=== PATIENT | male | born 1950 | race Caucasian/White ===

== ENCOUNTER 2021-02-07 10:38 | Observation (INO) ==
[2021-02-07 11:23] LABS: Basophils # (auto) 0.03 K/uL (0-0.2); Basophils % (auto) 0.4 %; Eosinophils # (auto) 0.08 K/uL (0-0.5); Eosinophils % (auto) 1.1 %; Hematocrit (blood only) 37.8 % (42-52); Hemoglobin 13.9 g/dL (14.0-18.0); Immature Granulocytes # (auto) 0.01 K/uL (0.00-0.02); Immature Granulocytes % (auto) 0.1 %; Lymphocytes # (auto) 1.46 K/uL (1.2-3.4); Lymphocytes % (auto) 19.7 %; Mean Corpuscular Hemoglobin 32.6 pg (25-34); Mean Corpuscular Hgb Conc 36.8 g/dL (32-36); Mean Corpuscular Volume 88.7 fL (80-100); Mean Platelet Volume 10.1 fL (7.4-10.4); Monocytes # (auto) 0.29 K/uL (0.11-0.59); Monocytes % (auto) 3.9 %; Neutrophils # (auto) 5.55 K/uL (1.4-6.5); Neutrophils % (auto) 74.8 %; Platelet Count 172 K/uL (130-400); RDW Coefficient of Variation 12.5 % (11.5-14.5); RDW Standard Deviation 39.8 fL (36.4-46.3); Red Blood Count 4.26 M/uL (4.7-6.1); White Blood Count 7.42 K/uL (4.8-10.8)
[2021-02-07] MEDS ORDERED: OPTIRAY 320 125ml IV ONE (11:26)
[2021-02-07 11:27] LABS: iSTAT Creatinine 0.8 mg/dl (0.6-1.3); iSTAT Hemoglobin 12.9 g/dl (14.0-18.0); iSTAT Ionized Calcium 1.21 mmol/l (1.12-1.32); iSTAT Potassium 4.1 mmol/L (3.3-5.0)
[2021-02-07 11:39] LABS: Alanine Aminotransferase 28 U/L (12-78); Albumin Level 3.8 gm/dl (3.4-5.0); Aspartate Aminotransferase 15 U/L (15-37); BUN Creatinine Ratio 11.5 (10-20); Blood Urea Nitrogen 12 mg/dl (7-18); Calcium 9.7 mg/dl (8.5-10.1); Carbon Dioxide 27 mmol/L (21-32); Chloride 104 mmol/L (98-107); Creatinine Clr Calc Pharmacy 74.2 ml/min; Est GFR (African American) 86.8; Est GFR (Non-African American) 74.9; Glucose 249 mg/dl (70-99); Magnesium 1.6 mg/dl (1.8-2.4); Potassium 3.9 mmol/L (3.5-5.1); Sodium 136 mmol/L (136-145)
[2021-02-07 11:44] LABS: Alkaline Phosphatase 97 U/L (45-117); Bilirubin,Total 0.6 mg/dl (0.2-1); Globulin 3.7 gm/dl (2.5-4.0); Total Protein 7.5 gm/dl (6.4-8.2); Troponin I < 0.015 ng/ml (0-0.045)
[2021-02-07 11:45] LABS: Partial Thromboplastin Time 25.2 Seconds (21.0-31.0); Prothrombin Time 10.3 Seconds (9.0-12.0)
--- NOTE | 2021-02-07 11:50 | CT Scan Report ---
CT head/brain wo con CLINICAL HISTORY: 70 years-old Male with Stroke Like Symptoms. Acute strokelike symptoms TECHNIQUE: Multiple axial CT images of the head were obtained without contrast. A dose lowering tech nique was utilized adhering to the principles of ALARA. COMPARISON: CTA head and neck of same day, head CT 01/05/2021 FINDINGS: No acute intracranial hemorrhage, midline shift, intracranial mass, hydrocephalus, territorial ischem ia or abnormal extra-axial collection. Mild age-related involutional changes. White matter hypodensit ies suggest chronic microvascular ischemic disease. Ill-defined 12 mm hypodensity of the subcortical left frontal lobe of the centrum semiovale on image 23 is new from prior. The calvarium is intact. Left optic nerve drusen. The paranasal sinuses, mastoid air cells, and middl e ear cavities are clear. IMPRESSION: 1. No acute intracranial hemorrhage, midline shift or acute territorial infarct. 2. Mild age-related involutional changes with chronic microvascular ischemic disease. 3. 12 mm ill-defined hypoattenuating focus of the subcortical centrum semiovale of the left frontal l obe is new from 01/05/2021 suspicious for an acute or subacute small infarct. ACT 112: Negative or not required by law. The above report was generated using voice recognition software. It may contain grammatical, syntax o r spelling errors. Electronically signed by: Johnathan Walker M.D. 02/07/2021 11:49 AM
--- NOTE | 2021-02-07 11:54 | Emergency Department Note ---
Impression & Plan Acute CVA (cerebrovascular accident) ED Provider Note NAME: NGA HARP AGE: 70 SEX: M : 1950 ARRIVES VIA: Walk-In INFORMANT: Patient, ED PROVIDER(S): Farzad Palomo DO CHIEF COMPLAINT: Right upper extremity weakness HPI: The patient is a 70-year-old male who presented to the emergency department for an evaluation of right upper extremity weakness. The patient has had symptoms for approximately 1 month. He was seen in our facility recently with similar complaints. At that time his work-up did not reveal source of his weakness. They did want to do an MRI but the patient could not do the MRI because of claustrophobia. He did follow-up with his primary care physician and the symptoms were thought to be secondary to a peripheral nerve issue. He denies having constant weakness and states he has had no new weakness over the last few days. 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 He is also states that he has had some lower extremity weakness on the right side as well but he states this has been ongoing and was not necessarily new. He denies having any fever or cough. He had no recent trauma. The patient states his symptoms are moderate at this time. He has no history of stroke or dysrhythmia. ROS: See above HPI for pertinent positives & negatives. A total of 10 systems reviewed and were otherwise negative. PAST MEDICAL HISTORY: See Below PAST SURGICAL HISTORY: See Below FAMILY HISTORY: See Below SOCIAL HISTORY: See Below HOME MEDICATIONS: See Below ALLERGIES: See Below VITALS: See Below PHYSICAL EXAMINATION: GENERAL: Patient is awake alert in no acute distress patient is resting comfo rtably and showing no signs of anxiety EYES: The conjunctivae are clear. The pupils are round and reactive. EARS, NOSE, MOUTH AND THROAT: The nose is without any evidence of any deformity. NECK: The neck is nontender and supple. RESPIRATORY: Normal respiratory effort is noted there is no evidence of wheezing rhonchi or rales CARDIOVASCULAR: Regular rate and rhythm noted there no murmurs rubs or gallops normal S1 normal S2. GASTROINTESTINAL: The abdomen is soft. Abdomen is nontender. MUSCULOSKELETAL/EXTREMITIES: There is no evidence of gross deformity full range of motion is noted in the hips and shoulders. SKIN: There is no obvious evidence of any rash. There are no petechiae, pallor or cyanosis noted. NEUROLOGIC: Patient is awake alert and oriented x3. Roll Capper strength appears symmetric in both upper extremities. The patient is able to hold each leg off the bed for greater than 5 seconds. MEDICAL DECISION MAKING: The patient is a 70-year-old male who presented to the emergency department for an evaluation of right upper extremity weakness. The patient appears to have been having symptoms over the course the last few weeks. He was seen in our facility initially for the symptoms. His work-up did not appear to be definitive and he was referred back to his primary care physician. He did follow-up with his primary care physician. There was some discussion about an MRI but the patient was unable to have an MRI because of claustrophobia. The patient presents emergency department today because of ongoing symptoms. It appears the symptoms may be waxing and waning but he continues to have right upper extremity weakness. I discussed the patient's laboratory and radiographic studies with him. He does appear to have changes on his CT that could be consistent with a subacute infarct. Angiography did not appear to be consistent with large vessel occlusion or finding that would be amenable to intervention. I discussed this case with the on-call [facility]. It is possible the patient would require further work-up to determine the source of this new finding on CT of the head. He was agreeable to plan. Triage Nursing notes reviewed. Prior medical records reviewed Vital Signs: reviewed and remarkable for elevated blood pressure. Differential diagnosis: Infection, dehydration, metabolic abnormality, hypo/hyperglycemia, electrolyte disturbance, anemia, hypoxia, cardiac sources, intracerebral event, toxicologic, neurologic, as well as other pathologies. ER treatment provided: See below Diagnostics interpreted by me: ECG: EKG was obtained in the emergency department. My interpretation is normal sinus rhythm at 69 bpm. There was no ectopy. LVH was noted by voltage criteria. Inferior T wave were noted. This was compared to a tracing from January 052020. No significant changes were noted. Cardiac Monitoring: An order was placed for continuous cardiac monitoring. The monitor shows a rate of 81 bpm with sinus rhythm. Laboratory studies: As stated above and show below. Imaging studies: See below Consultation(s): 1510: I discussed this case with Ne Rodriguez who is on-call for [facility]. They will evaluate the patient in the emergency department for further management. Past Med/Surg History Medical History GERD (gastroesophageal reflux disease) Surgical History History of knee surgery Social History Smoking Status: Never smoker Feels Safe at Home: Yes Allergies Allergies Allergy/AdvReac Type Severity Reaction Status Date / Time No Known Allergies Allergy Unverified 02/07/21 12:45 Home Meds Home Medications Medication Instructions Recorded Confirmed multivitamin 1 tab PO DAILY 01/05/21 02/07/21 ibuprofen [Advil] 400 mg PO Q6H PRN 02/07/21 02/07/21 Results & Data (ED) Vital Signs Vital Signs - 24 hr 02/07/21 10:42 02/07/21 10:55 02/07/21 12:00 Temperature 36.5 C Temperature Source Oral Pulse Rate 84 Pulse Rate [Left Apical] 73 73 Pulse Rhythm Regular Pulse Rhythm [Left Apical] Regular Regular Pulse Strength Normal Pulse Strength [Left Apical] Normal Normal Respiratory Rate 20 18 18 Respiratory Effort / Characteristics Non-Labored Spontaneous Non-Labored Spontaneous Non-Labored Spontaneous Respiratory Depth Normal Normal Normal Respiratory Pattern Regular Regular Regular Blood Pressure 163/92 H Blood Pressure [Left Arm] 157/84 H 152/81 H Blood Pressure Mean 115 Blood Pressure Mean [Left Arm] 108 104 Blood Pressure Position Sitting Blood Pressure Position [Left Arm] Lying Lying Pulse Oximetry 98 98 96 Oxygen Delivery Method Room Air Room Air Room Air Sepsis Recent Fever Within 48 Hours No Sepsis New/Unexplained Change in Mental Status No Sepsis Action Taken by Nursing No Action Required 02/07/21 13:00 02/07/21 13:50 Temperature Temperature Source Pulse Rate Pulse Rate [Left Apical] 72 81 Pulse Rhythm Pulse Rhythm [Left Apical] Regular Regular Pulse Strength Pulse Strength [Left Apical] Normal Normal Respiratory Rate 17 18 Respiratory Effort / Characteristics Non-Labored Spontaneous Non-Labored Spontaneous Respiratory Depth Normal Normal Respiratory Pattern Regular Blood Pressure Blood Pressure [Left Arm] 142/99 H 167/70 H Blood Pressure Mean Blood Pressure Mean [Left Arm] 113 102 Blood Pressure Position Blood Pressure Position [Left Arm] Lying Lying Pulse Oximetry 97 99 Oxygen Delivery Method Room Air Room Air Sepsis Recent Fever Within 48 Hours Sepsis New/Unexplained Change in Mental Status Sepsis Action Taken by Half-Way Medications Current Medication List: was personally reviewed by me Laboratory Data Attestation: I reviewed the patient's lab results. Result diagrams: 02/07/21 11:07 02/07/21 11:07 Lab Results 02/07/21 02/07/21 02/07/21 Range/Units 11:07 11:07 11:07 WBC 7.42 (4.8-10.8) K/uL RBC 4.26 L (4.7-6.1) M/uL Hgb 13.9 L (14.0-18.0) g/dL POC Hgb (14.0-18.0) g/dl Hct 37.8 L (42-52) % POC Hct (42-52) % MCV 88.7 (80-100) fL MCH 32.6 (25-34) pg MCHC 36.8 H (32-36) g/dL RDW Std Deviation 39.8 (36.4-46.3) fL RDW Coeff of Mateusz 12.5 (11.5-14.5) % Plt Count 172 (130-400) K/uL MPV 10.1 (7.4-10.4) fL Immature Gran % (Auto) 0.1 % Neut % (Auto) 74.8 % Lymph % (Auto) 19.7 % Grimes % (Auto) 3.9 % Eos % (Auto) 1.1 % Baso % (Auto) 0.4 % Neut # (Auto) 5.55 (1.4-6.5) K/uL Lymph # (Auto) 1.46 (1.2-3.4) K/uL Grimes # (Auto) 0.29 (0.11-0.59) K/uL Eos # (Auto) 0.08 (0-0.5) K/uL Baso # (Auto) 0.03 (0-0.2) K/uL Immature Gran # (Auto) 0.01 (0.00-0.02) K/uL PT 10.3 (9.0-12.0) Seconds INR 1.0 (0.9-1.1) APTT 25.2 (21.0-31.0) Seconds PTT Ratio 1.0 POC Sodium (135-144) mmol/L Sodium 136 (136-145) mmol/L POC Potassium (3.3-5.0) mmol/L Potassium 3.9 (3.5-5.1) mmol/L POC Chloride (101-112) mmol/L Chloride 104 (98-107) mmol/L Carbon Dioxide 27 (21-32) mmol/L POC Total CO2 (24-31) mmol/L Anion Gap 5.0 (3-11) POC Anion Gap (16-25) mmol/L POC BUN (7-18) mg/dl BUN 12 (7-18) mg/dl Creatinine 1.00 (0.6-1.4) mg/dl POC Creatinine (0.6-1.3) mg/dl Est Cr Clr Drug Dosing 74.2 ml/min Est GFR ( Amer) 86.8 Est GFR (Non-Af Amer) 74.9 BUN/Creatinine Ratio 11.5 (10-20) Glucose 249 H (70-99) mg/dl POC Glucose (other) (70-99) mg/dl Calcium 9.7 (8.5-10.1) mg/dl POC Ioniz Calcium Carlita (1.12-1.32) mmol/l Magnesium 1.6 L (1.8-2.4) mg/dl Total Bilirubin 0.6 (0.2-1) mg/dl AST 15 (15-37) U/L ALT 28 (12-78) U/L Alkaline Phosphatase 97 (45-117) U/L Troponin I < 0.015 (0-0.045) ng/ml Total Protein 7.5 (6.4-8.2) gm/dl Albumin 3.8 (3.4-5.0) gm/dl Globulin 3.7 (2.5-4.0) gm/dl Albumin/Globulin Ratio 1.0 (0.9-2) COVID-19 Eval Order SARS-CoV-2, RNA, NAAT (NEGATIVE) 02/07/21 02/07/21 02/07/21 Range/Units 11:13 13:04 13:04 WBC (4.8-10.8) K/uL RBC (4.7-6.1) M/uL Hgb (14.0-18.0) g/dL POC Hgb 12.9 L (14.0-18.0) g/dl Hct (42-52) % POC Hct 38 L (42-52) % MCV (80-100) fL MCH (25-34) pg MCHC (32-36) g/dL RDW Std Deviation (36.4-46.3) fL RDW Coeff of Mateusz (11.5-14.5) % Plt Count (130-400) K/uL MPV (7.4-10.4) fL Immature Gran % (Auto) % Neut % (Auto) % Lymph % (Auto) % Grimes % (Auto) % Eos % (Auto) % Baso % (Auto) % Neut # (Auto) (1.4-6.5) K/uL Lymph # (Auto) (1.2-3.4) K/uL Grimes # (Auto) (0.11-0.59) K/uL Eos # (Auto) (0-0.5) K/uL Baso # (Auto) (0-0.2) K/uL Immature Gran # (Auto) (0.00-0.02) K/uL PT (9.0-12.0) Seconds INR (0.9-1.1) APTT (21.0-31.0) Seconds PTT Ratio POC Sodium 137 (135-144) mmol/L Sodium (136-145) mmol/L POC Potassium 4.1 (3.3-5.0) mmol/L Potassium (3.5-5.1) mmol/L POC Chloride 100 L (101-112) mmol/L Chloride (98-107) mmol/L Carbon Dioxide (21-32) mmol/L POC Total CO2 27 (24-31) mmol/L Anion Gap (3-11) POC Anion Gap 15.0 L (16-25) mmol/L POC BUN 12 (7-18) mg/dl BUN (7-18) mg/dl Creatinine (0.6-1.4) mg/dl POC Creatinine 0.8 (0.6-1.3) mg/dl Est Cr Clr Drug Dosing ml/min Est GFR ( Amer) Est GFR (Non-Af Amer) BUN/Creatinine Ratio (10-20) Glucose (70-99) mg/dl POC Glucose (other) 251 H (70-99) mg/dl Calcium (8.5-10.1) mg/dl POC Ioniz Calcium Carlita 1.21 (1.12-1.32) mmol/l Magnesium (1.8-2.4) mg/dl Total Bilirubin (0.2-1) mg/dl AST (15-37) U/L ALT (12-78) U/L Alkaline Phosphatase (45-117) U/L Troponin I (0-0.045) ng/ml Total Protein (6.4-8.2) gm/dl Albumin (3.4-5.0) gm/dl Globulin (2.5-4.0) gm/dl Albumin/Globulin Ratio (0.9-2) COVID-19 Eval Order Covid19 [facility]Now [facility] SARS-CoV-2, RNA, NAAT NEGATIVE (NEGATIVE) Administered Medications Discontinued Medications Aspirin (Aspirin 81 Mg Chew) 324 mg PO NOW ONE Stop: 02/07/21 13:31 Last Admin: 02/07/21 13:49 Dose: 324 mg Documented by: [id number] Ioversol (Optiray 320 125ml) 120 ml IV ONCE ONE Stop: 02/07/21 11:27 Last Admin: 02/07/21 11:26 Dose: 120 ml Documented by: [id number] Imaging Data Radiologist's Impression: Patient: NGA HARP Admit Date: 02/07/21 MR#: [id number] Address1: [address] [place] [address] [address] Acct ID:[id number] Address2: Date: 1950 [facility] Zip: [place] [address] Age: 70 Location: ED Sex: M Room/Bed: Att Phy: Diagnosis: WEAKNESS ON RIGHT SIDE Elisabeth Phy: Roxanne Carver DO Service Date: 02/07/21 [facility] Phy: Interpreting Phy: Taye Walker Admit Phy: Ordering Phy: Farzad Palomo DO cc: ~ CT angio neck with con, CT angio head w con CLINICAL HISTORY: 70 years-old Male with Stroke Like Symptoms. Acute strokelike symptoms COMPARISON STUDY: Head CT of same day TECHNIQUE: Following the IV administration of 120 mL of Optiray 320, CT angiogram of the head and neck was performed from the aortic arch to the skull apex. Images are reviewed in the axial, sagittal, and coronal planes. 3-D MIPS images are created and assessed. IV contrast was administered without complication. All measurements were calculated based on NASCET criteria. A dose lowering technique was utilized adhering to the principles of ALARA. CT DOSE: 1227.10 mGy.cm FINDINGS: Atheromatous plaque of the thoracic aortic arch and proximal great vessels. Patency of the innominate and imaged subclavian arteries. Patent common carotid arteries. Mixed plaque of the carotid bulbs and proximal cervical segments of the internal carotid arteries results in less than 50% stenosis bilaterally. Additional calcified plaque is noted within the petrous, cavernous and supraclinoid segments. There is high-grade stenosis of the ophthalmic segment of the left ICA on image 99 secondary to prominent plaque. High-grade stenosis is also noted within the supraclinoid right ICA secondary to calcified plaque is seen on image 97. The middle and anterior cerebral arteries are patent. Moderate multifocal luminal narrowing involves the proximal M2 branches of the left middle cerebral artery. Codominant and widely patent vertebral arteries. The basilar and posterior cerebral arteries are patent. Cerebral venous sinuses are patent. There is no abnormal intracranial enhancement identified. Ill-defined hypodensity within the centrum semiovale of the left frontal lobe is better seen on CT had of same day. The lung apices are clear. There is no pneumothorax. Nonspecific mildly enlarged paratracheal lymph nodes measure up to 10 mm. Heterogeneous thyroid. Multilevel degenerative changes of the spine. IMPRESSION: 1. Prominent calcified plaque of the distal internal carotid arteries with resultant high-grade stenosis of the bilateral supraclinoid segments, left great er than right. 2. Atheromatous plaque of the carotid bulbs results in less than 50% stenosis bilaterally. 3. Otherwise unremarkable CTA of the head and neck. ACT 112: Negative or not required by law. The above report was generated using voice recognition software. It may contain grammatical, syntax or spelling errors. Electronically signed by: Johnathan Walker M.D. 02/07/2021 11:58 AM Dictated: 02/07/21 114 Transcribed: 02/07/21 1149 Patient: NGA HARP Admit Date: 02/07/21 MR#: [id number] Address1: [facility] [address] [facility] [address] Acct ID:[id number] Address2: Date: 1950 [facility] Zip: [place] [address] Age: 70 Location: ED Sex: M Room/Bed: Att Phy: Diagnosis: WEAKNESS ON RIGHT SIDE Elisabeth Phy: Roxanne Carver DO Service Date: 02/07/21 Fam Phy: Interpreting Phy: Taye Walker Admit Phy: Ordering Phy: Farzad Palomo DO cc: ~ CT head/brain wo con CLINICAL HISTORY: 70 years-old Male with Stroke Like Symptoms. Acute strokelike symptoms TECHNIQUE: Multiple axial CT images of the head were obtained without contrast. A dose lowering technique was utilized adhering to the principles of ALARA. COMPARISON: CTA head and neck of same day, head CT 01/05/2021 FINDINGS: No acute intracranial hemorrhage, midline shift, intracranial mass, hydrocephalus, territorial ischemia or abnormal extra-axial collection. Mild age-related involutional changes. White matter hypodensities suggest chronic microvascular ischemic disease. Ill-defined 12 mm hypodensity of the subcortical left frontal lobe of the centrum semiovale on image 23 is new from prior. The calvarium is intact. Left optic nerve drusen. The paranasal sinuses, mastoid air cells, and middle ear cavities are clear. IMPRESSION: 1. No acute intracranial hemorrhage, midline shift or acute territorial infarct. 2. Mild age-related involutional changes with chronic microvascular ischemic disease. 3. 12 mm ill-defined hypoattenuating focus of the subcortical centrum semiovale of the left frontal lobe is new from 01/05/2021 suspicious for an acute or subacute small infarct. ACT 112: Negative or not required by law. The above report was generated using voice recognition software. It may contain grammatical, syntax or spelling errors. Electronically signed by: Johnathan Walker M.D. 02/07/2021 11:49 AM Dictated: 02/07/21 1145 Transcribed: 02/07/21 1145 Patient: NGA HARP Admit Date: 02/07/21 MR#: [id number] Address1: [address] [place] [address] [address] Acct ID:[id number] Address2: Date: 1950 [facility] Zip: [place] [address] Age: 70 Location: ED Sex: M Room/Bed: Att Phy: Diagnosis: WEAKNESS ON RIGHT SIDE Elisabeth Phy: Roxanne Carver DO Service Date: 02/07/21 [facility] Phy: Interpreting Phy: Taye Walker Admit Phy: Ordering Phy: Farzad Palomo DO cc: ~ XR chest 1V portable HISTORY: 70 years-old Male Stroke Like Symptoms acute strokelike symptoms COMPARISON: CTA of the neck of same day TECHNIQUE: Portable AP view of the chest FINDINGS: Cardiomegaly. Small calcified granuloma of the left midlung. No pneumothorax, lobar airspace consolidation or overt pulmonary edema. Unchanged blunting of the right costophrenic angle. Mild interstitial coarsening, possibly on a chronic basis. Degenerative changes of the shoulders and spine. IMPRESSION: No acute process. ACT 112: Negative or not required by law. The above report was generated using voice recognition software. It may contain grammatical, syntax or spelling errors. Electronically signed by: Johnathan Walker M.D. 02/07/2021 12:27 PM Dictated: 02/07/21 1225 Transcribed: 02/07/21 1225 Discharge Plan Visit Data Chief Complaint: Weakness Stated Complaint: WEAKNESS ON RIGHT SIDE ED Provider: Farzad Palomo Discharge Problem: Acute CVA (cerebrovascular accident) Patient Disposition: Being Evaluated by Hospitalist Condition: Good Forms Stand Alone Forms: [facility] [place] Prescriptions Prescriptions: No Action multivitamin Tablet 1 tab PO DAILY RF: 0 ibuprofen [Advil] 200 mg Tablet 400 mg PO Q6H PRN (Reason: Fever Or Pain) RF: 0 Referrals Referrals: Roxanne Carver DO [Primary Care Provider] -
--- NOTE | 2021-02-07 12:00 | CT Scan Report ---
CT angio neck with con, CT angio head w con CLINICAL HISTORY: 70 years-old Male with Stroke Like Symptoms. Acute strokelike symptoms COMPARISON STUDY: Head CT of same day TECHNIQUE: Following the IV administration of 120 mL of Optiray 320, CT angiogram of the head and nec k was performed from the aortic arch to the skull apex. Images are reviewed in the axial, sagittal, a nd coronal planes. 3-D MIPS images are created and assessed. IV contrast was administered without com plication. All measurements were calculated based on NASCET criteria. A dose lowering technique was utilized adhering to the principles of ALARA. CT DOSE: 1227.10 mGy.cm FINDINGS: Atheromatous plaque of the thoracic aortic arch and proximal great vessels. Patency of the innominate and imaged subclavian arteries. Patent common carotid arteries. Mixed plaque of the caroti d bulbs and proximal cervical segments of the internal carotid arteries results in less than 50% sten osis bilaterally. Additional calcified plaque is noted within the petrous, cavernous and supraclinoid segments. There is high-grade stenosis of the ophthalmic segment of the left ICA on image 99 seconda ry to prominent plaque. High-grade stenosis is also noted within the supraclinoid right ICA secondary to calcified plaque is seen on image 97. The middle and anterior cerebral arteries are patent. Moder ate multifocal luminal narrowing involves the proximal M2 branches of the left middle cerebral artery . Codominant and widely patent vertebral arteries. The basilar and posterior cerebral arteries are pa tent. Cerebral venous sinuses are patent. There is no abnormal intracranial enhancement identified. I ll-defined hypodensity within the centrum semiovale of the left frontal lobe is better seen on CT had of same day. The lung apices are clear. There is no pneumothorax. Nonspecific mildly enlarged paratracheal lymph n odes measure up to 10 mm. Heterogeneous thyroid. Multilevel degenerative changes of the spine. IMPRESSION: 1. Prominent calcified plaque of the distal internal carotid arteries with resultant high-grade steno sis of the bilateral supraclinoid segments, left greater than right. 2. Atheromatous plaque of the carotid bulbs results in less than 50% stenosis bilaterally. 3. Otherwise unremarkable CTA of the head and neck. ACT 112: Negative or not required by law. The above report was generated using voice recognition software. It may contain grammatical, syntax o r spelling errors. Electronically signed by: Johnathan Walker M.D. 02/07/2021 11:58 AM
--- NOTE | 2021-02-07 12:17 | Electrocardiogram Report ---
Test Reason : Blood Pressure : / mmHG Vent. Rate : 069 BPM Atrial Rate : 069 BPM P-R Int : 168 ms QRS Dur : 104 ms QT Int : 406 ms P-R-T Axes : 061 -26 -10 degrees QTc Int : 435 ms Normal sinus rhythm Minimal voltage criteria for LVH, may be normal variant Otherwise Normal ECG When compared with ECG of 05-JAN-2021 12:05, No significant change was found Confirmed by Farzad Dunbar ([id number]) on 02/07/2021 12:16:50 PM Referred By: REFERRED SELF Confirmed By:Farzad Dunbar
--- NOTE | 2021-02-07 12:29 | XRay Report ---
XR chest 1V portable HISTORY: 70 years-old Male Stroke Like Symptoms acute strokelike symptoms COMPARISON: CTA of the neck of same day TECHNIQUE: Portable AP view of the chest FINDINGS: Cardiomegaly. Small calcified granuloma of the left midlung. No pneumothorax, lobar airspace consolid ation or overt pulmonary edema. Unchanged blunting of the right costophrenic angle. Mild interstitial coarsening, possibly on a chronic basis. Degenerative changes of the shoulders and spine. IMPRESSION: No acute process. ACT 112: Negative or not required by law. The above report was generated using voice recognition software. It may contain grammatical, syntax o r spelling errors. Electronically signed by: Johnathan Walker M.D. 02/07/2021 12:27 PM
[2021-02-07] MEDS ORDERED: ASPIRIN 81 MG CHEW PO ONE (13:30)
--- NOTE | 2021-02-07 13:31 | History & Physical Report ---
Date of Service February 07, 2021 Assessment & Plan (1) Acute CVA (cerebrovascular accident): This is a 70-year-old male with PMH of uncontrolled type 2 diabetes, ongoing tobacco use and other medical problems listed below who presents with right upper extremity weakness and was found to have acute CVA. Intermittent paresthesias in right upper extremity x5 weeks with developing weakness Head CT with12 mm ill-defined hypoattenuating focus of the subcortical centrum semiovale of the left frontal lobe is new from 01/05/2021 suspicious for an acute or subacute small infarct Head/neck CTA also with prominent calcified plaque of the distal internal carotid arteries with resultant high-grade stenosis of the bilateral supraclinoid segments, left > R History of significant tobacco use, uncontrolled DM, family history of stroke MRI brain attempted as outpatient but unable to complete imaging study 2/2 severe claustrophobia Given 324mg aspirin in ED Initiate baby aspirin daily and atorvastatin 40mg daily A1c 9.8 from last month Neuro checks, PT, OT, speech therapy evaluations, fasting lipid panel, echo with bubble study pending Routine neurology consult (2) Tobacco use disorder: Currently smoking 1.5-2 ppd Counseled on importance of cessation (3) Type 2 diabetes mellitus: A1c of 9.8 in Dec 2020 History of poor compliance with metformin, states he has been taking more regularly since more recent alc Glycemic consult placed for education, optimizing regimen BSG AC HS DVT Ppx: SQ heparin Code status: FULL PCP: Addy Dispo: Admitted to PCU. Discharge planning ordered. Patient seen in collaboration with Dr. Davis. Please see addendum. History of Present Illness Chief Complaint: Weakness and paresthesias of right hand Primary Care Provider: Roxanne Carver DO This is a 70-year-old male with PMH of uncontrolled type 2 diabetes, ongoing tobacco use and other medical problems listed below who presents with right upper extremity weakness. Patient first developed numbness and paresthesias of right hand at the beginning of December and was seen in our emergency department on 01/[address] head at that time abnormal patient was directed to follow-up with PCP for further evaluation. Was ordered MRI brain in outpatient setting for further stroke evaluation but patient with severe claustrophobia and did not tolerate MRI. Continued to have intermittent paresthesias of right hand that spread to right arm as well that improved after patient took aspirin or ibuprofen and applied heat. However, in the past few days, patient was unable to sign his name and felt "clumsy" when trying to use his right hand. Came to ED for further evaluation. No speaking or swallowing difficulties or weakness or paresthesias in other extremities. No difficulty with ambulation. Still able to use his right hand just not at his baseline. Quit drinking alcohol at the beginning of December when he was told his diabetes was uncontrolled. Had previously not been compliant with Metformin but is now taking daily and checking his blood sugar at home. Continues to smoke 1.5 to 2 packs/day of cigarettes. Denies any fever, chills, lightheadedness, headache, chest pain, shortness of breath, nausea, vomiting, abdominal pain, dysuria, diarrhea or constipation. Father with h/o stroke. Allergies Allergy/AdvReac Type Severity Reaction Status Date / Time No Known Allergies Allergy Unverified 02/07/21 12:45 Home Medications Medication Instructions Recorded Confirmed Type multivitamin 1 tab PO DAILY 01/05/21 02/07/21 History ibuprofen [Advil] 400 mg PO Q6H PRN 02/07/21 02/07/21 History aspirin 81 mg PO QAM #30 tab 02/08/21 Rx atorvastatin 40 mg PO QPM #30 tab 02/08/21 Rx clopidogrel [Plavix] 75 mg PO DAILY #21 tab 02/08/21 Rx glipizide 5 mg PO DAILY #2 tab 02/08/21 Rx metformin 1,000 mg PO DAILY #30 tab 02/08/21 Rx Past Med/Surg History Medical History (Updated 02/07/21 @ 18:27 by Ne Rodriguez PA-C) GERD (gastroesophageal reflux disease) Tobacco use disorder Type 2 diabetes mellitus Surgical History (Updated 02/07/21 @ 18:27 by Ne Rodriguez PA-C) History of knee surgery History of knee surgery Family History Other Stroke Social History (Updated 02/07/21 @ 18:51 by Ne Rodriguez PA-C) Smoking Status: Current every day smoker Cigarettes Per Day: 30-40; Do You Dip or Chew Tobacco: No; Tobacco Cessation Education Requested by Patient: No Hx Alcohol Use: Yes Alcohol type: beer Alcohol Intake Frequency Comment: quit 5 weeks ago Hx Substance Use: No Preferred Language: Yi Communication Ability: Effective Multineedle Shirrer Required: No Beliefs That Will Affect Care: None Current Living Situation: Alone Feels Safe at Home: Yes Assistive Devices: Cane Review of Systems Review of Systems: At least ten systems reviewed and negative except as noted in the HPI. Physical Exam Physical Exam: General Appearance: WD/WN, vitals as above, NAD, sitting up in bed, pleasant, conversing easily Head: normocephalic, atraumatic Eyes: normal inspection, PERRL, conjunctivae normal, anicteric sclerae ENT: external ear and nose normal, oropharynx normal Neck: normal visual inspection, trachea midline, no thyromegaly Respiratory: normal respiratory effort, lungs clear to auscultation, no wheeze, rales, rhonchi. No accessory muscle use Cardiovascular: regular rate, rhythm, no murmur, normal peripheral pulses, no BLE edema. Vessels: no JVD Chest: normal inspection of chest Abdomen/GI: normal bowel sounds, soft, nontender, no hepatosplenomegaly Extremities/Musculoskeletal: no cyanosis or clubbing, RUE 4/5 CRISTÓBAL, LUE, LLE, RLE 5/5 CRISTÓBAL Neurologic: PERRL, EOMI, accommodation nl, no face palsy, no dysarthria, CN's II-XI intact bilaterally and moves all extremities. R hand with slowed movements but purposeful. Sensation intact Psychiatric: A+Ox3, euthymic affect Skin: no rashes, normal color, warm/dry Results & Data Results & Data ([facility]) Vital Signs (Past 12 Hours) Vital Signs Temp Pulse Pulse Resp BP BP Pulse Ox 02/07/21 13:00 72 17 142/99 H 97 02/07/21 12:00 73 18 152/81 H 96 02/07/21 10:55 73 18 157/84 H 98 02/07/21 10:42 36.5 C 84 20 163/92 H 98 Laboratory Results Short CBC 02/07/21 Range/Units 11:07 WBC 7.42 (4.8-10.8) K/uL Hgb 13.9 L (14.0-18.0) g/dL Hct 37.8 L (42-52) % Plt Count 172 (130-400) K/uL BMP 02/07/21 11:07 Sodium 136 Potassium 3.9 Chloride 104 Carbon Dioxide 27 BUN 12 Creatinine 1.00 Glucose 249 H Calcium 9.7 Cardiac Enzymes 02/07/21 Range/Units 11:07 Troponin I < 0.015 (0-0.045) ng/ml Liver Function 02/07/21 Range/Units 11:07 Total Bilirubin 0.6 (0.2-1) mg/dl AST 15 (15-37) U/L ALT 28 (12-78) U/L Alkaline Phosphatase 97 (45-117) U/L Albumin 3.8 (3.4-5.0) gm/dl Diagnostic Findings Head CT: IMPRESSION: 1. No acute intracranial hemorrhage, midline shift or acute territorial infarct. 2. Mild age-related involutional changes with chronic microvascular ischemic disease. 3. 12 mm ill-defined hypoattenuating focus of the subcortical centrum semiovale of the left frontal lobe is new from 01/05/2021 suspicious for an acute or subacute small infarct. Head CTA: IMPRESSION: 1. Prominent calcified plaque of the distal internal carotid arteries with resultant high-grade stenosis of the bilateral supraclinoid segments, left greater than right. 2. Atheromatous plaque of the carotid bulbs results in less than 50% stenosis bilaterally. 3. Otherwise unremarkable CTA of the head and neck. Neck CTA: IMPRESSION: 1. Prominent calcified plaque of the distal internal carotid arteries with resultant high-grade stenosis of the bilateral supraclinoid segments, left greater than right. 2. Atheromatous plaque of the carotid bulbs results in less than 50% stenosis bilaterally. 3. Otherwise unremarkable CTA of the head and neck. CXR: IMPRESSION: No acute process Code Status & VTE Plan VTE Prophylaxis Plan VTE Prophylaxis will be ordered: Yes Supervising Physician Co-Signing Physician Notes Attending Addendum: care coordinated with [] please refer to her notes for full details, I agree with her notes patient seen and examined, records reviewed by myself as well on exam, patient [] no other symptoms VS noted and reviewed oriented , not in distress, speaks in sentences with no effort nor accessory muscle use normal rate, regular rhythm, no murmurs clear breath sounds bilaterally non distended, soft, nontender no bipedal edema, erythema, warmth no neuro deficits WBC Hg Crea ASSESSMENT AND PLAN other diagnoses and plan of care as per [] Aaron Davis MD
[2021-02-07] MEDS ORDERED: POLYETHYLENE (MIRALAX) 17 GM PACK PO PRN (15:32)
[2021-02-07] MEDS ORDERED: ACETAMINOPHEN 325 MG TAB PO PRN (15:32)
[2021-02-07] MEDS ORDERED: PHARMACIST DISCHARGE MED REC CONSULT PRN (15:32)
[2021-02-07] MEDS ORDERED: ONDANSETRON INJ 2 MG/ML 2 ML VIAL IV PRN (15:32)
[2021-02-07] MEDS ORDERED: PHARMACY GLYCEMIC MGMT CONSULT PRN (15:40)
[2021-02-07] MEDS ORDERED: DEXTROSE 50% 50 ML SYRINGE IV PRN (15:45)
[2021-02-07] MEDS ORDERED: CARBOHYDRATES FOR HYPOGLYCEMIA PO PRN (15:45)
[2021-02-07] MEDS ORDERED: GLUCOSE 10 TABS/TUBE PO PRN (15:45)
[2021-02-07] MEDS ORDERED: GLUCAGON FOR INJ 1 MG VIAL IM PRN (15:45)
[2021-02-07] MEDS ORDERED: GLUCOSE 40% GEL 15 GM TUBE PO PRN (15:45)
[2021-02-07] MEDS: HEPARIN SOD 5,000 UNIT/0.5 ML VIAL SQ SCH ×2 (17:43→21:21)
[2021-02-07] MEDS: INSULIN ASPART 100 UNITS/ML 3 ML PEN SC SCH ×3 (17:43→23:39)
[2021-02-07] MEDS ORDERED: INSULIN GLARGINE SOLOSTAR 100 UNITS/ML 3 ML PEN SC ONE (18:00)
[2021-02-07] MEDS ORDERED: MAGNESIUM SULFATE / D5W 1 GM/100 ML BAG IV ONE (18:45)
[2021-02-07] MEDS ORDERED: ATORVASTATIN 40 MG TAB PO SCH (21:00)
[2021-02-08] MEDS: INSULIN ASPART 100 UNITS/ML 3 ML PEN SC SCH ×3 (04:04→12:24)
[2021-02-08] MEDS: HEPARIN SOD 5,000 UNIT/0.5 ML VIAL SQ SCH ×2 (06:27→12:23)
[2021-02-08 06:50] LABS: Hematocrit (blood only) 36.3 % (42-52); Mean Corpuscular Hemoglobin 32.1 pg (25-34); Mean Corpuscular Hgb Conc 35.8 g/dL (32-36); Mean Corpuscular Volume 89.6 fL (80-100); Mean Platelet Volume 10.7 fL (7.4-10.4); Platelet Count 164 K/uL (130-400); RDW Coefficient of Variation 12.6 % (11.5-14.5); RDW Standard Deviation 40.8 fL (36.4-46.3); Red Blood Count 4.05 M/uL (4.7-6.1); White Blood Count 6.93 K/uL (4.8-10.8)
[2021-02-08 07:31] LABS: BUN Creatinine Ratio 13.5 (10-20); Calcium 8.9 mg/dl (8.5-10.1); Creatinine Clr Calc Pharmacy 98.6 ml/min; Est GFR (African American) 101.4; Est GFR (Non-African American) 87.5; Potassium 3.7 mmol/L (3.5-5.1)
[2021-02-08] MEDS ORDERED: CLOPIDOGREL BISULFATE 75 MG TAB PO SCH (09:00)
[2021-02-08] MEDS ORDERED: ASPIRIN 81 MG ECTAB PO SCH (09:00)
[2021-02-08] MEDS ORDERED: ATORVASTATIN 40 MG TAB PO SCH (09:00)
[2021-02-08] MEDS ORDERED: INSULIN GLARGINE SOLOSTAR 100 UNITS/ML 3 ML PEN SC ONE (12:00)
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
--- NOTE | 2021-02-08 13:45 | Communication Note ---
Date of Service: February 08, 2021 Addendum: I suggested that we actually give Lola Plavix loading dose in anticipation of him being discharged today, continue regular dose Plavix and low -dose aspirin for 21 days, stop the Plavix at that point, continue the aspirin, and while I doubt that this is an atrial fibrillation related issue he could have a second source of emboli and certainly has risk factors for paroxysmal atrial fibrillation so we may end up doing a Zio patch on an outpatient basis when we see him Richardson Verdin MD
[2021-02-08] MEDS ORDERED: CLOPIDOGREL BISULFATE 300 MG TAB PO STA (13:57)
--- NOTE | 2021-02-08 14:10 | Pharmacy Report ---
Pharmacy Glycemic Short Note 2 - Date of Service February 08, 2021 - Glycemic Short BSG Results (Last 24 hours): 02/07/21 02/07/21 02/07/21 16:28 20:03 23:37 Glucose POC Glucose 222 H 140 H 142 H 02/08/21 02/08/21 02/08/21 04:02 05:57 07:33 Glucose 142 H POC Glucose 147 H 152 H 02/08/21 11:31 Glucose POC Glucose 211 H OUTPATIENT ANTIDIABETIC REGIMEN: * N/A * HbA1c: 9.8% (01/05/21) ASSESSMENT: * DR is a 70 year old male who presents with acute CVA * BSG on presentation of 249 mg/dL * Patient does not take antidiabetic medications at home * Received 20 units of Lantus and 17 units of Novolog yesterday/overnight * Fasting BSG of 152 mg/dL this morning * Pre-lunch BSG of 211 mg/dL * Will tighten Novolog and give Lantus now PLAN FOR INPATIENT GLYCEMIC CONTROL: * Basal insulin * Lantus 20 units SC x 1 at lunch * Lantus scale (0-15 units) SC HS - see EHR for details * Bolus insulin * NovoLog per scale ACHS or Q6hrs while NPO * Goal Range: Low 110 mg/dL - High 140 mg/dL * Correction Factor: 15 mg/dL/unit * Nutritional / Prandial insulin per carb ratio of 1 unit per 5 grams CHO consumed PLAN FOR DISCHARGE: * tbd
--- NOTE | 2021-02-08 14:46 | Communication Note ---
Date of Service: February 08, 2021 By CMS guidelines, a determination that the admission or continued stay is not medically necessary has been made by a member of the Utilization Review comm ittee and a physician for this hospital stay. Therefore, a Code 44 will be completed and the inpatient admission will be changed to outpatient. DO Naldo UR Hammer Smith
--- NOTE | 2021-02-08 14:47 | Hospitalist Progress Note ---
Date of Service February 08, 2021 Assessment & Plan (1) Acute CVA (cerebrovascular accident): Per COLLEEN Rodriguez's notes: This is a 70-year-old male with PMH of uncontrolled type 2 diabetes, ongoing tobacco use and other medical problems listed below who presents with right upper extremity weakness and was found to have acute CVA. Intermittent paresthesias in right upper extremity x5 weeks with developing weakness Head CT with12 mm ill-defined hypoattenuating focus of the subcortical centrum semiovale of the left frontal lobe is new from 01/05/2021 suspicious for an acute or subacute small infarct Head/neck CTA also with prominent calcified plaque of the distal internal carotid arteries with resultant high-grade stenosis of the bilateral supraclinoid segments, left > R History of significant tobacco use, uncontrolled DM, family history of stroke MRI brain attempted as outpatient but unable to complete imaging study 2/2 severe claustrophobia Given 324mg aspirin in ED Initiate baby aspirin daily and atorvastatin 40mg daily A1c 9.8 from last month Neuro checks, PT, OT, speech therapy evaluations, fasting lipid panel, echo with bubble study pending Routine neurology consult 02/08/2021 Patient clinically improved Echocardiogram: No documented interatrial shunt, EF 55%, no regional wall motion abnormalities Recommendations of neurology service Dr. Verdin noted Cleared for discharge today Discharge plan: Aspirin and Plavix for 3 weeks, then aspirin only Continue Lipitor Strict diabetes type 2, hypertension, dyslipidemia control No smoking Follow-up with Dr. Verdin in 2 to 4 weeks for referral to vascular surgeon and Zio patch placement Bilateral carotid artery stenosis Seen on CT angiogram of head and neck Placed on aspirin, Plavix, Lipitor Refer to vascular surgeon for further recommendations (2) Tobacco use disorder: Currently smoking 1.5-2 ppd Counseled on importance of cessation (3) Type 2 diabetes mellitus: A1c of 9.8 in Dec 2020 Metformin transitioned to metformin ER 1000 mg p.o. daily for better adherence Follow-up as an outpatient plan of care discussed with patient in detail and at length all questions answered He is understanding, agreeable, comfortable with the plan of care Admission and Anticipated Discharge Date Admission Date: February 07, 2021 Subjective Follow-up for CVA Seen resting in bed, comfortable, in good spirits States he feels fine overall Right hand motor skills improving, can write his name better Ambulating fine No headache, dizziness, chest pain, shortness of breath, palpitations No other new neurologic symptoms States he is ready and would like to be be discharged today Review of Systems Review of Systems: All systems reviewed & are unremarkable except as noted in Subjective Physical Exam Physical Exam: General- oriented x 2, not in distress, speaks in sentences with no effort or accessory muscle use Eyes- anicteric Neck- no JVD Lungs- clear breath sounds bilaterally, no rales/wheezes Heart- normal rate, regular rhythm; no murmurs Abdomen- normal bowel sounds, nondistended, soft, nontender Extremities- no pretibial edema, no calf tenderness Neuro- alert, oriented x 3; no new gross focal neurologic deficits Skin- warm & dry Results & Data Results & Data ([facility]) Vital Signs (Past 12 Hours) Vital Signs Temp Pulse Pulse Resp BP Pulse Ox 02/08/21 07:44 36.6 C 65 17 134/81 94 02/08/21 07:20 61 02/08/21 03:56 36.9 C 67 19 108/68 96 Laboratory Results Laboratory Results - last 24 hr 02/07/21 02/07/21 02/08/21 20:03 23:37 04:02 WBC RBC Hgb Hct MCV MCH MCHC RDW Std Deviation RDW Coeff of Mateusz Plt Count MPV Sodium Potassium Chloride Carbon Dioxide Anion Gap BUN Creatinine Est Cr Clr Drug Dosing Est GFR ( Amer) Est GFR (Non-Af Amer) BUN/Creatinine Ratio Glucose POC Glucose 140 H 142 H 147 H Calcium Triglycerides Cholesterol LDL Cholesterol, Calc VLDL Cholesterol, Calc HDL Cholesterol Cholesterol/HDL Ratio 02/08/21 02/08/21 02/08/21 05:57 05:57 07:33 WBC 6.93 RBC 4.05 L Hgb 13.0 L Hct 36.3 L MCV 89.6 MCH 32.1 MCHC 35.8 RDW Std Deviation 40.8 RDW Coeff of Mateusz 12.6 Plt Count 164 MPV 10.7 H Sodium 139 Potassium 3.7 Chloride 107 Carbon Dioxide 25 Anion Gap 7.0 BUN 11 Creatinine 0.84 Est Cr Clr Drug Dosing 98.6 Est GFR ( Amer) 101.4 Est GFR (Non-Af Amer) 87.5 BUN/Creatinine Ratio 13.5 Glucose 142 H POC Glucose 152 H Calcium 8.9 Triglycerides 217 H Cholesterol 203 H LDL Cholesterol, Calc 130 VLDL Cholesterol, Calc 43 HDL Cholesterol 30 Cholesterol/HDL Ratio 7 02/08/21 11:31 WBC RBC Hgb Hct MCV MCH MCHC RDW Std Deviation RDW Coeff of Mateusz Plt Count MPV Sodium Potassium Chloride Carbon Dioxide Anion Gap BUN Creatinine Est Cr Clr Drug Dosing Est GFR ( Amer) Est GFR (Non-Af Amer) BUN/Creatinine Ratio Glucose POC Glucose 211 H Calcium Triglycerides Cholesterol LDL Cholesterol, Calc VLDL Cholesterol, Calc HDL Cholesterol Cholesterol/HDL Ratio
[2021-02-08] MEDS ORDERED: STROKE PATIENT DISCHARGE STA (15:11)
--- NOTE | 2021-02-08 15:27 | Pharmacy Report ---
Pharmacist Stroke Counseling - Date of Service February 08, 2021 - Scope: Pharmacy has been consulted to provide medication discharge counseling for this patient admitted with ischemic stroke as per the Pharmacist Discharge Counseling for Stroke Patients Protocol. - Medications on Discharge: Home Medications Medication Instructions Recorded Confirmed multivitamin 1 tab PO DAILY 01/05/21 02/07/21 New Rx's Medication Instructions Recorded aspirin 81 mg PO QAM #30 tab 02/08/21 atorvastatin 40 mg PO QPM #30 tab 02/08/21 clopidogrel [Plavix] 75 mg PO DAILY #21 tab 02/08/21 glipizide 5 mg PO DAILY #2 tab 02/08/21 metformin 1,000 mg PO DAILY #30 tab 02/08/21 - Action: The above medications, specifically ones for stroke treatment/prophylaxis, have been reviewed in detail with the patient and/or patient inside technical sales representative(s) prior to discharge. This includes indication, common adverse reactions, drug interactions, and medication administration. Medication counseling has been employed using the teach-back method to ensure understanding. - Outcome: The patient and/or patient inside technical sales representative(s) have demonstrated understanding of the medications. Additional comments: completed via telephone due to covid pandemic patient given opportunity to have all questions answered Thank you for allowing pharmacy to be involved in the care of this patient. Please call [phone] with any additional questions
[2021-02-08] MEDS ORDERED: INSULIN ASPART 100 UNITS/ML 3 ML PEN SC SCH (16:30)
[2021-02-08] MEDS ORDERED: INSULIN GLARGINE SOLOSTAR 100 UNITS/ML 3 ML PEN SC SCH (21:00)
[2021-02-09] MEDS ORDERED: INSULIN ASPART 100 UNITS/ML 3 ML PEN SC SCH (02:00)
--- NOTE | 2021-02-09 18:43 | Discharge Summary ---
Date of Service February 09, 2021 Admission HPI Per Admitting Provider This is a 70-year-old male with PMH of uncontrolled type 2 diabetes, ongoing tobacco use and other medical problems listed below who presents with right upper extremity weakness. Patient first developed numbness and paresthesias of right hand at the beginning of December and was seen in our emergency department on 01/[address] head at that time abnormal patient was directed to follow-up with PCP for further evaluation. Was ordered MRI brain in outpatient setting for further stroke evaluation but patient with severe claustrophobia and did not tolerate MRI. Continued to have intermittent paresthesias of right hand that spread to right arm as well that improved after patient took aspirin or ibuprofen and applied heat. However, in the past few days, patient was unable to sign his name and felt "clumsy" when trying to use his right hand. Came to ED for further evaluation. No speaking or swallowing difficulties or weakness or paresthesias in other extremities. No difficulty with ambulation. Still able to use his right hand just not at his baseline. Quit drinking alcohol at the beginning of December when he was told his diabetes was uncontrolled. Had previously not been compliant with Metformin but is now taking daily and checking his blood sugar at home. Continues to smoke 1.5 to 2 packs/day of cigarettes. Denies any fever, chills, lightheadedness, headache, chest pain, shortness of breath, nausea, vomiting, abdominal pain, dysuria, diarrhea or constipation. Father with h/o stroke. Admission Exam Per Admitting Provider General Appearance: WD/WN, vitals as above, NAD, sitting up in bed, pleasant, conversing easily Head: normocephalic, atraumatic Eyes: normal inspection, PERRL, conjunctivae normal, anicteric sclerae ENT: external ear and nose normal, oropharynx normal Neck: normal visual inspection, trachea midline, no thyromegaly Respiratory: normal respiratory effort, lungs clear to auscultation, no wheeze, rales, rhonchi. No accessory muscle use Cardiovascular: regular rate, rhythm, no murmur, normal peripheral pulses, no BLE edema. Vessels: no JVD Chest: normal inspection of chest Abdomen/GI: normal bowel sounds, soft, nontender, no hepatosplenomegaly Extremities/Musculoskeletal: no cyanosis or clubbing, RUE 4/5 CRISTÓBAL, LUE, LLE, RLE 5/5 CRISTÓBAL Neurologic: PERRL, EOMI, accommodation nl, no face palsy, no dysarthria, CN's II-XI intact bilaterally and moves all extremities. R hand with slowed movements but purposeful. Sensation intact Psychiatric: A+Ox3, euthymic affect Skin: no rashes, normal color, warm/dry Principal Diagnosis ACUTE CEREBROVASCULAR ACCIDENT Discharge Exam General- oriented x 2, not in distress, speaks in sentences with no effort or accessory muscle use Eyes- anicteric Neck- no JVD Lungs- clear breath sounds bilaterally, no rales/wheezes Heart- normal rate, regular rhythm; no murmurs Abdomen- normal bowel sounds, nondistended, soft, nontender Extremities- no pretibial edema, no calf tenderness Neuro- alert, oriented x 3; no new gross focal neurologic deficits Skin- warm & dry Discharge Data Allergies Allergy/AdvReac Type Severity Reaction Status Date / Time No Known Allergies Allergy Unverified 02/07/21 12:45 Consultations 02/07/21 13:14 ED Decision to Admit Stat 02/07/21 15:32 Consult Case Management - Discharge Planning Routine Consult Neurology Routine Ordered Studies 02/07/21 10:57 CT angio head w con Stat COMPARISON: CTA head and neck of same day, head CT 01/05/2021 FINDINGS: No acute intracranial hemorrhage, midline shift, intracranial mass, hydrocephalus, territorial ischemia or abnormal extra-axial collection. Mild age-related involutional changes. White matter hypodensities suggest chronic microvascular ischemic disease. Ill-defined 12 mm hypodensity of the subcortical left frontal lobe of the centrum semiovale on image 23 is new from prior. The calvarium is intact. Left optic nerve drusen. The paranasal sinuses, mastoid air cells, and middle ear cavities are clear. IMPRESSION: 1. No acute intracranial hemorrhage, midline shift or acute territorial infarct. 2. Mild age-related involutional changes with chronic microvascular ischemic disease. 3. 12 mm ill-defined hypoattenuating focus of the subcortical centrum semiovale of the left frontal lobe is new from 01/05/2021 suspicious for an acute or subacute small infarct CT angio neck with con Stat CT head/brain wo con Stat COMPARISON STUDY: Head CT of same day TECHNIQUE: Following the IV administration of 120 mL of Optiray 320, CT angiogram of the head and neck was performed from the aortic arch to the skull apex. Images are reviewed in the axial, sagittal, and coronal planes. 3-D MIPS images are created and assessed. IV contrast was administered without complication. All measurements were calculated based on NASCET criteria. A dose lowering technique was utilized adhering to the principles of ALARA. CT DOSE: 1227.10 mGy.cm FINDINGS: Atheromatous plaque of the thoracic aortic arch and proximal great vessels. Patency of the innominate and imaged subclavian arteries. Patent common carotid arteries. Mixed plaque of the carotid bulbs and proximal cervical segments of the internal carotid arteries results in less than 50% stenosis bilaterally. Additional calcified plaque is noted within the petrous, cavernous and supraclinoid segments. There is high-grade stenosis of the ophthalmic segment of the left ICA on image 99 secondary to prominent plaque. High-grade stenosis is also noted within the supraclinoid right ICA secondary to calcified plaque is seen on image 97. The middle and anterior cerebral arteries are patent. Moderate multifocal luminal narrowing involves the proximal M2 branches of the left middle cerebral artery. Codominant and widely patent vertebral ar teries. The basilar and posterior cerebral arteries are patent. Cerebral venous sinuses are patent. There is no abnormal intracranial enhancement identified. Ill-defined hypodensity within the centrum semiovale of the left frontal lobe is better seen on CT had of same day. The lung apices are clear. There is no pneumothorax. Nonspecific mildly enlarged paratracheal lymph nodes measure up to 10 mm. Heterogeneous thyroid. Multilevel degenerative changes of the spine. IMPRESSION: 1. Prominent calcified plaque of the distal internal carotid arteries with resultant high-grade stenosis of the bilateral supraclinoid segments, left greater than right. 2. Atheromatous plaque of the carotid bulbs results in less than 50% stenosis bilaterally. 3. Otherwise unremarkable CTA of the head and neck. CXR: FINDINGS: Cardiomegaly. Small calcified granuloma of the left midlung. No pneumothorax, lobar airspace consolidation or overt pulmonary edema. Unchanged blunting of the right costophrenic angle. Mild interstitial coarsening, possibly on a chronic basis. Degenerative changes of the shoulders and spine. IMPRESSION: No acute process. Hospital Course (1) Acute CVA (cerebrovascular accident): Per COLLEEN Rodriguez's notes: This is a 70-year-old male with PMH of uncontrolled type 2 diabetes, ongoing t obacco use and other medical problems listed below who presents with right upper extremity weakness and was found to have acute CVA. Intermittent paresthesias in right upper extremity x5 weeks with developing weakness Head CT with12 mm ill-defined hypoattenuating focus of the subcortical centrum semiovale of the left frontal lobe is new from 01/05/2021 suspicious for an acute or subacute small infarct Head/neck CTA also with prominent calcified plaque of the distal internal carotid arteries with resultant high-grade stenosis of the bilateral supraclinoid segments, left > R History of significant tobacco use, uncontrolled DM, family history of stroke MRI brain attempted as outpatient but unable to complete imaging study 2 severe claustrophobia Given 324mg aspirin in ED Initiate baby aspirin daily and atorvastatin 40mg daily A1c 9.8 from last month 02/08/2021 Patient clinically improved --> reports handwriting is improving Echocardiogram: No documented interatrial shunt, EF 55%, no regional wall motion abnormalities, moderate concentric LVH Recommendations of neurology service Dr. Verdin noted Cleared for discharge Discharge plan: Aspirin and Plavix for 3 weeks, then aspirin only Continue Lipitor that was started Strict diabetes type 2, hypertension, dyslipidemia control No smoking Follow-up with Dr. Verdin in 2 to 4 weeks for referral to vascular surgeon and Zio patch placement Bilateral carotid artery stenosis Seen on CT angiogram of head and neck Please refer to full report in the Ordered Studies section above Placed on aspirin, Plavix, Lipitor Refer to vascular surgeon for further recommendations (2) Tobacco use disorder: Currently smoking 1.5-2 ppd Counseled on importance of cessation (3) Type 2 diabetes mellitus: A1c of 9.8 in Dec 2020 Metformin transitioned to metformin ER 1000 mg p.o. daily for better adherence Follow-up as an outpatient plan of care discussed with patient in detail and at length all questions answered He is understanding, agreeable, comfortable with the plan of care Total Time Total Time Spent Total Time Spent (In Minutes): > 30 minutes Discharge Plan Discharge Items Patient Disposition: Home - Self-Care Reason For Visit: ACUTE-SUBACUTE L FRONTAL LOBE CVA Discharge Diagnosis: ACUTE STROKE, LEFT FRONTAL LOBE OF THE BRAIN Condition on Discharge: Good Activity: Resume your previous activity Activity Comment: GRADUALLY TOLERATED Lifting: Wait until after follow-up appointment Exercise/Sports: Wait until after follow-up appointment Driving/Machine Use: NO DRIVING UNTIL RE-EVALUATED AND ALLOWED BY PRIMARY CARE PHYSICIAN Non-emergency contact: Primary Care Provider Call non-emergency contact if: you have any medication questions and you have a fever Follow-up/Referrals: Roxanne Carver DO [Primary Care Provider] - Richardson Verdin MD [Physician] - Diet: Carb Consistent or DM2 and Heart Healthy Addtl Attending Provider Instructions: PLEASE REVIEW YOUR NEW MEDICATION LIST AND FOLLOW INSTRUCTIONS CAREFULLY. Your new medications include: Aspirin-to be taken daily indefinitely, for stroke prevention; always take with a full stomach Plavix-to be taken daily x3 weeks then stop, for stroke prevention Kessxnq-bhetjhwkifg-ltvpswuj agent for stroke prevention Hold Metformin for 2 days. Resume Metformin on February 10, 2021. This is to prevent kidney injury since you received intravenous contrast for the CAT scans. Take glipizide daily instead for 2 days then stop, and resume your Metformin. Drink plenty of water. Do not take NSAIDs such as Ibuprofen, Naproxen, etc as this can increase your risk for bleeding. Follow-up with primary care physician in 1 week. The clinic will be calling you soon for the appointment. Follow-up with [facility] neurologist Dr. Richardson Verdin in 3 to 4 weeks. Please call his office to schedule an appointment. Contact information is outlined above. You need to have outpatient occupational therapy. Your primary care physician can assist you with arranging for this. Who to Call and When: Medical Emergencies: Call 911 immediately if you experience any of the following warning signs and symptoms of Stroke: Sudden numbness or weakness of the face, arm or leg, especially on one side of the body Sudden confusion, trouble speaking or understanding Sudden trouble seeing in one or both eyes Sudden trouble walking, dizziness, loss of balance or coordination Sudden severe headache with no cause Do not delay calling 911 if you experience any warning signs or symptoms of a stroke. Delay in seeking medical attention may affect what treatments can be given to you. Risk Factors for Stroke: You can reduce your chances of stroke by working with your medical provider to adopt a healthy lifestyle. Some specific ways to lower your chance of stroke are: If you are a smoker, now is the time to stop smoking cigarettes If you are diabetic, improve the control of your blood sugars Avoid excessive amounts of alcohol Control high blood pressure Lose weight if you are overweight Be sure to lead an active lifestyle Eat a healthy diet low in salt, cholesterol and fat You should know about other risk factors for stroke that you are unable to control. These include: Age 55 years or older Male gender Certain racial groups: , or / Family History of Stroke, Mini stroke or Heart Attack Sickle Cell Disease Follow Up: It is important for you to keep your follow up appointments with your medical provider. Pending Studies at Discharge: Yes Studies:: You need to be referred to a vascular surgeon and also have a clean up worker placed. These can be arranged by the neurologist on your follow-up visit with them in 3 to 4 weeks. Stand-Alone Forms: Medications to Prevent Stroke, [employer] [facility] [employer], Smoking Cessation Medications and DC Order Prescriptions: New atorvastatin 40 mg Tablet 40 mg PO QPM Qty: 30 RF: 2 aspirin 81 mg Tablet,Delayed Release (Dr/Ec) 81 mg PO QAM Qty: 30 RF: 2 metformin 1,000 mg tablet extended release 24hr 1,000 mg PO DAILY Qty: 30 RF: 2 glipizide 5 mg tablet 5 mg PO DAILY Qty: 2 RF: 0 clopidogrel [Plavix] 75 mg tablet 75 mg PO DAILY Qty: 21 RF: 0 Continued multivitamin Tablet 1 tab PO DAILY RF: 0 Discontinued ibuprofen [Advil] 200 mg Tablet 400 mg PO Q6H PRN (Reason: Fever Or Pain) RF: 0 Discharge Orders: Discharge Order (Routine); Ordered 02/08/21 Ordered By: Aaron Davis Admission Data Admit Date/Time: 02/07/21 13:28 Attending Provider: Aaron Davis Admit Provider: Aaron Davis Primary Care Provider: Roxanne Carver Other Providers: Aaron Davis ; Richardson Verdin ; [facility] Other Interventions: Discharge Summary Assessment (RN) Last Done: 02/08/21 15:13
== END 2021-02-08 15:58 | disposition home or self-care (01) ==
LOC: ED 10:38 → INTOOBSV 13:28 → 2S 13:28

== ENCOUNTER 2022-11-14 06:12 | Inpatient (IN) ==
[2022-11-14] MEDS ORDERED: SODIUM CHLORIDE 0.9% 1000ML 1,000 ML IV ONE (07:11)
[2022-11-14] MEDS ORDERED: ACETAMINOPHEN 1,000 MG/100 ML VIAL IV STA (07:13)
[2022-11-14] MEDS ORDERED: MoRPHine SULFATE 2 MG/ML CARP IV STA (07:13)
[2022-11-14] MEDS ORDERED: ONDANSETRON INJ 2 MG/ML 2 ML VIAL IV STA (07:13)
[2022-11-14] MEDS ORDERED: PIPERACILLIN/TAZOBACTAM 4.5 GM/120 ML BAG IV ONE (07:20)
[2022-11-14 07:46] LABS: Basophils # (auto) 0.05 K/uL (0-0.2); Basophils % (auto) 0.7 %; Eosinophils # (auto) 0.04 K/uL (0-0.50); Eosinophils % (auto) 0.5 %; Hemoglobin 14.5 g/dl (14.0-18.0); Immature Granulocytes # (auto) 0.01 K/uL (0.00-0.02); Immature Granulocytes % (auto) 0.1 %; Lymphocytes # (auto) 1.17 K/uL (1.2-3.4); Lymphocytes % (auto) 15.5 %; Mean Corpuscular Hemoglobin 33.4 pg (25.0-34.0); Mean Corpuscular Hgb Conc 36.3 g/dL (32.0-36.0); Mean Corpuscular Volume 92.2 fL (80.0-100.0); Mean Platelet Volume 9.2 fL (9.4-12.4); Monocytes # (auto) 0.61 K/uL (0.24-0.82); Monocytes % (auto) 8.1 %; Neutrophils # (auto) 5.66 K/uL (1.4-6.5); Neutrophils % (auto) 75.1 %; Platelet Count 256 K/uL (130-400); RDW Standard Deviation 41.1 fL (36.4-46.3); Red Blood Count 4.34 M/uL (4.63-6.08); White Blood Count 7.54 K/ul (4.8-10.8)
--- NOTE | 2022-11-14 07:59 | XRay Report ---
XR foot LT min 3V routine CLINICAL HISTORY: L great toe infection, concern for osteo TECHNIQUE: 3 views of the left foot were obtained. Comparison: Comparison is made to left ankle radiographs 05/29/2021 FINDINGS: There is demineralization and degenerative changes of the great toe. Degenerative changes are seen. S oft tissue swelling is seen about the great toe. IMPRESSION: Demineralization about the great toe is noted. Although there is no well-defined focal erosion, there are areas of lucency which are concerning for osteomyelitis with surrounding soft tissue swelling co mpatible with cellulitis. ACT 112: Negative or not required by law. Electronically signed by: Jalil Mata M.D. 11/14/2022 7:57 AM
[2022-11-14 08:25] LABS: Albumin Globulin Ratio 1.3 (0.9-2); Albumin Level 4.4 gm/dl (3.4-5.0); BUN Creatinine Ratio 14.8 (10-20); Bilirubin,Total 0.5 mg/dl (0.2-1.0); C Reactive Protein 2.17 mg/dl (0-0.5); Calcium 9.4 mg/dl (8.5-10.1); Creatinine Clr Calc Pharmacy 86.2 ml/min; Est GFR (African American) 101.5 ml/min; Est GFR (Non-African American) 87.6 ml/min; Globulin 3.4 gm/dl (2.5-4.0); Potassium 4.7 mmol/L (3.5-5.1); Total Protein 7.8 gm/dl (6.0-8.3)
[2022-11-14] MEDS ORDERED: VANCOMYCIN HCL 1,500 MG in SODIUM CHLORIDE 0.9% 500 ML IV STA (09:34)
--- NOTE | 2022-11-14 11:17 | Discharge Summary ---
Date of Service November 14, 2022 Discharge Data Allergies Allergy/AdvReac Type Severity Reaction Status Date / Time No Known Allergies Allergy Unverified 11/14/22 07:47 Consultations 11/14/22 09:33 ED Decision to Admit Stat Discharge Plan Forms Stand Alone Forms: [facility] Prescriptions Prescriptions: No Action multivitamin Tablet 1 tab PO DAILY ascorbic acid (vitamin C) [Vitamin C] 500 mg Tablet 500 mg PO DAILY metformin 1,000 mg tablet extended release 24 hr 500 mg PO BID Rx Instructions: start on February 10, 2021 ibuprofen 200 mg PO Q8H PRN (Reason: Pain) aspirin 81 mg Tablet,Delayed Release (Dr/Ec) 81 mg PO QAM Qty: 30 2RF Rx Instructions: Always take with a full stomach Referrals Referrals: Luis Manuel Mcnally MD [Primary Care Provider] -
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
[2022-11-14] MEDS ORDERED: GABAPENTIN 400 MG CAP PO ONE (13:16)
[2022-11-14] MEDS ORDERED: GABAPENTIN 800MG ALCOHOL WITHDRAWAL LOAD PO ONE (13:16)
[2022-11-14] MEDS ORDERED: VANCOMYCIN CONSULT ACTIVE PRN (13:16)
[2022-11-14] MEDS ORDERED: GLUCAGON FOR INJ 1 MG VIAL SQ PRN (14:22)
[2022-11-14] MEDS ORDERED: GLUCOSE 40% GEL 15 GM TUBE PO PRN (14:22)
[2022-11-14] MEDS ORDERED: GLUCOSE 10 TAB/TUBE PO PRN (14:22)
[2022-11-14] MEDS ORDERED: DEXTROSE 50% 50 ML SYRINGE IV PRN (14:22)
[2022-11-14] MEDS ORDERED: CARBOHYDRATES FOR HYPOGLYCEMIA PO PRN (14:22)
[2022-11-14] MEDS ORDERED: hydrALAZINE HCL 20 MG/ML VIAL IV PRN (14:24)
[2022-11-14] MEDS ORDERED: GADOBUTROL 7.5ML VIAL IV ONE (14:27)
[2022-11-14] MEDS: PIPERACILLIN/TAZOBACTAM 4.5 GM in DEXTROSE 5% 100 ML IV SCH ×2 (15:13→22:47)
[2022-11-14] MEDS: NICOTINE 21 MG/24 HR TDSY TD SCH (16:40)
[2022-11-14] MEDS: HEPARIN SOD 5,000 UNIT/0.5 ML VIAL SQ SCH ×2 (16:40→22:44)
--- NOTE | 2022-11-14 16:42 | Pharmacy Report ---
Pharmacy PK ABX Note - Date of Service November 14, 2022 - Assessment and Plan Assessment * 72 year old M receiving Zosyn and vancomycin for treatment of diabetic foot infection and possible osteomyelitis * Pertinent microbiologic data: blood cultures pending * SCr at/near baseline Plan Vancomycin * Loading dose: 1500 mg IV x 1 * Maintenance dose: 1500 mg IV every 24 hours * Regimen is predicted to achieve target AUC/PETE of 400-600 mg/L.hr * Random level ordered for: 20 w AM labs Pharmacy will continue to follow and will adjust dose/frequency as necessary. Thank you. Pharmacy has transitioned to AUC monitoring for vancomycin. AUC/PETE is the p referred PK/PD target and is associated with decreased risk of nephrotoxicity compared to traditional trough targets.
--- NOTE | 2022-11-14 17:13 | Magnetic Resonance Report ---
MR foot LT wo/w con CLINICAL HISTORY: left great toe osteomyelitis TECHNIQUE: Multiplanar multisequence MR images of the right foot were obtained. Comparison: Comparison is made to left foot radiograph 11/14/2022 FINDINGS: Bones: There is edema in the left first digit distal phalanx compatible with osteomyelitis. Tendons: Unremarkable Soft tissue: Soft tissue edema is seen surrounding the first digit. IMPRESSION: Findings compatible with osteomyelitis of the left first digit distal phalanx with surrounding cellul itis. ACT 112: Negative or not required by law. Electronically signed by: Jalil Mata M.D. 11/14/2022 5:11 PM
[2022-11-14] MEDS: INSULIN ASPART PER UNIT SC SCH ×2 (17:29→21:53)
[2022-11-14] MEDS: GABAPENTIN 400 MG CAP PO SCH ×2 (17:30→22:47)
[2022-11-14] MEDS ORDERED: VANCOMYCIN HCL 1,000 MG in SODIUM CHLORIDE 0.9% 250 ML IV SCH (18:00)
--- NOTE | 2022-11-14 21:06 | Orthopedic Consultation ---
Date of Consultation November 14, 2022 Assessment & Plan (1) Diabetic foot ulcer with osteomyelitis: Patient seen, evaluated, and treated. X-rays and MRI reviewed with Patient. We discussed the distal phalanx osteomyelitis and removal of non viable bone and soft tissue. Surgery scheduled for Tuesday 2pm. I reviewed procedure in detail as well as postoperative recovery. I discussed expectations and patient's current weightbearing status. All questions answered. I have discussed procedure in detail as well as postoperative recovery. All potential risks, benefits, complications, alternatives, rehab, potential for incomplete relief of symptoms, need for further surgery, DVT, PE, , persistent pain, swelling, scarring, weakness, neurovascular, wound complications and potential for amputations were discussed with patient. Unwanted outcomes such as, but not limited to were reviewed including under correction, overcorrection, return of deformity, infection. All questions were answered. Patient has decided to proceed with procedure as indicated. (2) Diabetic foot ulcer associated with type 2 diabetes mellitus: History of Present Illness Attending Physician: Clarice Rubin MD History of Present Illness Patient is a 72 yo male seen at bedside this evening for a left foot ulcer. Patient past medial history includes diabetes, tobacco abuse, and alcohol abuse. Patient presented to the [facility] ED today with Left foot swelling, tenderness and erythema. Patient reports left foot pain in the past week. Patient states that the he had a small skin opening in the left big toe with some pus drainage. He notes that this morning he woke up and his Left big toe got worst and his Left foot was swelling, tender, with redness. Prior documentation notes Patient drinks about 6 beers daily every morning and smokes about one and half ppd and 2 PPD. Allergies Allergy/AdvReac Type Severity Reaction Status Date / Time No Known Allergies Allergy Unverified 11/14/22 07:47 Home Medications Medication Instructions Recorded Confirmed Type multivitamin 1 tab PO DAILY 01/05/21 11/14/22 History aspirin 81 mg tablet,delayed 81 mg PO QAM #30 tabs 02/08/21 11/14/22 Rx release ascorbic acid (vitamin C) 500 mg 500 mg PO DAILY 11/14/22 11/14/22 History tablet (Vitamin C) ibuprofen 200 mg PO Q8H PRN Pain 11/14/22 11/14/22 History metformin 1,000 mg tablet,extended 500 mg PO BID 11/14/22 11/14/22 History release 24hr Patient History Medical History GERD (gastroesophageal reflux disease) Tobacco use disorder Type 2 diabetes mellitus Surgical History (Updated 02/07/21 @ 18:27 by Ne Rodriguez PA-C) History of knee surgery History of knee surgery Family History Other Stroke Social History (Updated 11/14/22 @ 07:16 by Leslie Webb MD) Smoking Status: Current every day smoker Tobacco Type: Cigarettes Cigarettes Per Day: 36; Second Hand Exposure: Yes; Do You Dip or Chew Tobacco: No; Tobacco Cessation Education Requested by Patient: No Hx Alcohol Use: Yes Alcohol type: beer Hx Substance Use: No Preferred Language: Uzbek Communication Ability: Effective Nut Dehydrator Operator Required: No Beliefs That Will Affect Care: None Current Living Situation: Alone Other Information That Helps Us Care for You: No Feels Safe at Home: Yes Safety Concerns: Feels Safe At This Time Assistive Devices: None Review of Systems Review of Systems: All systems reviewed & are unremarkable except as noted in HPI & below Physical Exam Constitutional: WD/WN, vitals as above Respiratory: normal respiratory effort Cardiovascular: Pedal pulses palpable. Capillary refill time within normal limits. Skin: Diabetic left foot distal great toe ulcer with Eschar. Erythema limited to left hallux. Neurologic: Decreased epicritic sensation bilateral feet. Psychiatric: A+Ox3, euthymic affect Results & Data ([facility]) Vital Signs (Past 12 Hours) Vital Signs Temp Pulse Pulse Resp BP BP Pulse Ox 11/14/22 16:34 176/79 H 11/14/22 13:15 11/14/22 13:29 36.6 C 69 16 187/75 H 99 11/14/22 12:47 67 15 160/71 H 99 11/14/22 10:05 68 21 96 O2 Del Method 11/14/22 16:34 11/14/22 13:15 Room Air 11/14/22 13:29 Room Air 11/14/22 12:47 Room Air 11/14/22 10:05 Room Air Diagnostic Findings MR foot LT wo/w con CLINICAL HISTORY: left great toe osteomyelitis TECHNIQUE: Multiplanar multisequence MR images of the right foot were obtained. Comparison: Comparison is made to left foot radiograph 11/14/2022 FINDINGS: Bones: There is edema in the left first digit distal phalanx compatible with osteomyelitis. Tendons: Unremarkable Soft tissue: Soft tissue edema is seen surrounding the first digit. IMPRESSION: Findings compatible with osteomyelitis of the left first digit distal phalanx with surrounding cellulitis.
[2022-11-15] MEDS: HEPARIN SOD 5,000 UNIT/0.5 ML VIAL SQ SCH ×3 (06:11→22:34)
[2022-11-15] MEDS: PIPERACILLIN/TAZOBACTAM 4.5 GM in DEXTROSE 5% 100 ML IV SCH ×3 (06:22→22:37)
[2022-11-15] MEDS: GABAPENTIN 400 MG CAP PO SCH ×3 (06:22→22:34)
[2022-11-15 07:30] LABS: Hemoglobin 14.5 g/dl (14.0-18.0); Mean Corpuscular Hemoglobin 32.8 pg (25.0-34.0); Mean Corpuscular Hgb Conc 35.4 g/dL (32.0-36.0); Mean Corpuscular Volume 92.8 fL (80.0-100.0); Mean Platelet Volume 9.6 fL (9.4-12.4); Platelet Count 256 K/uL (130-400); RDW Coefficient of Variation 11.9 % (11.5-14.5); RDW Standard Deviation 41.1 fL (36.4-46.3); Red Blood Count 4.42 M/uL (4.63-6.08)
[2022-11-15] MEDS: MULTIVITAMIN TAB PO SCH (07:42)
[2022-11-15] MEDS: NICOTINE 21 MG/24 HR TDSY TD SCH (07:43)
[2022-11-15 07:53] LABS: BUN Creatinine Ratio 10.9 (10-20); Calcium 9.4 mg/dl (8.5-10.1); Creatinine Clr Calc Pharmacy 75.9 ml/min; Est GFR (African American) 94.6 ml/min; Est GFR (Non-African American) 81.6 ml/min; Potassium 4.6 mmol/L (3.5-5.1)
[2022-11-15] MEDS: VANCOMYCIN HCL 1,500 MG in SODIUM CHLORIDE 0.9% 500 ML IV SCH (08:42)
[2022-11-15] MEDS: INSULIN ASPART PER UNIT SC SCH ×4 (08:43→21:30)
--- NOTE | 2022-11-15 23:59 | Hospitalist Progress Note ---
Date of Service November 15, 2022 Assessment & Plan (1) Diabetic foot ulcer with osteomyelitis: (2) Ulcer of great toe: (3) Cellulitis of foot: Plan: 72 yo male with PMH of diabetes, tobacco abuse, alcohol abuse present to the ER with left great toe ulcer/Left foot swelling, tenderness and erythema. Left foot xray showed demineralization about the great toe is noted. Although there is no well-defined focal erosion, there are areas of lucency which are concerning for osteomyelitis with surrounding soft tissue swelling compatible with cellulitis. Received IV antibiotic with Zosyn and vancomycin in the ER, we will continue Blood culture collected in the ER is negative so far Podiatry on board MRI of of the left foot showed findings compatible with osteomyelitis of the left first digit distal phalanx with surrounding cellulitis. continue pain control with oxycodone Plan for surgery tomorrow by podiatry We will make n.p.o. after midnight Hyponatremia Mostly related to alcohol abuse Sodium on admission 130, last sodium noted from outpatient chart 131 Received IV fluid in the ER Sodium 136 today Continue monitor BMP Diabetes Most recent hemoglobin A1c below 7 on 04/2022 We will check hemoglobin A1c Continue to hold p.o. diabetic med while inpatient Continue insulin sliding scale Continue monitor Glucose Elevated blood pressure Possible related to hospital setting/ pain Consider to add low-dose of lisinopril if BP remains elevating Continue monitor BP Tobacco Abuse counseling on tobacco cessation Nicotine patch added Alcohol abuse Denies any history of alcohol withdrawal DT Continue alcohol withdrawal protocol with gabapentin Continue monitor closely for sign of DT or alcohol withdrawal Thiamine, and folic acid added Counseling on alcohol cessation DVT prophylaxis on heparin subcu Will hold after midnight due to upcoming procedure tomorrow at 2PM CODE STATUS full code Admission and Anticipated Discharge Date Admission Date: November 14, 2022 Subjective Patient was seen and evaluated for follow-up of left foot ulcer and cellulitis Patient said that left foot pain redness significantly improved He denies any sign of alcohol withdrawal He is looking forward to go for foot surgery tomorrow Denies any chest pain, palpitation, dizziness, shortness of breath. Review of Systems Review of Systems: All systems reviewed & are unremarkable except as noted in Subjective Physical Exam Physical Exam: General- No acute distress Head- atraumatic Eyes- PERRL, EOMI, ENT- oropharynx clear Neck- supple, no JVD Lungs- clear to auscultation Heart- regular rhythm; no murmur Abdomen- normal bowel sounds, soft, nontender Extremities- no calf tenderness, + left foot tenderness, swelling and erythema improved. +improves left big toe ulcer, swelling, erythema, Neuro- alert, oriented x 3; PERRL, EOMI; no facial palsy; no dysarthria Skin- warm & dry Results & Data Results & Data ([facility]) Vital Signs (Past 12 Hours) Vital Signs Temp Pulse Resp BP BP Pulse Ox O2 Del Method 11/15/22 19:30 Room Air 11/15/22 21:48 36.8 C 61 18 156/69 H 99 Room Air 11/15/22 16:06 152/78 H 11/15/22 14:57 64 18 180/83 H 98 Room Air
[2022-11-16] MEDS: INSULIN ASPART PER UNIT SC SCH ×4 (06:31→20:53)
[2022-11-16] MEDS: PIPERACILLIN/TAZOBACTAM 4.5 GM in DEXTROSE 5% 100 ML IV SCH ×3 (06:43→21:34)
[2022-11-16 07:03] LABS: Estimated Average Glucose 137 mg/dl; Hemoglobin A1C 6.4 % (4.5-5.6)
[2022-11-16] MEDS ORDERED: VANCOMYCIN LEVEL ONE (08:30)
[2022-11-16] MEDS: NICOTINE 21 MG/24 HR TDSY TD SCH (08:52)
[2022-11-16] MEDS: MULTIVITAMIN TAB PO SCH (08:52)
[2022-11-16] MEDS: VANCOMYCIN HCL 1,500 MG in SODIUM CHLORIDE 0.9% 500 ML IV SCH (08:59)
--- NOTE | 2022-11-16 10:59 | Pharmacy Report ---
Pharmacy PK ABX Note - Date of Service November 16, 2022 - Assessment and Plan Assessment * 72 year old M receiving Zosyn and vancomycin for treatment of diabetic foot infection and osteomyelitis * Pertinent microbiologic data: blood cultures pending * SCr at/near baseline * Today is day 3 of Vancomycin therapy. Osteomyelitis confirmed. Plan Vancomycin * Vancomycin 1500 mg IV q24h started on 11/14 resulted in random Vancomycin level = 7.2 mcg/ml today @06:01 * Predicted AUC at steady state: 413 mg/L.hr. * For Osteomyelitis, desire a target AUC closer to 600 mg/L.hr. * Changed to Vancomycin 1250 mg IV q12h. This is predicted to achieve target AUC/PETE of 400-600 mg/L.hr and possibly slightly above 600 mg/L.hr at steady state. * May need to reduce this dose in two days. * Repeat random vancomycin level ordered for: 11/18/22 Pharmacy will continue to follow and will adjust dose/frequency as necessary. Thank you. Pharmacy has transitioned to AUC monitoring for vancomycin. AUC/PETE is the preferred PK/PD target and is associated with decreased risk of nephrotoxicity compared to traditional trough targets.
[2022-11-16] MEDS: GABAPENTIN 400 MG CAP PO SCH ×2 (11:11→23:15)
--- NOTE | 2022-11-16 11:45 | Anesthesiology Consultation ---
Date of Service November 16, 2022 Assessment & Plan (1) Encounter for pre-operative examination: Chart Review Chart Review: Acceptable Risk for Surgery History Surgery Operation Date: 11/16/22 14:00 Proposed Procedures p Left Great Toe Amputation - Richardson Dorado DPM, MS Height/Weight Height: 6 ft Weight: 76.2 kg Allergies Allergy/AdvReac Type Severity Reaction Status Date / Time No Known Allergies Allergy Unverified 11/14/22 07:47 Medications Home Medications Medication Instructions Recorded Confirmed Last Taken multivitamin 1 tab PO DAILY 01/05/21 11/14/22 11/14/22 aspirin 81 mg tablet,delayed 81 mg PO QAM #30 tabs 02/08/21 11/14/22 11/14/22 release ascorbic acid (vitamin C) 500 mg 500 mg PO DAILY 11/14/22 11/14/22 Unknown tablet (Vitamin C) ibuprofen 200 mg PO Q8H PRN Pain 11/14/22 11/14/22 Unknown metformin 1,000 mg tablet,extended 500 mg PO BID 11/14/22 11/14/22 11/14/22 release 24hr Active Medications Generic Name Dose Route Start Last Admin Trade Name Freq PRN Reason Stop Dose Admin Gabapentin 400 mg 11/16/22 11:15 11/16/22 11:11 Gabapentin 400 Mg Cap PO 11/16/22 23:16 Not Given Q12H [facility] Heparin Sodium (Porcine) 5,000 units 11/14/22 14:00 11/15/22 22:34 Heparin Sod 5,000 Unit/0.5 Ml Vial SQ 12/14/22 13:59 5,000 units Q8 [facility] Administration Piperacillin Sod/Tazobactam 120 mls @ 30 mls/hr 11/14/22 14:00 11/16/22 11:01 Sod 4.5 gm/ Dextrose IV 11/21/22 13:59 Infused Q8H [facility] Infusion Protocol Vancomycin HCl 1,500 mg/ 530 mls @ 200 mls/hr 11/15/22 09:00 11/16/22 08:59 Sodium Chloride IV 11/22/22 08:59 200 mls/hr DAILY@0900 [facility] Administration Protocol Insulin Aspart 0 units 11/16/22 06:00 11/16/22 11:26 Insulin Aspart Per Unit SC 12/16/22 05:59 Not Given Q6 [facility] Miscellaneous 1 each 11/15/22 08:59 11/16/22 08:52 Remove Nicoderm Patch N/A 12/15/22 08:58 Not Given DAILY@0859 [facility] Multivitamins 1 tab 11/15/22 09:00 11/16/22 08:52 Multivitamin Tab PO 12/15/22 08:59 Not Given DAILY [facility] Nicotine 21 mg 11/14/22 16:15 11/16/22 08:52 Nicotine 21 Mg/24 Hr Tdsy TD 12/14/22 16:14 Not Given QAM [facility] Past Medical History Medical History GERD (gastroesophageal reflux disease) Tobacco use disorder Type 2 diabetes mellitus Past Family History Family History Other Stroke Past Surgical History Surgical History History of knee surgery History of knee surgery Social History Smoking Status: Current every day smoker tobacco type: cigarettes Smoking cigarettes per day: 36 Do You Dip or Chew Tobacco: No Hx Alcohol Use: Yes Alcohol type: beer alcohol intake frequency: 3 or more drinks per day Alcohol Intake Frequency Comment: "6 to 8 beers every morning" Hx Substance Use: No substance use type: does not use Physical Exam Vital Signs Last Vital Signs Temp 36.5 C 11/16/22 07:55 Pulse 61 11/16/22 07:15 Resp 16 11/16/22 07:15 BP 162/80 H 11/16/22 07:15 Pulse Ox 98 11/16/22 07:15 O2 Del Method 11/16/22 07:52 Testing Laboratory Results 11/15/22 06:42 11/15/22 06:42 Hemoglobin A1c 6.4 % (4.5-5.6) H 11/16/22 06:01 11/14/22 07:25 Aerobic Blood Culture - Preliminary Blood No growth in Aerobic bottle after 48 hours. Anaerobic Blood Culture - Preliminary No growth in Anaerobic bottle after 48 hours. 11/14/22 07:30 Aerobic Blood Culture - Preliminary Blood No growth in Aerobic bottle after 48 hours. Anaerobic Blood Culture - Preliminary No growth in Anaerobic bottle after 48 hours. 11/16/22 06:03 POC Glucose 109 H Electrocardiogram Date: 02/07/21 Findings: + NSR @ (69) Echocardiogram Date: 02/08/21 EF: 50-55% LV Function: normal Other Findings: + LVH Valvular Disease: + no significant valvular disease
--- NOTE | 2022-11-16 12:38 | Hospitalist Progress Note ---
Date of Service November 16, 2022 Assessment & Plan (1) Diabetic foot ulcer with osteomyelitis: (2) Ulcer of great toe: (3) Cellulitis of foot: Plan: 72 yo male with PMH of diabetes, tobacco abuse, alcohol abuse present to the ER with left great toe ulcer/Left foot swelling, tenderness and erythema. Left foot xray showed demineralization about the great toe is noted. Although there is no well-defined focal erosion, there are areas of lucency which are concerning for osteomyelitis with surrounding soft tissue swelling compatible with cellulitis. Received IV antibiotic with Zosyn and vancomycin in the ER, we will continue Blood culture collected in the ER is negative so far Podiatry on board MRI of of the left foot showed findings compatible with osteomyelitis of the left first digit distal phalanx with surrounding cellulitis. continue pain control with oxycodone Plan for surgery today by podiatry Keep NPO for now Hyponatremia Mostly related to alcohol abuse Sodium on admission 130, last sodium noted from outpatient chart 131 Received IV fluid in the ER Sodium 136 today Continue monitor BMP Diabetes Most recent hemoglobin A1c below 7.2 on 11/16/2022 c Continue to hold p.o. diabetic med while inpatient Continue insulin sliding scale Continue monitor Glucose Elevated blood pressure Possible related to hospital setting/ pain Consider to add low-dose of lisinopril if BP remains elevating Continue monitor BP Tobacco Abuse counseling on tobacco cessation Nicotine patch added Alcohol abuse Denies any history of alcohol withdrawal DT Continue alcohol withdrawal protocol with gabapentin Continue monitor closely for sign of DT or alcohol withdrawal Thiamine, and folic acid added Counseling on alcohol cessation DVT prophylaxis on heparin subcu that is on hold due to surgery today CODE STATUS full code Admission and Anticipated Discharge Date Admission Date: November 14, 2022 Subjective Patient was seen and evaluated for follow-up of left foot ulcer and cellulitis Sitting in chair with no acute distress watching TV He said that his hungry because his NPO for the procedure He denies any sign of alcohol withdrawal Denies any chest pain, palpitation, dizziness, shortness of breath. Review of Systems Review of Systems: All systems reviewed & are unremarkable except as noted in Subjective Physical Exam Physical Exam: General- No acute distress Head- atraumatic Eyes- PERRL, EOMI, ENT- oropharynx clear Neck- supple, no JVD Lungs- clear to auscultation Heart- regular rhythm; no murmur Abdomen- normal bowel sounds, soft, nontender Extremities- no calf tenderness, + left foot tenderness, swelling and erythema improved. +improves left big toe ulcer, swelling, erythema, Neuro- alert, oriented x 3; PERRL, EOMI; no facial palsy; no dysarthria Skin- warm & dry Results & Data Results & Data ([facility]) Vital Signs (Past 12 Hours) Vital Signs Temp Pulse Resp BP Pulse Ox O2 Del Method 11/16/22 07:55 36.5 C 11/16/22 07:52 Room Air 11/16/22 07:15 61 16 162/80 H 98 Room Air
[2022-11-16] MEDS ORDERED: MIDAZOLAM HCL 1 MG/ML 2ML VIAL ONE (12:49)
[2022-11-16] MEDS ORDERED: fentaNYL citrate 100 MCG/2 ML VIAL ONE (12:51)
[2022-11-16] MEDS ORDERED: PROPOFOL IV EMULSION 10 MG/ML 20 ML VIAL IV ONE ×2 (12:52→12:55)
[2022-11-16] MEDS ORDERED: LIDOCAINE 2% 20 MG/ML 5 ML SYR IV ONE (13:00)
--- NOTE | 2022-11-16 14:17 | History & Physical Bridge Note ---
Date of Service November 16, 2022 History & Physical Bridge Note I have examined the patient, reviewed the History & Physical and in the interval since the performance of the History & Physical I have noted the following changes of clinical significance: no changes noted
[2022-11-16] MEDS ORDERED: BUPIVACAINE 0.5 % 5 MG/1 ML MPF 30ML VIAL ONE (14:49)
[2022-11-16] MEDS ORDERED: ATROPINE SULFATE 0.1 MG/ML 10ML SYR IV PRN (15:16)
[2022-11-16] MEDS ORDERED: fentaNYL citrate 100 MCG/2 ML VIAL IV PRN (15:16)
[2022-11-16] MEDS ORDERED: LABETALOL HCL IV 5 MG/ML 20ML IV PRN (15:16)
[2022-11-16] MEDS ORDERED: ONDANSETRON INJ 2 MG/ML 2 ML VIAL IV PRN (15:16)
--- NOTE | 2022-11-16 15:28 | Post Operative Brief Note ---
Immediate Post Op Note v1 Date of Surgery November 16, 2022 Pre & Post Diagnosis Operation Date: 11/16/22 14:00 Pre-Op Diagnosis: Left great toe infection, foot cellulitis. Post-Op Diagnosis: Left great toe infection, foot cellulitis. I identified the patient and participated in the time-out.: Yes Procedure Operation Date: 11/16/22 14:00 Actual Procedures p Left Great Toe Amputation(Left) - Richardson Dorado DPM, MS Surgeon Richardson Dorado DPM, MS Punch Card Operator None Estimated Blood Loss 5 Findings Consistent with Post-Op Diagnosis None
--- NOTE | 2022-11-16 15:45 | Anesthesiology Progress Note ---
Date of Service November 16, 2022 Anesthesia Post Procedure Vital Signs Vital Signs: Temp Pulse Pulse Resp BP BP Pulse Ox 11/16/22 15:35 57 L 13 158/57 H 97 11/16/22 15:27 97.2 F L 56 L 19 138/68 97 11/16/22 13:32 98.1 F 60 20 188/95 H 100 11/16/22 07:55 97.7 F 11/16/22 07:52 11/16/22 07:15 61 16 162/80 H 98 11/15/22 19:30 11/15/22 21:48 98.2 F 61 18 156/69 H 99 11/15/22 16:06 152/78 H O2 Del Method 11/16/22 15:35 Room Air 11/16/22 15:27 Room Air 11/16/22 13:32 Room Air 11/16/22 07:55 11/16/22 07:52 Room Air 11/16/22 07:15 Room Air 11/15/22 19:30 Room Air 11/15/22 21:48 Room Air 11/15/22 16:06 Pain Intensity Left Foot: Pain Intensity: 3 Transfer of Care Handoff Completed per policy Notes Mental Status: alert / awake / arousable and participated in evaluation Patient Amnestic to Procedure: Yes Nausea / Vomiting: adequately controlled Pain: adequately controlled Airway Patency, RR, SpO2: stable & adequate BP & HR: stable & adequate Hydration State: stable & adequate Anesthetic Complications: no major complications apparent and Pt Satisfied with anesthetic care
--- NOTE | 2022-11-16 17:53 | Operative Report ---
Post Operative Report Pre & Post Diagnosis Operation Date: 11/16/22 14:00 Pre-Op Diagnosis: Left great toe infection, foot cellulitis. Post-Op Diagnosis: Left great toe infection, foot cellulitis. I identified the patient and participated in the time-out.: Yes Procedure Operation Date: 11/16/22 14:00 Actual Procedures p Left Great Toe Amputation(Left) - Richardson Dorado DPM, MS Surgeon Richardson Dorado DPM, MS Warehouse Analyst None Estimated Blood Loss 5 Findings Consistent with Post-Op Diagnosis None Specimens 1.) Left hallux - Pathology 2.) Left hallux - Microbiology Description of Procedure History of present illness: Patient is a 72 year old male who is seen for treatment of osteomyelitis of the left great toe. Patient requests surgical care. Patient relates minimal discomfort. All questions answered. Discussed procedure in detail and postoperative recovery. All potential risks, benefits, complications, alternatives, rehab, potential for incomplete relief of symptoms, need for further surgery, DVT, PE, , persistent pain, swelling, scarring, weakness, neurovascular, wound complications and potential for amputations were discussed with patient. Unwanted outcomes such as, but not limited to were reviewed including under correction, overcorrection, return of deformity, infection. All questions were answered. Patient has decided to proceed with procedure as indicated. Preoperative diagnosis: Ulcer osteomyelitis left first toe Postoperative diagnosis: same Name of operation: Amputation left great toe Surgeon Dr. Dorado Warehouse Analyst: None Anesthesia: local with monitored anesthesia care Hemostasis: pneumatic ankle tourniquet Estimated blood loss: minimal Procedure in detail: Under mild sedation the patient was brought in the operating room placed on the operating table in supine position. A pneumatic ankle tourniquet was then placed about the patient's left ankle. Following IV sedation local anesthesia was obtained about the left utilizing 10 cc of a one-to-one mixture of 1% lidocaine plain and 0.5% Marcaine plain. The foot was then prepped scrubbed and draped in usual aseptic manner. An Esmarch bandage was utilized to exsanguinate the patient's left foot and the pneumatic ankle tourniquet was then inflated. Attention was then directed to a nonhealing diabetic ulcer on the left metatarsal where a diabetic foot ulcer is present and probes to bone. A fishmouth incision was created utilizing a sharp, sterile, #15 blade. The incision which was deepened through subcutaneous tissue using sharp blunt dissection. Care was taken to identify and retract all vital neurovascular structures. All bleeders were ligated and cauterized necessary. The great toe was disarticulated at the metatarsal phalangeal joint. At this time the left hallux was removed with a portion of the osteomyelitic distal phalanx and placed on the back table. The remainder of the left hallux was sent to pathology. Copious amounts of sterile normal saline were utilized to flush the incision site. The skin was then primarily closed utilizing 3-0 nylon in horizontal suture mattress techniques as well as simple suture closure. Upon completion of the procedure the incision was dressed with Betadine soaked Adaptic followed by sterile compressive dressing consisting of 4 x 4's Charito Kerlix ABD the pneumatic ankle tourniquet was inflated and a prompt hyperemic response was noted to all digits of the left foot. The Patient tolerated the procedure and anesthesia well. He was transferred to recovery room vital signs stable. Following postoperative monitoring the patient will be re-admitted to the floor with all pre operative orders resumed. Please contact Dr. Dorado for all postoperative care if any problems arise . I attest to the content of the Intraoperative Record and any orders documented therein. Any exceptions are noted below.
[2022-11-16] MEDS: oxyCODONE HCL IR 5 MG TAB (IMMEDIATE RELEASE) PO PRN ×2 (18:42→23:17)
[2022-11-16] MEDS: VANCOMYCIN HCL 1,250 MG in SODIUM CHLORIDE 0.9% 250 ML IV SCH (20:17)
[2022-11-16] MEDS: HEPARIN SOD 5,000 UNIT/0.5 ML VIAL SQ SCH (21:35)
[2022-11-17] MEDS: PIPERACILLIN/TAZOBACTAM 4.5 GM in DEXTROSE 5% 100 ML IV SCH ×3 (05:14→21:12)
[2022-11-17] MEDS: HEPARIN SOD 5,000 UNIT/0.5 ML VIAL SQ SCH ×3 (05:15→21:24)
[2022-11-17] MEDS: oxyCODONE HCL IR 5 MG TAB (IMMEDIATE RELEASE) PO PRN ×3 (05:22→21:12)
[2022-11-17 08:13] LABS: Hematocrit (blood only) 37.6 % (40.1-51.0); Mean Corpuscular Hemoglobin 32.7 pg (25.0-34.0); Mean Corpuscular Hgb Conc 34.6 g/dL (32.0-36.0); Mean Corpuscular Volume 94.7 fL (80.0-100.0); Mean Platelet Volume 9.2 fL (9.4-12.4); Platelet Count 227 K/uL (130-400); RDW Coefficient of Variation 12.1 % (11.5-14.5); RDW Standard Deviation 42.4 fL (36.4-46.3); Red Blood Count 3.97 M/uL (4.63-6.08); White Blood Count 6.57 K/ul (4.8-10.8)
[2022-11-17] MEDS: MULTIVITAMIN TAB PO SCH (08:14)
[2022-11-17] MEDS: VANCOMYCIN HCL 1,250 MG in SODIUM CHLORIDE 0.9% 250 ML IV SCH ×2 (08:14→21:13)
[2022-11-17] MEDS: NICOTINE 21 MG/24 HR TDSY TD SCH (08:15)
[2022-11-17 08:31] LABS: BUN Creatinine Ratio 9.5 (10-20); Calcium 8.7 mg/dl (8.5-10.1); Creatinine Clr Calc Pharmacy 66.5 ml/min; Est GFR (African American) 80.7 ml/min; Est GFR (Non-African American) 69.6 ml/min; Potassium 4.1 mmol/L (3.5-5.1)
[2022-11-17] MEDS: INSULIN ASPART PER UNIT SC SCH ×4 (08:44→21:24)
--- NOTE | 2022-11-17 14:02 | Hospitalist Progress Note ---
Date of Service November 17, 2022 Assessment & Plan (1) Diabetic foot ulcer with osteomyelitis: Plan: Status post left great toe amputation on 11/16/2022 (2) Ulcer of great toe: (3) Cellulitis of foot: Plan: 72 yo male with PMH of diabetes, tobacco abuse, alcohol abuse present to the ER with left great toe ulcer/Left foot swelling, tenderness and erythema. Left foot xray showed demineralization about the great toe is noted. Although there is no well-defined focal erosion, there are areas of lucency which are concerning for osteomyelitis with surrounding soft tissue swelling compatible with cellulitis. Received IV antibiotic with Zosyn and vancomycin in the ER, we will continue Blood culture collected in the ER is negative so far MRI of of the left foot showed findings compatible with osteomyelitis of the left first digit distal phalanx with surrounding cellulitis. continue pain control with oxycodone Status post left great toe amputation on 11/16/2022 Complains pain in the left foot but otherwise is stable Will get ID input and recommendation for choice of antibiotic and duration Hyponatremia Mostly related to alcohol abuse Sodium on admission 130, last sodium noted from outpatient chart 131 Received IV fluid in the ER Sodium 136 today Continue monitor BMP Diabetes Most recent hemoglobin A1c below 7.2 on 11/16/2022 c Continue to hold p.o. diabetic med while inpatient Continue insulin sliding scale Continue monitor Glucose -remains stable so far Elevated blood pressure Possible related to hospital setting/ pain Consider to add low-dose of lisinopril if BP remains elevating Continue monitor BP-remains on the upper side at 165/78 Tobacco Abuse counseling on tobacco cessation Nicotine patch added Alcohol abuse Denies any history of alcohol withdrawal DT Continue alcohol withdrawal protocol with gabapentin Continue monitor closely for sign of DT or alcohol withdrawal Thiamine, and folic acid added Counseling on alcohol cessation DVT prophylaxis on heparin subcu that is on hold due to surgery today CODE STATUS full code Admission and Anticipated Discharge Date Admission Date: November 14, 2022 Subjective 11/17/2022 The patient was seen and examined in medical floor He is status post left great toe amputation on 11/16/2022 Still has the pain in the left foot Denies any other significant symptoms Review of Systems Review of Systems: All systems reviewed and are unremarkable except as noted below Physical Exam Physical Exam: Lying in bed comfortable Constitutional: well developed, well nourished and average body habitus; not ill appearing Eyes: PERRL, conjunctivae normal, anicteric sclerae ENMT: external ear and nose normal, oropharynx normal Neck: trachea midline, no thyromegaly Respiratory: no respiratory distress Auscultation: lungs clear to auscultation bilaterally Cardiovascular: Rate/Rhythm: regular rate and regular rhythm; not tachycardic Heart Sounds: normal S1 and normal S2; no murmur Extremities: no edema (Left foot is bandaged) Gastrointestinal (Abdomen): Inspection/Auscultation: normal bowel sounds; abdomen not distended Percussion/Palpation: abdomen soft; abdomen nontender Musculoskeletal: Left foot is painful with movement of the ankle Neurologic: Alert, awake and oriented x3. No focal sensory or no motor deficit appreciated Lymphatic: no cervical or axillary lymphadenopathy Results & Data Results & Data ([facility]) Vital Signs (Past 12 Hours) Vital Signs Temp Pulse Resp BP Pulse Ox O2 Del Method 11/17/22 07:21 36.5 C 74 16 165/78 H 97 Room Air 11/17/22 07:16 Room Air Laboratory Results Short CBC 11/17/22 Range/Units 07:42 WBC 6.57 (4.8-10.8) K/ul Hgb 13.0 L (14.0-18.0) g/dl Hct 37.6 L (40.1-51.0) % Plt Count 227 (130-400) K/uL BMP 11/17/22 07:42 Sodium 134 L Potassium 4.1 Chloride 99 Carbon Dioxide 30 BUN 10 Creatinine 1.05 Glucose 135 H Calcium 8.7 Medications Administered Current Inpatient Medications Dextrose (Dextrose 50% 50 Ml Syringe) 25 - 50 ml IV UD PRN; Protocol PRN Reason: Hypoglycemia Protocol Stop: 12/14/22 14:21 Gabapentin (Gabapentin 400 Mg Cap) 400 mg PO Q24H [facility] Stop: 11/17/22 23:16 Glucagon (Glucagon For Inj 1 Mg Vial) 1 mg SQ UD PRN; Protocol PRN Reason: Hypoglycemia Protocol Stop: 12/14/22 14:21 Glucose (Glucose 40% Gel 15 Gm Tube) 15 - 30 gm PO UD PRN; Protocol PRN Reason: Hypoglycemia Protocol Stop: 12/14/22 14:21 Glucose (Glucose 10 Tab/Tube) 4 - 8 tab PO UD PRN; Protocol PRN Reason: Hypoglycemia Treatment Stop: 12/14/22 14:21 Heparin Sodium (Porcine) (Heparin Sod 5,000 Unit/0.5 Ml Vial) 5,000 units SQ Q8 [facility] Stop: 12/14/22 13:59 Last Admin: 11/17/22 13:05 Dose: 5,000 units Hydralazine HCl (Hydralazine Hcl 20 Mg/Ml Vial) 10 mg IV Q6H PRN PRN Reason: for sbp above 170 Stop: 12/14/22 14:29 Last Admin: 11/16/22 18:07 Dose: 10 mg Piperacillin Sod/Tazobactam (Sod 4.5 gm/ Dextrose) 120 mls @ 30 mls/hr IV Q8H [facility]; Protocol Stop: 11/21/22 13:59 Last Admin: 11/17/22 13:06 Dose: 30 mls/hr Vancomycin HCl 1,250 mg/ (Sodium Chloride) 275 mls @ 200 mls/hr IV Q12H [facility]; Protocol Stop: 12/28/22 20:59 Last Infusion: 11/17/22 09:51 Dose: Infused Insulin Aspart (Insulin Aspart Per Unit) 0 units SC ACHS [facility] Stop: 12/16/22 16:44 Last Admin: 11/17/22 12:58 Dose: 3 units Miscellaneous (Carbohydrates For Hypoglycemia ) 15 - 30 gm PO UD PRN PRN Reason: Hypoglycemia Protocol Stop: 12/14/22 14:21 Miscellaneous (Remove Nicoderm Patch) 1 each N/A DAILY@[id number] [facility] Stop: 12/15/22 08:58 Last Admin: 11/17/22 08:10 Dose: Not Given Miscellaneous Information (Vancomycin Consult Active) 1 each N/A UD PRN PRN Reason: Consult Stop: 12/14/22 13:15 Multivitamins (Multivitamin Tab) 1 tab PO DAILY [facility] Stop: 12/15/22 08:59 Last Admin: 11/17/22 08:14 Dose: 1 tab Nicotine (Nicotine 21 Mg/24 Hr Tdsy) 21 mg TD QAM [facility] Stop: 12/14/22 16:14 Last Admin: 11/17/22 08:15 Dose: Not Given Oxycodone HCl (Oxycodone Hcl Ir 5 Mg Tab (Immediate Release)) 5 mg PO Q4H PRN PRN Reason: Pain Stop: 11/28/22 13:15 Last Admin: 11/17/22 05:22 Dose: 5 mg
--- NOTE | 2022-11-17 18:20 | Emergency Department Note ---
Impression & Plan Osteomyelitis, Diabetic foot ulcer associated with type 2 diabetes mellitus, Ulcer of great toe ED Provider Note CHIEF COMPLAINT: L foot pain HISTORY OF PRESENT ILLNESS: This 72 yo male patient presents to the emergency department complaints of left great toe and foot pain. Patient states he first noticed a scab at the tip of the great toe and the second toe 1 to 2 weeks ago. He began to pick at the skin when he noticed significant discomfort. He states he used the heel of his right foot and stomped on the toe because it was giving him some much discomfort, particularly at night. Thinks this may have aggravated the wound and now it is larger, red and he has not been able to sleep for 2 days. He denies any significant fevers. He states he is diabetic and does smoke many cigarettes in a day. He rolls his own cigarettes. He also drinks beer for most of the day. REVIEW OF SYSTEMS: A review of systems was performed with positives and pertinent negatives listed in the history of present illness. 10 systems were reviewed and are otherwise negative. ALLERGIES: see below MEDICATIONS: see below PMH: see below SOCIAL HISTORY: see below DDx: Cellulitis, abscess, MRSA infection, osteomyelitis, necrotizing fasciitis, dermatitis, trauma, fracture, as well as other pathologies. PHYSICAL EXAM: Vital signs reviewed. General: Well-appearing 72-year-old male, in no significant distress. HEENT: No scleral icterus, PERRLA, neck supple. Atraumatic. Cardiovascular: Regular rate and rhythm, no extra sounds. Pulmonary: Clear to auscultation bilaterally, normal work of breathing. Abdomen: Soft, nontender, nondistended, positive bowel sounds. Musculoskeletal: Atraumatic, no peripheral edema. Left great toe with edema, erythema and ulcerated area at the distal end of the toe as well as the second toe with scabbing. Minimal pain with palpation of the area, no drainage appreciated. Neurologic: Patient awake alert and oriented x 3, speech is clear Skin: Warm, dry, positive lymphangitic streaking from the left great toe to the medial left knee. EMERGENCY DEPARTMENT COURSE/MDM: Patient was evaluated and appeared to be in no significant distress. IV access was obtained and laboratory work was drawn. Patient's foot appears to be cellulitic with at least a diabetic foot ulcer. X- ray was performed and reveals changes consistent with osteomyelitis. WBC is n ormal, sed rate and CRP are elevated. Patient was covered with Zosyn and vancomycin. Patient has a normal lactate and cultures have been sent. Patient's case was discussed with the hospitalist service who will evaluate the patient for admission and further management. MONITORING: An order for cardiac monitoring was placed and the patient is noted to be in a NSR at 74 beats per minute. RADIOLOGY: See below DISPOSITION: Admit Past Med/Surg History Medical History Alcohol abuse GERD (gastroesophageal reflux disease) Tobacco use disorder Type 2 diabetes mellitus Surgical History History of knee surgery History of knee surgery Family History Other Stroke Social History Smoking Status: Current every day smoker Tobacco Type: Cigarettes Cigarettes Per Day: 36; Second Hand Exposure: Yes; Do You Dip or Chew Tobacco: No; Tobacco Cessation Education Requested by Patient: No Hx Alcohol Use: Yes Alcohol type: beer Hx Substance Use: No Preferred Language: Latvian Communication Ability: Effective Publicity Director Required: No Beliefs That Will Affect Care: None Current Living Situation: Alone Other Information That Helps Us Care for You: No Feels Safe at Home: Yes Safety Concerns: Feels Safe At This Time Assistive Devices: None Allergies Allergies Allergy/AdvReac Type Severity Reaction Status Date / Time No Known Allergies Allergy Unverified 11/14/22 07:47 Home Meds Home Medications Medication Instructions Recorded Confirmed multivitamin 1 tab PO DAILY 01/05/21 11/14/22 ascorbic acid (vitamin C) 500 mg 500 mg PO DAILY 11/14/22 11/14/22 tablet (Vitamin C) ibuprofen 200 mg PO Q8H PRN Pain 11/14/22 11/14/22 metformin 1,000 mg tablet,extended 1,000 mg PO BID 11/14/22 11/16/22 release 24hr Previous Rx's Medication Instructions Recorded aspirin 81 mg tablet,delayed 81 mg PO QAM #30 tabs 02/08/21 release Saccharomyces boulardii 250 mg 250 mg PO BID #14 caps 11/19/22 capsule (Probiotic (S.boulardii)) amlodipine 5 mg tablet (Norvasc) 5 mg PO QAM #30 tabs 11/19/22 amoxicillin 500 mg-potassium 1 tab PO Q8 #21 tabs 11/19/22 clavulanate 125 mg tablet ciprofloxacin HCl 500 mg tablet 500 mg PO BID #14 tabs 11/19/22 Results & Data (ED) Vital Signs Vital Signs - 24 hr 11/14/22 06:16 11/14/22 07:23 11/14/22 08:30 Temperature 36.7 C Temperature Source Temporal Artery Scan Pulse Rate 81 Pulse Rate [Apical] 74 75 Respiratory Rate 20 18 16 Respiratory Effort / Characteristics Non-Labored Spontaneous Respiratory Depth Normal Normal Blood Pressure 195/82 H Blood Pressure [Left Arm] 172/87 H 176/99 H Blood Pressure Mean 119 Blood Pressure Mean [Left Arm] 115 124 Pulse Oximetry 99 97 100 Oxygen Delivery Method Room Air Room Air Sepsis Recent Fever Within 48 Hours No Sepsis New/Unexplained Change in Mental Status N/A Sepsis Action Taken by Nursing No Action Required 11/14/22 10:05 Temperature Temperature Source Pulse Rate Pulse Rate [Apical] 68 Respiratory Rate 21 Respiratory Effort / Characteristics Respiratory Depth Normal Blood Pressure Blood Pressure [Left Arm] Blood Pressure Mean Blood Pressure Mean [Left Arm] Pulse Oximetry 96 Oxygen Delivery Method Room Air Sepsis Recent Fever Within 48 Hours Sepsis New/Unexplained Change in Mental Status Sepsis Action Taken by [facility] Medications Current Medication List: was personally reviewed by me Laboratory Data Attestation: I reviewed the patient's lab results. Result diagrams: 11/19/22 08:35 11/19/22 08:35 Lab Results 11/14/22 11/14/22 11/14/22 Range/Units 07:25 07:25 07:25 WBC 7.54 (4.8-10.8) K/ul RBC 4.34 L (4.63-6.08) M/uL Hgb 14.5 (14.0-18.0) g/dl Hct 40.0 L (40.1-51.0) % MCV 92.2 (80.0-100.0) fL MCH 33.4 (25.0-34.0) pg MCHC 36.3 H (32.0-36.0) g/dL RDW Std Deviation 41.1 (36.4-46.3) fL RDW Coeff of Mateusz 12.0 (11.5-14.5) % Plt Count 256 (130-400) K/uL MPV 9.2 L (9.4-12.4) fL Immature Gran % (Auto) 0.1 % Neut % (Auto) 75.1 % Lymph % (Auto) 15.5 % [place] % (Auto) 8.1 % Eos % (Auto) 0.5 % Baso % (Auto) 0.7 % Neut # (Auto) 5.66 (1.4-6.5) K/uL Lymph # (Auto) 1.17 L (1.2-3.4) K/uL [place] # (Auto) 0.61 (0.24-0.82) K/uL Eos # (Auto) 0.04 (0-0.50) K/uL Baso # (Auto) 0.05 (0-0.2) K/uL Immature Gran # (Auto) 0.01 (0.00-0.02) K/uL ESR (0-20) mm/hr Sodium 130 L (136-145) mmol/L Potassium 4.7 (3.5-5.1) mmol/L Chloride 97 L (98-107) mmol/L Carbon Dioxide 28 (21-32) mmol/L Anion Gap 5 (3-11) BUN 12 (6-23) mg/dl Creatinine 0.81 (0.6-1.4) mg/dl Est Cr Clr Drug Dosing 86.2 ml/min Est GFR ( Amer) 101.5 ml/min Est GFR (Non-Af Amer) 87.6 ml/min BUN/Creatinine Ratio 14.8 (10-20) Glucose 171 H (70-99(Fasting)) mg/dl Lactate 1.0 (0.4-2.0) mmol/L Calcium 9.4 (8.5-10.1) mg/dl Total Bilirubin 0.5 (0.2-1.0) mg/dl AST 15 (13-39) U/L ALT 11 (7-52) U/L Alkaline Phosphatase 108 H (34-104) U/L C-Reactive Protein 2.17 H (0-0.5) mg/dl Total Protein 7.8 (6.0-8.3) gm/dl Albumin 4.4 (3.4-5.0) gm/dl Globulin 3.4 (2.5-4.0) gm/dl Albumin/Globulin Ratio 1.3 (0.9-2) SARS-CoV-2, RNA, NAAT (NEGATIVE) 11/14/22 11/14/22 Range/Units 07:25 10:10 WBC (4.8-10.8) K/ul RBC (4.63-6.08) M/uL Hgb (14.0-18.0) g/dl Hct (40.1-51.0) % MCV (80.0-100.0) fL MCH (25.0-34.0) pg MCHC (32.0-36.0) g/dL RDW Std Deviation (36.4-46.3) fL RDW Coeff of Mateusz (11.5-14.5) % Plt Count (130-400) K/uL MPV (9.4-12.4) fL Immature Gran % (Auto) % Neut % (Auto) % Lymph % (Auto) % [place] % (Auto) % Eos % (Auto) % Baso % (Auto) % Neut # (Auto) (1.4-6.5) K/uL Lymph # (Auto) (1.2-3.4) K/uL [place] # (Auto) (0.24-0.82) K/uL Eos # (Auto) (0-0.50) K/uL Baso # (Auto) (0-0.2) K/uL Immature Gran # (Auto) (0.00-0.02) K/uL ESR 45 H (0-20) mm/hr Sodium (136-145) mmol/L Potassium (3.5-5.1) mmol/L Chloride (98-107) mmol/L Carbon Dioxide (21-32) mmol/L Anion Gap (3-11) BUN (6-23) mg/dl Creatinine (0.6-1.4) mg/dl Est Cr Clr Drug Dosing ml/min Est GFR ( Amer) ml/min Est GFR (Non-Af Amer) ml/min BUN/Creatinine Ratio (10-20) Glucose (70-99(Fasting)) mg/dl Lactate (0.4-2.0) mmol/L Calcium (8.5-10.1) mg/dl Total Bilirubin (0.2-1.0) mg/dl AST (13-39) U/L ALT (7-52) U/L Alkaline Phosphatase (34-104) U/L C-Reactive Protein (0-0.5) mg/dl Total Protein (6.0-8.3) gm/dl Albumin (3.4-5.0) gm/dl Globulin (2.5-4.0) gm/dl Albumin/Globulin Ratio (0.9-2) SARS-CoV-2, RNA, NAAT NEGATIVE (NEGATIVE) Administered Medications Discontinued Medications Acetaminophen (Acetaminophen 500 Mg Tab) 1,000 mg PO Q8H [facility] Stop: 12/18/22 15:59 Last Admin: 11/19/22 08:17 Dose: 1,000 mg Documented By: Admin: 11/19/22 00:09 Dose: 1,000 mg Documented By: Admin: 11/18/22 16:28 Dose: 1,000 mg Documented By: WES Amlodipine Besylate (Amlodipine Besylate 5 Mg Tab) 5 mg PO QAM [facility] Stop: 12/18/22 15:59 Last Admin: 11/19/22 08:18 Dose: 5 mg Documented By: Admin: 11/18/22 17:08 Dose: 5 mg Documented By: WES Amoxicillin/Clavulanate Potassium (Amoxicillin/Clavulanate 500 Mg Tab) 1 tab PO Q8 [facility] Stop: 11/25/22 23:59 Last Admin: 11/19/22 12:06 Dose: 1 tab Documented By: FESTUS Bupivacaine HCl (Bupivacaine 0.5 % 5 Mg/1 Ml Mpf 30ml Vial) Confirm Administered Dose 30 ml .ROUTE .STK-MED ONE Stop: 11/16/22 14:50 Last Admin: 11/16/22 15:06 Dose: Not Given Documented By: PO Ciprofloxacin (Ciprofloxacin 500 Mg Tab) 500 mg PO BID [facility] Stop: 11/25/22 23:59 Last Admin: 11/19/22 12:06 Dose: 500 mg Documented By: FESTUS Gabapentin (Gabapentin 400 Mg Cap) 800 mg PO NOW ONE Stop: 11/14/22 13:17 Last Admin: 11/14/22 15:12 Dose: 800 mg Documented By: KATIE Gabapentin (Gabapentin 400 Mg Cap) 400 mg PO Q6H [facility] Stop: 11/14/22 23:16 Last Admin: 11/14/22 22:47 Dose: 400 mg Documented By: Admin: 11/14/22 17:30 Dose: 400 mg Documented By: KATIE Gabapentin (Gabapentin 400 Mg Cap) 400 mg PO Q8H [facility] Stop: 11/15/22 23:16 Last Admin: 11/15/22 22:34 Dose: 400 mg Documented By: Admin: 11/15/22 16:07 Dose: 400 mg Documented By: Admin: 11/15/22 06:22 Dose: 400 mg Documented By: WALE Gabapentin (Gabapentin 400 Mg Cap) 400 mg PO Q12H [facility] Stop: 11/16/22 23:16 Last Admin: 11/16/22 23:15 Dose: 400 mg Documented By: Admin: 11/16/22 11:11 Dose: Not Given Documented By: MEETA Gabapentin (Gabapentin 400 Mg Cap) 400 mg PO Q24H [facility] Stop: 11/17/22 23:16 Last Admin: 11/17/22 22:45 Dose: 400 mg Documented By: DMITRIY Gadobutrol (Gadobutrol 7.5ml Vial) 7.5 ml IV ONCE ONE Stop: 11/14/22 14:28 Last Admin: 11/14/22 14:27 Dose: 7.5 ml Documented By: LIZBETH Heparin Sodium (Porcine) (Heparin Sod 5,000 Unit/0.5 Ml Vial) 5,000 units SQ Q8 [facility] Stop: 12/14/22 13:59 Last Admin: 11/19/22 05:31 Dose: 5,000 units Documented By: Admin: 11/18/22 21:00 Dose: 5,000 units Documented By: Admin: 11/18/22 13:42 Dose: 5,000 units Documented By: Admin: 11/18/22 05:42 Dose: 5,000 units Documented By: Admin: 11/17/22 21:24 Dose: 5,000 units Documented By: Admin: 11/17/22 13:05 Dose: 5,000 units Documented By: Admin: 11/17/22 05:15 Dose: 5,000 units Documented By: Admin: 11/16/22 21:35 Dose: 5,000 units Documented By: Admin: 11/15/22 22:34 Dose: 5,000 units Documented By: Admin: 11/15/22 13:32 Dose: 5,000 units Documented By: Admin: 11/15/22 06:11 Dose: 5,000 units Documented By: Admin: 11/14/22 22:44 Dose: 5,000 units Documented By: Admin: 11/14/22 16:40 Dose: 5,000 units Documented By: KATIE Hydralazine HCl (Hydralazine Hcl 20 Mg/Ml Vial) 10 mg IV Q6H PRN PRN Reason: for sbp above 170 Stop: 12/14/22 14:29 Last Admin: 11/16/22 18:07 Dose: 10 mg Documented By: MEETA Sodium Chloride (Nss 1000ml) 1,000 mls @ 999 mls/hr IV .Q1H1M ONE Stop: 11/14/22 08:11 Last Infusion: 11/14/22 08:13 Dose: 0 mls/hr Documented By: Admin: 11/14/22 07:29 Dose: 999 mls/hr Documented By: RYAN Acetaminophen (Ofirmev) 1,000 mg in 100 mls @ 400 mls/hr IV NOW STA Stop: 11/14/22 07:27 Last Infusion: 11/14/22 07:29 Dose: 0 mls/hr Documented By: Admin: 11/14/22 07:28 Dose: 400 mls/hr Documented By: RYAN Piperacillin Sod/Tazobactam Sod (Zosyn) 4.5 gm in 120 mls @ 240 mls/hr IV NOW ONE Stop: 11/14/22 07:49 Last Infusion: 11/14/22 08:29 Dose: 0 mls/hr Documented By: Admin: 11/14/22 08:13 Dose: 240 mls/hr Documented By: RICHIE Vancomycin HCl 1,500 mg/ (Sodium Chloride) 530 mls @ 200 mls/hr IV NOW STA; Protocol Stop: 11/14/22 12:12 Last Infusion: 11/14/22 13:10 Dose: 0 mls/hr Documented By: Admin: 11/14/22 10:04 Dose: 200 mls/hr Documented By: RICHIE Piperacillin Sod/Tazobactam (Sod 4.5 gm/ Dextrose) 120 mls @ 30 mls/hr IV Q8H BR[facility]TE; Protocol Stop: 11/21/22 13:59 Last Infusion: 11/19/22 09:00 Dose: 0 mls/hr Documented By: Admin: 11/19/22 05:31 Dose: 30 mls/hr Documented By: Infusion: 11/19/22 01:05 Dose: 0 mls/hr Documented By: Admin: 11/18/22 21:00 Dose: 30 mls/hr Documented By: Infusion: 11/18/22 17:40 Dose: 0 mls/hr Documented By: Admin: 11/18/22 13:41 Dose: 30 mls/hr Documented By: Infusion: 11/18/22 09:48 Dose: 0 mls/hr Documented By: Admin: 11/18/22 05:40 Dose: 30 mls/hr Documented By: Infusion: 11/18/22 01:12 Dose: 0 mls/hr Documented By: Admin: 11/17/22 21:12 Dose: 30 mls/hr Documented By: Infusion: 11/17/22 17:11 Dose: 0 mls/hr Documented By: Admin: 11/17/22 13:06 Dose: 30 mls/hr Documented By: Infusion: 11/17/22 08:52 Dose: 0 mls/hr Documented By: Admin: 11/17/22 05:14 Dose: 30 mls/hr Documented By: Infusion: 11/17/22 01:38 Dose: 0 mls/hr Documented By: Admin: 11/16/22 21:34 Dose: 30 mls/hr Documented By: Infusion: 11/16/22 15:59 Dose: 0 mls/hr Documented By: Admin: 11/16/22 13:21 Dose: 30 mls/hr Documented By: Infusion: 11/16/22 11:01 Dose: 0 mls/hr Documented By: Admin: 11/16/22 06:43 Dose: 30 mls/hr Documented By: Infusion: 11/16/22 02:40 Dose: 0 mls/hr Documented By: Admin: 11/15/22 22:37 Dose: 30 mls/hr Documented By: Infusion: 11/15/22 17:57 Dose: 0 mls/hr Documented By: Admin: 11/15/22 13:32 Dose: 30 mls/hr Documented By: Infusion: 11/15/22 10:45 Dose: 0 mls/hr Documented By: Admin: 11/15/22 06:22 Dose: 30 mls/hr Documented By: Infusion: 11/15/22 02:17 Dose: 0 mls/hr Documented By: Admin: 11/14/22 22:47 Dose: 30 mls/hr Documented By: Infusion: 11/14/22 19:10 Dose: 0 mls/hr Documented By: Admin: 11/14/22 15:13 Dose: 30 mls/hr Documented By: KATIE Vancomycin HCl 1,500 mg/ (Sodium Chloride) 530 mls @ 200 mls/hr IV DAILY@0900 [facility]; Protocol Stop: 11/22/22 08:59 Last Infusion: 11/16/22 11:54 Dose: 0 mls/hr Documented By: Admin: 11/16/22 08:59 Dose: 200 mls/hr Documented By: Infusion: 11/15/22 11:38 Dose: 0 mls/hr Documented By: Admin: 11/15/22 08:42 Dose: 200 mls/hr Documented By: RDL Vancomycin HCl 1,250 mg/ (Sodium Chloride) 275 mls @ 200 mls/hr IV Q12H [facility]; Protocol Stop: 12/28/22 20:59 Last Infusion: 11/18/22 22:22 Dose: 0 mls/hr Documented By: Admin: 11/18/22 20:59 Dose: 200 mls/hr Documented By: Infusion: 11/18/22 11:12 Dose: 0 mls/hr Documented By: Admin: 11/18/22 09:21 Dose: 200 mls/hr Documented By: Infusion: 11/17/22 22:40 Dose: 0 mls/hr Documented By: Admin: 11/17/22 21:13 Dose: 200 mls/hr Documented By: Infusion: 11/17/22 09:51 Dose: 0 mls/hr Documented By: Admin: 11/17/22 08:14 Dose: 200 mls/hr Documented By: Infusion: 11/16/22 21:42 Dose: 0 mls/hr Documented By: Admin: 11/16/22 20:17 Dose: 200 mls/hr Documented By: DMITRIY Insulin Aspart (Insulin Aspart Per Unit) 0 units SC ACHS [facility] Stop: 12/14/22 16:29 Last Admin: 11/15/22 21:30 Dose: Not Given Documented By: WALE Co-signed By: DMITRIY Admin: 11/15/22 18:01 Dose: 4 units Documented By: KOBE Co-signed By: LINDA Admin: 11/15/22 13:08 Dose: 3 units Documented By: KOBE Co-signed By: LINDA Admin: 11/15/22 08:43 Dose: 1 units Documented By: KOBE Co-signed By: CHETAN Admin: 11/14/22 21:53 Dose: Not Given Documented By: WALE Co-signed By: DMITRIY Admin: 11/14/22 17:29 Dose: 3 units Documented By: KATIE Co-signed By: BIJU Insulin Aspart (Insulin Aspart Per Unit) 0 units SC Q6 [facility] Stop: 12/16/22 05:59 Last Admin: 11/16/22 11:26 Dose: Not Given Documented By: Admin: 11/16/22 06:31 Dose: Not Given Documented By: WALE Co-signed By: MISSY Insulin Aspart (Insulin Aspart Per Unit) 0 units SC ACHS [facility] Stop: 12/16/22 16:44 Last Admin: 11/19/22 09:03 Dose: 3 units Documented By: FESTUS Co-signed By: AL Admin: 11/18/22 21:27 Dose: 1 units Documented By: DMITRIY Co-signed By: SADIA Admin: 11/18/22 17:36 Dose: 4 units Documented By: WES Co-signed By: AL Admin: 11/18/22 12:41 Dose: 3 units Documented By: WES Co-signed By: AL Admin: 11/18/22 08:47 Dose: 4 units Documented By: WES Co-signed By: AL Admin: 11/17/22 21:24 Dose: 1 units Documented By: DMITRIY Co-signed By: MISSY Admin: 11/17/22 17:51 Dose: 4 units Documented By: WES Co-signed By: ELIZABETH Admin: 11/17/22 12:58 Dose: 3 units Documented By: MEETA Co-signed By: WES Admin: 11/17/22 08:44 Dose: 4 units Documented By: MEETA Co-signed By: WES Admin: 11/16/22 20:53 Dose: Not Given Documented By: DMITRIY Co-signed By: WALE Admin: 11/16/22 17:38 Dose: 2 units Documented By: MEETA Co-signed By: LINDA Miscellaneous (Remove Nicoderm Patch) 1 each N/A DAILY@0859 [facility] Stop: 12/15/22 08:58 Last Admin: 11/19/22 08:17 Dose: Not Given Documented By: Admin: 11/18/22 08:48 Dose: 1 each Documented By: Admin: 11/17/22 08:10 Dose: Not Given Documented By: Admin: 11/16/22 08:52 Dose: Not Given Documented By: Admin: 11/15/22 07:43 Dose: Not Given Documented By: KOBE Morphine Sulfate (Morphine Sulfate 2 Mg/Ml Carp) 2 mg IV NOW STA Stop: 11/14/22 07:14 Last Admin: 11/14/22 07:26 Dose: 2 mg Documented By: RYAN Multivitamins (Multivitamin Tab) 1 tab PO DAILY [facility] Stop: 12/15/22 08:59 Last Admin: 11/19/22 08:18 Dose: 1 tab Documented By: Admin: 11/18/22 08:49 Dose: 1 tab Documented By: Admin: 11/17/22 08:14 Dose: 1 tab Documented By: Admin: 11/16/22 08:52 Dose: Not Given Documented By: Admin: 11/15/22 07:42 Dose: 1 tab Documented By: KOBE Nicotine (Nicotine 21 Mg/24 Hr Tdsy) 21 mg TD QAM [facility] Stop: 12/14/22 16:14 Last Admin: 11/19/22 08:17 Dose: Not Given Documented By: Admin: 11/18/22 08:49 Dose: Not Given Documented By: Admin: 11/17/22 08:15 Dose: Not Given Documented By: Admin: 11/16/22 08:52 Dose: Not Given Documented By: Admin: 11/15/22 07:43 Dose: Not Given Documented By: Admin: 11/14/22 16:40 Dose: Not Given Documented By: KATIE Ondansetron HCl (Ondansetron Inj 2 Mg/Ml 2 Ml Vial) 4 mg IV NOW STA Stop: 11/14/22 07:14 Last Admin: 11/14/22 07:25 Dose: 4 mg Documented By: RYAN Oxycodone HCl (Oxycodone Hcl Ir 5 Mg Tab (Immediate Release)) 5 mg PO Q4H PRN PRN Reason: Pain Stop: 11/28/22 13:15 Last Admin: 11/19/22 00:12 Dose: 5 mg Documented By: Admin: 11/18/22 14:50 Dose: 5 mg Documented By: Admin: 11/18/22 05:46 Dose: 5 mg Documented By: Admin: 11/17/22 21:12 Dose: 5 mg Documented By: Admin: 11/17/22 15:31 Dose: 5 mg Documented By: Admin: 11/17/22 05:22 Dose: 5 mg Documented By: Admin: 11/16/22 23:17 Dose: 5 mg Documented By: Admin: 11/16/22 18:42 Dose: 5 mg Documented By: MEETA Imaging Data Radiologist's Impression: Foot X-Ray 11/14/22 07:11 XR foot LT min 3V routine CLINICAL HISTORY: L great toe infection, concern for osteo TECHNIQUE: 3 views of the left foot were obtained. Comparison: Comparison is made to left ankle radiographs 05/29/2021 FINDINGS: There is demineralization and degenerative changes of the great toe. Degenerative changes are seen. Soft tissue swelling is seen about the great toe. IMPRESSION: Demineralization about the great toe is noted. Although there is no well-defined focal erosion, there are areas of lucency which are concerning for osteomyelitis with surrounding soft tissue swelling compatible with cellulitis. ACT 112: Negative or not required by law. Electronically signed by: Jalil Mata M.D. 11/14/2022 7:57 AM Blood Pressure Blood Pressure Findings: Elevated blood pressure Blood Pressure Disposition: further management by hospitalist Discharge Plan Visit Data Chief Complaint: Foot Injury/Pain Stated Complaint: SHARP L FOOT PAIN, SWELLING ED Provider: Leslie Webb Discharge Problem: Osteomyelitis, Diabetic foot ulcer associated with type 2 diabetes mellitus, Ulcer of great toe Patient Disposition: Admitted As Inpatient Discharge Instructions Interventions: ED Discharge Assessment Last Done: 11/14/22 12:45 : Osteomyelitis Qualifiers: Osteomyelitis type: other acute Osteomyelitis location: foot Laterality: left Qualified Code(s): M86.172 - Other acute osteomyelitis, left ankle and foot Diabetic foot ulcer associated with type 2 diabetes mellitus Qualifiers: Diabetic foot ulcer location: toe Laterality: left Non-pressure ulcer stage: unspecified non-pressure ulcer stage Qualified Code(s): E11.621 - Type 2 diabetes mellitus with foot ulcer Ulcer of great toe Qualifiers: Laterality: left Non-pressure ulcer stage: unspecified non-pressure ulcer stage Qualified Code(s): L97.529 - Non-pressure chronic ulcer of other part of left foot with unspecified severity
[2022-11-17] MEDS ORDERED: GABAPENTIN 400 MG CAP PO SCH (23:15)
[2022-11-18] MEDS: PIPERACILLIN/TAZOBACTAM 4.5 GM in DEXTROSE 5% 100 ML IV SCH ×3 (05:40→21:00)
[2022-11-18] MEDS: HEPARIN SOD 5,000 UNIT/0.5 ML VIAL SQ SCH ×3 (05:42→21:00)
[2022-11-18] MEDS: oxyCODONE HCL IR 5 MG TAB (IMMEDIATE RELEASE) PO PRN ×2 (05:46→14:50)
[2022-11-18 07:12] LABS: Basophils # (auto) 0.04 K/uL (0-0.2); Basophils % (auto) 0.5 %; Eosinophils # (auto) 0.09 K/uL (0-0.50); Eosinophils % (auto) 1.1 %; Hematocrit (blood only) 34.8 % (40.1-51.0); Hemoglobin 12.2 g/dl (14.0-18.0); Immature Granulocytes # (auto) 0.04 K/uL (0.00-0.02); Immature Granulocytes % (auto) 0.5 %; Lymphocytes # (auto) 1.38 K/uL (1.2-3.4); Lymphocytes % (auto) 16.7 %; Mean Corpuscular Hgb Conc 35.1 g/dL (32.0-36.0); Mean Corpuscular Volume 94.1 fL (80.0-100.0); Mean Platelet Volume 9.3 fL (9.4-12.4); Monocytes # (auto) 0.93 K/uL (0.24-0.82); Monocytes % (auto) 11.2 %; Neutrophils # (auto) 5.79 K/uL (1.4-6.5); Platelet Count 197 K/uL (130-400); RDW Standard Deviation 41.7 fL (36.4-46.3); White Blood Count 8.27 K/ul (4.8-10.8)
[2022-11-18] MEDS ORDERED: VANCOMYCIN LEVEL ONE (08:00)
[2022-11-18 08:09] LABS: BUN Creatinine Ratio 13.2 (10-20); Calcium 8.6 mg/dl (8.5-10.1); Creatinine Clr Calc Pharmacy 65.9 ml/min; Est GFR (African American) 79.7 ml/min; Est GFR (Non-African American) 68.8 ml/min; Potassium 3.8 mmol/L (3.5-5.1)
[2022-11-18] MEDS: INSULIN ASPART PER UNIT SC SCH ×4 (08:47→21:27)
[2022-11-18] MEDS: NICOTINE 21 MG/24 HR TDSY TD SCH (08:49)
[2022-11-18] MEDS: MULTIVITAMIN TAB PO SCH (08:49)
[2022-11-18] MEDS: VANCOMYCIN HCL 1,250 MG in SODIUM CHLORIDE 0.9% 250 ML IV SCH ×2 (09:21→20:59)
--- NOTE | 2022-11-18 10:07 | Pharmacy Report ---
Pharmacy PK ABX Note - Date of Service November 18, 2022 - Assessment and Plan Assessment * 72 year old M receiving Zosyn and vancomycin for treatment of diabetic foot infection and osteomyelitis * Pertinent microbiologic data: blood cultures show no growth. Left great toe culture- no growth to date * Patient had L great toe amputation on 11/16/22. Today is post op day 2. * SCr increased slightly from baseline but still normal. * Today is day 5 of Vancomycin therapy for Osteomyelitis. * Also on Zosyn therapy. Plan Vancomycin * Vancomycin 1250 mg IV q12h was started on 11/16 at 21:00. * Random level drawn yesterday after two doses was 18.8 mcg/ml indicating dosing was good but possibly might too much at steady state. Dosing continued yesterday. * Random level drawn this morning with AM labs = 14.3 mcg/ml. Predicted AUC at steady state: 575 mg/L.hr. * For Osteomyelitis, desire a target AUC close to 600 mg/L.hr. * Since current dosing should result in goal AUC, Vancomycin dose 1250 mg IV q12h continued. * Repeat random vancomycin level ordered for: 11/20/22 with AM labs. Pharmacy will continue to follow and will adjust dose/frequency as necessary. Thank you. Pharmacy has transitioned to AUC monitoring for vancomycin. AUC/PETE is the preferred PK/PD target and is associated with decreased risk of nephrotoxicity compared to traditional trough targets.
--- NOTE | 2022-11-18 15:41 | Hospitalist Progress Note ---
Date of Service November 18, 2022 Assessment & Plan (1) Diabetic foot ulcer with osteomyelitis: (2) Ulcer of great toe: (3) Cellulitis of foot: Plan: This is a 72 yo male with PMH of diabetes, tobacco abuse, alcohol abuse present to the ER with left great toe ulcer/Left foot swelling, tenderness and erythema and is s/p L great toe amputation. Diabetic foot ulcer of great toe with osteomyelitis Cellulitis of foot Status post left great toe amputation on 11/16/2022 Left foot XR showed demineralization about the great toe is noted. Although there is no well-defined focal erosion, there are areas of lucency which are concerning for osteomyelitis with surrounding soft tissue swelling compatible with cellulitis Received IV antibiotic with Zosyn and vancomycin in the ER, which has been continued Blood culture collected in the ER is negative so far MRI of of the left foot showed findings compatible with osteomyelitis of the left first digit distal phalanx with surrounding cellulitis Status post left great toe amputation on 11/16/[address] Dorado Pain much better controlled with PRN Tylenol and oxycodone added yesterday Discussed with Dr. Dorado, who is planning to re-evaluate today and reapply dressing. Will need follow up ID consulted with recs pending Hyponatremia Mostly related to alcohol abuse Sodium on admission 130, last sodium noted from outpatient chart 131, now 131. Continue to monitor Diabetes II Most recent hemoglobin A1c below 7.2 on 11/16/2022 Continue to hold p.o. diabetic med while inpatient Continue insulin sliding scale BSG AC HS Elevated blood pressure Possible related to hospital setting/ pain but still elevated even with improved pain control Starting amlodipine this evening, plan to continue 5mg daily Tobacco Abuse counseling on tobacco cessation Nicotine patch added Alcohol abuse Denies any history of alcohol withdrawal DT Continue alcohol withdrawal protocol with gabapentin Continue monitor closely for sign of DT or alcohol withdrawal Thiamine, and folic acid added Counseling on alcohol cessation DVT prophylaxis: SQ heparin CODE STATUS full code Admission and Anticipated Discharge Date Admission Date: November 14, 2022 Supervising Physician Co-Signing Physician Notes Attending addendum: The patient was seen and examined in medical He has been feeling much better with minimal pain in the foot He denies any other significant On examination Remains hemodynamically stable though blood pressure has been running on the higher side Chest-clear to auscultate bilaterally Heart-S1-S2 with a 2/6 ESM over precordium Abdomen benign Extremities left foot is bandaged- His labs and imaging studies reviewed Agree with assessment and plan as outlined above by ÁNGEL Pritchett Dr Subjective Seen and examined in 305-1. Status post left great toe amputation on 11/16/2022. Pain in foot has improved with PRN oxycodone overnight. Otherwise no additional symptoms. No fever, chills, lightheadedness, CP, SOB, N/V, abdominal pain, dysuria, diarrhea or constipation. Review of Systems Review of Systems: At least ten systems reviewed and negative except as noted in the HPI. Physical Exam Physical Exam: Gen: WD/WN, NAD, sitting in bedside chair, A&Ox3 HEENT: Normocephalic, atraumatic, conjunctivae moist, sclerae anicteric, mucous membranes moist Lung: Clear to Auscultation bilaterally, no wheezes/rales/rhonchi Heart: Regular rate, regular rhythm, +systolic murmur Abdomen: Soft, NT, ND +BS x 4 Extremities: Surgical dressing in place L foot, no edema Skin: Warm, no rash Results & Data Results & Data ([facility]) Vital Signs (Past 12 Hours) Vital Signs Temp Pulse Resp BP Pulse Ox O2 Del Method 11/18/22 08:07 Room Air 11/18/22 05:47 36.8 C 70 16 159/74 H 94 Room Air Laboratory Results Short CBC 11/18/22 Range/Units 06:50 WBC 8.27 (4.8-10.8) K/ul Hgb 12.2 L (14.0-18.0) g/dl Hct 34.8 L (40.1-51.0) % Plt Count 197 (130-400) K/uL BMP 11/18/22 06:50 Sodium 131 L Potassium 3.8 Chloride 98 Carbon Dioxide 30 BUN 14 Creatinine 1.06 Glucose 136 H Calcium 8.6 Diagnostic Findings Foot X-Ray 11/14/22 07:11 XR foot LT min 3V routine CLINICAL HISTORY: L great toe infection, concern for osteo TECHNIQUE: 3 views of the left foot were obtained. Comparison: Comparison is made to left ankle radiographs 05/29/2021 FINDINGS: There is demineralization and degenerative changes of the great toe. Degenerative changes are seen. Soft tissue swelling is seen about the great toe. IMPRESSION: Demineralization about the great toe is noted. Although there is no well-defined focal erosion, there are areas of lucency which are concerning for osteomyelitis with surrounding soft tissue swelling compatible with cellulitis. ACT 112: Negative or not required by law. Electronically signed by: Jalil Mata M.D. 11/14/2022 7:57 AM Foot MRI 11/14/22 13:16 MR foot LT wo/w con CLINICAL HISTORY: left great toe osteomyelitis TECHNIQUE: Multiplanar multisequence MR images of the right foot were obtained. Comparison: Comparison is made to left foot radiograph 11/14/2022 FINDINGS: Bones: There is edema in the left first digit distal phalanx compatible with osteomyelitis. Tendons: Unremarkable Soft tissue: Soft tissue edema is seen surrounding the first digit. IMPRESSION: Findings compatible with osteomyelitis of the left first digit distal phalanx with surrounding cellulitis. ACT 112: Negative or not required by law. Electronically signed by: Jalil Mata M.D. 11/14/2022 5:11 PM
[2022-11-18] MEDS: ACETAMINOPHEN 500 MG TAB PO SCH (16:28)
[2022-11-18] MEDS: amLODIPine BESYLATE 5 MG TAB PO SCH (17:08)
[2022-11-19] MEDS: ACETAMINOPHEN 500 MG TAB PO SCH ×2 (00:09→08:17)
[2022-11-19] MEDS: oxyCODONE HCL IR 5 MG TAB (IMMEDIATE RELEASE) PO PRN (00:12)
[2022-11-19] MEDS: HEPARIN SOD 5,000 UNIT/0.5 ML VIAL SQ SCH (05:31)
[2022-11-19] MEDS: PIPERACILLIN/TAZOBACTAM 4.5 GM in DEXTROSE 5% 100 ML IV SCH (05:31)
[2022-11-19] MEDS: NICOTINE 21 MG/24 HR TDSY TD SCH (08:17)
[2022-11-19] MEDS: MULTIVITAMIN TAB PO SCH (08:18)
[2022-11-19] MEDS: amLODIPine BESYLATE 5 MG TAB PO SCH (08:18)
--- NOTE | 2022-11-19 08:50 | Orthopedic Progress Note ---
Date of Service November 19, 2022 Assessment & Plan (1) Diabetic foot ulcer with osteomyelitis: Plan: Patient seen, evaluated, and treated. Reviewed ID note appreciate consult. Reviewed Culture (+) pseudomonas 7 days PO Augmentin upon discharge Patient dispensed surgical shoe with weight bearing as tolerated. He will follow up in 10-14 days in office for suture removal. Dressing may stay on until then unless soiled then change as needed. Thank you for allowing me to participate in the care of this Patient. (2) Diabetic foot ulcer associated with type 2 diabetes mellitus: (3) Cellulitis of foot: Admission and Anticipated Discharge Date Admission Date: November 14, 2022 Subjective Patient seen at bedside status post Left hallux amputation (DOS 11/16). He relates no complaints. Review of Systems Review of Systems: All systems reviewed & are unremarkable except as noted in HPI & below Physical Exam Constitutional: WD/WN, vitals as above Respiratory: normal respiratory effort Cardiovascular: pedal pulses palpable. CEMENTER MACHINE wnl. Proximal distal cooling wnl. Skin: Skin coapted. sutures intact. Neurologic: absent epicritic sensation. Psychiatric: A+Ox3, euthymic affect Results & Data ([facility]) Vital Signs (Past 12 Hours) Vital Signs Temp Pulse Resp BP Pulse Ox O2 Del Method 11/19/22 07:19 36.5 C 65 18 142/72 H 98 Room Air 11/18/22 21:00 Room Air Diagnostic Findings Aero/Jane Cult Preliminary 11/19/22-720 Organism 1 Pseudomonas aeruginosa Quantity Rare Sens Sensitivities to Follow P aerugino RX M.I.C. --- --------- Cefepime S <=2 Ceftazidime S 4 Ciprofloxacin S <=0.25 Gentamicin S <=4 Levofloxacin S 1 Meropenem S <=1 Tobramycin S <=4 Pip/Tazo S <=16 S = SENSITIVE I = INTERMEDIATE R = RESISTANT
[2022-11-19] MEDS: INSULIN ASPART PER UNIT SC SCH (09:03)
[2022-11-19 09:29] LABS: Hematocrit (blood only) 35.9 % (40.1-51.0); Hemoglobin 12.6 g/dl (14.0-18.0); Mean Corpuscular Hemoglobin 32.3 pg (25.0-34.0); Mean Corpuscular Hgb Conc 35.1 g/dL (32.0-36.0); Mean Corpuscular Volume 92.1 fL (80.0-100.0); Mean Platelet Volume 9.7 fL (9.4-12.4); Platelet Count 215 K/uL (130-400); RDW Standard Deviation 40.7 fL (36.4-46.3)
[2022-11-19 10:05] LABS: BUN Creatinine Ratio 13.1 (10-20); Calcium 9.2 mg/dl (8.5-10.1); Creatinine Clr Calc Pharmacy 70.6 ml/min; Est GFR (African American) 86.6 ml/min; Est GFR (Non-African American) 74.7 ml/min; Magnesium 1.8 mg/dl (1.7-2.4); Phosphorus 3.5 mg/dl (2.5-4.9); Potassium 3.9 mmol/L (3.5-5.1)
[2022-11-19] MEDS ORDERED: CIPROFLOXACIN 500 MG TAB PO SCH (12:00)
--- NOTE | 2022-11-19 12:01 | Discharge Summary ---
Date of Service November 19, 2022 Admission HPI Per Admitting Provider 72 yo male with PMH of diabetes, tobacco abuse, alcohol abuse present to the ER with Left foot swelling, tenderness and erythema. Pt said that he has history of frostbite. He said that he was having so much pain in his left foot in the past week. He said that he used the back of his right heal and hit his L big toe. He said that the he had small skin opening in the left big toe that was drainage. He said that there was some pus drainage. Pt said that his sock sometimes got soaked. Pt said that this morning he woke up his L big toe got worst and his L foot was swelling, tender and redness. Pt said that he has numbness and tingling in his left foot. Pt said that he drinks about 6 beers daily every morning. He said that he smokes about one and half ppd and 2 PPD. Denies any chest pain, palpitation, dizziness, fever and SOB. Admission Exam Per Admitting Provider General- No acute distress Head- atraumatic Eyes- PERRL, EOMI, ENT- oropharynx clear Neck- supple, no JVD Lungs- clear to auscultation Heart- regular rhythm; no murmur Abdomen- normal bowel sounds, soft, nontender Extremities- no calf tenderness, + left foot tenderness, swelling and erythema. +left big toe ulcer, swelling, erythema, Neuro- alert, oriented x 3; PERRL, EOMI; no facial palsy; no dysarthria Skin- warm & dry Principal Diagnosis Diabetic foot ulcer with osteomyelitis, Ulcer of great toe, Cellulitis of foot Discharge Exam Gen: WD/WN, NAD, sitting in bedside chair, A&Ox3 HEENT: Normocephalic, atraumatic, conjunctivae moist, sclerae anicteric, mucous membranes moist Lung: Clear to Auscultation bilaterally, no wheezes/rales/rhonchi Heart: Regular rate, regular rhythm, +systolic murmur Abdomen: Soft, NT, ND +BS x 4 Extremities: Surgical dressing in place L foot, no edema Skin: Warm, no rash Discharge Data Allergies Allergy/AdvReac Type Severity Reaction Status Date / Time No Known Allergies Allergy Unverified 11/14/22 07:47 Consultations 11/14/22 09:33 ED Decision to Admit Stat 11/14/22 13:16 Consult Podiatry Routine 11/17/22 10:46 Consult Infectious Diseases Routine Procedures Performed Operation Date: 11/16/22 14:00 Actual Procedures p Left Great Toe Amputation(Left) - Richardson Dorado DPM, MS Ordered Studies 11/14/22 13:16 MRI Foot [MR foot LT wo/w con] Routine Hospital Course (1) Diabetic foot ulcer with osteomyelitis: (2) Ulcer of great toe: (3) Cellulitis of foot: (4) Type 2 diabetes mellitus: (5) Tobacco use disorder: (6) GERD (gastroesophageal reflux disease): (7) Hyponatremia: (8) Alcohol abuse: Plan This is a 72 yo male with PMH of diabetes, tobacco abuse, alcohol abuse present to the ER with left great toe ulcer/Left foot swelling, tenderness and erythema and was found to have osteomyelitis. Left foot XR initially showed demineralization about the great toe is noted. S/p L great toe amputation on 11/16/[address] Dorado. Has been receiving IV Zosyn and Vanco since admission, with final wound culture growing pseudomonas. Per recommendations from ID, will discharge patient on Augmentin 500mg three times daily and Ciprofloxacin 500mg twice a day x 7 days. Will also start on probiotic. Patient dispensed surgical shoe by Dr. Dorado and is to be weight bearing as tolerated. He will follow up in 10-14 days in podiatry office for suture removal. Dressing may stay on until then unless soiled then change as needed. Blood pressure persistently elevated during admission and was started on amlodipine 5mg with instructions to follow up with PCP. Sodium improved during admission; most likely related to alcohol abuse. Continuing remainder of medications per home list. Patient hemodynamically stable at time of discharge home. Total Time Total Time Spent Total Time Spent (In Minutes): 60 Discharge Plan Discharge Items Patient Disposition: Home - Self-Care Reason For Visit: LT GREAT TOE INFECTION/FOOT CELLULITIS Discharge Diagnosis: 1) Diabetic foot ulcer with osteomyelitis (2) Ulcer of great toe (3) Cellulitis of foot Activity: Per Instructions section Non-emergency contact: Primary Care Provider Call non-emergency contact if: you have any medication questions, your symptoms worsen, your pain is not controlled and you have a fever Follow-up/Referrals: Luis Manuel Mcnally MD [Primary Care Provider] - (Date & Time 11/24/2022 9:00 AM Provider Neeta Cai PA-C Department [facility] ) Diet: Carb Consistent or DM2 Addtl Attending Provider Instructions: You were admitted with diabetic foot ulcer and bone infection called osteomyelitis. Status post left great toe removal by Dr. Dorado on 11/16/22 Per infectious disease, continue antibiotics through 11/25 (listed below) Please see instructions from Dr. Dorado below. MEDICATION CHANGES: Augmentin 500mg three times daily x 7 days Ciprofloxacin 500mg twice a day x 7 days Take probiotic twice daily for 14 days Continue amlodipine 5 mg daily which was started due to elevated blood pressure RECOMMENDATIONS FOR FOLLOW-UP: Please follow up with PCP as above and Dr. Dorado for suture removal OTHER INSTRUCTIONS: Seek medical attention if you have: * temperature above 101 * chest pain or trouble breathing * abdominal pain, nausea, vomiting * diarrhea, dark stools or bloody stools * any unanswered questions or concerns Call 911 if symptoms are severe. Please take good care of yourself. Call if you have any questions or problems. You can reach a [facility] hospitalist on duty at [facility] 24 hours a day by calling [phone]. Addtl Bi Analyst Provider Instructions: Patient dispensed surgical shoe with weight bearing as tolerated. He will follow up in 10-14 days in office for suture removal. Dressing may stay on until then unless soiled then change as needed. Thank you for allowing me to participate in the care of this Patient. Pending Studies at Discharge: No Stand-Alone Forms: My [facility], Smoking Cessation Medications and DC Order Prescriptions: New amoxicillin-pot clavulanate 500-125 mg Tablet 1 tab PO Q8 Qty: 21 0RF Rx Instructions: Take 3 times a day until course complete ciprofloxacin HCl 500 mg Tablet 500 mg PO BID Qty: 14 0RF Rx Instructions: Take twice a day until course complete Saccharomyces boulardii [Probiotic (S.boulardii)] 250 mg capsule 250 mg PO BID Qty: 14 0RF Rx Instructions: Take twice a day until complete amlodipine [Norvasc] 5 mg Tablet 5 mg PO QAM Qty: 30 0RF Rx Instructions: Take 1 tab daily Continued multivitamin Tablet 1 tab PO DAILY ascorbic acid (vitamin C) [Vitamin C] 500 mg Tablet 500 mg PO DAILY metformin 1,000 mg tablet extended release 24 hr 1,000 mg PO BID Rx Instructions: start on February 10, 2021 ibuprofen 200 mg PO Q8H PRN (Reason: Pain) aspirin 81 mg Tablet,Delayed Release (Dr/Ec) 81 mg PO QAM Qty: 30 2RF Rx Instructions: Always take with a full stomach Discharge Orders: Discharge Order (Routine); Ordered 11/19/22 Ordered By: Ne Moura/Other Patient Handouts: Health Effects of Smoking Admission Data Admit Date/Time: 11/14/22 11:40 Attending Provider: Fito Hyde Admit Provider: Clarice Rubin Primary Care Provider: Luis Manuel Mcnally Other Providers: Richardson Dorado ; Clarice Rubin ; Mynor Felix ; Travon Manzanares ; Beka Rodriguez I. ; Mo Hilario II ; Quyen Isbell ; Orlin Khalil ; Mack Jeffries ; Katy Smith ; Ne Rodriguez ; Priscila Mccurdy Other Interventions: Discharge Summary Assessment (RN) Last Done: 11/19/22 11:45 Supervising Physician Co-Signing Physician Notes Patient seen and examined by me, care coordinated w/ [facility]. ÁNGEL Rodriguez, pls see her note above for further detail. Pt feels well, and pain is controlled. Discussed with infectious disease - will discharge on augmentin and ciprofloxacin. Pt will follow up with Dr. Dorado - podiatry. MD Mary Ellen
[2022-11-19] MEDS ORDERED: AMOXICILLIN/CLAVULANATE 500 MG TAB PO SCH (14:00)
[2022-11-20] MEDS ORDERED: VANCOMYCIN LEVEL ONE (08:00)
== END 2022-11-19 12:30 | disposition home or self-care (01) | DRG 617 ==
LOC: ED 06:12 → SUATTDRO 11:40 → 3E 11:40
DX: E11.621 Type 2 diabetes mellitus with foot ulcer; L97.528 Non-pressure chronic ulcer of other part of left foot with other specified severity; F17.210 Nicotine dependence, cigarettes, uncomplicated; F10.10 Alcohol abuse, uncomplicated; E87.1 Hypo-osmolality and hyponatremia; L03.116 Cellulitis of left lower limb; Z79.84 Long term (current) use of oral hypoglycemic drugs; E11.69 Type 2 diabetes mellitus with other specified complication; Z79.82 Long term (current) use of aspirin; M86.9 Osteomyelitis, unspecified

== ENCOUNTER 2023-01-15 09:13 | Inpatient (IN) ==
[2023-01-15 10:18] LABS: Basophils # (auto) 0.04 K/uL (0-0.2); Basophils % (auto) 0.4 %; Eosinophils # (auto) 0.03 K/uL (0-0.50); Eosinophils % (auto) 0.3 %; Hematocrit (blood only) 38.3 % (42.0-52.0); Hemoglobin 13.8 g/dl (14.0-18.0); Immature Granulocytes # (auto) 0.03 K/uL (0.01-0.20); Immature Granulocytes % (auto) 0.3 %; Lymphocytes % (auto) 11.2 %; Mean Corpuscular Hemoglobin 32.9 pg (25.0-34.0); Mean Corpuscular Volume 91.4 fL (80.0-100.0); Mean Platelet Volume 9.1 fL (9.4-12.4); Monocytes # (auto) 0.75 K/uL (0.11-0.59); Monocytes % (auto) 8.4 %; Neutrophils # (auto) 7.04 K/uL (1.40-6.50); Neutrophils % (auto) 79.4 %; Platelet Count 301 K/uL (130-400); RDW Coefficient of Variation 12.7 % (11.5-14.5); RDW Standard Deviation 42.3 fL (36.4-46.3); Red Blood Count 4.19 M/uL (4.70-6.10); White Blood Count 8.89 K/ul (4.8-10.8)
[2023-01-15 10:29] LABS: iSTAT Creatinine 0.9 mg/dl (0.6-1.3); iSTAT Hemoglobin 12.9 g/dl (14.0-18.0); iSTAT Ionized Calcium 1.16 mmol/l (1.12-1.32); iSTAT Potassium 4.4 mmol/L (3.3-5.0)
[2023-01-15 10:35] LABS: Albumin Level 4.3 gm/dl (3.4-5.0); BUN Creatinine Ratio 19.4 (10-20); Bilirubin Direct 0.1 mg/dl (0-0.2); Bilirubin,Total 0.5 mg/dl (0.2-1.0); Calcium 10.4 mg/dl (8.5-10.1); Creatinine Clr Calc Pharmacy 79.5 ml/min; Est GFR (African American) 87.7 ml/min; Est GFR (Non-African American) 75.6 ml/min; Potassium 4.2 mmol/L (3.5-5.1); Total Protein 8.2 gm/dl (6.0-8.3)
--- NOTE | 2023-01-15 10:43 | XRay Report ---
XR toe(s) LT min 2V HISTORY: 72 years-old Male 2nd toes necrotic soft tissue ulcer of the left second toe COMPARISON: 11/14/2022 TECHNIQUE: 3 views of the left second toe FINDINGS: Prior partial amputation of the first digit at the level of the metatarsal phalangeal joint. Forefoot soft tissue swelling. Soft tissue ulceration of the second distal toe with soft tissue swelling and deep tissue air. Bony destruction/lysis involves the mid and distal aspect of the second distal phalanx. IMPRESSION: Distal second toe ulcer with distal phalangeal osteomyelitis. ACT 112: Negative or not required by law. The above report was generated using voice recognition software. It may contain grammatical, syntax o r spelling errors. Electronically signed by: Taye Walker M.D. 01/15/2023 10:42 AM
[2023-01-15] MEDS ORDERED: OPTIRAY 350 100ml IV ONE (10:50)
[2023-01-15] MEDS ORDERED: VANCOMYCIN HCL 2,000 MG in SODIUM CHLORIDE 0.9% 500 ML IV ONE (11:02)
[2023-01-15] MEDS ORDERED: VANCOMYCIN CONSULT ACTIVE PRN (11:02)
--- NOTE | 2023-01-15 11:11 | Emergency Department Note ---
History of Present Illness General Chief complaint: Infection Stated complaint: INFECTION IN TOE Time Seen by Provider: 01/15/23 09:36 History of Present Illness Provider complaint: Toe infection abdominal pain Maximum Pain Intensity: 9 72-year-old male presented to the emergency department for left second toe pain. He reports his pain is becoming increasingly black and painful over the last 3 weeks. He states that there is also some foul smell discharge from it. He denies any fevers. Patient states he had his great toe on the same foot amputated by Dr. Dorado. He states when Dr. Dorado saw his second toe 3 weeks ago it did not look as bad but is gotten progressively worse. Patient also reports that he is having pain in his bilateral inguinal areas and is concerned that his hernias might be acting up because he has been having some constipation. Patient reports he came here to get everything looked out at once his toes and his abdominal pain Home Medications Medication Instructions Recorded Confirmed Type multivitamin 1 tab PO DAILY 01/05/21 01/15/23 History aspirin 81 mg tablet,delayed 81 mg PO QAM #30 tabs 02/08/21 01/15/23 Rx release ascorbic acid (vitamin C) 500 mg 500 mg PO DAILY 11/14/22 01/15/23 History tablet (Vitamin C) metformin 1,000 mg tablet,extended 1,000 mg PO BID 11/14/22 01/15/23 History release 24hr amlodipine 5 mg tablet (Norvasc) 5 mg PO QAM #30 tabs 11/19/22 01/15/23 Rx ibuprofen 200 mg tablet 400 mg PO Q6H PRN Pain 12/02/22 01/15/23 History Allergies Allergy/AdvReac Type Severity Reaction Status Date / Time No Known Allergies Allergy Verified 12/02/22 21:37 Past Med/Surg History Medical History Acute CVA (cerebrovascular accident) Alcohol abuse Amputation toe Cellulitis of foot Diabetic foot ulcer with osteomyelitis GERD (gastroesophageal reflux disease) Osteomyelitis Tobacco use disorder Type 2 diabetes mellitus Ulcer of great toe Surgical History History of knee surgery History of knee surgery Family History Other Stroke Social History (Reviewed 02/18/23 @ 11:08 by Sam Mayer Smoking Status: Current every day smoker Tobacco Type: Cigarettes Cigarettes Per Day: 36; Second Hand Exposure: Yes; Hx Alcohol Use: Yes Alcohol type: beer Hx Substance Use: No Preferred Language: Bengali Communication Ability: Effective Telephone Sales Representative Required: No Beliefs That Will Affect Care: None Current Living Situation: Alone Feels Safe at Home: Yes Assistive Devices: None Physical Exam Vital Signs Vital Signs - 24 hr 01/15/23 09:21 01/15/23 09:21 01/15/23 09:43 Temperature 36.7 C Temperature Source Oral Oral Pulse Rate 76 Respiratory Rate 18 Respiratory Effort / Characteristics Non-Labored Respiratory Depth Normal Respiratory Pattern Regular Blood Pressure 174/84 H Blood Pressure Mean 114 Blood Pressure Position Sitting Pulse Oximetry 97 Oxygen Delivery Method Room Air Room Air Sepsis Recent Fever Within 48 Hours No Sepsis New/Unexplained Change in Mental Status No Sepsis Action Taken by Nursing No Action Required Physical Exam GENERAL: He is oriented to person, place, and time. He appears well-developed and well-nourished. He does not appear distressed. HENT: Exam performed. - Head: Normocephalic and atraumatic. NECK: Normal range of motion. Neck supple. No JVD present. CV: Normal rate, regular rhythm, normal heart sounds and intact distal pulses. There is no peripheral edema. Palpable radial pulses bue. PULM/CHEST: Effort normal and breath sounds normal. No respiratory distress. No stridor. He has no wheezes. He has no rales. ABD: The abdomen is soft. Bowel sounds are normal. He has no distension. No mass is present. There is tenderness to palpation of the left lower quadrant and right lower. There is no rebound, no guarding, no Armando's sign and no tenderness at McBurney's point. Rovsig negative. MUSC/SKEL: Left foot: Amputated great toe. Black and necrotic appearing second toe with ulcer and foul-smelling discharge coming from it. Surrounding erythema of the second toe. Palpable DP and PT pulse. Course Course 935: The patient was evaluated in room A9. A complete history and physical exam was performed Cardiac monitoring: An order was placed for continuous cardiac monitoring. The monitor shows a rate of 70 with sinus rhythm interpreted by me 1121: Vital signs stable. Labs are unremarkable. CT imaging of the abdomen shows no incarcerated hernia or strangulated hernia. Chronic pancreatitis. X- ray of the toe shows osteomyelitis. Discussed the case with the patient's hearing therapy teacher Dr. Dorado. He recommends admitting to medicine and then he will evaluate the patient for possible amputation/surgery tomorrow. Vancomycin ordered for the patient. Administered Medications Discontinued Medications Ioversol (Optiray 350 100ml) 88 ml IV ONCE ONE Stop: 01/15/23 10:51 Last Admin: 01/15/23 10:51 Dose: 88 ml Documented By: MONY Medical Decision Making Laboratory Data Attestation: I reviewed the patient's lab results. 01/15/23 10:02 01/15/23 10:02 Lab Results 01/15/23 01/15/23 01/15/23 Range/Units 10: 10:02 10:02 WBC 8.89 (4.8-10.8) K/ul RBC 4.19 L (4.70-6.10) M/uL Hgb 13.8 L (14.0-18.0) g/dl POC Hgb (14.0-18.0) g/dl Hct 38.3 L (42.0-52.0) % POC Hct (42-52) % MCV 91.4 (80.0-100.0) fL MCH 32.9 (25.0-34.0) pg MCHC 36.0 (32.0-36.0) g/dL RDW Std Deviation 42.3 (36.4-46.3) fL RDW Coeff of Mateusz 12.7 (11.5-14.5) % Plt Count 301 (130-400) K/uL MPV 9.1 L (9.4-12.4) fL Immature Gran % (Auto) 0.3 % Neut % (Auto) 79.4 % Lymph % (Auto) 11.2 % Dunn % (Auto) 8.4 % Eos % (Auto) 0.3 % Baso % (Auto) 0.4 % Neut # (Auto) 7.04 H (1.40-6.50) K/uL Lymph # (Auto) 1.00 L (1.2-3.4) K/uL Dunn # (Auto) 0.75 H (0.11-0.59) K/uL Eos # (Auto) 0.03 (0-0.50) K/uL Baso # (Auto) 0.04 (0-0.2) K/uL Immature Gran # (Auto) 0.03 (0.01-0.20) K/uL POC Sodium (135-144) mmol/L Sodium 129 L (136-145) mmol/L POC Potassium (3.3-5.0) mmol/L Potassium 4.2 (3.5-5.1) mmol/L POC Chloride (101-112) mmol/L Chloride 94 L (98-107) mmol/L Carbon Dioxide 29 (21-32) mmol/L POC Total CO2 (24-31) mmol/L Anion Gap 6 (3-11) POC Anion Gap (16-25) mmol/L POC BUN (7-18) mg/dl BUN 19 (6-23) mg/dl Creatinine 0.98 (0.6-1.4) mg/dl POC Creatinine (0.6-1.3) mg/dl Est Cr Clr Drug Dosing 79.5 ml/min Est GFR ( Amer) 87.7 ml/min Est GFR (Non-Af Amer) 75.6 ml/min BUN/Creatinine Ratio 19.4 (10-20) Glucose 131 H (70-99(Fasting)) mg/dl POC Glucose (other) (70-99) mg/dl Lactate 0.7 (0.4-2.0) mmol/L Calcium 10.4 H (8.5-10.1) mg/dl POC Ioniz Calcium Carlita (1.12-1.32) mmol/l Total Bilirubin 0.5 (0.2-1.0) mg/dl Direct Bilirubin 0.1 (0-0.2) mg/dl AST 18 (13-39) U/L ALT 14 (7-52) U/L Alkaline Phosphatase 124 H (34-104) U/L Total Protein 8.2 (6.0-8.3) gm/dl Albumin 4.3 (3.4-5.0) gm/dl Lipase 27 (11-82) U/L 01/15/23 Range/Units 10:17 WBC (4.8-10.8) K/ul RBC (4.70-6.10) M/uL Hgb (14.0-18.0) g/dl POC Hgb 12.9 L (14.0-18.0) g/dl Hct (42.0-52.0) % POC Hct 38 L (42-52) % MCV (80.0-100.0) fL MCH (25.0-34.0) pg MCHC (32.0-36.0) g/dL RDW Std Deviation (36.4-46.3) fL RDW Coeff of Mateusz (11.5-14.5) % Plt Count (130-400) K/uL MPV (9.4-12.4) fL Immature Gran % (Auto) % Neut % (Auto) % Lymph % (Auto) % Dunn % (Auto) % Eos % (Auto) % Baso % (Auto) % Neut # (Auto) (1.40-6.50) K/uL Lymph # (Auto) (1.2-3.4) K/uL Dunn # (Auto) (0.11-0.59) K/uL Eos # (Auto) (0-0.50) K/uL Baso # (Auto) (0-0.2) K/uL Immature Gran # (Auto) (0.01-0.20) K/uL POC Sodium 130 L (135-144) mmol/L Sodium (136-145) mmol/L POC Potassium 4.4 (3.3-5.0) mmol/L Potassium (3.5-5.1) mmol/L POC Chloride 94 L (101-112) mmol/L Chloride (98-107) mmol/L Carbon Dioxide (21-32) mmol/L POC Total CO2 29 (24-31) mmol/L Anion Gap (3-11) POC Anion Gap 13.0 L (16-25) mmol/L POC BUN 21 H (7-18) mg/dl BUN (6-23) mg/dl Creatinine (0.6-1.4) mg/dl POC Creatinine 0.9 (0.6-1.3) mg/dl Est Cr Clr Drug Dosing ml/min Est GFR ( Amer) ml/min Est GFR (Non-Af Amer) ml/min BUN/Creatinine Ratio (10-20) Glucose (70-99(Fasting)) mg/dl POC Glucose (other) 127 H (70-99) mg/dl Lactate (0.4-2.0) mmol/L Calcium (8.5-10.1) mg/dl POC Ioniz Calcium Carlita 1.16 (1.12-1.32) mmol/l Total Bilirubin (0.2-1.0) mg/dl Direct Bilirubin (0-0.2) mg/dl AST (13-39) U/L ALT (7-52) U/L Alkaline Phosphatase (34-104) U/L Total Protein (6.0-8.3) gm/dl Albumin (3.4-5.0) gm/dl Lipase (11-82) U/L Imaging Data Radiologist's Impression: Abdomen/Pelvis CT 01/15/23 09:[address] WITH IV CONTRAST CT DOSE: 549.92 mGy.cm HISTORY: Acute lower abdominal/pelvic pain with constipation inguinal hernia pain constipation TECHNIQUE: Multiaxial CT images of the abdomen and pelvis were performed following the IV administration of 88 cc of Optiray, A dose lowering technique was utilized adhering to the principles of ALARA. COMPARISON STUDY: Abdominal ultrasound December 02, 2022, CT abdomen and pelvis 04/28/2015 FINDINGS: Heart is normal in size. Trace pericardial effusion. Coronary artery calcifications. Mild bibasilar atelectasis/scarring. No pneumatosis or pneumoperitoneum. Spleen is enlarged, 16 cm in length. Atrophic pancreas containing numerous calcifications and probable sidebranch IPMN's measuring up to approximately 1.2 cm. The atrophy of the pancreas is new from prior. No pancreatic ductal dilation identified. Unremarkable adrenal glands. The gallbladder is either contracted or surgically absent. Unremarkable liver. Patency of the hepatic and portal veins. Subcentimeter hypodensity of the inferior pole right kidney, too small to characterize. There are a few scattered calcifications of the right kidney measuring up to 3 mm. No ureteral calculi or hydronephrosis. Prostamegaly. Urinary bladder wall thickening with partial distention. Severe atherosclerosis of the abdominal aorta with ectasia of infrarenal segment measuring up to 2.7 cm. Left inguinal chain lymph nodes measure up to 10 mm. Small fat filled left inguinal hernia. No bowel obstruction or bowel wall thickening. Trace free pelvic fluid. Mild colonic fecal retention. Normal appendix. Unremarkable soft tissues. Degenerative changes of the spine, pelvis and hips. IMPRESSION: 1. No bowel obstruction or bowel wall thickening. 2. Small fat filled left inguinal hernia redemonstrated. 3. Mild nonspecific left inguinal lymphadenopathy, likely reactive. 4. Small calcifications of the right kidney. No ureteral calculi or hydronephrosis. 5. Atrophy of the pancreas with evidence of chronic pancreatitis. Probable sidebranch IPMN's measure up to 1.2 cm. 6. Splenomegaly. ACT 112: Negative or not required by law. The above report was generated using voice recognition software. It may contain grammatical, syntax or spelling errors. Electronically signed by: Taye Walker M.D. 01/15/2023 11:13 AM Toe X-Ray 01/15/23 09:44 XR toe(s) LT min 2V HISTORY: 72 years-old Male 2nd toes necrotic soft tissue ulcer of the left s econd toe COMPARISON: 11/14/2022 TECHNIQUE: 3 views of the left second toe FINDINGS: Prior partial amputation of the first digit at the level of the metatarsal phalangeal joint. Forefoot soft tissue swelling. Soft tissue ulceration of the second distal toe with soft tissue swelling and deep tissue air. Bony destruction/lysis involves the mid and distal aspect of the second distal phalanx. IMPRESSION: Distal second toe ulcer with distal phalangeal osteomyelitis. ACT 112: Negative or not required by law. The above report was generated using voice recognition software. It may contain grammatical, syntax or spelling errors. Electronically signed by: Taye Walker M.D. 01/15/2023 10:42 AM MDM Narrative Vital signs stable. Labs are unremarkable. CT imaging of the abdomen shows no incarcerated hernia or strangulated hernia. Chronic pancreatitis. X-ray of the toe shows osteomyelitis. Discussed the case with the patient's hearing therapy teacher Dr. Dorado. He recommends admitting to medicine and then he will evaluate the patient for possible amputation/surgery tomorrow. Vancomycin ordered for the patient. Impression & Plan Osteomyelitis, Diabetic foot ulcer associated with type 2 diabetes mellitus Discharge Plan Visit Data Chief Complaint: Infection Stated Complaint: INFECTION IN TOE ED Provider: Sam Kennedy Discharge Problem: Osteomyelitis, Diabetic foot ulcer associated with type 2 diabetes mellitus Patient Disposition: Admitted As Inpatient Forms Stand Alone Forms: [facility] Prescriptions Prescriptions: No Action multivitamin Tablet 1 tab PO DAILY ascorbic acid (vitamin C) [Vitamin C] 500 mg Tablet 500 mg PO DAILY metformin 1,000 mg tablet extended release 24 hr 1,000 mg PO BID amlodipine [Norvasc] 5 mg Tablet 5 mg PO QAM Qty: 30 0RF Rx Instructions: Take 1 tab daily ibuprofen 200 mg Tablet 400 mg PO Q6H PRN (Reason: Pain) aspirin 81 mg Tablet,Delayed Release (Dr/Ec) 81 mg PO QAM Qty: 30 2RF Rx Instructions: Always take with a full stomach Referrals Referrals: Luis Manuel Mcnally MD [Primary Care Provider] - Osteomyelitis Qualifiers: Osteomyelitis type: unspecified type Osteomyelitis location: foot Laterality: unspecified laterality Qualified Code(s): M86.9 - Osteomyelitis, unspecified Diabetic foot ulcer associated with type 2 diabetes mellitus Qualifiers: Diabetic foot ulcer location: toe Laterality: unspecified laterality Non- pressure ulcer stage: unspecified non-pressure ulcer stage Qualified Code(s): E11.621 - Type 2 diabetes mellitus with foot ulcer
--- NOTE | 2023-01-15 11:15 | CT Scan Report ---
ABDOMEN AND PELVIS CT WITH IV CONTRAST CT DOSE: 549.92 mGy.cm HISTORY: Acute lower abdominal/pelvic pain with constipation inguinal hernia pain constipation TECHNIQUE: Multiaxial CT images of the abdomen and pelvis were performed following the IV administrat ion of 88 cc of Optiray, A dose lowering technique was utilized adhering to the principles of ALARA. COMPARISON STUDY: Abdominal ultrasound December 02, 2022, CT abdomen and pelvis 04/28/2015 FINDINGS: Heart is normal in size. Trace pericardial effusion. Coronary artery calcifications. Mild bibasilar a telectasis/scarring. No pneumatosis or pneumoperitoneum. Spleen is enlarged, 16 cm in length. Atrophi c pancreas containing numerous calcifications and probable sidebranch IPMN's measuring up to approxim ately 1.2 cm. The atrophy of the pancreas is new from prior. No pancreatic ductal dilation identified . Unremarkable adrenal glands. The gallbladder is either contracted or surgically absent. Unremarkabl e liver. Patency of the hepatic and portal veins. Subcentimeter hypodensity of the inferior pole righ t kidney, too small to characterize. There are a few scattered calcifications of the right kidney dimitry suring up to 3 mm. No ureteral calculi or hydronephrosis. Prostamegaly. Urinary bladder wall thickeni ng with partial distention. Severe atherosclerosis of the abdominal aorta with ectasia of infrarenal segment measuring up to 2.7 cm. Left inguinal chain lymph nodes measure up to 10 mm. Small fat filled left inguinal hernia. No bowel obstruction or bowel wall thickening. Trace free pelvic fluid. Mild colonic fecal retention. Normal appendix. Unremarkable soft tissues. Degenerative changes of the spine, pelvis and hips. IMPRESSION: 1. No bowel obstruction or bowel wall thickening. 2. Small fat filled left inguinal hernia redemonstrated. 3. Mild nonspecific left inguinal lymphadenopathy, likely reactive. 4. Small calcifications of the right kidney. No ureteral calculi or hydronephrosis. 5. Atrophy of the pancreas with evidence of chronic pancreatitis. Probable sidebranch IPMN's measure up to 1.2 cm. 6. Splenomegaly. ACT 112: Negative or not required by law. The above report was generated using voice recognition software. It may contain grammatical, syntax o r spelling errors. Electronically signed by: Taye Walker M.D. 01/15/2023 11:13 AM
--- NOTE | 2023-01-15 11:38 | History & Physical Report ---
Date of Service January 15, 2023 Assessment & Plan (1) Osteomyelitis of second toe of left foot: Plan: 72 y/o male with a PMH of DM2, diabetic foot ulcer, alcohol abuse, tobacco abuse, and recent amputation of left great toe in Oct 2022, who presents with osteomyelitis and ulcer in the left second toe. He reports gradual worsening of the pain, necrosis, and drainage over the last several days. Pain is now radiating into his foot so he thought he should be evaluated. - Admit to med telemetry - Broad spectrum antibiotics with Unasyn and Vancomycin - Consult Dr. Dorado since pt known to him for similar issues - ED provider spoke with Dr. Dorado who is planning to come see patient today or tomorrow - Wound culture - Follow labs (2) Diabetic foot ulcer associated with type 2 diabetes mellitus: (3) Alcohol abuse: Plan: Pt reports last drink was 2-3 days ago - denies s/s of withdrawal - PRN Ativan at-risk protocol - Thiamine/folic acid (4) Type 2 diabetes mellitus: Plan: Holding Metformin while admitted - Diabetic diet - Insulin sliding scale - BSG ACHS (5) Tobacco use disorder: Plan: Pt declines need for nicotine patch while admitted (6) Hyponatremia: Plan: Likely related to ongoing alcohol use - improved somewhat during last admission with IVF but worse again today with Na of 129 - Will give NSS x 1 L and repeat labs (7) Blood pressure elevated without history of HTN: Plan: During last admission, pt started on amlodipine for elevated BP - pt does not recall taking this as an outpatient. BP in the ED elevated so will resume and monitor. No prior history of HTN. It has been unclear if BP elevated due to hospital setting, pain, or if patient has new diagnosis of HTN. (8) Hernia, inguinal, left: Plan: Pt reports this is becoming increasingly symptomatic - will need eventual surgical evaluation but since no evidence of incarceration or strangulation, defer this evaluation for now. Plan Pt seen and reviewed with collaborating physician, Dr. Hahn. Plan of care discussed and as outlined above. Code Status: Full Code DVT Prophylaxis: SCDs until seen by podiatry and determine timing of potential OR Tawanda Villagomez PA-C History of Present Illness Chief Complaint: Toe painful and black, "my hernia is acting up" x 1 week Primary Care Provider: Luis Manuel Mcnally MD This is a 72 y/o male with a PMH of DM2, alcohol use, tobacco use, GERD, and recent osteomyelitis in the left great toe with amputation in 11/18 who presented to the ED today with worsening pain in his left second toe with associated drainage, as well as with increased issues with known left inguinal hernia. Pt was admitted to [facility] in Oct 2022 with left great toe cellulitis, ulcer, and osteomyelitis. He was seen by Dr. Richardson Dorado who recommended surgical intervention - pt underwent left great toe amputation on 11/16/22. Pt reports that this has healed well without significant issue post-op. He did have trouble getting in with Dr. Dorado for f/u so his PCP removed the sutures in November. He reports that he was not having significant issues with the left second toe when the sutures were removed. However, over the last several days to few weeks, he has noted increasing pain in the left second toe and into the foot. He developed peeling skin on the toe, which he removed. Underneath the area was dark in color. This has continued to worsen. He has noted bloody drainage from the toe and has been keeping it wrapped. The drainage may have a foul odor at times. He denies documented fevers or chills. He also notes increasing groin pain in the area of his known left inguinal hernia - he has been taking Advil 400 mg as often as daily for the pain. He had been referred for surgical evaluation as an outpatient but missed the appointment due to weather and has not rescheduled yet. He is interested in potential surgery for this as well. Imaging in the ED showed a small fat-filled left inguinal hernia that does not appear incarcerated or strangulated. He continues to drink alcohol daily although he declines to quantify when asked. He reports that his last drink was 2-3 days ago due to his brother and subsequent services, which were yesterday. He denies prior or current signs of withdrawal. He also smokes 1.5 to 2 PPD of cigarettes but denies need for nicotine patch during this hospitalization. Allergies Allergy/AdvReac Type Severity Reaction Status Date / Time No Known Allergies Allergy Verified 12/02/22 21:37 Home Medications Medication Instructions Recorded Confirmed Type multivitamin 1 tab PO DAILY 01/05/21 01/15/23 History aspirin 81 mg tablet,delayed 81 mg PO QAM #30 tabs 02/08/21 01/15/23 Rx release ascorbic acid (vitamin C) 500 mg 500 mg PO DAILY 11/14/22 01/15/23 History tablet (Vitamin C) metformin 1,000 mg tablet,extended 1,000 mg PO BID 11/14/22 01/15/23 History release 24hr amlodipine 5 mg tablet (Norvasc) 5 mg PO QAM #30 tabs 11/19/22 01/15/23 Rx ibuprofen 200 mg tablet 400 mg PO Q6H PRN Pain 12/02/22 01/15/23 History Past Med/Surg History Medical History Acute CVA (cerebrovascular accident) Alcohol abuse Amputation toe Cellulitis of foot Diabetic foot ulcer with osteomyelitis GERD (gastroesophageal reflux disease) Osteomyelitis Tobacco use disorder Type 2 diabetes mellitus Ulcer of great toe Surgical History History of knee surgery History of knee surgery Family History Other Stroke Social History Smoking Status: Current every day smoker Tobacco Type: Cigarettes Cigarettes Per Day: 36; Second Hand Exposure: Yes; Hx Alcohol Use: Yes (6-8 every morning.) Alcohol type: beer Hx Substance Use: No Preferred Language: Lithuanian Communication Ability: Effective Glass Selector Required: No Beliefs That Will Affect Care: None Current Living Situation: Alone Current Living Situation Comment: Reports living Independently in an apartment. Other Information That Helps Us Care for You: No Feels Safe at Home: Yes Safety Concerns: Feels Safe At This Time Assistive Devices: None Review of Systems Review of Systems: All systems reviewed & are unremarkable except as noted in HPI & below Constitutional: no fever and no chills Eyes: no diplopia Ear, Nose, Mouth, Throat: no nasal congestion and no sore throat Respiratory: no cough and no dyspnea Cardiovascular: no chest pain, no palpitations and no syncope Gastrointestinal: + abdominal pain and + change in bowel habits; no nausea, no vomiting, no diarrhea/loose stools and no blood in stools Genitourinary: no dysuria, no urinary frequency or no hematuria Musculoskeletal: as per Subjective / HPI Integumentary: + skin ulcer Neurologic: no generalized weakness, no dizziness and no headache(s) Psychiatric: no depression and no anxiety Physical Exam Constitutional: well developed and well nourished; no acute distress Eyes: + anicteric sclerae Neck: trachea midline Respiratory: no respiratory distress and no labored breathing Auscultation: lungs clear to auscultation bilaterally; no rales, no rhonchi and no wheezes Cardiovascular: Rate/Rhythm: regular rate and regular rhythm Vessels: dorsalis pedis pulses present and radial pulses present Extremities: + edema (trace distal LE edema) Gastrointestinal (Abdomen): Inspection/Auscultation: normal bowel sounds; abdomen not distended Percussion/Palpation: abdomen soft mild LLQ tenderness Musculoskeletal: Head/Neck/Chest: normocephalic, head atraumatic and neck supple Skin: left second toe appears black and necrotic with ulcerated area distally, small amount of drainage noted, associated swelling and surrounding erythema Neurologic: moves all extremities; no focal motor deficits and not confused Psychiatric: A+Ox3, euthymic affect Results & Data Results & Data ([facility]) Vital Signs (Past 12 Hours) Vital Signs Temp Pulse Resp BP Pulse Ox O2 Del Method 01/15/23 09:43 Room Air 01/15/23 09:21 36.7 C 76 18 174/84 H 97 Room Air Laboratory Results Laboratory Results - last 24 hr 01/15/23 01/15/23 01/15/23 10:02 10:02 10:02 WBC 8.89 RBC 4.19 L Hgb 13.8 L POC Hgb Hct 38.3 L POC Hct MCV 91.4 MCH 32.9 MCHC 36.0 RDW Std Deviation 42.3 RDW Coeff of Mateusz 12.7 Plt Count 301 MPV 9.1 L Immature Gran % (Auto) 0.3 Neut % (Auto) 79.4 Lymph % (Auto) 11.2 [place] % (Auto) 8.4 Eos % (Auto) 0.3 Baso % (Auto) 0.4 Neut # (Auto) 7.04 H Lymph # (Auto) 1.00 L [place] # (Auto) 0.75 H Eos # (Auto) 0.03 Baso # (Auto) 0.04 Immature Gran # (Auto) 0.03 POC Sodium Sodium 129 L POC Potassium Potassium 4.2 POC Chloride Chloride 94 L Carbon Dioxide 29 POC Total CO2 Anion Gap 6 POC Anion Gap POC BUN BUN 19 Creatinine 0.98 POC Creatinine Est Cr Clr Drug Dosing 79.5 Est GFR ( Amer) 87.7 Est GFR (Non-Af Amer) 75.6 BUN/Creatinine Ratio 19.4 Glucose 131 H POC Glucose (other) Lactate 0.7 Calcium 10.4 H POC Ioniz Calcium Carlita Total Bilirubin 0.5 Direct Bilirubin 0.1 AST 18 ALT 14 Alkaline Phosphatase 124 H Total Protein 8.2 Albumin 4.3 Lipase 27 01/15/23 10:17 WBC RBC Hgb POC Hgb 12.9 L Hct POC Hct 38 L MCV MCH MCHC RDW Std Deviation RDW Coeff of Mateusz Plt Count MPV Immature Gran % (Auto) Neut % (Auto) Lymph % (Auto) [place] % (Auto) Eos % (Auto) Baso % (Auto) Neut # (Auto) Lymph # (Auto) [place] # (Auto) Eos # (Auto) Baso # (Auto) Immature Gran # (Auto) POC Sodium 130 L Sodium POC Potassium 4.4 Potassium POC Chloride 94 L Chloride Carbon Dioxide POC Total CO2 29 Anion Gap POC Anion Gap 13.0 L POC BUN 21 H BUN Creatinine POC Creatinine 0.9 Est Cr Clr Drug Dosing Est GFR ( Amer) Est GFR (Non-Af Amer) BUN/Creatinine Ratio Glucose POC Glucose (other) 127 H Lactate Calcium POC Ioniz Calcium Carlita 1.16 Total Bilirubin Direct Bilirubin AST ALT Alkaline Phosphatase Total Protein Albumin Lipase Diagnostic Findings CT Abd/Pel 01/15/23 - IMPRESSION: 1. No bowel obstruction or bowel wall thickening. 2. Small fat filled left inguinal hernia redemonstrated. 3. Mild nonspecific left inguinal lymphadenopathy, likely reactive. 4. Small calcifications of the right kidney. No ureteral calculi or hydronephrosis. 5. Atrophy of the pancreas with evidence of chronic pancreatitis. Probable sidebranch IPMN's measure up to 1.2 cm. 6. Splenomegaly. Left Toe X-ray 01/15/23 - IMPRESSION: Distal second toe ulcer with distal phalangeal osteomyelitis. Medications Administered Vancomycin HCl 2,000 mg/ (Sodium Chloride) 540 mls @ 200 mls/hr IV NOW ONE Stop: 01/15/23 13:43 Last Admin: 01/15/23 11:21 Dose: 200 mls/hr Documented By: MANUEL Discontinued Medications Ioversol (Optiray 350 100ml) 88 ml IV ONCE ONE Stop: 01/15/23 10:51 Last Admin: 01/15/23 10:51 Dose: 88 ml Documented By: MONY Code Status & VTE Plan VTE Prophylaxis Plan VTE Prophylaxis will be ordered: Yes Supervising Physician Co-Signing Physician Notes Pt is a 72 y/o M with hx of DMII, HTN, GERD, hx of alcohol abuse, s/p L great toe amputation (due to osteo) admitted for L 2nd toe ulcer and phalangeal osteomyelitis. PE: NAd, well developed Lungs: CTA, no wheezing or crackles Cardiac: Normal S1/S2, no murmur Abd: ND, NT, soft, very small palpable L inguinal hernia (reducible MSK: L 2nd toe necrosis and discolouration, no drainage or bleeding Psych: AAOx3, normal affect A/P: L 2nd toe necrosis/wound with distal phalangeal osteomyelitis: -due to hx of DMII will start pt on Vanc and unasyn -wound culture sent -Podiatry consult HypoNa+ with hx of Alcohol abuse: -per pt last ETOH intake was 3 days ---- currently does not have any S/S of withdrawal however will start pt on CIWA protocol with prn Ativan -BMP in 6 hours: currently receiving IVF (NS) Other chronic conditions: plan as above Agree with A/P by Frances Villagomez PA-C (2) Diabetic foot ulcer associated with type 2 diabetes mellitus Diabetic foot ulcer location: toe Laterality: unspecified laterality Non- pressure ulcer stage: unspecified non-pressure ulcer stage Qualified Code(s): E11.621 - Type 2 diabetes mellitus with foot ulcer; L97.509 - Non-pressure chronic ulcer of other part of unspecified foot with unspecified severity
[2023-01-15] MEDS ORDERED: LORazepam 1 MG TAB PO PRN (14:23)
[2023-01-15] MEDS ORDERED: SODIUM CHLORIDE 0.9% 1000ML 1,000 ML IV SCH (14:30)
[2023-01-15] MEDS ORDERED: GLUCOSE 40% GEL 15 GM TUBE PO PRN (15:26)
[2023-01-15] MEDS ORDERED: GLUCAGON FOR INJ 1 MG VIAL SQ PRN (15:26)
[2023-01-15] MEDS ORDERED: GLUCOSE 10 TAB/TUBE PO PRN (15:26)
[2023-01-15] MEDS ORDERED: DEXTROSE 50% 50 ML SYRINGE IV PRN (15:26)
[2023-01-15] MEDS ORDERED: CARBOHYDRATES FOR HYPOGLYCEMIA PO PRN (15:26)
[2023-01-15] MEDS: AMPICILLIN/SULBACTAM SOD 3,000 MG in 0.9 % SODIUM CHLORIDE 100 ML IV SCH ×2 (16:47→21:55)
[2023-01-15] MEDS: INSULIN ASPART PER UNIT SC SCH ×2 (16:52→21:43)
--- NOTE | 2023-01-15 17:32 | Orthopedic Consultation ---
Date of Consultation January 15, 2023 Assessment & Plan (1) Osteomyelitis of second toe of left foot: Patient seen, evaluated, and treated. X-rays reviewed and x-ray findings reviewed with Patient. We discussed the left second distal phalanx osteomyelitis and removal of non viable bone and soft tissue. Surgery scheduled for 01/15/23 7:30am. I reviewed procedure in detail as well as postoperative recovery. I discussed expectations and patient's current weightbearing status. All questions answered. I have discussed procedure in detail as well as postoperative recovery. All potential risks, benefits, complications, alternatives, rehab, potential for incomplete relief of symptoms, need for further surgery, DVT, PE, , persistent pain, swelling, scarring, weakness, neurovascular, wound complications and potential for amputations were discussed with patient. Unwanted outcomes such as, but not limited to were reviewed including under correction, overcorrection, return of deformity, infection. All questions were answered. Patient has decided to proceed with procedure as indicated. (2) Osteomyelitis: (3) Diabetic foot ulcer associated with type 2 diabetes mellitus: History of Present Illness Attending Physician: Aure Hahn MD History of Present Illness Patient is a type II diabetic, 72 y.o. male seen for left foot second toe osteomyelitis. Patient has a past medical history of type II diabetes, alcohol use, tobacco use, GERD, and diabetic foot ulcers. Patient is known to me from previous surgical care 11/16/22 for osteomyelitis in the left great toe. Patient was seen today in [facility] ED for worsening pain in his left second toe with associated drainage, as well as with increased issues with known left inguinal hernia.Patient reports that over the last several days to few weeks, he has noted increasing pain in the left second toe and into the foot. He developed peeling skin on the toe, which he removed. Underneath the area was dark in color. This has continued to worsen. He has noted bloody drainage from the toe and has been keeping it wrapped. The drainage may have a foul odor at times. He denies documented fevers or chills.Patient also noted increasing groin pain in the area of his known left inguinal hernia - he has been taking Advil 400 mg as often as daily for the pain. He had been referred for surgical evaluation as an outpatient but missed the appointment due to weather and has not rescheduled yet. He is interested in potential surgery for this as well. Imaging in the ED showed a small fat-filled left inguinal hernia that does not appear incarcerated or strangulated. He continues to drink alcohol daily although he declines to quantify when asked. He reports that his last drink was 2-3 days ago due to his brother and subsequent services, which were yesterday. He denies prior or current signs of withdrawal. He also smokes 1.5 to 2 PPD of cigarettes but denies need for nicotine patch during this hospitalization. Allergies Allergy/AdvReac Type Severity Reaction Status Date / Time No Known Allergies Allergy Verified 12/02/22 21:37 Home Medications Medication Instructions Recorded Confirmed Type multivitamin 1 tab PO DAILY 01/05/21 01/15/23 History aspirin 81 mg tablet,delayed 81 mg PO QAM #30 tabs 02/08/21 01/15/23 Rx release ascorbic acid (vitamin C) 500 mg 500 mg PO DAILY 11/14/22 01/15/23 History tablet (Vitamin C) metformin 1,000 mg tablet,extended 1,000 mg PO BID 11/14/22 01/15/23 History release 24hr amlodipine 5 mg tablet (Norvasc) 5 mg PO QAM #30 tabs 11/19/22 01/15/23 Rx ibuprofen 200 mg tablet 400 mg PO Q6H PRN Pain 12/02/22 01/15/23 History Patient History Medical History Acute CVA (cerebrovascular accident) Alcohol abuse Amputation toe Cellulitis of foot Diabetic foot ulcer with osteomyelitis GERD (gastroesophageal reflux disease) Osteomyelitis Tobacco use disorder Type 2 diabetes mellitus Ulcer of great toe Surgical History History of knee surgery History of knee surgery Family History Other Stroke Social History Smoking Status: Current every day smoker Tobacco Type: Cigarettes Cigarettes Per Day: 36; Second Hand Exposure: Yes; Hx Alcohol Use: Yes (6-8 every morning.) Alcohol type: beer Hx Substance Use: No Preferred Language: Algerian Communication Ability: Effective Ore Miner Blasting Required: No Beliefs That Will Affect Care: None Current Living Situation: Alone Current Living Situation Comment: Reports living Independently in an apartment. Other Information That Helps Us Care for You: No Feels Safe at Home: Yes Safety Concerns: Feels Safe At This Time Assistive Devices: None Review of Systems Review of Systems: All systems reviewed & are unremarkable except as noted in HPI & below Physical Exam Constitutional: WD/WN, vitals as above Eyes: normal visual abdul by confrontation ENMT: external ear and nose normal, oropharynx normal Respiratory: normal respiratory effort Cardiovascular: Rate/Rhythm: regular rate and regular rhythm Musculoskeletal: MMT 5/5. No focal deficits. Skin: Left second toe necrotic with ulcerated area distally, minimal drainage noted, associated swelling and surrounding erythema Neurologic: Absent epicritic sensation Psychiatric: Orientation: alert and oriented x 3 Results & Data ([facility]) Vital Signs (Past 12 Hours) Vital Signs Temp Pulse Pulse Resp BP BP Pulse Ox 01/15/23 14:47 70 18 165/80 H 99 01/15/23 12:45 65 18 179/76 H 99 01/15/23 12:25 64 01/15/23 09:43 01/15/23 09:21 36.7 C 76 18 174/84 H 97 O2 Del Method 01/15/23 14:47 Room Air 01/15/23 12:45 Room Air 01/15/23 12:25 01/15/23 09:43 Room Air 01/15/23 09:21 Room Air Diagnostic Findings XR toe(s) LT min 2V HISTORY: 72 years-old Male 2nd toes necrotic soft tissue ulcer of the left second toe COMPARISON: 11/14/2022 TECHNIQUE: 3 views of the left second toe FINDINGS: Prior partial amputation of the first digit at the level of the metatarsal phalangeal joint. Forefoot soft tissue swelling. Soft tissue ulceration of the second distal toe with soft tissue swelling and deep tissue air. Bony destruction/lysis involves the mid and distal aspect of the second distal phalanx. IMPRESSION: Distal second toe ulcer with distal phalangeal osteomyelitis. ACT 112: Negative or not required by law. The above report was generated using voice recognition software. It may contain grammatical, syntax or spelling errors. Electronically signed by: Taye Walker M.D. 01/15/2023 10:42 AM (2) Osteomyelitis Laterality: unspecified laterality Osteomyelitis location: foot Osteomyelitis type: unspecified type Qualified Code(s): M86.9 - Osteomyelitis, unspecified (3) Diabetic foot ulcer associated with type 2 diabetes mellitus Diabetic foot ulcer location: toe Laterality: unspecified laterality Non- pressure ulcer stage: unspecified non-pressure ulcer stage Qualified Code(s): E11.621 - Type 2 diabetes mellitus with foot ulcer; L97.509 - Non-pressure chronic ulcer of other part of unspecified foot with unspecified severity
[2023-01-15] MEDS: amLODIPine BESYLATE 5 MG TAB PO SCH (18:04)
--- NOTE | 2023-01-15 18:43 | Pharmacy Report ---
Pharmacy PK ABX Note - Date of Service January 15, 2023 - Assessment and Plan Assessment 72 year old M receiving VANCOMYCIN/UNASYN for treatment of OSETEOMYELITIS OF LEFT SECOND TOE. Pertinent microbiologic data includes: BLOOD cultures PENDING Day # 1 of antimicrobial therapy. Plan Vancomycin * Loading dose: 2000 mg IV x 1 * Maintenance dose: 1250 mg IV every 12 hours * Regimen is predicted to achieve a slightly higher AUC/PETE of 400-600 mg/L.hr. Will lean towards aggressive dosing for osteomyelitis. Additionaly, patient has previously been therapeutic with this dosing/renal function (OCT 2022). * Random level ordered for: 01/15/23 with AM labs Pharmacy will continue to follow and will adjust dose/frequency as necessary. Thank you. Pharmacy has transitioned to AUC monitoring for vancomycin. AUC/PETE is the pre ferred PK/PD target and is associated with decreased risk of nephrotoxicity compared to traditional trough targets.
[2023-01-15 18:51] LABS: BUN Creatinine Ratio 17.2 (10-20); Calcium 9.2 mg/dl (8.5-10.1); Creatinine Clr Calc Pharmacy 76.5 ml/min; Est GFR (African American) 93.4 ml/min; Est GFR (Non-African American) 80.6 ml/min; Potassium 4.4 mmol/L (3.5-5.1)
[2023-01-15] MEDS: VANCOMYCIN HCL 1,250 MG in SODIUM CHLORIDE 0.9% 250 ML IV SCH (19:52)
[2023-01-15] MEDS ORDERED: ACETAMINOPHEN 325 MG TAB PO PRN (22:40)
[2023-01-15] MEDS: oxyCODONE HCL IR 5 MG TAB (IMMEDIATE RELEASE) PO PRN (23:11)
[2023-01-16] MEDS: AMPICILLIN/SULBACTAM SOD 3,000 MG in 0.9 % SODIUM CHLORIDE 100 ML IV SCH ×4 (04:36→23:23)
[2023-01-16] MEDS ORDERED: LIDOCAINE 2% MPF LOCAL 5 ML VIAL INFIL ONE (06:56)
[2023-01-16] MEDS ORDERED: PROPOFOL IV EMULSION 10 MG/ML 20 ML VIAL IV ONE ×3 (06:56→09:34)
[2023-01-16] MEDS ORDERED: ONDANSETRON INJ 2 MG/ML 2 ML VIAL ONE (06:56)
[2023-01-16] MEDS ORDERED: fentaNYL citrate 100 MCG/2 ML VIAL ONE (06:57)
[2023-01-16] MEDS ORDERED: MIDAZOLAM HCL 1 MG/ML 2ML VIAL ONE (06:57)
[2023-01-16 07:16] LABS: Creatinine Clr Calc Pharmacy 96.1 ml/min; Est GFR (African American) 105.3 ml/min; Est GFR (Non-African American) 90.9 ml/min
[2023-01-16] MEDS ORDERED: fentaNYL citrate 100 MCG/2 ML VIAL IV PRN (07:21)
[2023-01-16] MEDS ORDERED: ONDANSETRON INJ 2 MG/ML 2 ML VIAL IV PRN (07:21)
[2023-01-16] MEDS ORDERED: ePHEDrine sulfate 50 MG/ML AMP IV PRN (07:21)
[2023-01-16] MEDS ORDERED: ATROPINE SULFATE 0.1 MG/ML 10ML SYR IV PRN (07:21)
--- NOTE | 2023-01-16 07:21 | Anesthesiology Consultation ---
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 initiated History Surgery Operation Date: 01/16/23 08:00 Proposed Procedures p Amputation 2nd Toe on Left Foot(Left) - Richardson Dorado DPM, MS Height/Weight Height: 6 ft Weight: 85 kg Allergies Allergy/AdvReac Type Severity Reaction Status Date / Time No Known Allergies Allergy Verified 12/02/22 21:37 Medications Home Medications Medication Instructions Recorded Confirmed Last Taken multivitamin 1 tab PO DAILY 01/05/21 01/15/23 12/02/22 aspirin 81 mg tablet,delayed 81 mg PO QAM #30 tabs 02/08/21 01/15/23 12/02/22 release ascorbic acid (vitamin C) 500 mg 500 mg PO DAILY 11/14/22 01/15/23 12/02/22 tablet (Vitamin C) metformin 1,000 mg tablet,extended 1,000 mg PO BID 11/14/22 01/15/23 12/02/22 release 24hr amlodipine 5 mg tablet (Norvasc) 5 mg PO QAM #30 tabs 11/19/22 01/15/23 12/02/22 ibuprofen 200 mg tablet 400 mg PO Q6H PRN Pain 12/02/22 01/15/23 Unknown Active Medications Generic Name Dose Route Start Last Admin Trade Name Freq PRN Reason Stop Dose Admin Amlodipine Besylate 5 mg 01/15/23 15:26 01/15/23 18:04 Amlodipine Besylate 5 Mg Tab PO 02/14/23 15:25 5 mg QAM BRIGETTE Administration Ampicillin Sodium/Sulbactam 108 mls @ 200 mls/hr 01/15/23 16:00 01/16/23 06:08 Sodium 3,000 mg/ Sodium IV 02/26/23 15:59 Infused Chloride Q6H BRIGETTE Infusion Protocol Vancomycin HCl 1,250 mg/ 275 mls @ 200 mls/hr 01/15/23 19:00 01/15/23 21:55 Sodium Chloride IV 02/26/23 18:59 Infused Q12H BRIGETTE Infusion Protocol Insulin Aspart 0 units 01/15/23 16:30 01/15/23 21:43 Insulin Aspart Per Unit SC 02/14/23 16:29 Not Given ACHS BRIGETTE Oxycodone HCl 5 mg 01/15/23 22:40 01/15/23 23:11 Oxycodone Hcl Ir 5 Mg Tab (Immediate Release) PO 01/29/23 22:39 5 mg Q6H PRN Administration Moderate Pain Past Medical History Medical History Acute CVA (cerebrovascular accident) Alcohol abuse Amputation toe Cellulitis of foot Diabetic foot ulcer with osteomyelitis GERD (gastroesophageal reflux disease) Osteomyelitis Tobacco use disorder Type 2 diabetes mellitus Ulcer of great toe Past Family History Family History Other Stroke Past Surgical History Surgical History History of knee surgery History of knee surgery Social History Smoking Status: Current every day smoker tobacco type: cigarettes Smoking cigarettes per day: 36 Hx Alcohol Use: Yes (6-8 every morning.) Alcohol type: beer alcohol intake frequency: 3 or more drinks per day Hx Substance Use: No substance use type: does not use Physical Exam Vital Signs Last Vital Signs Temp 98.1 F 01/16/23 04:00 Pulse 65 01/16/23 04:00 Resp 18 01/16/23 04:00 BP 150/68 H 01/16/23 04:00 Pulse Ox 95 01/16/23 04:00 O2 Del Method Room Air 01/16/23 04:00 Testing Laboratory Results 01/15/23 10:02 01/16/23 06:32 01/16/23 01/15/23 06:25 20:59 POC Glucose 112 H 129 H Electrocardiogram Date: 02/07/21 Normal sinus rhythm, rate 69 bpm Minimal voltage criteria for LVH, may be normal variant Otherwise Normal ECG When compared with ECG of 05-JAN-2021 12:05, No significant change was found Confirmed by Farzad Dunbar ([id number]) on 02/07/2021 12:16:50 PM Echocardiogram Date: 02/08/21 LV is normal in size Moderate concentric LVH No regional wall motion abnormalities EF 50-55% LA is mildly dilated Grade 1 diastolic dysfunction AV sclerosis moderate, without significant AV stenosis Injection of contrast documented no interatrial shunt
[2023-01-16] MEDS: INSULIN ASPART PER UNIT SC SCH ×4 (07:30→23:18)
[2023-01-16] MEDS: VANCOMYCIN HCL 1,250 MG in SODIUM CHLORIDE 0.9% 250 ML IV SCH ×2 (07:58→20:33)
[2023-01-16] MEDS ORDERED: BUPIVACAINE 0.5 % 5 MG/1 ML MPF 30ML VIAL ONE (08:13)
[2023-01-16 08:28] LABS: Hematocrit (blood only) 32.2 % (42.0-52.0); Hemoglobin 11.5 g/dl (14.0-18.0); Mean Corpuscular Hemoglobin 32.7 pg (25.0-34.0); Mean Corpuscular Hgb Conc 35.7 g/dL (32.0-36.0); Mean Corpuscular Volume 91.5 fL (80.0-100.0); Mean Platelet Volume 9.4 fL (9.4-12.4); Platelet Count 284 K/uL (130-400); RDW Coefficient of Variation 12.7 % (11.5-14.5); RDW Standard Deviation 42.3 fL (36.4-46.3); Red Blood Count 3.52 M/uL (4.70-6.10); White Blood Count 8.28 K/ul (4.8-10.8)
[2023-01-16 08:38] LABS: Calcium 8.9 mg/dl (8.5-10.1); Creatinine Clr Calc Pharmacy 94.8 ml/min; Est GFR (African American) 104.7 ml/min; Est GFR (Non-African American) 90.4 ml/min; Potassium 4.2 mmol/L (3.5-5.1)
[2023-01-16] MEDS: ASCORBIC ACID 500 MG TAB PO SCH (08:46)
[2023-01-16] MEDS: amLODIPine BESYLATE 5 MG TAB PO SCH (08:46)
[2023-01-16] MEDS: FOLIC ACID 1 MG TAB PO SCH (08:46)
[2023-01-16] MEDS: THIAMINE HCL 100 MG TAB PO SCH (08:47)
--- NOTE | 2023-01-16 08:48 | History & Physical Bridge Note ---
Date of Service January 16, 2023 History & Physical Bridge Note I have examined the patient, reviewed the History & Physical and in the interval since the performance of the History & Physical I have noted the following changes of clinical significance: no changes noted
[2023-01-16] MEDS ORDERED: ceFAZolin 330 MG/ML 1 GM VIAL ONE (09:48)
--- NOTE | 2023-01-16 10:03 | Post Operative Brief Note ---
Immediate Post Op Note v1 Date of Surgery January 16, 2023 Pre & Post Diagnosis Operation Date: 01/16/23 09:30 <No data on this case meets the specified criteria> I identified the patient and participated in the time-out.: Yes Procedure Operation Date: 01/16/23 09:30 <No data on this case meets the specified criteria> Surgeon Richardson Dorado, RADHA, MS Timber Setter none Estimated Blood Loss 0 Findings Consistent with Post-Op Diagnosis necrotic left second toe
--- NOTE | 2023-01-16 10:46 | Anesthesiology Progress Note ---
Date of Service January 16, 2023 Anesthesia Post Procedure Vital Signs Vital Signs: Temp Pulse Pulse Pulse Resp BP BP 01/16/23 10:25 97.7 F 58 L 16 01/16/23 10:15 58 L 16 01/16/23 10:05 97.7 F 57 L 18 01/16/23 07:47 59 L 01/16/23 07:32 99.0 F 60 18 137/70 01/15/23 22:01 72 01/16/23 04:00 98.1 F 65 18 01/15/23 23:00 98.4 F 73 18 01/15/23 19:00 98.6 F 70 18 128/72 01/15/23 14:47 70 18 165/80 H 01/15/23 12:45 65 18 01/15/23 12:25 64 BP Pulse Ox O2 Del Method 01/16/23 10:25 130/62 96 Room Air 01/16/23 10:15 133/55 L 96 Room Air 01/16/23 10:05 116/64 99 Room Air 01/16/23 07:47 01/16/23 07:32 98 Room Air 01/15/23 22:01 01/16/23 04:00 150/68 H 95 Room Air 01/15/23 23:00 146/72 H 96 Room Air 01/15/23 19:00 96 Room Air 01/15/23 14:47 99 Room Air 01/15/23 12:45 179/76 H 99 Room Air 01/15/23 12:25 Pain Intensity Left Foot: Pain Intensity: 9 Transfer of Care Handoff Completed per policy Notes Mental Status: alert / awake / arousable and participated in evaluation Patient Amnestic to Procedure: Yes Nausea / Vomiting: adequately controlled Pain: adequately controlled Airway Patency, RR, SpO2: stable & adequate BP & HR: stable & adequate Hydration State: stable & adequate Anesthetic Complications: no major complications apparent and Pt Satisfied with anesthetic care
--- NOTE | 2023-01-16 11:27 | Hospitalist Progress Note ---
Date of Service January 16, 2023 Assessment & Plan (1) Osteomyelitis of second toe of left foot: Plan: 72 y/o male with a PMH of DM2, diabetic foot ulcer, alcohol abuse, tobacco abuse, and recent amputation of left great toe in Oct 2022, who presents with osteomyelitis and ulcer in the left second toe. He reports gradual worsening of the pain, necrosis, and drainage over the last several days. Pain is now radiating into his foot so he thought he should be evaluated. Toe XR noted distal 2nd toe ulcer with distal phalangeal osteomyelitis S/p left 2nd toe amputation today Follow up culture Blood cultures negative Considering recent left great toe osteomyelitis with amputation 2 months ago and now 2nd toe osteomyelitis with amputation, will get ID consult tomorrow morning for recommendations regarding antibiotic therapy/duration Continue vanc and unasyn for now (2) Diabetic foot ulcer associated with type 2 diabetes mellitus: (3) Alcohol abuse: Plan: Pt reports last drink was 2-3 days ago - denies s/s of withdrawal Monitor for withdrawal Thiamine/folic acid (4) Type 2 diabetes mellitus: Plan: Holding Metformin while admitted Diabetic diet Insulin sliding scale BSG ACHS A1c in 10/2022 was 6.4 (5) Tobacco use disorder: Plan: Pt declines need for nicotine patch while admitted (6) Hyponatremia: Plan: Chronic Monitor Encourage to quit alcohol use Check ser osm, Uosm,[place] (7) Hypertension: Plan: During last admission, pt started on amlodipine for elevated BP He does not recall taking this as an outpatient. BP in the ED elevated Amlodipine resumed Monitor (8) Hernia, inguinal, left: Plan: Abd CT. Noted small fat filled leg inguinal hernia. No bowel obstruction/wall thickening Patient needs to follow up with Gen surg outpatient for management Code Status: Full Code DVT Prophylaxis: SCDs for today Admission and Anticipated Discharge Date Admission Date: January 15, 2023 Subjective Patient seen on return from OR Reports no pain at surgical site at this time Had amputation of 2nd left toe Denied any cough, chest pain, shortness of breath Denied any nausea, vomiting Reported he has left groin pain from his known inguinal hernia but none at this time Denied chills Denied dysuria, freq, urgency Physical Exam Constitutional: + well hydrated; no acute distress Eyes: PERRL, conjunctivae normal, anicteric sclerae ENMT: external ear and nose normal, oropharynx normal Respiratory: normal respiratory effort, lungs clear to auscultation Cardiovascular: Rate/Rhythm: regular rate and regular rhythm S1 S2 Gastrointestinal (Abdomen): normal bowel sounds, soft, nontender, no hepatosplenomegaly Musculoskeletal: Left foot bandaged Neurologic: PERRL, EOMI, accommodation nl, no face palsy, no dysarthria Psychiatric: A+Ox3, euthymic affect Results & Data Results & Data ([facility]) Vital Signs (Past 12 Hours) Vital Signs Temp Pulse Pulse Pulse Resp BP BP 01/16/23 11:16 36.9 C 59 L 18 157/66 H 01/16/23 10:40 36.9 C 59 L 16 156/67 H 01/16/23 10:25 36.5 C 58 L 16 130/62 01/16/23 10:15 58 L 16 133/55 L 01/16/23 10:05 36.5 C 57 L 18 116/64 01/16/23 07:47 59 L 01/16/23 07:32 37.2 C 60 18 137/70 01/16/23 04:00 36.7 C 65 18 150/68 H Pulse Ox O2 Del Method 01/16/23 11:16 95 Room Air 01/16/23 10:40 98 Room Air 01/16/23 10:25 96 Room Air 01/16/23 10:15 96 Room Air 01/16/23 10:05 99 Room Air 01/16/23 07:47 01/16/23 07:32 98 Room Air 01/16/23 04:00 95 Room Air Laboratory Results Abnormal lab results 01/15/23 01/15/23 01/15/23 Range/Units 16:23 18:17 20:59 RBC (4.70-6.10) M/uL Hgb (14.0-18.0) g/dl Hct (42.0-52.0) % Sodium 131 L (136-145) mmol/L Glucose 176 H (70-99(Fasting)) mg/dl POC Glucose 124 H 129 H (70-99) mg/dl 01/16/23 01/16/23 01/16/23 Range/Units 06:25 06:32 06:32 RBC 3.52 L (4.70-6.10) M/uL Hgb 11.5 L (14.0-18.0) g/dl Hct 32.2 L (42.0-52.0) % Sodium 132 L (136-145) mmol/L Glucose 104 H (70-99(Fasting)) mg/dl POC Glucose 112 H (70-99) mg/dl 01/16/23 01/16/23 Range/Units 10:08 11:21 RBC (4.70-6.10) M/uL Hgb (14.0-18.0) g/dl Hct (42.0-52.0) % Sodium (136-145) mmol/L Glucose (70-99(Fasting)) mg/dl POC Glucose 109 H 127 H (70-99) mg/dl (2) Diabetic foot ulcer associated with type 2 diabetes mellitus Diabetic foot ulcer location: toe Laterality: unspecified laterality Non- pressure ulcer stage: unspecified non-pressure ulcer stage Qualified Code(s): E11.621 - Type 2 diabetes mellitus with foot ulcer; L97.509 - Non-pressure chronic ulcer of other part of unspecified foot with unspecified severity
[2023-01-16] MEDS: oxyCODONE HCL IR 5 MG TAB (IMMEDIATE RELEASE) PO PRN ×3 (12:29→18:37)
--- NOTE | 2023-01-16 20:21 | Operative Report ---
Post Operative Report Pre & Post Diagnosis Operation Date: 01/16/23 09:30 Pre-Op Diagnosis: Left Toe Osteomyelitis Post-Op Diagnosis: Left Toe Osteomyelitis I identified the patient and participated in the time-out.: Yes Procedure Operation Date: 01/16/23 09:30 Actual Procedures p Amputation 2nd Toe on Left Foot(Left) - Richardson Dorado DPM, MS Surgeon Richardson Dorado DPM, MS Boat Cleaning Supervisor none Estimated Blood Loss 0 Findings Consistent with Post-Op Diagnosis Necrotic left second toe Specimens 1.) Left second toe - pathology 2.) Distal phalanx left second toe - microbiology Description of Procedure History of present illness: Patient is a type II diabetic, 72 year old male who is seen for treatment of osteomyelitis of the left second toe. Patient has a history of previous toe amputation secondary to ulceration and OM. Patient requests surgical amputation of left second toe. Discussed procedure in detail and postoperative recovery. All potential risks, benefits, complications, alternatives, rehab, potential for incomplete relief of symptoms, need for further surgery, DVT, PE, , persistent pain, swelling, scarring, weakness, neurovascular, wound complications and potential for amputations were discussed with patient. Unwanted outcomes such as, but not limited to were reviewed including under correction, overcorrection, return of deformity, infection. All questions were answered. Patient has decided to proceed with procedure as indicated. Preoperative diagnosis: Diabetic ulcer osteomyelitis distal phalanx left second toe Postoperative diagnosis: same Name of operation: Amputation left second toe Surgeon Dr. Dorado Boat Cleaning Supervisor: None Anesthesia: local with monitored anesthesia care Hemostasis: pneumatic ankle tourniquet Estimated blood loss: minimal Procedure in detail: Under mild sedation the patient was brought in the operating room placed on the operating table in supine position. A pneumatic ankle tourniquet was then placed about the patient's left ankle. Following IV sedation local anesthesia was obtained about the left utilizing 10 cc of 1% lidocaine plain. The foot was then prepped scrubbed and draped in usual aseptic manner. An Esmarch bandage was utilized to exsanguinate the patient's left foot and the pneumatic ankle tourniquet was then inflated. Attention was then directed to a nonhealing diabetic ulcer on the distal aspect of the left second toe. An elipse incision was created utilizing a sharp, sterile, #15 blade. The incision which was deepened through subcutaneous tissue using sharp blunt dissection. Care was taken to identify and retract all vital neurovascular structures. All bleeders were ligated and cauterized necessary. At this time the left second toe was removed at the Metatarsal Phalangeal joint and placed on the back table. The distal phalanx portion of the left second toe was sent to microbiology and reminder of the left second toe was sent to pathology. Copious amounts of sterile normal saline were utilized to flush the incision site. The skin was then primarily closed utilizing 3-0 nylon in horizontal suture mattress techniques as well as simple suture closure. Upon completion of the procedure the incision was dressed with Betadine soaked Adaptic followed by sterile compressive dressing consisting of 4 x 4's Charito Kerlix ABD the pneumatic ankle tourniquet was deflated and a prompt hyperemic response was noted to all digits of the left foot. An Derrick wrap and postoperative shoe were then applied. The Patient tolerated the procedure and anesthesia well. He was transferred to recovery room vital signs stable and vascular status intact all toes of the left foot following. After a period of postoperative monitoring the patient will be re-admitted to the floor resuming all pre-operative orders. Please contact Dr. Dorado for all postoperative care if any problems arise . I attest to the content of the Intraoperative Record and any orders documented therein. Any exceptions are noted below.
[2023-01-16] MEDS: ACETAMINOPHEN 500 MG TAB PO SCH (20:34)
[2023-01-17] MEDS: oxyCODONE HCL IR 5 MG TAB (IMMEDIATE RELEASE) PO PRN ×4 (00:33→20:10)
[2023-01-17] MEDS: AMPICILLIN/SULBACTAM SOD 3,000 MG in 0.9 % SODIUM CHLORIDE 100 ML IV SCH ×2 (03:54→09:28)
[2023-01-17] MEDS ORDERED: VANCOMYCIN LEVEL ONE (06:30)
[2023-01-17 06:34] LABS: BUN Creatinine Ratio 14.7 (10-20); Calcium 9.5 mg/dl (8.5-10.1); Creatinine Clr Calc Pharmacy 74.9 ml/min; Est GFR (Non-African American) 78.5 ml/min; Potassium 4.2 mmol/L (3.5-5.1)
[2023-01-17 06:36] LABS: Hematocrit (blood only) 33.9 % (42.0-52.0); Hemoglobin 11.8 g/dl (14.0-18.0); Mean Corpuscular Hemoglobin 32.5 pg (25.0-34.0); Mean Corpuscular Hgb Conc 34.8 g/dL (32.0-36.0); Mean Corpuscular Volume 93.4 fL (80.0-100.0); Mean Platelet Volume 8.9 fL (9.4-12.4); Platelet Count 278 K/uL (130-400); RDW Coefficient of Variation 12.9 % (11.5-14.5); RDW Standard Deviation 44.5 fL (36.4-46.3); Red Blood Count 3.63 M/uL (4.70-6.10); White Blood Count 7.74 K/ul (4.8-10.8)
[2023-01-17] MEDS: VANCOMYCIN HCL 1,250 MG in SODIUM CHLORIDE 0.9% 250 ML IV SCH ×2 (07:24→18:11)
[2023-01-17] MEDS: amLODIPine BESYLATE 5 MG TAB PO SCH (07:25)
[2023-01-17] MEDS: THIAMINE HCL 100 MG TAB PO SCH (07:25)
[2023-01-17] MEDS: FOLIC ACID 1 MG TAB PO SCH (07:25)
[2023-01-17] MEDS: ASCORBIC ACID 500 MG TAB PO SCH (07:25)
[2023-01-17] MEDS: INSULIN ASPART PER UNIT SC SCH ×4 (07:57→20:57)
[2023-01-17] MEDS: ACETAMINOPHEN 500 MG TAB PO SCH ×2 (09:15→15:39)
--- NOTE | 2023-01-17 10:03 | Pharmacy Report ---
Pharmacy PK ABX Note - Date of Service January 17, 2023 - Assessment and Plan Assessment 72 year old M receiving VANCOMYCIN/UNASYN for treatment of osteomyelitis of left second toe. Pertinent microbiologic data includes: Blood cultures (01/15/23) x 2 show no growth at 24 hours, left second toe culture (01/16/23) pending. Patient does have history of Pseudomonas aeruginosa growth in a left great toe culture from 11/18. POD #1 s/p left second toe. ID now consulted for antibiotic selection/duration of therapy. Day # 3 of antimicrobial therapy. Patient is afebrile with no overt leukocytosis. Plan Vancomycin * Current regimen: 1250 mg IV every 12 hours * Random level obtained 01/17/23 resulted as 13 mcg/mL. This is predicted to achieve target AUC/PETE of 400-600 mg/L.hr * Predicted AUC at steady state: 566 mg/L.hr * Continue 1250 mg IV every 12 hours * Will repeat level in the next 48-72 hours if therapy is continued and/or change in patient clinical status Ampicillin/sulbactam * 3 g IV q6h - dosed appropriately Pharmacy will continue to follow and will adjust dose/frequency as necessary. Thank you. Pharmacy has transitioned to AUC monitoring for vancomycin. AUC/PETE is the preferred PK/PD target and is associated with decreased risk of nephrotoxicity compared to traditional trough targets.
--- NOTE | 2023-01-17 12:55 | Hospitalist Progress Note ---
Date of Service January 17, 2023 Assessment & Plan (1) Osteomyelitis of second toe of left foot: Plan: 72 y/o male with a PMH of DM2, diabetic foot ulcer, alcohol abuse, tobacco abuse, and recent amputation of left great toe in Oct 2022, who presents with osteomyelitis and ulcer in the left second toe. He reports gradual worsening of the pain, necrosis, and drainage over the last several days. Pain is now radiating into his foot so he thought he should be evaluated. Toe XR noted distal 2nd toe ulcer with distal phalangeal osteomyelitis S/p left 2nd toe amputation on 01/16/23 POD 1 Toe culture growing GNR Considering he grew pseudomonas last time, change unasyn to zosyn Continue vanc for now. Check MRSA Follow up culture speciation and sensitivities Blood cultures negative Considering recent left great toe osteomyelitis with amputation 2 months ago and now 2nd toe osteomyelitis with amputation, will get ID consult for recommendations regarding antibiotic therapy/duration Get PT/OT eval (2) Diabetic foot ulcer associated with type 2 diabetes mellitus: Plan: As above (3) Alcohol abuse: Plan: Pt reports last drink was 2-3 days ago - denies s/s of withdrawal Monitor for withdrawal Thiamine/folic acid (4) Type 2 diabetes mellitus: Plan: Holding Metformin while admitted Diabetic diet Insulin sliding scale BSG ACHS A1c in 10/2022 was 6.4 (5) Tobacco use disorder: Plan: Pt declined need for nicotine patch while admitted (6) Hyponatremia: Plan: Chronic Monitor Encourage to quit alcohol use (7) Hypertension: Plan: During last admission, pt started on amlodipine for elevated BP He does not recall taking this as an outpatient. BP in the ED elevated Amlodipine resumed BP better controlled (8) Hernia, inguinal, left: Plan: Abd CT. Noted small fat filled leg inguinal hernia. No bowel obstruction/wall thickening Patient needs to follow up with Gen surg outpatient for management Code Status: Full Code DVT Prophylaxis: Hep sq Admission and Anticipated Discharge Date Admission Date: January 15, 2023 Subjective Patient seen and examined Reports surgical site pain is controlled Denied any cough, chest pain, shortness of breath Denied any nausea, vomiting Denied any abd pain at this time Denied chills Denied dysuria, freq, urgency Physical Exam Constitutional: + well hydrated; no acute distress Eyes: PERRL, conjunctivae normal, anicteric sclerae ENMT: external ear and nose normal, oropharynx normal Respiratory: normal respiratory effort, lungs clear to auscultation Cardiovascular: Rate/Rhythm: regular rate and regular rhythm S1 S2 Gastrointestinal (Abdomen): normal bowel sounds, soft, nontender, no hepatosplenomegaly Musculoskeletal: Left foot bandaged Neurologic: PERRL, EOMI, accommodation nl, no face palsy, no dysarthria Psychiatric: A+Ox3, euthymic affect Results & Data Results & Data ([facility]) Vital Signs (Past 12 Hours) Vital Signs Temp Pulse Pulse Resp BP Pulse Ox O2 Del Method 01/17/23 11:01 36.2 C L 60 18 131/72 95 Room Air 01/17/23 07:44 36.4 C L 98 H 18 152/74 H 96 Room Air 01/17/23 07:10 54 L 01/17/23 04:26 36.4 C L 53 L 18 136/70 94 Room Air 01/17/23 01:31 54 L Laboratory Results Abnormal lab results 01/16/23 01/16/23 01/16/23 Range/Units 16:31 20:51 22:45 RBC (4.70-6.10) M/uL Hgb (14.0-18.0) g/dl Hct (42.0-52.0) % MPV (9.4-12.4) fL Sodium (136-145) mmol/L POC Glucose 133 H 112 H (70-99) mg/dl Urine Osmolality 490 L (500-800) mOsm/kg 01/17/23 01/17/23 01/17/23 Range/Units 05:47 05:47 11:46 RBC 3.63 L (4.70-6.10) M/uL Hgb 11.8 L (14.0-18.0) g/dl Hct 33.9 L (42.0-52.0) % MPV 8.9 L (9.4-12.4) fL Sodium 133 L (136-145) mmol/L POC Glucose 109 H (70-99) mg/dl Urine Osmolality (500-800) mOsm/kg (2) Diabetic foot ulcer associated with type 2 diabetes mellitus Diabetic foot ulcer location: toe Laterality: unspecified laterality Non- pressure ulcer stage: unspecified non-pressure ulcer stage Qualified Code(s): E11.621 - Type 2 diabetes mellitus with foot ulcer; L97.509 - Non-pressure chronic ulcer of other part of unspecified foot with unspecified severity
[2023-01-17] MEDS ORDERED: PIPERACILLIN/TAZOBACTAM 4.5 GM (over 30 mins) IV ONE (13:15)
[2023-01-17] MEDS: PIPERACILLIN/TAZOBACTAM 3.375 GM CI (over 4 hrs) IV SCH (18:11)
[2023-01-17] MEDS: HEPARIN SOD 5,000 UNIT/0.5 ML VIAL SQ SCH (20:12)
[2023-01-17] MEDS: ACETAMINOPHEN 500 MG TAB PO PRN (23:02)
[2023-01-18] MEDS: PIPERACILLIN/TAZOBACTAM 3.375 GM CI (over 4 hrs) IV SCH ×2 (02:08→11:58)
[2023-01-18] MEDS: oxyCODONE HCL IR 5 MG TAB (IMMEDIATE RELEASE) PO PRN ×4 (02:09→20:11)
[2023-01-18] MEDS: ACETAMINOPHEN 500 MG TAB PO PRN ×2 (05:50→16:08)
[2023-01-18] MEDS: VANCOMYCIN HCL 1,250 MG in SODIUM CHLORIDE 0.9% 250 ML IV SCH (06:08)
[2023-01-18 07:24] LABS: Hematocrit (blood only) 31.6 % (42.0-52.0); Mean Corpuscular Hgb Conc 34.8 g/dL (32.0-36.0); Mean Corpuscular Volume 91.9 fL (80.0-100.0); Mean Platelet Volume 9.1 fL (9.4-12.4); Platelet Count 259 K/uL (130-400); RDW Coefficient of Variation 12.4 % (11.5-14.5); RDW Standard Deviation 41.4 fL (36.4-46.3); Red Blood Count 3.44 M/uL (4.70-6.10); White Blood Count 7.06 K/ul (4.8-10.8)
[2023-01-18 07:38] LABS: BUN Creatinine Ratio 13.6 (10-20); Calcium 8.8 mg/dl (8.5-10.1); Creatinine Clr Calc Pharmacy 69.1 ml/min; Est GFR (African American) 82.6 ml/min; Est GFR (Non-African American) 71.2 ml/min; Magnesium 1.5 mg/dl (1.7-2.4)
[2023-01-18] MEDS: INSULIN ASPART PER UNIT SC SCH ×4 (07:59→20:12)
[2023-01-18] MEDS: ASCORBIC ACID 500 MG TAB PO SCH (08:00)
[2023-01-18] MEDS: amLODIPine BESYLATE 5 MG TAB PO SCH (08:00)
[2023-01-18] MEDS: HEPARIN SOD 5,000 UNIT/0.5 ML VIAL SQ SCH ×2 (08:00→20:16)
[2023-01-18] MEDS: THIAMINE HCL 100 MG TAB PO SCH (08:00)
[2023-01-18] MEDS: FOLIC ACID 1 MG TAB PO SCH (08:01)
--- NOTE | 2023-01-18 09:13 | Orthopedic Progress Note ---
Date of Service January 18, 2023 Assessment & Plan (1) Osteomyelitis of second toe of left foot: Plan: Patient seen, evaluated, and treated. Post operative shoe ordered. Patient is weight bearing as tolerated while in boot. Awaiting final bone cultures from left second toe. Awaiting continued demarcation possible return to OR with further debridement prior to discharge. Will continue with dressing changes daily and continue to update daily as to plan. (2) Osteomyelitis: (3) Diabetic foot ulcer associated with type 2 diabetes mellitus: Admission and Anticipated Discharge Date Admission Date: January 15, 2023 Subjective Patient seen and examined status post Day #2 left second toe amputation. Review of Systems Review of Systems: All systems reviewed & are unremarkable except as noted in HPI & below Physical Exam Constitutional: WD/WN, vitals as above Eyes: normal visual abdul by confrontation ENMT: external ear and nose normal, oropharynx normal Respiratory: normal respiratory effort Cardiovascular: Rate/Rhythm: regular rate and regular rhythm Skin: Sutures intact. Considerable maceration surrounding sutures. Wound area continues to demarcate. Psychiatric: Orientation: alert and oriented x 3 Results & Data ([facility]) Vital Signs (Past 12 Hours) Vital Signs Temp Pulse Pulse Resp BP BP Pulse Ox 01/18/23 08:39 63 01/18/23 07:22 36.5 C 57 L 136/76 98 01/18/23 01:00 63 01/18/23 03:02 36.4 C L 60 18 127/64 95 01/17/23 22:56 36.9 C 58 L 18 161/76 H 97 O2 Del Method 01/18/23 08:39 01/18/23 07:22 Room Air 01/18/23 01:00 01/18/23 03:02 Room Air 01/17/23 22:56 Room Air (2) Osteomyelitis Laterality: unspecified laterality Osteomyelitis location: foot Osteomyelitis type: unspecified type Qualified Code(s): M86.9 - Osteomyelitis, unspecified (3) Diabetic foot ulcer associated with type 2 diabetes mellitus Diabetic foot ulcer location: toe Laterality: unspecified laterality Non- pressure ulcer stage: unspecified non-pressure ulcer stage Qualified Code(s): E11.621 - Type 2 diabetes mellitus with foot ulcer; L97.509 - Non-pressure chronic ulcer of other part of unspecified foot with unspecified severity
--- NOTE | 2023-01-18 12:34 | Hospitalist Progress Note ---
Date of Service January 18, 2023 Assessment & Plan (1) Osteomyelitis of second toe of left foot: Plan: 72 y/o male with a PMH of DM2, diabetic foot ulcer, alcohol abuse, tobacco abuse, and recent amputation of left great toe in Oct 2022, who presents with osteomyelitis and ulcer in the left second toe. He reports gradual worsening of the pain, necrosis, and drainage over the last several days. Pain is now radiating into his foot so he thought he should be evaluated. Toe XR noted distal 2nd toe ulcer with distal phalangeal osteomyelitis S/p left 2nd toe amputation on 01/16/23 POD 2 Toe culture growing citrobacter MRSA negative. Vanc discontinued Considering recent left great toe osteomyelitis with amputation 2 months ago and now 2nd toe osteomyelitis with amputation, ID was consulted for recommendations regarding antibiotic therapy/duration Discussed with ID Dr Manzanares via tiger text this evening. He recommends stopping zosyn and starting ciprofloxacin 500mg po bid or bactrim DS1 tab po bid. He stated he cannot give a specific duration but recommends continuing antibiotics till soft tiss infection resolves. Ciprofloxacin started. Plan to get PCP appt tomorrow AM. Will plan to provide prescription for abx until PCP follow up who will reassess and determine if soft tiss infection is resolved/not to determine if longer duration of abx is needed. PT/OT eval noted (2) Diabetic foot ulcer associated with type 2 diabetes mellitus: Plan: As above (3) Alcohol abuse: Plan: Pt reports last drink was 2-3 day prior to presentation No signs of withdrawal Thiamine/folic acid (4) Type 2 diabetes mellitus: Plan: Holding Metformin while admitted Diabetic diet Insulin sliding scale BSG ACHS A1c in 10/2022 was 6.4 (5) Tobacco use disorder: Plan: Pt declined need for nicotine patch while admitted (6) Hyponatremia: Plan: Chronic Monitor Encourage to quit alcohol use Hypomagnesemia today. Replete and monitor (7) Hypertension: Plan: During last admission, pt started on amlodipine for elevated BP He does not recall taking this as an outpatient. BP in the ED elevated Amlodipine resumed. Prescribe on discharge (8) Hernia, inguinal, left: Plan: Abd CT. Noted small fat filled leg inguinal hernia. No bowel obstruction/wall thickening Patient needs to follow up with Gen surg outpatient for management Code Status: Full Code DVT Prophylaxis: Hep sq Bowel regimen Admission and Anticipated Discharge Date Admission Date: January 15, 2023 Subjective Patient seen and examined Reports surgical site pain is well controlled Denied any cough, chest pain, shortness of breath Denied any nausea, vomiting Reports intermittent left abd pain at site of hernia Reports no BM yet since surgery Denied any fever or chills Denied dysuria, freq, urgency Physical Exam Constitutional: + well hydrated; no acute distress Eyes: PERRL, conjunctivae normal, anicteric sclerae ENMT: external ear and nose normal, oropharynx normal Respiratory: normal respiratory effort, lungs clear to auscultation Cardiovascular: Rate/Rhythm: regular rate and regular rhythm S1 S2 Gastrointestinal (Abdomen): normal bowel sounds, soft, nontender, no hepatosplenomegaly Musculoskeletal: Left foot bandaged Neurologic: PERRL, EOMI, accommodation nl, no face palsy, no dysarthria Psychiatric: A+Ox3, euthymic affect Results & Data Results & Data ([facility]) Vital Signs (Past 12 Hours) Vital Signs Temp Pulse Pulse Resp BP Pulse Ox O2 Del Method 01/18/23 11:02 36.5 C 68 162/79 H 96 Room Air 01/18/23 08:39 63 01/18/23 07:22 36.5 C 57 L 136/76 98 Room Air 01/18/23 01:00 63 01/18/23 03:02 36.4 C L 60 18 127/64 95 Room Air Laboratory Results Abnormal lab results 01/17/23 01/18/23 01/18/23 Range/Units 20:43 06:51 06:51 RBC 3.44 L (4.70-6.10) M/uL Hgb 11.0 L (14.0-18.0) g/dl Hct 31.6 L (42.0-52.0) % MPV 9.1 L (9.4-12.4) fL Sodium 132 L (136-145) mmol/L Glucose 108 H (70-99(Fasting)) mg/dl POC Glucose 123 H (70-99) mg/dl Magnesium 1.5 L (1.7-2.4) mg/dl 01/18/23 01/18/23 01/18/23 Range/Units 07:34 11:37 16:35 RBC (4.70-6.10) M/uL Hgb (14.0-18.0) g/dl Hct (42.0-52.0) % MPV (9.4-12.4) fL Sodium (136-145) mmol/L Glucose (70-99(Fasting)) mg/dl POC Glucose 122 H 124 H 121 H (70-99) mg/dl Magnesium (1.7-2.4) mg/dl (2) Diabetic foot ulcer associated with type 2 diabetes mellitus Diabetic foot ulcer location: toe Laterality: unspecified laterality Non-p ressure ulcer stage: unspecified non-pressure ulcer stage Qualified Code(s): E11.621 - Type 2 diabetes mellitus with foot ulcer; L97.509 - Non-pressure chronic ulcer of other part of unspecified foot with unspecified severity
[2023-01-18] MEDS ORDERED: MAGNESIUM SULFATE / D5W 1 GM/100 ML BAG IV ONE (17:08)
[2023-01-18] MEDS: CIPROFLOXACIN 500 MG TAB PO SCH (20:11)
[2023-01-18] MEDS: POLYETHYLENE (MIRALAX) 17 GM PACK PO PRN (20:16)
[2023-01-19] MEDS: oxyCODONE HCL IR 5 MG TAB (IMMEDIATE RELEASE) PO PRN ×2 (02:23→12:30)
[2023-01-19] MEDS: HEPARIN SOD 5,000 UNIT/0.5 ML VIAL SQ SCH (07:34)
[2023-01-19] MEDS: CIPROFLOXACIN 500 MG TAB PO SCH (07:34)
[2023-01-19] MEDS: ASCORBIC ACID 500 MG TAB PO SCH (07:35)
[2023-01-19] MEDS: amLODIPine BESYLATE 5 MG TAB PO SCH (07:35)
[2023-01-19] MEDS: FOLIC ACID 1 MG TAB PO SCH (07:35)
[2023-01-19] MEDS: THIAMINE HCL 100 MG TAB PO SCH (07:35)
[2023-01-19] MEDS: ACETAMINOPHEN 500 MG TAB PO PRN (07:37)
[2023-01-19] MEDS: POLYETHYLENE (MIRALAX) 17 GM PACK PO PRN (07:44)
[2023-01-19 07:51] LABS: Hematocrit (blood only) 33.6 % (42.0-52.0); Hemoglobin 11.8 g/dl (14.0-18.0); Mean Corpuscular Hemoglobin 32.2 pg (25.0-34.0); Mean Corpuscular Hgb Conc 35.1 g/dL (32.0-36.0); Mean Corpuscular Volume 91.6 fL (80.0-100.0); Platelet Count 316 K/uL (130-400); RDW Coefficient of Variation 12.6 % (11.5-14.5); RDW Standard Deviation 42.2 fL (36.4-46.3); Red Blood Count 3.67 M/uL (4.70-6.10); White Blood Count 6.06 K/ul (4.8-10.8)
[2023-01-19 08:17] LABS: BUN Creatinine Ratio 14.6 (10-20); Calcium 9.4 mg/dl (8.5-10.1); Creatinine Clr Calc Pharmacy 79.9 ml/min; Est GFR (African American) 97.6 ml/min; Est GFR (Non-African American) 84.2 ml/min; Magnesium 1.7 mg/dl (1.7-2.4); Phosphorus 3.7 mg/dl (2.5-4.9); Potassium 4.4 mmol/L (3.5-5.1)
[2023-01-19] MEDS: INSULIN ASPART PER UNIT SC SCH ×3 (08:17→16:36)
--- NOTE | 2023-01-19 10:07 | Orthopedic Progress Note ---
Date of Service January 19, 2023 Assessment & Plan (1) Osteomyelitis of second toe of left foot: Plan: Patient seen, evaluated, and treated. Post operative shoe ordered. Patient is weight bearing as tolerated while in boot. Awaiting final bone cultures from left second toe. Awaiting continued demarcation possible return to OR with further debridement. Will continue with dressing changes daily and continue. (2) Osteomyelitis: (3) Diabetic foot ulcer associated with type 2 diabetes mellitus: Admission and Anticipated Discharge Date Admission Date: January 15, 2023 Subjective Patient seen and examined Patient seen ambulating with out surgical shoe and was reminded to utilize surgical shoe. Review of Systems Review of Systems: All systems reviewed & are unremarkable except as noted in HPI & below Physical Exam Constitutional: WD/WN, vitals as above Eyes: normal visual abdul by confrontation ENMT: external ear and nose normal, oropharynx normal Respiratory: normal respiratory effort Cardiovascular: Rate/Rhythm: regular rate and regular rhythm Psychiatric: Orientation: alert and oriented x 3 Results & Data ([facility]) Vital Signs (Past 12 Hours) Vital Signs Temp Pulse Pulse Resp BP BP Pulse Ox 01/19/23 08:07 36.7 C 66 16 176/86 H 95 01/19/23 07:15 63 01/19/23 03:13 36.6 C 59 L 18 133/70 96 01/18/23 22:13 55 L 01/18/23 22:43 36.8 C 60 18 156/69 H 97 O2 Del Method 01/19/23 08:07 Room Air 01/19/23 07:15 01/19/23 03:13 Room Air 01/18/23 22:13 01/18/23 22:43 Room Air (2) Osteomyelitis Laterality: unspecified laterality Osteomyelitis location: foot Osteomyelitis type: unspecified type Qualified Code(s): M86.9 - Osteomyelitis, unspecified (3) Diabetic foot ulcer associated with type 2 diabetes mellitus Diabetic foot ulcer location: toe Laterality: unspecified laterality Non- pressure ulcer stage: unspecified non-pressure ulcer stage Qualified Code(s): E11.621 - Type 2 diabetes mellitus with foot ulcer; L97.509 - Non-pressure chronic ulcer of other part of unspecified foot with unspecified severity
--- NOTE | 2023-01-19 14:13 | Hospitalist Progress Note ---
Date of Service January 19, 2023 Assessment & Plan (1) Osteomyelitis of second toe of left foot: Plan: 72 y/o male with a PMH of DM2, diabetic foot ulcer, alcohol abuse, tobacco abuse, and recent amputation of left great toe in Oct 2022, who presents with osteomyelitis and ulcer in the left second toe. He reports gradual worsening of the pain, necrosis, and drainage over the last several days. Pain is now radiating into his foot so he thought he should be evaluated. Toe XR noted distal 2nd toe ulcer with distal phalangeal osteomyelitis S/p left 2nd toe amputation on 01/16/23 Toe culture growing citrobacter MRSA negative. Vanc discontinued Considering recent left great toe osteomyelitis with amputation 2 months ago and now 2nd toe osteomyelitis with amputation, ID was consulted for recommendations regarding antibiotic therapy/duration Discussed with ID Dr Manzanares via tiger text this evening. He recommends stopping zosyn and starting ciprofloxacin 500mg po bid or bactrim DS1 tab po bid. He stated he cannot give a specific duration but recommends continuing antibiotics till soft tiss infection resolves. Ciprofloxacin started. He is doing well on this. PCP appt and Dr. Dorado appt and followup with wound care appt made prior to discharge. PT/OT eval noted (2) Diabetic foot ulcer associated with type 2 diabetes mellitus: Plan: follow up with wound care/podiatry as outpatient. (3) Alcohol abuse: Plan: Pt reports last drink was 2-3 day prior to presentation No signs of withdrawal Thiamine/folic acid daily was given while inpatient. (4) Type 2 diabetes mellitus: Plan: Holding Metformin while admitted Diabetic diet Insulin sliding scale BSG ACHS A1c in 10/2022 was 6.4 Follow-up w PCP as outpatient. Cont metformin. (5) Tobacco use disorder: Plan: smoking cessation advised. (6) Hyponatremia: Plan: Chronic, resolved to normal 135 Encourage to quit alcohol use (7) Hypertension: Plan: During last admission, pt started on amlodipine for elevated BP He does not recall taking this as an outpatient. BP in the ED elevated Amlodipine resumed. Prescribed on discharge (8) Hernia, inguinal, left: Plan: Abd CT. Noted small fat filled leg inguinal hernia. No bowel obstruction/wall thickening Patient needs to follow up with Gen surg outpatient for management Code Status: Full Code DVT Prophylaxis: Hep sq Bowel regimen At time of discharge he was mentating and ambulating at baseline. He was discharged in stable condition with close primary care follow-up recommended. Approximately 60 minutes was utilized coordinating with specialists, interpreting results, evaluating outpatient records and establishing follow-up appointments. Elisa Hitchcock DO [facility] Hospitalist Admission and Anticipated Discharge Date Admission Date: January 15, 2023 Subjective 72-year-old diabetic man with a diabetic foot ulcer and osteomyelitis status post toe amputation, history of hypertension alcohol abuse and smoking. He admits after developing gradual worsening pain necrosis and drainage on left second toe over the last 3 weeks. X-ray revealed osteomyelitis of distal phalanx of left second toe. He has had an amputation of left second toe on 01/16/2023. Culture was growing Citrobacter sensitive to Cipro. Per ID cipro is fine to continue. He denies any diarrhea and reports a BM this morning He is ambulating well with a surgical shoe and dressing in place. He reports no pain He is eating without issue. I spoke with Dr Richradson Dorado who said the dressing could be changed daily or as needed at home and that he should have the wound re-evaluated in 1 week by himself or wound care in case any debridement is needed. A PCP follow-up was also made prior to discharge. Review of Systems Review of Systems: All systems reviewed negative symptoms indicated above. Physical Exam Physical Exam: CONSTITUTIONAL: WNWD, vitals as above, generally well-appearing, NAD, ambulatory. EYES: normal conjunctivae, no scleral icterus ENT: external ear and nose normal, MMM NECK: trachea midline RESPIRATORY: clear to auscultation bilaterally, no crackles, rales or wheezes, normal respiratory effort CARDIOVASCULAR: regular rate and rhythm, S1 and 2 heard without murmurs, gallops or rubs, no JVD, no peripheral edema CHEST: inspection of chest was normal GASTROINTESTINAL: soft, nontender, ND, no guarding MUSCULOSKELETAL: strength 5/5 throughout, head is normocephalic and atraumatic SKIN: warm and dry. Surgical shoe and dressing is c/d/i on the left foot and was not evaluated. There was a slight amount of erythema to the skin superficially just proximal to the left ankle. NEUROLOGIC: CN 2-12 grossly intact, no sensory deficit, normal cognition, normal speech, no tremor PSYCHIATRIC: alert cooperative and oriented to person, place and time. Euthymic mood, makes good eye contact, language grossly intact, recent and rem ote memory grossly intact. Results & Data Results & Data ([facility]) Vital Signs (Past 12 Hours) Vital Signs Temp Pulse Pulse Resp BP Pulse Ox O2 Del Method 01/19/23 11:42 36.6 C 61 16 137/77 97 Room Air 01/19/23 08:07 36.7 C 66 16 176/86 H 95 Room Air 01/19/23 07:15 63 01/19/23 03:13 36.6 C 59 L 18 133/70 96 Room Air Laboratory Results Short CBC 01/19/23 Range/Units 07:25 WBC 6.06 (4.8-10.8) K/ul Hgb 11.8 L (14.0-18.0) g/dl Hct 33.6 L (42.0-52.0) % Plt Count 316 (130-400) K/uL BMP 01/19/23 07:25 Sodium 135 L Potassium 4.4 Chloride 101 Carbon Dioxide 31 BUN 13 Creatinine 0.89 Glucose 110 H Calcium 9.4 Medications Administered Current Inpatient Medications Acetaminophen (Acetaminophen 500 Mg Tab) 1,000 mg PO TID PRN PRN Reason: Pain or Fever Stop: 02/15/23 20:59 Last Admin: 01/19/23 07:37 Dose: 1,000 mg Amlodipine Besylate (Amlodipine Besylate 5 Mg Tab) 5 mg PO QAM [facility] Stop: 02/14/23 15:25 Last Admin: 01/19/23 07:35 Dose: 5 mg Ascorbic Acid (Ascorbic Acid 500 Mg Tab) 500 mg PO DAILY [facility] Stop: 02/15/23 08:59 Last Admin: 01/19/23 07:35 Dose: 500 mg Ciprofloxacin (Ciprofloxacin 500 Mg Tab) 500 mg PO BID [facility] Stop: 03/01/23 20:59 Last Admin: 01/19/23 07:34 Dose: 500 mg Dextrose (Dextrose 50% 50 Ml Syringe) 25 - 50 ml IV UD PRN; Protocol PRN Reason: Hypoglycemia Protocol Stop: 02/14/23 15:25 Folic Acid (Folic Acid 1 Mg Tab) 1 mg PO QAM [facility]TE Stop: 02/15/23 08:59 Last Admin: 01/19/23 07:35 Dose: 1 mg Glucagon (Glucagon For Inj 1 Mg Vial) 1 mg SQ UD PRN; Protocol PRN Reason: Hypoglycemia Protocol Stop: 02/14/23 15:25 Glucose (Glucose 10 Tab/Tube) 4 - 8 tab PO UD PRN; Protocol PRN Reason: Hypoglycemia Treatment Stop: 02/14/23 15:25 Glucose (Glucose 40% Gel 15 Gm Tube) 15 - 30 gm PO UD PRN; Protocol PRN Reason: Hypoglycemia Protocol Stop: 02/14/23 15:25 Heparin Sodium (Porcine) (Heparin Sod 5,000 Unit/0.5 Ml Vial) 5,000 units SQ Q12 [facility] Stop: 02/16/23 20:59 Last Admin: 01/19/23 07:34 Dose: 5,000 units Insulin Aspart (Insulin Aspart Per Unit) 0 units SC ACHS [facility] Stop: 02/14/23 16:29 Last Admin: 01/19/23 12:30 Dose: 6 units Lorazepam (Lorazepam 1 Mg Tab) 1 mg PO ONE PRN; Protocol PRN Reason: EtoH Withdrawal AWSS 6,7,8,9,10 Miscellaneous (Carbohydrates For Hypoglycemia ) 15 - 30 gm PO UD PRN PRN Reason: Hypoglycemia Protocol Stop: 02/14/23 15:25 Oxycodone HCl (Oxycodone Hcl Ir 5 Mg Tab (Immediate Release)) 5 mg PO Q6H PRN PRN Reason: Moderate Pain (Scale 4, 5, 6) Stop: 01/29/23 22:39 Last Admin: 01/19/23 12:30 Dose: 5 mg Oxycodone HCl (Oxycodone Hcl Ir 5 Mg Tab (Immediate Release)) 10 mg PO Q6H PRN PRN Reason: Severe Pain (Scale 7, 8, 9,10) Stop: 01/30/23 14:59 Last Admin: 01/19/23 02:23 Dose: 10 mg Polyethylene Glycol (Polyethylene (Miralax) 17 Gm Pack) 17 gm PO DAILY PRN PRN Reason: Constipation Stop: 02/17/23 16:33 Last Admin: 01/19/23 07:44 Dose: 17 gm Thiamine HCl (Thiamine Hcl 100 Mg Tab) 100 mg PO QAM [facility] Stop: 02/15/23 08:59 Last Admin: 01/19/23 07:35 Dose: 100 mg (2) Diabetic foot ulcer associated with type 2 diabetes mellitus Diabetic foot ulcer location: toe Laterality: unspecified laterality Non- pressure ulcer stage: unspecified non-pressure ulcer stage Qualified Code(s): E11.621 - Type 2 diabetes mellitus with foot ulcer; L97.509 - Non-pressure chronic ulcer of other part of unspecified foot with unspecified severity
--- NOTE | 2023-01-19 15:15 | Discharge Summary ---
Discharge Summary Date of Service January 19, 2023 Notes For Next Care Provider Please followup post surgical left second toe wound and surrounding skin. May need to continue ciprofloxacin for longer than 10 days until soft tissue infection is totally cleared up. He will need to followup with Dr. Dorado or the wound clinic to ensure no further debridement is needed. He is ok to change surgical dressings as needed with 4x4s. Please follow-up blood pressure after restarting amlodipine Abnormal CT scan with possible chronic pancreatitis and IPMNs along with a hernia that may need outpatient Gastroenterology and General surgery evaluation, respectively. Smoking cessation strongly advised Medication Changes From Visit NEW CIPROFLOXACIN 500mg PO BID Restarted AMLODIPINE 5mg PO daily Admission HPI Per Admitting Provider This is a 72 y/o male with a PMH of DM2, alcohol use, tobacco use, GERD, and recent osteomyelitis in the left great toe with amputation in 11/18 who presented to the ED today with worsening pain in his left second toe with associated drainage, as well as with increased issues with known left inguinal hernia. Pt was admitted to [facility] in Oct 2022 with left great toe cellulitis, ulcer, and osteomyelitis. He was seen by Dr. Richardson Dorado who recommended surgical intervention - pt underwent left great toe amputation on 11/16/22. Pt reports that this has healed well without significant issue post-op. He did have trouble getting in with Dr. Dorado for f/u so his PCP removed the sutures in November. He reports that he was not having significant issues with the left second toe when the sutures were removed. However, over the last several days to few weeks, he has noted increasing pain in the left second toe and into the foot. He developed peeling skin on the toe, which he removed. Underneath the area was dark in color. This has continued to worsen. He has noted bloody drainage from the toe and has been keeping it wrapped. The drainage may have a foul odor at times. He denies documented fevers or chills. He also notes increasing groin pain in the area of his known left inguinal hernia - he has been taking Advil 400 mg as often as daily for the pain. He had been referred for surgical evaluation as an outpatient but missed the appointment due to weather and has not rescheduled yet. He is interested in potential surgery for this as well. Imaging in the ED showed a small fat-filled left inguinal hernia that does not appear incarcerated or strangulated. He continues to drink alcohol daily although he declines to quantify when asked. He reports that his last drink was 2-3 days ago due to his brother and subsequent services, which were yesterday. He denies prior or current signs of withdrawal. He also smokes 1.5 to 2 PPD of cigarettes but denies need for nicotine patch during this hospitalization. Principal Dx & Hospital Course #1 = Principal Diagnosis (1) Osteomyelitis of second toe of left foot: 72 y/o male with a PMH of DM2, diabetic foot ulcer, alcohol abuse, tobacco abuse, and recent amputation of left great toe in Oct 2022, who presents with osteomyelitis and ulcer in the left second toe. He reports gradual worsening of the pain, necrosis, and drainage over the last several days. Pain is now radiating into his foot so he thought he should be evaluated. Toe XR noted distal 2nd toe ulcer with distal phalangeal osteomyelitis S/p left 2nd toe amputation on 01/16/23 Toe culture growing citrobacter MRSA negative. Vanc discontinued Considering recent left great toe osteomyelitis with amputation 2 months ago and now 2nd toe osteomyelitis with amputation, ID was consulted for recommendations regarding antibiotic therapy/duration Discussed with ID Dr Manzanares via tiger text this evening. He recommends stopping zosyn and starting ciprofloxacin 500mg po bid or bactrim DS1 tab po bid. He stated he cannot give a specific duration but recommends continuing antibiotics till soft tiss infection resolves. Ciprofloxacin started. He is doing well on this. PCP appt and Dr. Dorado appt and followup with wound care appt made prior to discharge. PT/OT eval noted and cleared to return home without need for services Sister has a wheeled walker for use at home as needed. (2) Diabetic foot ulcer associated with type 2 diabetes mellitus: follow up with wound care/podiatry as outpatient. (3) Alcohol abuse: Pt reports last drink was 2-3 day prior to presentation No signs of withdrawal Thiamine/folic acid daily was given while inpatient. (4) Type 2 diabetes mellitus: Holding Metformin while admitted Diabetic diet Insulin sliding scale BSG ACHS A1c in 10/2022 was 6.4 Follow-up w PCP as outpatient. Cont metformin. (5) Tobacco use disorder: smoking cessation advised. (6) Hyponatremia: Chronic, resolved to normal 135 Encourage to quit alcohol use (7) Hypertension: During last admission, pt started on amlodipine for elevated BP He does not recall taking this as an outpatient. BP in the ED elevated Amlodipine resumed. Prescribed on discharge (8) Hernia, inguinal, left: Abd CT. Noted small fat filled leg inguinal hernia. No bowel obstruction/wall thickening Patient needs to follow up with Gen surg outpatient for management Code Status: Full Code DVT Prophylaxis: Hep sq Bowel regimen At time of discharge he was mentating and ambulating at baseline. He was discharged in stable condition with close primary care follow-up recommended. Approximately 60 minutes was utilized coordinating with specialists, interpreting results, evaluating outpatient records and establishing follow-up appointments. Elisa Hitchcock [facility] CONSTITUTIONAL: WNWD, vitals as above, generally well-appearing, NAD, ambulatory. EYES: normal conjunctivae, no scleral icterus ENT: external ear and nose normal, MMM NECK: trachea midline RESPIRATORY: clear to auscultation bilaterally, no crackles, rales or wheezes, normal respiratory effort CARDIOVASCULAR: regular rate and rhythm, S1 and 2 heard without murmurs, gallops or rubs, no JVD, no peripheral edema CHEST: inspection of chest was normal GASTROINTESTINAL: soft, nontender, ND, no guarding MUSCULOSKELETAL: strength 5/5 throughout, head is normocephalic and atraumatic SKIN: warm and dry. Surgical shoe and dressing is c/d/i on the left foot and was not evaluated. There was a slight amount of erythema to the skin superficially just proximal to the left ankle. NEUROLOGIC: CN 2-12 grossly intact, no sensory deficit, normal cognition, normal speech, no tremor PSYCHIATRIC: alert cooperative and oriented to person, place and time. Euthymic mood, makes good eye contact, language grossly intact, recent and remote memory grossly intact. Updated Medication List Medication Instructions Recorded Confirmed Type multivitamin 1 tab PO DAILY 01/05/21 01/15/23 History aspirin 81 mg tablet,delayed 81 mg PO QAM #30 tabs 02/08/21 01/15/23 Rx release ascorbic acid (vitamin C) 500 mg 500 mg PO DAILY 11/14/22 01/15/23 History tablet (Vitamin C) metformin 1,000 mg tablet,extended 1,000 mg PO BID 11/14/22 01/15/23 History release 24hr ibuprofen 200 mg tablet 400 mg PO Q6H PRN Pain 12/02/22 01/15/23 History amlodipine 5 mg tablet (Norvasc) 5 mg PO QAM #30 tabs 01/19/23 Rx ciprofloxacin HCl 500 mg tablet 500 mg PO BID #20 tabs 01/19/23 Rx Hospital Stay Data Consultations 01/15/23 11:20 Consult Podiatry Stat ED Decision to Admit Stat 01/17/23 09:49 Consult Infectious Diseases Routine Procedures Performed Operation Date: 01/16/23 09:30 Actual Procedures p Amputation 2nd Toe on Left Foot(Left) - Richardson Dorado, DPBubba, MS Diagnostic Imagining Performed 01/15/23 09:43 CT abd pelvis IV con only Stat Pending Results Patient Have Any Pending Studies at Discharge: No Discharge Instructions Given to Patient (Per Discharging Provider) Please take all medications as instructed on discharge as below. You are being given 10 days of ciprofloxacin antibiotic. However, you may need longer depending on the reevaluation of your left foot by your doctor. Please follow-up with Dr. Mcnally as scheduled above, Dr. Dorado a schedule above and a request for you to be seen at the wound care clinic was also made. They should be contacting you with a time and date for this appointment. You are being prescribed amlodipine which was given to you during your last hospital admission. Your blood pressure in the ER was elevated. Amlodipine was resumed here and should be continued daily. Please ensure a repeat blood pressure check by your primary care doctor within the week. You underwent an abdominal CT scan while admitted. This revealed no bowel obstruction or bowel wall thickening but you did have a small fat filled left inguinal hernia that was seen. There was also some atrophy of the pancreas with evidence of chronic inflammation with probable structural abnormalities (IPMN) measuring up to 1.2 cm. An enlarged spleen was also noted. These findings should be followed up as outpatient with investigation as needed by an outpatient general surgeon. Strict smoking cessation is strongly recommended. It was a pleasure taking care of you! Please call if you have any questions or problems. You can reach a [facility] hospitalist on duty at [facility] 24 hours a day by calling [phone]. Take care of yourself. Elisa Hitchcock, DO [facility] Hospitalist Total Time Total Time Spent Total Time Spent (In Minutes): 60
== END 2023-01-19 17:45 | disposition home or self-care (01) | DRG 617 ==
LOC: ED 09:13 → SUATTDRO 11:37 → 2W 11:37

== ENCOUNTER 2025-10-19 12:36 | Inpatient (IN) ==
--- NOTE | 2025-10-19 12:54 | Emergency Department Note ---
Impression & Plan Necrotizing fasciitis, Diabetic infection of right foot, Gas gangrene ED Provider Note NAME: NGA HARP AGE: 75 SEX: M : 1950 ARRIVES VIA: Walk-In INFORMANT: Patient, ED PROVIDER(S): Hugo Hsu MD CHIEF COMPLAINT: Toe pain/infection MEDICAL DECISION MAKING: Patient presents due to concern for toe infection. Patient presentation concerning for wet gangrene of the right great toe. Admittedly not toxic in appearance but concerning exam of the toe/foot so empiric sepsis protocol was initiated along with empiric antibiotics. Plain x-rays also performed to evaluate the site. The patient does not have evidence of obvious crepitus to the area but does have erythema over the dorsal aspect of the foot. The patient's blood work shows a white count of 11 with a hemoglobin of 11. Platelet count is unremarkable. Patient's kidney function is unremarkable. Sodium 133. The patient does have elevated inflammatory markers likely consistent with the patient's infection. Pro-Milton is not elevated. Reviewed the patient's x-ray patient does have soft tissue gas along the first toe. Given these concerns I did put out a page to podiatry. I did speak with Dr. Jolly. I did discuss the patient did have wet gangrene and concern for gas at the first toe and potentially up to the metatarsal. Patient does not have any palpable crepitus on exam proximal to the right great toe. He stated that he would see him and did ask for additional imaging studies ordered. Patient did have CT of the ankle and foot ordered in addition to venous and arterial Doppler studies. He stated that he would be in to evaluate the patient. I did speak with the on-call hospitalist Dr. Herbert. He was concerned given what had already been intimated prior to podiatry. I did rediscuss the patient's case with Dr. Jolly to ensure prompt evaluation. The initial consult ordered which was placed as routine was unable to be amended to stat but podiatry was aware that they were to see the patient TREVA. Patient was also ordered clindamycin for double coverage in the setting of concern for necrotizing fasciitis. I did convey to Dr. Herbert that Dr. Lu was in the process of driving in to see the patient. Nursing reported the patient did have some pain in his lower back. No chest pain. The patient did have mild shortness of breath and patient may have evidence of COPD given the smoking history so the patient was ordered a DuoNeb. He does have associated wheezing on exam. Patient was ordered 2 mg of IV morphine. I did reevaluate the patient again and the patient was now having rigors with a heart rate in the 140s. Hospitalist at the bedside. Additional management and coordination with the hospitalist service Dr. Herbert at bedside. Patient was ordered additional IV fluids as well as IV Ofirmev. Podiatry did evaluate the patient at bedside and recommended stat OR treatment. Dr. Herbert did call the intensive care unit Dr. Linn to make him aware. The patient was holding his blood pressures prior to being taken to the OR. Patient was subsequently taken to the OR with planned admission to the intensive care unit. I did speak with the patient's daughter Jade was listed as the primary contact. I did discuss that the patient's condition had worsened and that he was emergently being taken to the operating room with plan admission to the intensive care. I did state that the patient's condition was guarded/critical. She did convey to me that they had recommended that the patient go to the emergency department 3 days ago when he initially had the ulcer present. Critical Care: I have personally spent 75 minutes of critical care time in direct management of this patient. This includes bedside care, interpretation of diagnostic studies, and testing, discussion with consultants, patient, and family members, and other require inpatient management activities. This 75 minutes is in excess of all separately billable procedures. Discussion w/ other healthcare providers: Dr. Jolly podiatry Dr. Herbert inpatient medicine service Prior /Outside records reviewed: None Differential diagnosis: Cellulitis, abscess, MRSA infection, DVT, necrotizing fasciitis, dermatitis, drug eruption, allergic reaction, as well as other pathologies were considered. Diagnostics, as interpreted by me: ECG: None Cardiac monitoring: An order was placed for continuous cardiac monitoring. The monitor shows a rate of 105 with tachycardic rhythm. Patient was placed on pulse oximetry Medical decision rules: None Imaging studies: I informally interpreted the patient's right foot x-ray does show gas in the first toe with formal report to follow. HPI: Patient presents with family member bedside due to concern for right great toe issue. The patient reports that he developed an ulcer that he first noticed on Tuesday and has gotten progressively worse to where now the toe was black. Patient denies any fevers or chills. He does report that he did have prior amputations of several toes on his left foot. Patient denies any trauma or injury. He is a smoker. He is a type II diabetic and does not use any insulin. He reports that the nail to this toe came off recently. PAST MEDICAL HISTORY: See Below PAST SURGICAL HISTORY: See Below SOCIAL HISTORY: See Below HOME MEDICATIONS: See Below ALLERGIES: See Below VITALS: See Below PHYSICAL EXAMINATION: GENERAL: NAD, non-toxic. EYE EXAM: Normal conjunctiva. PERRL, no anisocoria and EOM's grossly intact w/o pain. OROPHARYNX: Moist mucus membranes, poor dentition. NECK: Trachea midline, no stridor. LUNGS: Occasional wheeze. Normal chest wall mechanics. HEART: NSR, systolic ejection murmur. ABDOMEN: Abdomen soft, non-tender, no masses, no rebound or guarding. BACK: No CVA TTP. SKIN: No rashes and no bruising. UPPER EXTREMITIES: Upper extremities are grossly normal. LOWER EXTREMITIES: Gangrenous appearing right great toe with erythema noted to the midfoot. No obvious crepitus proximal to the toe. Malodorous. Drainage noted. Compartments are soft. NEURO EXAM: Awake and alert, follows commands, no obvious facial asymmetry, normal speech, moves all 4 extremities. Past Med/Surg History Problem List (Updated 10/19/25 @ 16:04 by Hugo Hsu MD) Cellulitis and abscess of foot Necrotizing fasciitis (Acute) Gas gangrene (Acute) Diabetic infection of right foot (Acute) PAD (peripheral artery disease) Recurrent right inguinal hernia Encounter for pre-operative examination Blood pressure elevated without history of HTN Hernia, inguinal, left (Chronic) Alcohol abuse beer > "varies, 4-6 per day" Hyponatremia Diabetic foot ulcer associated with type 2 diabetes mellitus (Acute) Tobacco use disorder Type 2 diabetes mellitus NIDDM GERD (gastroesophageal reflux disease) (Acute) Medical History Emphysema, unspecified not agreeable to PFTs advised by [facility] PCP Dysphagia pt not agreeable to advise EGD per [facility] PCP records Anemia pt not agreeable to advise EGD per [facility] PCP records Aortic valve stenosis mild Alcohol abuse 6-8 beers daily Hx of gastroesophageal reflux (GERD) controlled, stable per pt Hx of osteomyelitis (~2021) Type 2 diabetes mellitus History of CVA (cerebrovascular accident) (~2020) Around 2020> resulting "balance issues" > no longer sees neuro Poor historian Hx of pneumothorax (~2020) right side > prior to 2020 > felt related to strain of body from work > drained and resolved Hypertension controlled, stable per pt Surgical History Hx of hernia repair Laparoscopic Bilateral Inguinal Hernia Repair with Mesh Hx of endoscopic retrograde cholangiopancreatography with stent History of colonoscopy History of tooth extraction *hx of and plans for all upper teeth to be removed on June 06, 2025 Amputation toe left foot, big toe, then 2nd toe History of knee surgery right, arthroscopic Family History Father Stroke Social History Smoking Status: Current every day smoker Tobacco Type: Cigarettes Cigarettes Per Day: 1.5 ppd > advised npo; Second Hand Exposure: No; Do You Dip or Chew Tobacco: No; Hx Alcohol Use: Yes Alcohol type: beer Hx Substance Use: No Preferred Language: [place] Citizen Communication Ability: Effective Shuttle Spotter Required: No Beliefs That Will Affect Care: None Current Living Situation: Alone Current Living Situation Comment: Reports living Independently in an apartment. Feels Safe at Home: Yes Assistive Devices: Glasses Allergies Allergies Allergy/AdvReac Type Severity Reaction Status Date / Time No Known Allergies Allergy Verified 06/17/25 05:35 Home Meds Home Medications Medication Instructions Recorded Confirmed multivitamin 1 tab PO DAILY 01/05/21 10/19/25 ibuprofen 200 mg tablet (Advil) 800 mg PO Q8H PRN Pain 02/16/25 10/19/25 lisinopril 10 mg tablet 20 mg PO QDL 02/16/25 10/19/25 metformin 500 mg tablet 1,000 mg PO DAILY 02/16/25 10/19/25 docusate sodium 100 mg tablet 100 mg PO DAILY 05/24/25 10/19/25 Previous Rx's Medication Instructions Recorded aspirin 81 mg tablet,delayed 81 mg PO QAM #30 tabs 02/08/21 release oxycodone-acetaminophen 5 mg-325 1 tab PO Q6H PRN pain #10 tabs 06/17/25 mg tablet (Percocet) Results & Data (ED) Vital Signs Vital Signs - 24 hr 10/19/25 12:43 10/19/25 13:51 10/19/25 13:51 Temperature 36.6 C 36.9 C Temperature Source Temporal Artery Scan Oral Pulse Rate 101 H 99 H Respiratory Rate 18 20 Blood Pressure 167/68 H Blood Pressure [Right Arm] 155/75 H Blood Pressure Mean 101 Blood Pressure Mean [Right Arm] 101 Pulse Oximetry 98 95 Oxygen Delivery Method Room Air Room Air Sepsis New/Unexplained Change in Mental Status No Sepsis Action Taken by Nursing No Action Required 10/19/25 13:59 Temperature Temperature Source Pulse Rate 102 H Respiratory Rate Blood Pressure Blood Pressure [Right Arm] Blood Pressure Mean Blood Pressure Mean [Right Arm] Pulse Oximetry Oxygen Delivery Method Sepsis New/Unexplained Change in Mental Status Sepsis Action Taken by Snf Medications Current Medication List: was personally reviewed by me Laboratory Data Attestation: I reviewed the patient's lab results. 10/19/25 13:16 10/19/25 13:16 Lab Results 10/19/25 10/19/25 Range/Units 13:16 14:55 WBC 11.60 H (4.8-10.8) K/ul RBC 3.39 L (4.70-6.10) M/uL Hgb 11.1 L (14.0-18.0) g/dL Hct 31.5 L (42.0-52.0) % MCV 92.9 (80.0-100.0) fL MCH 32.7 (25.0-34.0) pg MCHC 35.2 (32.0-36.0) g/dL RDW Std Deviation 42.5 (36.4-46.3) fL RDW Coeff of Mateusz 12.3 (11.5-14.5) % Plt Count 326 (130-400) K/uL MPV 9.0 L (9.4-12.4) fL Immature Gran % (Auto) 0.7 % Neut % (Auto) 80.9 % Lymph % (Auto) 10.5 % [place] % (Auto) 7.3 % Eos % (Auto) 0.3 % Baso % (Auto) 0.3 % Neut # (Auto) 9.39 H (1.40-6.50) K/uL Lymph # (Auto) 1.22 (1.20-3.40) K/uL [place] # (Auto) 0.85 H (0.11-0.59) K/uL Eos # (Auto) 0.03 (0.00-0.50) K/uL Baso # (Auto) 0.03 (0.00-0.20) K/uL Immature Gran # (Auto) 0.08 (0.01-0.20) K/uL ESR 81 H (0-20) mm/hr Sodium 133 L (136-145) mmol/L Potassium 4.5 (3.5-5.1) mmol/L Chloride 102 (98-107) mmol/L Carbon Dioxide 24 (21-32) mmol/L Anion Gap 7 (3-11) BUN 37 H (6-23) mg/dl Creatinine 1.27 (0.6-1.4) mg/dl Est Cr Clr Drug Dosing 50.6 ml/min eGFR 58.19 BUN/Creatinine Ratio 29.1 H (10-20) Glucose 214 H (70-99(Fasting)) mg/dl POC Glucose 150 H (70-99) mg/dl Lactate 0.7 (0.4-2.0) mmol/L Calcium 9.0 (8.6-10.3) mg/dl Magnesium 1.9 (1.7-2.4) mg/dl Total Bilirubin 0.4 (0.2-1.0) mg/dl Direct Bilirubin 0.1 (0-0.2) mg/dl AST 13 (13-39) U/L ALT 11 (7-52) U/L Alkaline Phosphatase 115 H (34-104) U/L Troponin I High Sens 17.5 (0-20) pg/ml C-Reactive Protein 14.18 H (0-0.5) mg/dl Total Protein 7.1 (6.0-8.3) gm/dl Albumin 3.5 (3.4-5.0) gm/dl Procalcitonin 0.27 (0-0.5) ng/ml Administered Medications Discontinued Medications Sodium Chloride (Nss) 500 mls @ 999 mls/hr IV .Q31M BRIGETTE Stop: 10/19/25 13:45 Last Admin: 10/19/25 13:26 Dose: 999 mls/hr Documented By: MAXIMILIANO Piperacillin Sod/Tazobactam Sod (Zosyn) 4.5 gm in 100 mls @ 200 mls/hr IV NOW STA Stop: 10/19/25 13:35 Last Admin: 10/19/25 13:30 Dose: Not Given Documented By: ENOC Cefepime HCl (Maxipime 2000mg) 2,000 mg in 20 mls @ 5 mls/min IV NOW STA; Protocol Stop: 10/19/25 13:13 Last Admin: 10/19/25 13:37 Dose: 5 mls/min Documented By: blanca Metronidazole (Flagyl) 500 mg in 100 mls @ 100 mls/hr IV NOW STA; Protocol Stop: 10/19/25 14:09 Last Admin: 10/19/25 13:39 Dose: 100 mls/hr Documented By: blanca Vancomycin HCl 1,500 mg/ (Sodium Chloride) 530 mls @ 200 mls/hr IV NOW ONE Stop: 10/19/25 15:48 Last Admin: 10/19/25 13:41 Dose: 200 mls/hr Documented By: blanca Sodium Chloride (Nss) 1,000 mls @ 999 mls/hr IV .Q1H1M ONE Stop: 10/19/25 15:05 Last Admin: 10/19/25 14:16 Dose: 999 mls/hr Documented By: blanca Clindamycin Phosphate (Cleocin/D5w) 900 mg in 50 mls @ 100 mls/hr IV NOW ONE Stop: 10/19/25 14:58 Last Admin: 10/19/25 14:52 Dose: 100 mls/hr Documented By: blanca Sodium Chloride (Nss) 1,000 mls @ 999 mls/hr IV .Q1H1M ONE Stop: 10/19/25 15:49 Last Admin: 10/19/25 14:55 Dose: 999 mls/hr Documented By: blanca Acetaminophen (Ofirmev) 1,000 mg in 100 mls @ 400 mls/hr IV NOW STA Stop: 10/19/25 15:04 Last Admin: 10/19/25 14:56 Dose: 400 mls/hr Documented By: blanca Piperacillin Sod/Tazobactam Sod (Zosyn) 4.5 gm in 100 mls @ 200 mls/hr IV NOW ONE; Protocol Stop: 10/19/25 15:37 Last Admin: 10/19/25 15:10 Dose: 200 mls/hr Documented By: blanca Morphine Sulfate (Morphine Sulfate 2 Mg/Ml Carp) 2 mg IV NOW STA Stop: 10/19/25 14:30 Last Admin: 10/19/25 14:33 Dose: 2 mg Documented By: blanca Imaging Data Radiologist's Impression: Chest X-Ray 10/19/25 13:06 EXAM: Radiograph of the Chest 1 View INDICATION: Sepsis TECHNIQUE: Frontal view of the chest. COMPARISON: 02/07/2021 FINDINGS: Lungs and pleural spaces: Pulmonary vascular congestion noted. Small bilateral pleural effusions present right greater than left. No pneumothorax. No confluent consolidation. Heart: Shape and configuration within normal limits allowing for technique. Mediastinum: Normal contour. Bones/joints: No fracture, erosion or dislocation. Soft tissues: No abnormality noted. No radiopaque foreign body noted. Upper abdomen: No abnormality noted. IMPRESSION: Mild pulmonary vascular congestion and small pleural effusions. ACT 112: N/A Electronically signed by Shala Womack 10-19-2025 2:15 PM Foot X-Ray 10/19/25 13:06 EXAM: Radiographs of the Right Foot Complete 3 Views INDICATION: Gangrene TECHNIQUE: Frontal, lateral and oblique views of the right foot. COMPARISON: No relevant prior studies available. FINDINGS: Bones/joints: The bones are generally demineralized. There is diffuse narrowing of the interphalangeal joints. There is rim sclerotic focus of lucency in the lateral aspect of the distal first proximal phalanx. Possible small erosion base of the first proximal phalanx. There is mild trabecular thickening of the shafts of the 1st and 2nd proximal phalanges. Soft tissues: Mild soft tissue gas along the entire first toe with diffuse soft tissue swelling. No radiopaque foreign body. Atherosclerotic calcification noted. IMPRESSION: 1. Anaerobic infection first toe. No plain radiographic evidence of acute osteomyelitis. 2. Changes of the 1st and 2nd proximal phalanges could reflect chronic osteomyelitis or old trauma. ACT 112: N/A Electronically signed by Shala Womack 10-19-2025 2:24 PM Discharge Plan Visit Data Chief Complaint: Toe Injury/Pain Stated Complaint: R BIG TOE, BLACK SPOT SPREADING DOWN FOOT ED Provider: Hugo Hsu Discharge Problem: Necrotizing fasciitis, Diabetic infection of right foot, Gas gangrene Patient Disposition: Admitted As Inpatient Condition: Critical
[2025-10-19] MEDS ORDERED: VANCOMYCIN CONSULT ACTIVE PRN (13:10)
[2025-10-19] MEDS: SODIUM CHLORIDE 0.9% 500 ML IV SCH (13:26)
[2025-10-19 13:29] LABS: Hematocrit (blood only) 31.5 % (42.0-52.0); Hemoglobin 11.1 g/dL (14.0-18.0); Immature Granulocytes # (auto) 0.08 K/uL (0.01-0.20); Immature Granulocytes % (auto) 0.7 %; Mean Corpuscular Hemoglobin 32.7 pg (25.0-34.0); Mean Corpuscular Volume 92.9 fL (80.0-100.0); Platelet Count 326 K/uL (130-400); RDW Standard Deviation 42.5 fL (36.4-46.3); Red Blood Count 3.39 M/uL (4.70-6.10); White Blood Count 11.60 K/ul (4.8-10.8)
[2025-10-19] MEDS: PIPERACILLIN/TAZOBACTAM 4.5 GM/100 ML BAG IV STA (13:30)
[2025-10-19] MEDS: CEFEPIME 2000MG 2,000 MG/20 ML SYR IV STA (13:37)
[2025-10-19] MEDS: metroNIDAZOLE 500 MG/100 ML BAG IV STA (13:39)
[2025-10-19] MEDS: VANCOMYCIN HCL 1,500 MG in SODIUM CHLORIDE 0.9% 500 ML IV ONE (13:41)
[2025-10-19 13:55] LABS: Alanine Aminotransferase 11.0 U/L (7-52); Albumin Level 3.5 gm/dl (3.4-5.0); Alkaline Phosphatase 115.0 U/L (34-104); Anion Gap 7.0 (3-11); Bilirubin,Total 0.4 mg/dl (0.2-1.0); Blood Urea Nitrogen 37.0 mg/dl (6-23); Calcium 9.0 mg/dl (8.6-10.3); Carbon Dioxide 24.0 mmol/L (21-32); Chloride 102.0 mmol/L (98-107); Creatinine Clr Calc Pharmacy 50.6 ml/min; Glucose 214.0 mg/dl (70-99(Fasting)); Magnesium 1.9 mg/dl (1.7-2.4); Potassium 4.5 mmol/L (3.5-5.1); Sodium 133.0 mmol/L (136-145); Total Protein 7.1 gm/dl (6.0-8.3)
[2025-10-19] MEDS: SODIUM CHLORIDE 0.9% 1,000 ML IV ONE ×2 (14:16→14:55)
--- NOTE | 2025-10-19 14:16 | XRay Report ---
EXAM: Radiograph of the Chest 1 View INDICATION: Sepsis TECHNIQUE: Frontal view of the chest. COMPARISON: 02/07/2021 FINDINGS: Lungs and pleural spaces: Pulmonary vascular congestion noted. Small bilateral pleural effusions present right greater than left. No pneumothorax. No confluent consolidation. Heart: Shape and configuration within normal limits allowing for technique. Mediastinum: Normal contour. Bones/joints: No fracture, erosion or dislocation. Soft tissues: No abnormality noted. No radiopaque foreign body noted. Upper abdomen: No abnormality noted. IMPRESSION: Mild pulmonary vascular congestion and small pleural effusions. ACT 112: N/A Electronically signed by Shala Womack 10-19-2025 2:15 PM
--- NOTE | 2025-10-19 14:24 | XRay Report ---
EXAM: Radiographs of the Right Foot Complete 3 Views INDICATION: Gangrene TECHNIQUE: Frontal, lateral and oblique views of the right foot. COMPARISON: No relevant prior studies available. FINDINGS: Bones/joints: The bones are generally demineralized. There is diffuse narrowing of the interphalangeal joints. There is rim sclerotic focus of lucency in the lateral aspect of the distal first proximal phalanx. Possible small erosion base of the first proximal phalanx. There is mild trabecular thickening of the shafts of the 1st and 2nd proximal phalanges. Soft tissues: Mild soft tissue gas along the entire first toe with diffuse soft tissue swelling. No radiopaque foreign body. Atherosclerotic calcification noted. IMPRESSION: 1. Anaerobic infection first toe. No plain radiographic evidence of acute osteomyelitis. 2. Changes of the 1st and 2nd proximal phalanges could reflect chronic osteomyelitis or old trauma. ACT 112: N/A Electronically signed by Shala Womack 10-19-2025 2:24 PM
[2025-10-19] MEDS ORDERED: GLUCOSE 10 TAB/TUBE PO PRN (14:32)
[2025-10-19] MEDS ORDERED: CARBOHYDRATES FOR HYPOGLYCEMIA PO PRN (14:32)
[2025-10-19] MEDS ORDERED: GLUCAGON FOR INJ 1 MG VIAL SQ PRN (14:32)
[2025-10-19] MEDS ORDERED: DEXTROSE 50% 50 ML SYRINGE IV PRN (14:32)
[2025-10-19] MEDS ORDERED: GLUCOSE 40% GEL 15 GM TUBE PO PRN (14:32)
[2025-10-19] MEDS: MoRPHine SULFATE 2 MG/ML CARP IV STA (14:33)
--- NOTE | 2025-10-19 14:35 | History & Physical Report ---
Date of Service October 19, 2025 Assessment & Plan (1) Necrotizing fasciitis: (2) Gas gangrene: (3) Diabetic infection of right foot: (4) PAD (peripheral artery disease): (5) Alcohol abuse: (6) GERD (gastroesophageal reflux disease): (7) Emphysema, unspecified: Plan 75 yo male with pmhx of CAD, HFpEF (EF 55%), COPD, hx of alcohol use, hx of tobacco use, toe amputations, DM Type 2, PVD, GERD who presents for big toe swelling and pain 2/2 necrotizing fascitis of right first digit. Neuro: #Shivering -substantial, in setting of likely toxin effect from anaerobic infection Plan: -amputation emergently -bear hugger if needed Cardiac: #Septic Shock #Necrotizing Fasciitis -as evidenced by significant tachycardia, leukocytosis, poor cap refill, extremity mottling -no accurate BP able to be gathered due to shivering -source is anaerobic infection Plan: -giving 2 liters of fluid wide open -emergent open amputation of right foot -vanc/zosyn/clinda for broad spectrum abx with clindamycin for antitoxin effect -infectious disease consult, appreciate recs -check AM cortisol -NPO, type and screen, ABO, PT/INR ordered for surgery prep -f/u blood cultures, wound cultures #HFpEF (EF 55%) #Pulmonary Edema #CAD -hold aspirin, lisinopril for now -high risk for flashing due to necessary fluid resuscitation given septic shock -may need gentle diuresis after out of acute phase and post amputation given xray imaging of pulmonary edema #Severe PAD -known in both legs -2/2 uncontrolled diabetes, tobacco use Plan: -vascular studies ordered -vascular surgery consult, appreciate recs Respiratory: #COPD #Tobacco Use -smokes a pack a day -known emphysema Plan: -duonebs prn -incentive spirometer GI: #DM Type 2 -SSI ordered -needs tight glucose control 140-180 post operatively to allow healing -check A1c, lipids for metabolic workup #Alcohol Use Disorder -drinks 3-6 drinks nightly -has never had withdrawal seizures Plan: -AWSS score tracking -diazepam prn for severe withdrawal -check B12, folic acid -start thiamine, folic acid, multivitamin Renal: #Chronic Hyponatremia -likely 2/2 alcohol use Plan: -f/u BMP daily MSK: -PT/OT ordered for post operative rehab (likely needed) I spent a total of 80 minutes providing critical care to the patient, including [id number] time with the patient and/or family, reviewing medical records, ordering and reviewing diagnostic tests, and coordinating care with other healthcare providers. This time includes specific activities such as managing oxygenation, pressors, labs, orders, history taking, physical examination, medical decision making, counseling, and education. History of Present Illness Chief Complaint: -right foot pain/swelling Primary Care Provider: Luis Manuel Mcnally MD 75 yo male with pmhx of CAD, HFpEF (EF 55%) COPD, hx of alcohol use, hx of tobacco use, toe amputations, DM Type 2, PVD, GERD who presents for big toe swelling and pain. Has had severe surgical admissions this year for an inguinal hernia. In the ED, xray not read but my personal read shows gas on the first digit, sepsis criteria met, given cefepime and flagyl, admitted to medicine for further workup. Patient seen and examined at bedside. Patient not doing well today. Toe began swelling and getting necrotic a few days ago, today pain and swelling got substantially worse and he came to the ED. Noticed black spot on Tuesday on right toe, and has gotten substantially worse since then. Right now having chills, very cold extremities. Some SOB as well as we have been giving fluids. Denies chest pain. Current tobacco use, 3 alcohol drinks at least per day, denies drug use, last meal around lunchtime, full code discussed with patient. Allergies Allergy/AdvReac Type Severity Reaction Status Date / Time No Known Allergies Allergy Verified 06/17/25 05:35 Home Medications Medication Instructions Recorded Confirmed Type multivitamin 1 tab PO DAILY 01/05/21 10/19/25 History aspirin 81 mg tablet,delayed 81 mg PO QAM #30 tabs 02/08/21 10/19/25 Rx release ibuprofen 200 mg tablet (Advil) 800 mg PO Q8H PRN Pain 02/16/25 10/19/25 History lisinopril 10 mg tablet 20 mg PO QDL 02/16/25 10/19/25 History metformin 500 mg tablet 1,000 mg PO DAILY 02/16/25 10/19/25 History docusate sodium 100 mg tablet 100 mg PO DAILY 05/24/25 10/19/25 History oxycodone-acetaminophen 5 mg-325 1 tab PO Q6H PRN pain #10 tabs 06/17/25 10/19/25 Rx mg tablet (Percocet) Past Med/Surg History Problem List (Updated 10/19/25 @ 15:14 by Patrice Jolly DPM) Cellulitis and abscess of foot Necrotizing fasciitis Gas gangrene Diabetic infection of right foot PAD (peripheral artery disease) Recurrent right inguinal hernia Encounter for pre-operative examination Blood pressure elevated without history of HTN Hernia, inguinal, left (Chronic) Alcohol abuse beer > "varies, 4-6 per day" Hyponatremia Diabetic foot ulcer associated with type 2 diabetes mellitus (Acute) Tobacco use disorder Type 2 diabetes mellitus NIDDM GERD (gastroesophageal reflux disease) (Acute) Medical History (Updated 10/19/25 @ 15:14 by Patrice Jolly DPM) Emphysema, unspecified not agreeable to PFTs advised by [facility] PCP Dysphagia pt not agreeable to advise EGD per [facility] PCP records Anemia pt not agreeable to advise EGD per [facility] PCP records Aortic valve stenosis mild Alcohol abuse 6-8 beers daily Hx of gastroesophageal reflux (GERD) controlled, stable per pt Hx of osteomyelitis (~2021) Type 2 diabetes mellitus History of CVA (cerebrovascular accident) (~2020) Around 2020> resulting "balance issues" > no longer sees neuro Poor historian Hx of pneumothorax (~2020) right side > prior to 2020 > felt related to strain of body from work > drained and resolved Hypertension controlled, stable per pt Surgical History Hx of hernia repair Laparoscopic Bilateral Inguinal Hernia Repair with Mesh Hx of endoscopic retrograde cholangiopancreatography with stent History of colonoscopy History of tooth extraction *hx of and plans for all upper teeth to be removed on June 06, 2025 Amputation toe left foot, big toe, then 2nd toe History of knee surgery right, arthroscopic Family History Father Stroke Social History Smoking Status: Current every day smoker Tobacco Type: Cigarettes Cigarettes Per Day: 1.5 ppd > advised npo; Second Hand Exposure: No; Do You Dip or Chew Tobacco: No; Hx Alcohol Use: Yes Alcohol type: beer Hx Substance Use: No Preferred Language: Slovak Communication Ability: Effective Manager Supply Chain Planning Required: No Beliefs That Will Affect Care: None Current Living Situation: Alone Current Living Situation Comment: Reports living Independently in an apartment. Feels Safe at Home: Yes Assistive Devices: Glasses Review of Systems Review of Systems: -negative unless listed above Physical Exam Physical Exam: Gen: A&O 3 severe rigors HEENT: NCAT, EOMI, not icteric. External ears normal. No rhinorrhea. Moist mucous membranes. Neck: Supple, full range of motion, no observable masses, No meningeal sign. Lungs: crackles/rhonchi bilaterally CV: RRR, no edema. Abdomen: Soft, nondistended, No rebound tenderness. MSK: both toes with necrotic tissue, right first digit purulent necrosis, very tender to palpation Skin: No rashes, petechiae, lesions. Normal color per patient. Neuro: Normal Gait, Grossly intact. Psych: Appropriate for situation. Results & Data Results & Data Vital Signs (Past 12 Hours) Vital Signs Temp Pulse Resp BP BP Pulse Ox O2 Del Method 10/19/25 13:59 102 H 10/19/25 13:51 36.9 C 155/75 H 10/19/25 13:51 99 H 20 95 Room Air 10/19/25 12:43 36.6 C 101 H 18 167/68 H 98 Room Air Laboratory Results -personally reviewed, elevated leukocytosis, tachycardia meet sepsis criteria, elevated CRP concern for nec fasc Medications Administered Vancomycin HCl 1,500 mg/ (Sodium Chloride) 530 mls @ 200 mls/hr IV NOW ONE Stop: 10/19/25 15:48 Last Admin: 10/19/25 13:41 Dose: 200 mls/hr Documented By: sak Code Status & VTE Plan Code Status -full code VTE Prophylaxis Plan VTE Prophylaxis will be ordered: Yes
[2025-10-19] MEDS: CLINDAMYCIN/D5W 900 MG/50 ML BAG IV ONE (14:52)
[2025-10-19] MEDS: ACETAMINOPHEN 1,000 MG/100 ML VIAL IV STA (14:56)
--- NOTE | 2025-10-19 15:03 | Communication Note ---
Evaluated patient emergently at the bedside. Patient with rigors, poor cap refill in , tachycardia to 140. Mentation preserved for now. Impending shock in setting of necrotizing fascitis, concern for toxic shock secondary to anaerobic infection. Given zosyn, clindamycin, vancoymcin. Ordered another liter of NSS. Podiatry evaluated patient, taking patient emergently to OR for amputation for necrotizing infection. Discussed with cemetery manager, admit to ICU. Date of Service: October 19, 2025
[2025-10-19] MEDS: PIPERACILLIN/TAZOBACTAM 4.5 GM/100 ML BAG IV ONE ×2 (15:10→15:11)
[2025-10-19] MEDS ORDERED: PIPERACILLIN/TAZOBACTAM 4.5 GM/100 ML BAG IV SCH (15:15)
--- NOTE | 2025-10-19 15:15 | Podiatry Consultation ---
Date of Consultation October 19, 2025 Assessment & Plan (1) Diabetic foot ulcer associated with type 2 diabetes mellitus: Diabetic foot ulcer location: toe Laterality: unspecified laterality Non-pressure ulcer stage: unspecified non-pressure ulcer stage Qualified Code(s): E11.621 - Type 2 diabetes mellitus with foot ulcer; L97.509 - Non-pressure chronic ulcer of other part of unspecified foot with unspecified severity (2) PAD (peripheral artery disease): (3) Diabetic infection of right foot: (4) Gas gangrene: (5) Necrotizing fasciitis: (6) Cellulitis and abscess of foot: Plan -Notes, imaging, and labs reviewed. -Cultures to be taken intra-op. -Xrays: 1. Anaerobic infection first toe. No plain radiographic evidence of acute osteomyelitis. 2. Changes of the 1st and 2nd proximal phalanges could reflect chronic osteomyelitis or old trauma. -Will consult infectious disease. Appreciate recommendations. -Will order vascular studies and consult vascular surgery. Appreciate recommendations. -Scheduled for right foot open partial first ray amputation, possible partial foot amputation. Case is scheduled STAT because of patients condition. History of Present Illness Reason for Consultation: Right great toe infection/gas gangrene History of Present Illness Patient is a 75-year-old male that came into the ED over concerns of right foot infection and gangrene to the right hallux. Patient was seen in the ED where it was noted that he was in shock. patient To be scheduled for right foot open partial first ray amputation possible partial foot amputation due to patient's condition will be Stating case. no other pedal complaints at this time. - patient scheduled for right foot open partial first ray amputation possible partial foot amputation. case will be scheduled STAT Allergies Allergy/AdvReac Type Severity Reaction Status Date / Time No Known Allergies Allergy Verified 06/17/25 05:35 Home Medications Medication Instructions Recorded Confirmed Type multivitamin 1 tab PO DAILY 01/05/21 10/19/25 History aspirin 81 mg tablet,delayed 81 mg PO QAM #30 tabs 02/08/21 10/19/25 Rx release ibuprofen 200 mg tablet (Advil) 800 mg PO Q8H PRN Pain 02/16/25 10/19/25 History lisinopril 10 mg tablet 20 mg PO QDL 02/16/25 10/19/25 History metformin 500 mg tablet 1,000 mg PO DAILY 02/16/25 10/19/25 History docusate sodium 100 mg tablet 100 mg PO DAILY 05/24/25 10/19/25 History oxycodone-acetaminophen 5 mg-325 1 tab PO Q6H PRN pain #10 tabs 06/17/25 10/19/25 Rx mg tablet (Percocet) Patient History Medical History (Updated 10/19/25 @ 15:14 by Patrice Jolly DPM) Emphysema, unspecified not agreeable to PFTs advised by [facility] PCP Dysphagia pt not agreeable to advise EGD per [facility] PCP records Anemia pt not agreeable to advise EGD per [facility] PCP records Aortic valve stenosis mild Alcohol abuse 6-8 beers daily Hx of gastroesophageal reflux (GERD) controlled, stable per pt Hx of osteomyelitis (~2021) Type 2 diabetes mellitus History of CVA (cerebrovascular accident) (~2020) Around 2020> resulting "balance issues" > no longer sees neuro Poor historian Hx of pneumothorax (~2020) right side > prior to 2020 > felt related to strain of body from work > drained and resolved Hypertension controlled, stable per pt Surgical History Hx of hernia repair Laparoscopic Bilateral Inguinal Hernia Repair with Mesh Hx of endoscopic retrograde cholangiopancreatography with stent History of colonoscopy History of tooth extraction *hx of and plans for all upper teeth to be removed on June 06, 2025 Amputation toe left foot, big toe, then 2nd toe History of knee surgery right, arthroscopic Family History Father Stroke Social History Smoking Status: Current every day smoker Tobacco Type: Cigarettes Cigarettes Per Day: 1.5 ppd > advised npo; Second Hand Exposure: No; Do You Dip or Chew Tobacco: No; Hx Alcohol Use: Yes Alcohol type: beer Hx Substance Use: No Preferred Language: Honduran Communication Ability: Effective Beef Grader Required: No Beliefs That Will Affect Care: None Current Living Situation: Alone Current Living Situation Comment: Reports living Independently in an apartment. Feels Safe at Home: Yes Assistive Devices: Glasses Review of Systems Review of Systems: Unobtainable due to cognitive status Physical Exam Cardiovascular: DP and PT pulses non-palpable. Skin: Wet gangrene noted to the right hallux with heavy drainage, pain to palpation, malodor, erythema, and edema. Neurologic: Protective and light sensation diminished. Results & Data Vital Signs (Past 12 Hours) Vital Signs Temp Pulse Resp BP BP Pulse Ox O2 Del Method 10/19/25 13:59 102 H 10/19/25 13:51 36.9 C 155/75 H 10/19/25 13:51 99 H 20 95 Room Air 10/19/25 12:43 36.6 C 101 H 18 167/68 H 98 Room Air
[2025-10-19] MEDS ORDERED: PROPOFOL IV EMULSION 10 MG/ML 20 ML VIAL IV ONE ×2 (15:16)
[2025-10-19] MEDS ORDERED: SUCCINYLCHOLINE CHLORIDE 20 MG/ML 10 ML VIAL IV ONE (15:16)
[2025-10-19] MEDS ORDERED: DEXAMETHASONE SOD INJ 4 MG/ML VIAL ONE (15:16)
--- NOTE | 2025-10-19 15:19 | History & Physical Bridge Note ---
Date of Service October 19, 2025 History & Physical Bridge Note I have examined the patient, reviewed the History & Physical and in the interval since the performance of the History & Physical I have noted the following changes of clinical significance: Necrotizing type infection to right hallux and foot. Open partial 1st ray with possible partial foot amp scheduled. Case is scheduled STAT because of patients condition.
--- NOTE | 2025-10-19 15:28 | Pharmacy Report ---
Pharmacy PK ABX Note - Date of Service October 19, 2025 - Assessment and Plan Assessment 75 year old M receiving vancomycin, zosyn, and clindamycin empirically in setting of toe infection concerning for necrotizing fascitis. Blood and toe cultures pending. Plan for emergent amputation. Renal function stable. Day # 1 of antimicrobial therapy. Plan Vancomycin * Loading dose: 1500 mg IV x 1 * Maintenance dose: 1000 mg IV every 18 hours * Regimen is predicted to achieve target AUC/PETE of 400-600 mg/L.hr * Will obtain an early level tomorrow given severity of infection Pharmacy will continue to follow and will adjust dose/frequency as necessary. Thank you. Pharmacy has transitioned to AUC monitoring for vancomycin. AUC/PETE is the preferred PK/PD target and is associated with decreased risk of nephrotoxicity compared to traditional trough targets.
[2025-10-19] MEDS ORDERED: MIDAZOLAM HCL 1 MG/ML 2ML VIAL ONE (15:29)
--- NOTE | 2025-10-19 15:31 | History & Physical Bridge Note ---
Date of Service October 19, 2025 History & Physical Bridge Note Patient does not meet NPO status but this is a life threatening emergency .Patient did have a full meal earlier this afternoon but benefits outweight the risks as patient has a necrotizing infection with gas gangrene and went into shock within the last hour.
[2025-10-19] MEDS ORDERED: ALBUT/IPRATROP 3MG/0.5MG NEB 3 ML VIAL NEB PRN (15:38)
--- NOTE | 2025-10-19 15:48 | Anesthesiology Consultation ---
Date of Service October 19, 2025 Assessment & Plan Chart Review Chart Review: Acceptable Risk for Surgery pt not appropraitely NPO, per surgery: need Consults Requested none ASA [id number] Proposed Anesthesia Anesthesia Type: General Risk / Benefits Reviewed With: PT / POA / Parent / Guardian, Accepts Plan and Informed Consent Obtained History Surgery Operation Date: 10/19/25 15:30 Proposed Procedures p Amputation Toe(Right) - Patrice Jolly DPM Height/Weight Height: 5 ft 11 in Weight: 73.5 kg Allergies Allergy/AdvReac Type Severity Reaction Status Date / Time No Known Allergies Allergy Verified 06/17/25 05:35 Medications Home Medications Medication Instructions Recorded Confirmed Last Taken multivitamin 1 tab PO DAILY 01/05/21 10/19/25 06/16/25 06:00 aspirin 81 mg tablet,delayed 81 mg PO QAM #30 tabs 02/08/21 10/19/25 06/16/25 12:00 release ibuprofen 200 mg tablet (Advil) 800 mg PO Q8H PRN Pain 02/16/25 10/19/25 06/15/25 12:00 lisinopril 10 mg tablet 20 mg PO QDL 02/16/25 10/19/25 06/16/25 12:00 metformin 500 mg tablet 1,000 mg PO DAILY 02/16/25 10/19/25 06/16/25 12:00 docusate sodium 100 mg tablet 100 mg PO DAILY 05/24/25 10/19/25 06/16/25 12:00 oxycodone-acetaminophen 5 mg-325 1 tab PO Q6H PRN pain #10 tabs 06/17/25 10/19/25 Unknown mg tablet (Percocet) Active Medications Generic Name Dose Route Start Last Admin Trade Name Freq PRN Reason Stop Dose Admin Vancomycin HCl 1,500 mg/ 530 mls @ 200 mls/hr 10/19/25 13:10 10/19/25 13:41 Sodium Chloride IV 10/19/25 15:48 200 mls/hr NOW ONE Administration Sodium Chloride 1,000 mls @ 999 mls/hr 10/19/25 14:49 10/19/25 14:55 Nss IV 10/19/25 15:49 999 mls/hr .Q1H1M ONE Administration NPO Date Last Intake of Fluids: 10/19/25 Time Last Intake of Fluids: 12:00 Last Intake of Fluids Comment: chocolate milk, Anesthesia aware, note done by Dr. Jolly for emergent Date Last Intake of Solids: 10/19/25 Time Last Intake of Solids: 12:00 Last Intake of Solids Comment: chicken and mashed potatoes, Anesthesia aware, emergent per Dr. Jolly Past Medical History Medical History (Updated 10/19/25 @ 15:14 by Patrice Jolly DPM) Emphysema, unspecified not agreeable to PFTs advised by [facility] PCP Dysphagia pt not agreeable to advise EGD per [facility] PCP records Anemia pt not agreeable to advise EGD per [facility] PCP records Aortic valve stenosis mild Alcohol abuse 6-8 beers daily Hx of gastroesophageal reflux (GERD) controlled, stable per pt Hx of osteomyelitis (~2021) Type 2 diabetes mellitus History of CVA (cerebrovascular accident) (~2020) Around 2020> resulting "balance issues" > no longer sees neuro Poor historian Hx of pneumothorax (~2020) right side > prior to 2020 > felt related to strain of body from work > drained and resolved Hypertension controlled, stable per pt Past Family History Family History Father Stroke Past Surgical History Surgical History Hx of hernia repair Laparoscopic Bilateral Inguinal Hernia Repair with Mesh Hx of endoscopic retrograde cholangiopancreatography with stent History of colonoscopy History of tooth extraction *hx of and plans for all upper teeth to be removed on June 06, 2025 Amputation toe left foot, big toe, then 2nd toe History of knee surgery right, arthroscopic Social History Smoking Status: Current every day smoker tobacco type: cigarettes Smoking cigarettes per day: 1.5 ppd > advised npo Do You Dip or Chew Tobacco: No Hx Alcohol Use: Yes Alcohol type: beer alcohol intake frequency: 3 or more drinks per day (6-8 beers every morning- advised) Hx Substance Use: No substance use type: does not use Physical Exam Vital Signs Last Vital Signs Temp 36.9 C 10/19/25 13:51 Pulse 102 H 10/19/25 13:59 Resp 20 10/19/25 13:51 BP 155/75 H 10/19/25 13:51 Pulse Ox 95 10/19/25 13:51 O2 Del Method Room Air 10/19/25 13:51 Constitutional no acute distress ENMT Mouth: + dentition abnormality, + dental caries, + poor dentition and + loose teeth Thyromental Distance: > or= 3.5 Finger Breadths Mallampati Class: II Neck normal visual inspection Respiratory Auscultation: lungs clear to auscultation bilaterally Cardiovascular Rate/Rhythm: + tachycardic Chest (Breasts) Chest: no pacemaker Musculoskeletal Spine: normal cervical ROM Neurologic moves all extremities Psychiatric Orientation: alert and oriented x 3 Testing Laboratory Results 10/19/25 13:16 10/19/25 13:16 10/19/25 13:18 Gram Stain - Final Toe 10/19/25 14:55 POC Glucose 150 H
[2025-10-19 16:06] LABS: INR 1.0 (0.9-1.1); Prothrombin Time 10.9 Seconds (9.0-12.0)
[2025-10-19] MEDS ORDERED: SUGAMMADEX SODIUM 200 MG/2 ML VIAL IV ONE (16:31)
[2025-10-19] MEDS ORDERED: ROCURONIUM BROMIDE 10 MG/ML 5 ML VIAL IV ONE (16:31)
[2025-10-19] MEDS: BUPIVACAINE 0.5 % 5 MG/1 ML MPF 30ML VIAL ONE (16:50)
--- NOTE | 2025-10-19 16:50 | Post Operative Brief Note ---
Immediate Post Op Note Date of Surgery October 19, 2025 Pre & Post Diagnosis Operation Date: 10/19/25 15:30 Pre: Gas gangrene right foot Necrotizing infection right foot Post: Gas gangrene right foot Necrotizing infection right foot I identified the patient and participated in the time-out.: Yes Procedure Operation Date: 10/19/25 15:30 Right foot partial 1st ray amputation. Surgeon Patrice Jolly DPM Lumber Kiln Operator n/a Estimated Blood Loss 3 Findings Consistent with Post-Op Diagnosis consistent with operative note.
[2025-10-19] MEDS ORDERED: STAT IV Infusion **Titration per Protocol STA (16:57)
--- NOTE | 2025-10-19 17:03 | Operative Report ---
Post Operative Report Pre & Post Diagnosis Operation Date: 10/19/25 15:30 Pre: Gas gangrene right foot Necrotizing infection right foot I identified the patient and participated in the time-out.: Yes Procedure Operation Date: 10/19/25 15:30 Right foot partial 1st ray amputation. 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 Decision was made that patient needed immediate surgical intervention for source control of right foot infection. Discussion was had with ED team and anesthesia and patient's case of right partial first ray amputation, possible partial foot amputation was stated. risks and benefits of the procedure were discussed and the benefits outweighed the risks and patient was to be placed under anesthesia without proper NPO status. Decision was then made to proceed with the procedure as planned. Description of Procedure Partial first ray amputation: Following satisfactory preop evaluation the patient was brought into the OR table and placed on the OR table in the supine position. General sedation was administered by anesthesia. Following sedation 12 cc of 0.5% Marcaine plain was then injected into the right ankle in a Ankle block fashion. The foot was t hen prepped and draped in the usual sterile manner and lowered onto the surgical field. Attention was then directed to the right hallux where there was noted to be extensive gangrene medially and laterally with an open wound laterally. The hallux was then gripped by a towel clamp and pus was extruded from the wound. Using a 10 blade an incision was made through the skin to bone circum-circumfr acturing the base of the first digit and extending proximal medial over the head of the first metatarsal. The digit was then freed from its attachments via a 10 blade and passed off the field to be sent for pathologic and microbiology evaluation. The tissues were then reflected off the head of the first metatarsal via 10 blade and then the head was resected by a sagittal saw and removed from the field. Cultures from the metatarsal head were then sent off for microbiology and pathologic evaluation. There was minimal bleeding noted from the wound. All nonviable necrotic and fibrotic tissue and skin subcutaneous tissue was excised by a 10 blade from the wound. The area was then flushed with a pulse street railway line installer. Retention sutures were used via a 3-0 nylon suture in an overall fashion to cover the metatarsal. A dressing was applied consisting of Betadine soaked Kerlix, 4 x 4's, ABD pads, Kerlix and Derrick bandage. The patient tolerated anesthesia and the procedure well was transported to the ICU for further evaluation and observation. I attest to the content of the Intraoperative Record and any orders documented therein. Any exceptions are noted below.
--- NOTE | 2025-10-19 17:07 | Anesthesiology Progress Note ---
Date of Service October 19, 2025 Anesthesia Post Procedure Vital Signs Vital Signs: Temp Pulse Pulse Resp BP BP BP 10/19/25 17:00 77 20 116/66 10/19/25 16:50 37.3 C 68 18 128/44 L 10/19/25 15:39 126 H 24 10/19/25 14:37 37.0 C 154 H 28 H 10/19/25 13:59 102 H 10/19/25 13:51 36.9 C 155/75 H 10/19/25 13:51 99 H 20 10/19/25 12:43 36.6 C 101 H 18 167/68 H Pulse Ox O2 Del Method O2 Flow Rate 10/19/25 17:00 100 Oxymask 4 10/19/25 16:50 100 Oxymask 6 10/19/25 15:39 97 Nasal Cannula 2 10/19/25 14:37 85 L Room Air 10/19/25 13:59 10/19/25 13:51 10/19/25 13:51 95 Room Air 10/19/25 12:43 98 Room Air Transfer of Care Handoff Completed per policy Notes Mental Status: alert / awake / arousable Patient Amnestic to Procedure: Yes Nausea / Vomiting: adequately controlled Pain: adequately controlled Airway Patency, RR, SpO2: stable & adequate BP & HR: stable & adequate Hydration State: stable & adequate Anesthetic Complications: no major complications apparent
[2025-10-19] MEDS: PHENYLEPHRINE/NSS 25 MG/250 ML BAG IV SCH (17:30)
--- NOTE | 2025-10-19 18:12 | Critical Care Consultation ---
Date of Consultation October 19, 2025 Assessment & Plan (1) Cellulitis and abscess of foot: (2) Necrotizing fasciitis: (3) Gas gangrene: (4) Shock circulatory: (5) PAD (peripheral artery disease): (6) Alcohol abuse: (7) Tobacco use disorder: (8) GERD (gastroesophageal reflux disease): Plan Reason Critically Ill: 75-year-old male was admitted because of swelling and pain in the right fifth toe. Was found to have necrotizing infection and gangrene of the right foot and was taken to the OR. He needed phenylephrine and was sent to the ICU for further management Past medical history: COPD, current smoker, HFpEF, peripheral vascular disease, GERD, diabetes type 2 Neuro - [facility] ICU: Negative Cardiac - 2D echo 03/22/2025: EF 55-60%, mild concentric LVH, trace MR, trace TR, RV normal in size and function -- Shock Septic Source is likely gangrene of the toe Continue with vasopressor support to keep MAP greater than 65 Respiratory - Chest x-ray 10/19/2025: Portable film, good inspiratory effort, mild blunting of the right costophrenic angle, no clear lung infiltrate appreciated -- COPD with emphysema > [id number] smoking history Not in exacerbation GI - -- Mildly elevated alk phos Continue to trend RENAL/LYTES - -- KATI Likely from shock Monitor BUN/creatinine Avoid nephrotoxic medications Strict ins and outs ENDO - -- Diabetes type 2 On metformin at home Continue with ICU hyperglycemia protocol HEME - -- Normocytic anemia Monitor H&H ID - -- Septic shock Likely secondary to necrotizing/gangrenous infection of the right toe S/p surgery 10/19/2025 ESR 81, CRP 14.18 Procalcitonin 0.27 Got a dose of clindamycin in the ED Continue with broad-spectrum antibiotics Follow-up cultures --Prophylaxis VTE: IPC GI: None Lines: Peripheral Diet: Cardiac Plan: Strict in and out Patient's lungs are clear, I will give another 1 L of Plasma-Lyte bolus Follow-up cultures Follow-up random cortisol, CPK, repeat CMP, mag and Phos Continue with Vanco and Zosyn. Reasonable to hold clindamycin as it was given for possible necrotizing fasciitis which as per op report is not the case I have personally spent 58 minutes of critical care time in the direct management of this patient. This is a life/limb threatening event. This includes time spent evaluating patient, direct bedside care, chart review, placing orders, interpretation of diagnostic studies, discussion with consultants, patient, and family members, as well as other required patient management activities. This time is exclusive of all separately billable procedures, and teaching time and separate from and in addition to any other critical care service time. History of Present Illness Attending Physician: Patrice Jolly DPM History of Present Illness 75-year-old male was admitted because of swelling and pain in the right fifth toe. Was found to have necrotizing infection and gangrene of the right foot and was taken to the OR. He needed phenylephrine and was sent to the ICU for further management Past medical history: COPD, current smoker, HFpEF, peripheral vascular disease, GERD, diabetes type 2 At the time of examination in the ICU He was on Levophed 0.5 He was saturating well on room air. His systolic blood pressure was in the high 80s. With MAP in the mid 60s. Denied any chest pain, no abdominal pain No nausea or vomiting Stated that the toe pain has improved compared to before No dysuria or diarrhea prior to coming to the hospital No dizziness or blurry vision right now. Social history: Greater than [id number] smoking history, currently smoking a pack a day. Drinks 3 drinks on a daily basis No history of lung cancer in the family Allergies Allergy/AdvReac Type Severity Reaction Status Date / Time No Known Allergies Allergy Verified 06/17/25 05:35 Home Medications Medication Instructions Recorded Confirmed Type multivitamin 1 tab PO DAILY 01/05/21 10/19/25 History aspirin 81 mg tablet,delayed 81 mg PO QAM #30 tabs 02/08/21 10/19/25 Rx release ibuprofen 200 mg tablet (Advil) 800 mg PO Q8H PRN Pain 02/16/25 10/19/25 History lisinopril 10 mg tablet 20 mg PO QDL 02/16/25 10/19/25 History metformin 500 mg tablet 1,000 mg PO DAILY 02/16/25 10/19/25 History docusate sodium 100 mg tablet 100 mg PO DAILY 05/24/25 10/19/25 History oxycodone-acetaminophen 5 mg-325 1 tab PO Q6H PRN pain #10 tabs 07/21/25 11/22/25 Rx mg tablet (Percocet) Patient History Medical History Emphysema, unspecified not agreeable to PFTs advised by [facility] PCP Dysphagia pt not agreeable to advise EGD per [facility] PCP records Anemia pt not agreeable to advise EGD per [facility] PCP records Aortic valve stenosis mild Alcohol abuse 6-8 beers daily Hx of gastroesophageal reflux (GERD) controlled, stable per pt Hx of osteomyelitis (~2021) Type 2 diabetes mellitus History of CVA (cerebrovascular accident) (~2020) Around 2020> resulting "balance issues" > no longer sees neuro Poor historian Hx of pneumothorax (~2020) right side > prior to 2020 > felt related to strain of body from work > drained and resolved Hypertension controlled, stable per pt Surgical History Hx of hernia repair Laparoscopic Bilateral Inguinal Hernia Repair with Mesh Hx of endoscopic retrograde cholangiopancreatography with stent History of colonoscopy History of tooth extraction *hx of and plans for all upper teeth to be removed on June 06, 2025 Amputation toe left foot, big toe, then 2nd toe History of knee surgery right, arthroscopic Family History Father Stroke Social History Smoking Status: Current every day smoker Tobacco Type: Cigarettes Cigarettes Per Day: 1.5 ppd > advised npo; Second Hand Exposure: No; Do You Dip or Chew Tobacco: No; Hx Alcohol Use: Yes Alcohol type: beer Hx Substance Use: No Preferred Language: Ma[place] Communication Ability: Effective 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 Feels Safe at Home: Yes Assistive Devices: Glasses Review of Systems 2 Review of Systems: All systems reviewed & are unremarkable except as noted in HPI & below Physical Exam 2 Physical Exam: Constitutional: No acute distress HEENT: EOMI, PERRLA Respiratory system: Good air entry bilaterally, no wheeze, no rhonchi, mild crackles left lower lobe CVS: S1-S2 positive, no murmurs or gallops Abdomen: Soft, nontender, nondistended, positive bowel sounds x4 Extremities: +1 pulses bilaterally radialis/ dorsalis pedis, no cyanosis, +2 pitting edema bilateral lower extremity, right> left, amputation of the left first toe, dry gangrene of the distal phalanx of the left second toe, right foot in surgical bandage Neuro: Awake alert oriented to self and place Psych: Normal mood and affect G/U: Positive Sor[place] Skin: no rashes, warm and dry Lymphatic: no cervical or axillary lymphadenopathy Results & Data Results & Data Vital Signs (Past 12 Hours) Vital Signs Temp Pulse Pulse Resp BP BP BP 10/19/25 17:40 36.8 C 85 16 100/54 L 10/19/25 17:30 87 20 83/44 L 10/19/25 17:20 91 H 20 83/44 L 10/19/25 17:10 78 18 81/49 L 10/19/25 17:00 77 20 116/66 10/19/25 16:50 37.3 C 68 18 128/44 L 10/19/25 15:39 126 H 24 10/19/25 14:37 37.0 C 154 H 28 H 10/19/25 13:59 102 H 10/19/25 13:51 36.9 C 155/75 H 10/19/25 13:51 99 H 20 10/19/25 12:43 36.6 C 101 H 18 167/68 H Pulse Ox O2 Del Method O2 Flow Rate 10/19/25 17:40 97 Nasal Cannula 2 10/19/25 17:30 94 Room Air 10/19/25 17:20 96 Room Air 10/19/25 17:10 100 Oxymask 4 10/19/25 17:00 100 Oxymask 4 10/19/25 16:50 100 Oxymask 6 10/19/25 15:39 97 Nasal Cannula 2 10/19/25 14:37 85 L Room Air 10/19/25 13:59 10/19/25 13:51 10/19/25 13:51 95 Room Air 10/19/25 12:43 98 Room Air Laboratory Results 10/19/25 13:16 10/19/25 13:16 Coding Level of Care Code 12429 CRITICAL CARE 1ST 30-74M Diagnoses Cellulitis and abscess of foot L03.119; L02.619 Necrotizing fasciitis M72.6 Gas gangrene A48.0 Shock circulatory R57.9 PAD (peripheral artery disease) I73.9 Alcohol abuse F10.10 Tobacco use disorder F17.200 GERD (gastroesophageal reflux disease) K21.9
[2025-10-19] MEDS: ALBUT/IPRATROP 3MG/0.5MG NEB 3 ML VIAL NEB STA (18:21)
[2025-10-19] MEDS ORDERED: ONDANSETRON INJ 2 MG/ML 2 ML VIAL IV PRN (18:23)
[2025-10-19] MEDS ORDERED: POLYETHYLENE (MIRALAX) 17 GM PACK PO PRN (18:23)
[2025-10-19 18:55] LABS: Appearance Urine Cloudy (Clear); Bacteria Urine Automated None Seen (None Seen); Glucose Urine UA Negative (Negative); RBC Urine Automated >20 /hpf (0-2)
[2025-10-19] MEDS: PLASMA-LYTE A 1,000 ML IV ONE (18:56)
[2025-10-19 19:28] LABS: Cholesterol 93.0 mg/dl (0-200); HDL Cholesterol 23.0 mg/dl; Triglycerides 103.0 mg/dl (0-150)
[2025-10-19] MEDS: INSULIN ASPART PER UNIT CHARGE SC SCH (19:30)
[2025-10-19] MEDS: PANTOprazole 40 MG/10 ML SYR IV SCH (19:31)
[2025-10-19 19:40] LABS: Alanine Aminotransferase 11.0 U/L (7-52); Albumin Globulin Ratio 0.8 (0.9-2); Albumin Level 2.5 gm/dl (3.4-5.0); Alkaline Phosphatase 111.0 U/L (34-104); Anion Gap 6.0 (3-11); Bilirubin,Total 0.5 mg/dl (0.2-1.0); Blood Urea Nitrogen 36.0 mg/dl (6-23); Calcium 7.8 mg/dl (8.6-10.3); Carbon Dioxide 21.0 mmol/L (21-32); Chloride 106.0 mmol/L (98-107); Creatine Kinase 345.0 U/L (30-223); Creatinine Clr Calc Pharmacy 49.9 ml/min; Globulin 3.0 gm/dl (2.5-4.0); Glucose 142.0 mg/dl (70-99(Fasting)); Magnesium 1.7 mg/dl (1.7-2.4); Potassium 4.4 mmol/L (3.5-5.1); Sodium 133.0 mmol/L (136-145); Total Protein 5.5 gm/dl (6.0-8.3)
[2025-10-19 19:55] LABS: Folate (Folic Acid),Ser orPlas 20.27 ng/ml (>5.38)
[2025-10-19 19:56] LABS: Vitamin B12 1146.0 pg/ml (180-914)
[2025-10-19] MEDS: PIPERACILLIN/TAZOBACTAM 4.5 GM/100 ML BAG IV SCH (20:18)
[2025-10-19] MEDS: ACETAMINOPHEN 500 MG TAB PO SCH (22:01)
[2025-10-19] MEDS: HEPARIN SOD 5,000 UNIT/0.5 ML VIAL SQ SCH (22:02)
[2025-10-19] MEDS: VANCOMYCIN HCL / NSS 1,000 MG/270 ML BAG IV SCH (23:19)
[2025-10-20 07:04] LABS: Hemoglobin A1C 6.7 % (4.5-5.6)
[2025-10-20] MEDS: CALCIUM GLUCONATE 1,000 MG/60 ML BAG IV STA (08:12)
[2025-10-20] MEDS: MULTIVITAMIN TAB PO SCH (08:13)
[2025-10-20] MEDS: THIAMINE HCL 100 MG TAB PO SCH (08:13)
[2025-10-20] MEDS: CLINDAMYCIN/D5W 900 MG/50 ML PREMIX BAG IV SCH (09:55)
[2025-10-20 10:04] LABS: Hematocrit (blood only) 29.9 % (42.0-52.0); Hemoglobin 10.1 g/dL (14.0-18.0); Mean Corpuscular Hemoglobin 32.7 pg (25.0-34.0); Mean Corpuscular Volume 96.8 fL (80.0-100.0); Platelet Count 335 K/uL (130-400); RDW Standard Deviation 44.8 fL (36.4-46.3); Red Blood Count 3.09 M/uL (4.70-6.10); White Blood Count 15.90 K/ul (4.8-10.8)
[2025-10-20 10:19] LABS: Albumin Level 3.0 gm/dl (3.4-5.0); Anion Gap 6.0 (3-11); Bilirubin,Total 0.3 mg/dl (0.2-1.0); Calcium 8.0 mg/dl (8.6-10.3); Carbon Dioxide 22.0 mmol/L (21-32); Chloride 105.0 mmol/L (98-107); Magnesium 1.9 mg/dl (1.7-2.4); Potassium 4.7 mmol/L (3.5-5.1); Sodium 133.0 mmol/L (136-145)
--- NOTE | 2025-10-20 10:20 | Vascular Surgery Consultation ---
Date of Consultation October 20, 2025 Assessment & Plan (1) Diabetic infection of right foot: He has diabetic foot disease and likely some overlying peripheral arterial disease. Will try to obtain outside records but will also need noninvasive testing which we can obtain tomorrow (Tuesday). No acute need for intervention at this time. Wound management per Podiatry team. History of Present Illness Attending Physician: Patrice Jolly DPM History of Present Illness Asked to evaluate this 75 yo male who underwent urgent I/D and amputation of right great toe yesterday for wet gangrene. Has been off pressors since 11pm last night. Overall suitable recovery. Plan for transfer out of ICU today. He has a history of diabetes and PVD. Apparently has undergone some kind of vascular testing at [facility] previously and was scheduled for further testing November,. Prior history of left great toe amputation and then subsequent left 2nd toe amputation ~4 or more years ago. Has dry necrotic tip of left 3rd toe. He recalls recent right inguinal hernia repair with what sounds like a postop seroma (he says it was a mass the size of a tennis ball in the groin) that subsequently resolved, but he believes the fluid went to his foot and led to a blister on his right great toe which was the origin of the current issue. Allergies Allergy/AdvReac Type Severity Reaction Status Date / Time No Known Allergies Allergy Verified 06/17/25 05:35 Home Medications Medication Instructions Recorded Confirmed Type multivitamin 1 tab PO DAILY 01/05/21 10/19/25 History aspirin 81 mg tablet,delayed 81 mg PO QAM #30 tabs 02/08/21 10/19/25 Rx release ibuprofen 200 mg tablet (Advil) 800 mg PO Q8H PRN Pain 02/16/25 10/19/25 History lisinopril 10 mg tablet 20 mg PO QDL 02/16/25 10/19/25 History metformin 500 mg tablet 1,000 mg PO DAILY 02/16/25 10/19/25 History docusate sodium 100 mg tablet 100 mg PO DAILY 05/24/25 10/19/25 History oxycodone-acetaminophen 5 mg-325 1 tab PO Q6H PRN pain #10 tabs 06/17/25 10/19/25 Rx mg tablet (Percocet) Patient History Medical History Emphysema, unspecified not agreeable to PFTs advised by [facility] PCP Dysphagia pt not agreeable to advise EGD per [facility] PCP records Anemia pt not agreeable to advise EGD per [facility] PCP records Aortic valve stenosis mild Alcohol abuse 6-8 beers daily Hx of gastroesophageal reflux (GERD) controlled, stable per pt Hx of osteomyelitis (~2021) Type 2 diabetes mellitus History of CVA (cerebrovascular accident) (~2020) Around 2020> resulting "balance issues" > no longer sees neuro Poor historian Hx of pneumothorax (~2020) right side > prior to 2020 > felt related to strain of body from work > drained and resolved Hypertension controlled, stable per pt Surgical History Hx of hernia repair Laparoscopic Bilateral Inguinal Hernia Repair with Mesh Hx of endoscopic retrograde cholangiopancreatography with stent History of colonoscopy History of tooth extraction *hx of and plans for all upper teeth to be removed on June 06, 2025 Amputation toe left foot, big toe, then 2nd toe History of knee surgery right, arthroscopic Family History Father Stroke Social History Smoking Status: Current every day smoker Tobacco Type: Cigarettes Cigarettes Per Day: 1.5 PPD; Second Hand Exposure: No; Do You Dip or Chew Tobacco: No; Hx Alcohol Use: Yes Alcohol type: beer Hx Substance Use: No Preferred Language: [place] Communication Ability: Effective Communication Ability Comment: "doesn't read or write well" 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 Other Information That Helps Us Care for You: No Feels Safe at Home: Yes Safety Concerns: Feels Safe At This Time Assistive Devices: Denture - Upper and Glasses Physical Exam Physical Exam: Right foot has recent postop dressing - Kerlix/Derrick Bandage. I did not remove it. There is no evidence of erythema or ascending infection at the level of the distal calf. I can her a monophasic PT/AT signal at the level of the mid right calf. Left dp/pt doppler flow is multiphasic. Femoral pulses are normal. Well healed right inguinal incision without drainage or mass. Results & Data Vital Signs (Past 12 Hours) Vital Signs Temp Pulse Resp BP Pulse Ox O2 Del Method 10/20/25 10:00 140/59 L 10/20/25 10:00 63 15 98 10/20/25 09:00 63 16 97 10/20/25 08:51 Room Air 10/20/25 08:50 36.5 C 10/20/25 08:03 71 22 93 10/20/25 08:01 113/91 10/20/25 08:00 68 18 97 10/20/25 07:53 60 10/20/25 07:46 131/56 L 10/20/25 07:46 131/56 L 10/20/25 07:45 67 19 96 10/20/25 07:30 62 16 97 Room Air 10/20/25 07:30 129/59 L 10/20/25 07:15 56 L 7 L 99 10/20/25 07:15 139/64 10/20/25 07:00 52 L 18 100 10/20/25 07:00 141/60 H 10/20/25 06:00 56 L 5 L 99 10/20/25 06:00 147/61 H 10/20/25 06:00 147/61 H 10/20/25 06:00 147/61 H 10/20/25 06:00 147/61 H 10/20/25 06:00 147/61 H 10/20/25 05:45 126/56 L 10/20/25 05:45 126/56 L 10/20/25 05:45 126/56 L 10/20/25 05:45 126/56 L 10/20/25 05:45 126/56 L 10/20/25 05:45 53 L 10 L 99 10/20/25 05:30 133/60 10/20/25 05:30 133/60 10/20/25 05:30 133/60 10/20/25 05:30 133/60 10/20/25 05:30 133/60 10/20/25 05:30 56 L 16 99 10/20/25 05:15 132/63 10/20/25 05:15 132/63 10/20/25 05:15 132/63 10/20/25 05:15 132/63 10/20/25 05:15 132/63 10/20/25 05:15 60 11 L 99 10/20/25 05:00 57 L 17 98 10/20/25 05:00 134/57 L 10/20/25 05:00 134/57 L 10/20/25 05:00 134/57 L 10/20/25 05:00 134/57 L 10/20/25 05:00 134/57 L 10/20/25 04:45 57 L 14 98 10/20/25 04:45 131/56 L 10/20/25 04:45 131/56 L 10/20/25 04:45 131/56 L 10/20/25 04:45 131/56 L 10/20/25 04:45 131/56 L 10/20/25 04:30 58 L 5 L 97 10/20/25 04:30 138/55 L 10/20/25 04:30 138/55 L 10/20/25 04:30 138/55 L 10/20/25 04:30 138/55 L 10/20/25 04:30 138/55 L 10/20/25 04:15 57 L 7 L 97 10/20/25 04:15 134/57 L 10/20/25 04:15 134/57 L 10/20/25 04:15 134/57 L 10/20/25 04:15 134/57 L 10/20/25 04:15 134/57 L 10/20/25 04:00 58 L 17 97 10/20/25 04:00 134/59 L 10/20/25 04:00 134/59 L 10/20/25 04:00 134/59 L 10/20/25 04:00 134/59 L 10/20/25 04:00 134/59 L 10/20/25 03:45 128/56 L 10/20/25 03:45 128/56 L 10/20/25 03:45 128/56 L 10/20/25 03:45 128/56 L 10/20/25 03:45 128/56 L 10/20/25 03:45 61 12 98 10/20/25 03:30 52 L 17 97 10/20/25 03:30 134/57 L 10/20/25 03:30 134/57 L 10/20/25 03:30 134/57 L 10/20/25 03:30 134/57 L 10/20/25 03:30 134/57 L 10/20/25 03:15 126/57 L 10/20/25 03:15 126/57 L 10/20/25 03:15 126/57 L 10/20/25 03:15 126/57 L 10/20/25 03:15 126/57 L 10/20/25 03:15 50 L 17 97 10/20/25 03:00 57 L 11 L 95 10/20/25 03:00 127/56 L 10/20/25 03:00 127/56 L 10/20/25 03:00 127/56 L 10/20/25 03:00 127/56 L 10/20/25 03:00 127/56 L 10/20/25 02:45 55 L 10 L 98 10/20/25 02:45 142/66 H 10/20/25 02:45 142/66 H 10/20/25 02:45 142/66 H 10/20/25 02:45 142/66 H 10/20/25 02:45 142/66 H 10/20/25 02:30 138/60 10/20/25 02:30 138/60 10/19/25 23:30 142/65 H 10/19/25 23:30 142/65 H 10/19/25 23:30 142/65 H 10/19/25 23:30 142/65 H 10/19/25 23:30 142/65 H 10/19/25 23:30 66 7 L 97 10/19/25 23:15 61 3 L 97 10/19/25 23:15 128/57 L 10/19/25 23:15 128/57 L 10/19/25 23:15 128/57 L 10/19/25 23:15 128/57 L 10/19/25 23:15 128/57 L 10/19/25 23:00 64 16 97 10/19/25 23:00 118/54 L 10/19/25 23:00 118/54 L 10/19/25 23:00 118/54 L 10/19/25 23:00 118/54 L 10/19/25 23:00 118/54 L 10/19/25 22:45 118/62 10/19/25 22:45 118/62 10/19/25 22:45 118/62 10/19/25 22:45 118/62 10/19/25 22:45 118/62 10/19/25 22:45 66 3 L 98 10/19/25 22:30 66 20 98 10/19/25 22:30 120/60 10/19/25 22:30 120/60 10/19/25 22:30 120/60 10/19/25 22:30 120/60 10/19/25 22:30 120/60 10/19/25 22:15 75 11 L 97 10/19/25 22:15 150/120 H 10/19/25 22:15 150/120 H 10/19/25 22:15 150/120 H 10/19/25 22:15 150/120 H 10/19/25 22:15 150/120 H PG Care Time/CCT Total # of Minutes Spent Total Time Spent with Patient: Total time spent is greater than 50% in coordination of care (as documented) at patient's floor/unit and/or counseling patient: Coding Level of Care Code 13828 IN/OBS CONSULT LVL 3,45M Diagnoses Diabetic infection of right foot E11.628; L08.9
[2025-10-20] MEDS: HYDROmorphone INJ 0.5 MG/0.5 ML SYR IV PRN (10:23)
[2025-10-20 10:25] LABS: Alanine Aminotransferase 13.0 U/L (7-52); Albumin Globulin Ratio 1.1 (0.9-2); Alkaline Phosphatase 89.0 U/L (34-104); Blood Urea Nitrogen 36.0 mg/dl (6-23); Creatinine Clr Calc Pharmacy 49.2 ml/min; Globulin 2.8 gm/dl (2.5-4.0); Glucose 142.0 mg/dl (70-99(Fasting)); Total Protein 5.8 gm/dl (6.0-8.3)
[2025-10-20 10:42] LABS: Immature Granulocytes # (auto) 0.09 K/uL (0.01-0.20); Immature Granulocytes % (auto) 0.6 %; RBC Morphology Unremarkable
--- NOTE | 2025-10-20 10:47 | Critical Care Progress Note ---
Date of Service October 20, 2025 Assessment & Plan (1) Cellulitis and abscess of foot: (2) Necrotizing fasciitis: (3) Gas gangrene: (4) Shock circulatory: (5) PAD (peripheral artery disease): (6) Alcohol abuse: (7) Tobacco use disorder: (8) GERD (gastroesophageal reflux disease): Plan Reason Critically Ill: 75-year-old male was admitted because of swelling and pain in the right fifth toe. Was found to have necrotizing infection and gangrene of the right foot and was taken to the OR. He needed phenylephrine and was sent to the ICU for further management Past medical history: COPD, current smoker, HFpEF, peripheral vascular disease, GERD, diabetes type 2 Neuro - [facility] ICU: Negative Cardiac - 2D echo 03/22/2025: EF 55-60%, mild concentric LVH, trace MR, trace TR, RV normal in size and function -- S/p shock Septic Source is likely gangrene of the toe Respiratory - Chest x-ray 10/19/2025: Portable film, good inspiratory effort, mild blunting of the right costophrenic angle, no clear lung infiltrate appreciated -- COPD with emphysema > [id number] smoking history Not in exacerbation GI - -- Mildly elevated alk phos Continue to trend RENAL/LYTES - --KATI Likely from shock Monitor BUN/creatinine Avoid nephrotoxic medications Strict ins and outs ENDO - -- Diabetes type 2 On metformin at home Continue with ICU hyperglycemia protocol HEME - -- Normocytic anemia Monitor H&H ID - -- Necrotizing/gangrenous infection of the right toe S/p surgery 10/19/2025 ESR 81, CRP 14.18 Procalcitonin 0.27 Continue with Zosyn Got a dose of clindamycin and vancomycin on 10/19/2025, I will change it to linezolid --Prophylaxis VTE: Heparin GI: Pantoprazole Lines: Peripheral Diet: Cardiac Plan: In/out: +5.3 L, urine output 1085 Magnesium being replaced There has been mild elevation in leukocytosis which is likely reactive to surgery. Continue to monitor Change vancomycin and clindamycin to linezolid which will have antitoxin as well as MRSA coverage. Continue with Zosyn Follow-up cultures Patient hemodynamically stable to be downgrade to medical floor Case discussed with primary team, podiatry as well as vascular surgery I spent more than 50 minutes looking in the chart, images, discussing the plan of care with the patient, RN as well as primary team Please note the above document was generated using voice recognition software. It may contain grammatical, syntax or spelling errors.Any formal questions or concerns about the content, text or information contained within the body of this dictation should be directly addressed to the provider for clarification. Admission and Anticipated Discharge Date Admission Date: October 19, 2025 Subjective Patient seen and examined at bedside. No acute distress, notable symptoms overnight He was saturating 97% on room air Denied any chest pain, no shortness of breath Blood pressure was in the 140s with heart rate in the high 50s Was complaining of some mild discomfort at the surgical site. Fair appetite, no nausea or vomiting Review of Systems 2 Review of Systems: All systems reviewed & are unremarkable except as noted in Subjective Physical Exam 2 Physical Exam: Constitutional: No acute distress HEENT: EOMI, PERRLA Respiratory system: Good air entry bilaterally, no wheeze, no rhonchi, no crackles CVS: S1-S2 positive, no murmurs or gallops Abdomen: Soft, nontender, nondistended, positive bowel sounds x4 Extremities: +1 pulses bilaterally radialis/ dorsalis pedis, no cyanosis, +2 pitting edema bilateral lower extremity, right> left, amputation of the left first toe, dry gangrene of the distal phalanx of the left second toe, right foot in surgical bandage Neuro: Awake alert oriented to self and place Psych: Normal mood and affect G/U: Positive Soriano Skin: no rashes, warm and dry Lymphatic: no cervical or axillary lymphadenopathy Results & Data Results & Data Vital Signs (Past 12 Hours) Vital Signs Temp Pulse Resp BP Pulse Ox O2 Del Method 10/20/25 10:00 140/59 L 10/20/25 10:00 63 15 98 10/20/25 09:00 63 16 97 10/20/25 08:51 Room Air 10/20/25 08:50 36.5 C 10/20/25 08:03 71 22 93 10/20/25 08:01 113/91 10/20/25 08:00 68 18 97 10/20/25 07:53 60 10/20/25 07:46 131/56 L 10/20/25 07:46 131/56 L 10/20/25 07:45 67 19 96 10/20/25 07:30 62 16 97 Room Air 10/20/25 07:30 129/59 L 10/20/25 07:15 56 L 7 L 99 10/20/25 07:15 139/64 10/20/25 07:00 52 L 18 100 10/20/25 07:00 141/60 H 10/20/25 06:00 56 L 5 L 99 10/20/25 06:00 147/61 H 10/20/25 06:00 147/61 H 10/20/25 06:00 147/61 H 10/20/25 06:00 147/61 H 10/20/25 06:00 147/61 H 10/20/25 05:45 126/56 L 10/20/25 05:45 126/56 L 10/20/25 05:45 126/56 L 10/20/25 05:45 126/56 L 10/20/25 05:45 126/56 L 10/20/25 05:45 53 L 10 L 99 10/20/25 05:30 133/60 10/20/25 05:30 133/60 10/20/25 05:30 133/60 10/20/25 05:30 133/60 10/20/25 05:30 133/60 10/20/25 05:30 56 L 16 99 10/20/25 05:15 132/63 10/20/25 05:15 132/63 10/20/25 05:15 132/63 10/20/25 05:15 132/63 10/20/25 05:15 132/63 10/20/25 05:15 60 11 L 99 10/20/25 05:00 57 L 17 98 10/20/25 05:00 134/57 L 10/20/25 05:00 134/57 L 10/20/25 05:00 134/57 L 10/20/25 05:00 134/57 L 10/20/25 05:00 134/57 L 10/20/25 04:45 57 L 14 98 10/20/25 04:45 131/56 L 10/20/25 04:45 131/56 L 10/20/25 04:45 131/56 L 10/20/25 04:45 131/56 L 10/20/25 04:45 131/56 L 10/20/25 04:30 58 L 5 L 97 10/20/25 04:30 138/55 L 10/20/25 04:30 138/55 L 10/20/25 04:30 138/55 L 10/20/25 04:30 138/55 L 10/20/25 04:30 138/55 L 10/20/25 04:15 57 L 7 L 97 10/20/25 04:15 134/57 L 10/20/25 04:15 134/57 L 10/20/25 04:15 134/57 L 10/20/25 04:15 134/57 L 10/20/25 04:15 134/57 L 10/20/25 04:00 58 L 17 97 10/20/25 04:00 134/59 L 10/20/25 04:00 134/59 L 10/20/25 04:00 134/59 L 10/20/25 04:00 134/59 L 10/20/25 04:00 134/59 L 10/20/25 03:45 128/56 L 10/20/25 03:45 128/56 L 10/20/25 03:45 128/56 L 10/20/25 03:45 128/56 L 10/20/25 03:45 128/56 L 10/20/25 03:45 61 12 98 10/20/25 03:30 52 L 17 97 10/20/25 03:30 134/57 L 10/20/25 03:30 134/57 L 10/20/25 03:30 134/57 L 10/20/25 03:30 134/57 L 10/20/25 03:30 134/57 L 10/20/25 03:15 126/57 L 10/20/25 03:15 126/57 L 10/20/25 03:15 126/57 L 10/20/25 03:15 126/57 L 10/20/25 03:15 126/57 L 10/20/25 03:15 50 L 17 97 10/20/25 03:00 57 L 11 L 95 10/20/25 03:00 127/56 L 10/20/25 03:00 127/56 L 10/20/25 03:00 127/56 L 10/20/25 03:00 127/56 L 10/20/25 03:00 127/56 L 10/20/25 02:45 55 L 10 L 98 10/20/25 02:45 142/66 H 10/20/25 02:45 142/66 H 10/20/25 02:45 142/66 H 10/20/25 02:45 142/66 H 10/20/25 02:45 142/66 H 10/20/25 02:30 138/60 10/20/25 02:30 138/60 10/19/25 23:30 142/65 H 10/19/25 23:30 142/65 H 10/19/25 23:30 142/65 H 10/19/25 23:30 142/65 H 10/19/25 23:30 142/65 H 10/19/25 23:30 66 7 L 97 10/19/25 23:15 61 3 L 97 10/19/25 23:15 128/57 L 10/19/25 23:15 128/57 L 10/19/25 23:15 128/57 L 10/19/25 23:15 128/57 L 10/19/25 23:15 128/57 L 10/19/25 23:00 64 16 97 10/19/25 23:00 118/54 L 10/19/25 23:00 118/54 L 10/19/25 23:00 118/54 L 10/19/25 23:00 118/54 L 10/19/25 23:00 118/54 L 10/19/25 22:45 118/62 10/19/25 22:45 118/62 10/19/25 22:45 118/62 10/19/25 22:45 118/62 10/19/25 22:45 118/62 10/19/25 22:45 66 3 L 98 Laboratory Results 10/20/25 08:55 10/20/25 08:55 Coding Level of Care Code 62754 SUB INP/OBS CARE MIN Diagnoses Cellulitis and abscess of foot L03.119; L02.619 Necrotizing fasciitis M72.6 Gas gangrene A48.0 Shock circulatory R57.9 PAD (peripheral artery disease) I73.9 Alcohol abuse F10.10 Tobacco use disorder F17.200 GERD (gastroesophageal reflux disease) K21.9
[2025-10-20] MEDS: MAGNESIUM OXIDE 400 MG TAB PO SCH (11:53)
--- NOTE | 2025-10-20 13:24 | Podiatry Progress Note ---
Date of Service October 20, 2025 Assessment & Plan (1) Diabetic foot ulcer associated with type 2 diabetes mellitus: (2) PAD (peripheral artery disease): (3) Diabetic infection of right foot: (4) Gas gangrene: (5) Necrotizing fasciitis: (6) Cellulitis and abscess of foot: Plan -Notes, imaging, and labs reviewed. -Cultures: pending -Xrays: 1. Anaerobic infection first toe. No plain radiographic evidence of acute osteomyelitis. 2. Changes of the 1st and 2nd proximal phalanges could reflect chronic osteomyelitis or old trauma. -Infectious disease consulted. Appreciate recommendations -Vascular surgery consulted. Appreciate recommendations. -Dressing: Betadine soaked kerlix and DSD. Daily changes. betadine to left third digit. -S/P right foot open partial first ray amputation 10/19/25. -Will continue to monitor wound. Will follow vascular studies and vascular recommendations. Will plan on repeat debridement and possible Delayed primary closure early this week. Continue with conservative management for now. Admission and Anticipated Discharge Date Admission Date: October 19, 2025 Subjective Patient is a 75 year old male that presented to the ED yesterday over concerns of wet gangrene, gas gangrene and necrotizing infection. Patient is s/p right foot partial 1st ray amputation. Dressing was intact today. No new pedal complaints. Review of Systems Review of Systems: All systems reviewed & are unremarkable except as noted in HPI & below Physical Exam Cardiovascular: DP and PT pulses non-palpable. Skin: Open partial ray amputation right foot. Necrotic and granular tissue noted to the wound. Minimal bleeding noted today. Edema to the right dorsal foot. Minimal drainage today. Dry gangrene noted to the left third digit medial aspect. Neurologic: Protective and light sensation diminished. Results & Data Results & Data Vital Signs (Past 12 Hours) Vital Signs Temp Pulse Resp BP Pulse Ox O2 Del Method 10/20/25 12:03 36.7 C 10/20/25 12:00 72 14 95 10/20/25 11:00 124/60 10/20/25 11:00 62 5 L 98 10/20/25 10:00 140/59 L 10/20/25 10:00 140/59 L 10/20/25 10:00 63 15 98 10/20/25 09:00 63 16 97 10/20/25 08:51 Room Air 10/20/25 08:50 36.5 C 10/20/25 08:03 71 22 93 10/20/25 08:01 113/91 10/20/25 08:00 68 18 97 10/20/25 07:53 60 10/20/25 07:46 131/56 L 10/20/25 07:46 131/56 L 10/20/25 07:45 67 19 96 10/20/25 07:30 62 16 97 Room Air 10/20/25 07:30 129/59 L 10/20/25 07:15 56 L 7 L 99 10/20/25 07:15 139/64 10/20/25 07:00 52 L 18 100 10/20/25 07:00 141/60 H 10/20/25 06:00 56 L 5 L 99 10/20/25 06:00 147/61 H 10/20/25 06:00 147/61 H 10/20/25 06:00 147/61 H 10/20/25 06:00 147/61 H 10/20/25 06:00 147/61 H 10/20/25 05:45 126/56 L 10/20/25 05:45 126/56 L 10/20/25 05:45 126/56 L 10/20/25 05:45 126/56 L 10/20/25 05:45 126/56 L 10/20/25 05:45 53 L 10 L 99 10/20/25 05:30 133/60 10/20/25 05:30 133/60 10/20/25 05:30 133/60 10/20/25 05:30 133/60 10/20/25 05:30 133/60 10/20/25 05:30 56 L 16 99 10/20/25 05:15 132/63 10/20/25 05:15 132/63 10/20/25 05:15 132/63 10/20/25 05:15 132/63 10/20/25 05:15 132/63 10/20/25 05:15 60 11 L 99 10/20/25 05:00 57 L 17 98 10/20/25 05:00 134/57 L 10/20/25 05:00 134/57 L 10/20/25 05:00 134/57 L 10/20/25 05:00 134/57 L 10/20/25 05:00 134/57 L 10/20/25 04:45 57 L 14 98 10/20/25 04:45 131/56 L 10/20/25 04:45 131/56 L 10/20/25 04:45 131/56 L 10/20/25 04:45 131/56 L 10/20/25 04:45 131/56 L 10/20/25 04:30 58 L 5 L 97 10/20/25 04:30 138/55 L 10/20/25 04:30 138/55 L 10/20/25 04:30 138/55 L 10/20/25 04:30 138/55 L 10/20/25 04:30 138/55 L 10/20/25 04:15 57 L 7 L 97 10/20/25 04:15 134/57 L 10/20/25 04:15 134/57 L 10/20/25 04:15 134/57 L 10/20/25 04:15 134/57 L 10/20/25 04:15 134/57 L 10/20/25 04:00 58 L 17 97 10/20/25 04:00 134/59 L 10/20/25 04:00 134/59 L 10/20/25 04:00 134/59 L 10/20/25 04:00 134/59 L 10/20/25 04:00 134/59 L 10/20/25 03:45 128/56 L 10/20/25 03:45 128/56 L 10/20/25 03:45 128/56 L 10/20/25 03:45 128/56 L 10/20/25 03:45 128/56 L 10/20/25 03:45 61 12 98 10/20/25 03:30 52 L 17 97 10/20/25 03:30 134/57 L 10/20/25 03:30 134/57 L 10/20/25 03:30 134/57 L 10/20/25 03:30 134/57 L 10/20/25 03:30 134/57 L 10/20/25 03:15 126/57 L 10/20/25 03:15 126/57 L 10/20/25 03:15 126/57 L 10/20/25 03:15 126/57 L 10/20/25 03:15 126/57 L 10/20/25 03:15 50 L 17 97 10/20/25 03:00 57 L 11 L 95 10/20/25 03:00 127/56 L 10/20/25 03:00 127/56 L 10/20/25 03:00 127/56 L 10/20/25 03:00 127/56 L 10/20/25 03:00 127/56 L 10/20/25 02:45 55 L 10 L 98 10/20/25 02:45 142/66 H 10/20/25 02:45 142/66 H 10/20/25 02:45 142/66 H 10/20/25 02:45 142/66 H 10/20/25 02:45 142/66 H 10/20/25 02:30 138/60 10/20/25 02:30 138/60 (1) Diabetic foot ulcer associated with type 2 diabetes mellitus Diabetic foot ulcer location: toe Laterality: unspecified laterality Non- pressure ulcer stage: unspecified non-pressure ulcer stage Qualified Code(s): E11.621 - Type 2 diabetes mellitus with foot ulcer; L97.509 - Non-pressure chronic ulcer of other part of unspecified foot with unspecified severity
--- NOTE | 2025-10-20 14:18 | Hospitalist Progress Note ---
Date of Service October 20, 2025 Assessment & Plan (1) Necrotizing fasciitis: (2) Gas gangrene: (3) Diabetic infection of right foot: (4) PAD (peripheral artery disease): (5) Alcohol abuse: (6) GERD (gastroesophageal reflux disease): (7) Emphysema, unspecified: Plan 75 yo male with pmhx of CAD, HFpEF (EF 55%), COPD, hx of alcohol use, hx of tobacco use, toe amputations, DM Type 2, PVD, GERD who presents for big toe swelling and pain 2/2 necrotizing fascitis of right first digit. Neuro: #Shivering -resolved Cardiac: #Septic Shock, resolved #Necrotizing Fasciitis s/p Amputation -now off of pressors -source is anaerobic infection now s/p amputation POD 1 -cultures growing Proteus mirabilis Plan: -continue zosyn -f/u culture results -infectious disease consult, appreciate recs -f/u blood cultures, wound cultures -narrow abx based on culture growth -transfer to PCU due to clinical improvement and source control #HFpEF (EF 55%) #Pulmonary Edema #CAD -hold aspirin, lisinopril for now -on room air -continue IS #Severe PAD -known in both legs -2/2 uncontrolled diabetes, tobacco use Plan: -vascular studies ordered -vascular surgery consult, appreciate recs Respiratory: #COPD #Tobacco Use -smokes a pack a day -known emphysema Plan: -duonebs prn -incentive spirometer GI: #DM Type 2 -SSI ordered -needs tight glucose control 140-180 post operatively to allow healing #Alcohol Use Disorder -drinks 3-6 drinks nightly -has never had withdrawal seizures Plan: -AWSS score tracking -diazepam prn for severe withdrawal -start thiamine, folic acid, multivitamin Renal: #Chronic Hyponatremia -likely 2/2 alcohol use Plan: -f/u BMP daily MSK: -PT/OT ordered for post operative rehab (likely needed) I spent a total of 50 minutes providing critical care to the patient, including [id number] time with the patient and/or family, reviewing medical records, ordering and reviewing diagnostic tests, and coordinating care with other healthcare providers. This time includes specific activities such as managing oxygenation, pressors, labs, orders, history taking, physical examination, medical decision making, counseling, and education. Admission and Anticipated Discharge Date Admission Date: October 19, 2025 Subjective Patient seen and examined at bedside. Doing much better today. States the chills are gone and he feels fatigued, but closer to his baseline. Having some right foot pain. Review of Systems Review of Systems: -negative unless listed above Physical Exam Physical Exam: Gen: A&O 3 HEENT: NCAT, EOMI, not icteric. External ears normal. No rhinorrhea. Moist mucous membranes. Neck: Supple, full range of motion, no observable masses, No meningeal sign. Lungs: crackles/rhonchi bilaterally CV: RRR, no edema. Abdomen: Soft, nondistended, No rebound tenderness. MSK: both feet in wound care wrappings, right in surgical wrapping s/p amputation Skin: No rashes, petechiae, lesions. Normal color per patient. Neuro: Normal Gait, Grossly intact. Psych: Appropriate for situation. Results & Data Results & Data Vital Signs (Past 12 Hours) Vital Signs Temp Pulse Resp BP Pulse Ox O2 Del Method 10/20/25 14:00 56 L 16 96 10/20/25 14:00 122/60 10/20/25 14:00 122/60 10/20/25 13:00 63 16 96 10/20/25 13:00 129/61 10/20/25 12:03 36.7 C 10/20/25 12:00 119/52 L 10/20/25 12:00 72 14 95 10/20/25 11:00 124/60 10/20/25 11:00 62 5 L 98 10/20/25 10:00 140/59 L 10/20/25 10:00 140/59 L 10/20/25 10:00 63 15 98 10/20/25 09:00 63 16 97 10/20/25 08:51 Room Air 10/20/25 08:50 36.5 C 10/20/25 08:03 71 22 93 10/20/25 08:01 113/91 10/20/25 08:00 68 18 97 10/20/25 07:53 60 10/20/25 07:46 131/56 L 10/20/25 07:46 131/56 L 10/20/25 07:45 67 19 96 10/20/25 07:30 62 16 97 Room Air 10/20/25 07:30 129/59 L 10/20/25 07:15 56 L 7 L 99 10/20/25 07:15 139/64 10/20/25 07:00 52 L 18 100 10/20/25 07:00 141/60 H 10/20/25 06:00 56 L 5 L 99 10/20/25 06:00 147/61 H 10/20/25 06:00 147/61 H 10/20/25 06:00 147/61 H 10/20/25 06:00 147/61 H 10/20/25 06:00 147/61 H 10/20/25 05:45 126/56 L 10/20/25 05:45 126/56 L 10/20/25 05:45 126/56 L 10/20/25 05:45 126/56 L 10/20/25 05:45 126/56 L 10/20/25 05:45 53 L 10 L 99 10/20/25 05:30 133/60 10/20/25 05:30 133/60 10/20/25 05:30 133/60 10/20/25 05:30 133/60 10/20/25 05:30 133/60 10/20/25 05:30 56 L 16 99 10/20/25 05:15 132/63 10/20/25 05:15 132/63 10/20/25 05:15 132/63 10/20/25 05:15 132/63 10/20/25 05:15 132/63 10/20/25 05:15 60 11 L 99 10/20/25 05:00 57 L 17 98 10/20/25 05:00 134/57 L 10/20/25 05:00 134/57 L 10/20/25 05:00 134/57 L 10/20/25 05:00 134/57 L 10/20/25 05:00 134/57 L 10/20/25 04:45 57 L 14 98 10/20/25 04:45 131/56 L 10/20/25 04:45 131/56 L 10/20/25 04:45 131/56 L 10/20/25 04:45 131/56 L 10/20/25 04:45 131/56 L 10/20/25 04:30 58 L 5 L 97 10/20/25 04:30 138/55 L 10/20/25 04:30 138/55 L 10/20/25 04:30 138/55 L 10/20/25 04:30 138/55 L 10/20/25 04:30 138/55 L 10/20/25 04:15 57 L 7 L 97 10/20/25 04:15 134/57 L 10/20/25 04:15 134/57 L 10/20/25 04:15 134/57 L 10/20/25 04:15 134/57 L 10/20/25 04:15 134/57 L 10/20/25 04:00 58 L 17 97 10/20/25 04:00 134/59 L 10/20/25 04:00 134/59 L 10/20/25 04:00 134/59 L 10/20/25 04:00 134/59 L 10/20/25 04:00 134/59 L 10/20/25 03:45 128/56 L 10/20/25 03:45 128/56 L 10/20/25 03:45 128/56 L 10/20/25 03:45 128/56 L 10/20/25 03:45 128/56 L 10/20/25 03:45 61 12 98 10/20/25 03:30 52 L 17 97 10/20/25 03:30 134/57 L 10/20/25 03:30 134/57 L 10/20/25 03:30 134/57 L 10/20/25 03:30 134/57 L 10/20/25 03:30 134/57 L 10/20/25 03:15 126/57 L 10/20/25 03:15 126/57 L 10/20/25 03:15 126/57 L 10/20/25 03:15 126/57 L 10/20/25 03:15 126/57 L 10/20/25 03:15 50 L 17 97 10/20/25 03:00 57 L 11 L 95 10/20/25 03:00 127/56 L 10/20/25 03:00 127/56 L 10/20/25 03:00 127/56 L 10/20/25 03:00 127/56 L 10/20/25 03:00 127/56 L 10/20/25 02:45 55 L 10 L 98 10/20/25 02:45 142/66 H 11/23/25 02:45 142/66 H 10/20/25 02:45 142/66 H 10/20/25 02:45 142/66 H 10/20/25 02:45 142/66 H 10/20/25 02:30 138/60 10/20/25 02:30 138/60 Laboratory Results -personally reviewed, uptitrating leukocytosis expected in setting of anaerobic disease, Na at baseline, calcium 8 and replenished Medications Administered Acetaminophen (Acetaminophen 500 Mg Tab) 1,000 mg PO Q8 BRIGETTE Stop: 11/18/25 21:59 Last Admin: 10/20/25 06:21 Dose: Not Given Documented By: Admin: 10/19/25 22:01 Dose: 1,000 mg Documented By: TP Diazepam (Diazepam 5 Mg Tablet) 5 mg PO UD PRN; Protocol PRN Reason: AWSS 6 & Above Stop: 11/18/25 15:48 Last Admin: 10/19/25 22:01 Dose: 5 mg Documented By: TP Heparin Sodium (Porcine) (Heparin Sod 5,000 Unit/0.5 Ml Vial) 5,000 units SQ Q12 BRIGETTE Stop: 11/18/25 20:59 Last Admin: 10/20/25 08:12 Dose: 5,000 units Documented By: Admin: 10/19/25 22:02 Dose: 5,000 units Documented By: TP Hydromorphone HCl (Hydromorphone Inj 0.5 Mg/0.5 Ml Syr) 0.5 mg IV Q3HWA PRN PRN Reason: Breakthrough Pain Stop: 11/03/25 10:09 Last Admin: 10/20/25 10:23 Dose: 0.5 mg Documented By: LINDA Piperacillin Sod/Tazobactam Sod (Zosyn) 4.5 gm in 100 mls @ 25 mls/hr IV Q8H BRIGETTE; Protocol Stop: 10/26/25 19:59 Last Admin: 10/20/25 11:53 Dose: 25 mls/hr Documented By: Infusion: 10/20/25 08:13 Dose: Infused Documented By: Admin: 10/20/25 04:08 Dose: 25 mls/hr Documented By: Infusion: 10/20/25 00:18 Dose: Infused Documented By: Admin: 10/19/25 20:18 Dose: 25 mls/hr Documented By: ANGEL Pantoprazole Sodium (Protonix) 40 mg in 10 mls @ 5 mls/min IV DAILY BRIGETTE Stop: 11/18/25 18:29 Last Admin: 10/20/25 08:13 Dose: 5 mls/min Documented By: Admin: 10/19/25 19:31 Dose: Not Given Documented By: TP Insulin Aspart (Insulin Aspart Per Unit Charge) 0 units SC ACHS BRIGETTE Stop: 11/18/25 16:29 Last Admin: 10/20/25 11:52 Dose: 2 units Documented By: LINDA Co-signed By: HILDA Admin: 10/20/25 08:17 Dose: 3 units Documented By: LINDA Co-signed By: JOSÉ MIGUEL Admin: 10/19/25 20:26 Dose: Not Given Documented By: Admin: 10/19/25 19:30 Dose: Not Given Documented By: ANGEL Magnesium Oxide (Magnesium Oxide 400 Mg Tab) 400 mg PO BID BRIGETTE Stop: 10/22/25 10:44 Last Admin: 10/20/25 11:53 Dose: 400 mg Documented By: LINDA Multivitamins (Multivitamin Tab) 1 tab PO QAM BRIGETTE Stop: 11/19/25 08:59 Last Admin: 10/20/25 08:13 Dose: 1 tab Documented By: LINDA Thiamine HCl (Thiamine Hcl 100 Mg Tab) 100 mg PO QAM BRIGETTE Stop: 11/19/25 08:59 Last Admin: 10/20/25 08:13 Dose: 100 mg Documented By: LINDA
[2025-10-20] MEDS: LINEZOLID 600 MG/300 ML BAG IV SCH (17:44)
--- NOTE | 2025-10-20 19:53 | Electrocardiogram Report ---
Test Reason : Blood Pressure : */* mmHG Vent. Rate : 71 BPM Atrial Rate : 71 BPM P-R Int : 152 ms QRS Dur : 108 ms QT Int : 402 ms P-R-T Axes : 67 5 67 degrees QTcB Int : 436 ms Normal sinus rhythm Non-specific intra-ventricular conduction delay Nonspecific ST abnormality Abnormal ECG When compared with ECG [id number] 08:22, in comparison with previous ekg, no change Confirmed by Dania Chanel ([id number]) on 10/20/2025 7:53:07 PM Referred By: Confirmed By: Dania Chanel
[2025-10-21 06:42] LABS: Hematocrit (blood only) 25.8 % (42.0-52.0); Hemoglobin 8.9 g/dL (14.0-18.0); Mean Corpuscular Hemoglobin 32.6 pg (25.0-34.0); Mean Corpuscular Volume 94.5 fL (80.0-100.0); Platelet Count 295 K/uL (130-400); RDW Standard Deviation 42.9 fL (36.4-46.3); Red Blood Count 2.73 M/uL (4.70-6.10); White Blood Count 8.70 K/ul (4.8-10.8)
[2025-10-21 07:04] LABS: Anion Gap 5.0 (3-11); Blood Urea Nitrogen 33.0 mg/dl (6-23); Calcium 7.7 mg/dl (8.6-10.3); Carbon Dioxide 22.0 mmol/L (21-32); Chloride 107.0 mmol/L (98-107); Creatinine Clr Calc Pharmacy 43.1 ml/min; Glucose 115.0 mg/dl (70-99(Fasting)); Magnesium 1.8 mg/dl (1.7-2.4); Potassium 4.3 mmol/L (3.5-5.1); Sodium 134.0 mmol/L (136-145)
[2025-10-21] MEDS: CALCIUM GLUCONATE 1,000 MG/60 ML BAG IV STA (08:03)
[2025-10-21] MEDS: cefTRIAXone SODIUM 2,000 MG/50 ML BAG IV SCH (09:14)
[2025-10-21] MEDS: OPTIRAY 320 125ml IV ONE (10:57)
[2025-10-21] MEDS: LACTATED RINGER'S 1,000 ML IV SCH (12:58)
--- NOTE | 2025-10-21 13:09 | Hospitalist Progress Note ---
Date of Service October 21, 2025 Assessment & Plan (1) Necrotizing fasciitis: (2) Gas gangrene: (3) Diabetic infection of right foot: (4) PAD (peripheral artery disease): (5) Alcohol abuse: (6) GERD (gastroesophageal reflux disease): (7) Emphysema, unspecified: Plan 75 yo male with pmhx of CAD, HFpEF (EF 55%), COPD, hx of alcohol use, hx of tobacco use, toe amputations, DM Type 2, PVD, GERD who presents for big toe swelling and pain 2/2 necrotizing fascitis of right first digit. #Septic Shock, resolved #Necrotizing Fasciitis s/p Amputation -now off of pressors -source is anaerobic infection now s/p amputation POD 1 -cultures growing Proteus mirabilis Plan: -stop zosyn, switch to ceftriaxone given sensitivities -will be returning to OR for closure and repeat debridement -f/u culture results -infectious disease consult, appreciate recs #HFpEF (EF 55%) #Pulmonary Edema #CAD -on room air -continue IS #Severe PAD -known in both legs -2/2 uncontrolled diabetes, tobacco use Plan: -vascular studies ordered -vascular surgery consult, appreciate recs #COPD #Tobacco Use -smokes a pack a day -known emphysema Plan: -duonebs prn -incentive spirometer #DM Type 2 -SSI ordered -needs tight glucose control 140-180 post operatively to allow healing #Alcohol Use Disorder -drinks 3-6 drinks nightly -has never had withdrawal seizures Plan: -AWSS score tracking -diazepam prn for severe withdrawal -start thiamine, folic acid, multivitamin #Chronic Hyponatremia #KATI -likely 2/2 infection, poor PO intake Plan: -give gentle fluids for KATI MSK: -PT/OT ordered for post operative rehab (likely needed) I spent a total of 50 minutes in direct patient care, including [id number] time with the patient and/or family, reviewing medical records, ordering and reviewing diagnostic tests, and coordinating care with other healthcare providers. This time includes: history taking, physical examination, medical decision making, counseling, ECG interpretation, imaging interpretation, lab interpretation, orders, and education, excluding time spent in the performance of separately billed services. Admission and Anticipated Discharge Date Admission Date: October 19, 2025 Subjective Patient seen and examined at bedside. Patient doing well today. States foot pain is controlled. Feels at baseline. Review of Systems Review of Systems: -negative unless listed above Physical Exam Physical Exam: Gen: A&O 3 HEENT: NCAT, EOMI, not icteric. External ears normal. No rhinorrhea. Moist mucous membranes. Neck: Supple, full range of motion, no observable masses, No meningeal sign. Lungs: crackles/rhonchi bilaterally CV: RRR, no edema. Abdomen: Soft, nondistended, No rebound tenderness. MSK: both feet in wound care wrappings, right in surgical wrapping s/p amputation Skin: No rashes, petechiae, lesions. Normal color per patient. Neuro: Normal Gait, Grossly intact. Psych: Appropriate for situation. Results & Data Results & Data Vital Signs (Past 12 Hours) Vital Signs Pulse Pulse Resp BP Pulse Ox O2 Del Method 10/21/25 08:00 54 L 10/21/25 07:27 64 17 154/68 H 98 Room Air Laboratory Results -personally reviewed, Hgb downtrending post procedure, no leukocytosis, creatinine 1.53 uptrending Medications Administered Acetaminophen (Acetaminophen 500 Mg Tab) 1,000 mg PO Q8 BRIGETTE Stop: 11/18/25 21:59 Last Admin: 10/21/25 05:50 Dose: Not Given Documented By: Admin: 10/20/25 21:02 Dose: 1,000 mg Documented By: Admin: 10/20/25 14:49 Dose: Not Given Documented By: Admin: 10/20/25 06:21 Dose: Not Given Documented By: Admin: 10/19/25 22:01 Dose: 1,000 mg Documented By: TP Diazepam (Diazepam 5 Mg Tablet) 5 mg PO UD PRN; Protocol PRN Reason: AWSS 6 & Above Stop: 11/18/25 15:48 Last Admin: 10/20/25 21:02 Dose: 5 mg Documented By: Admin: 10/19/25 22:01 Dose: 5 mg Documented By: TP Heparin Sodium (Porcine) (Heparin Sod 5,000 Unit/0.5 Ml Vial) 5,000 units SQ Q12 BRIGETTE Stop: 11/18/25 20:59 Last Admin: 10/21/25 08:03 Dose: 5,000 units Documented By: vish Admin: 10/20/25 21:05 Dose: 5,000 units Documented By: Admin: 10/20/25 08:12 Dose: 5,000 units Documented By: [facility] Admin: 10/19/25 22:02 Dose: 5,000 units Documented By: TP Hydromorphone HCl (Hydromorphone Inj 0.5 Mg/0.5 Ml Syr) 0.5 mg IV Q3HWA PRN PRN Reason: Breakthrough Pain Stop: 11/03/25 10:09 Last Admin: 10/21/25 05:30 Dose: 0.5 mg Documented By: Admin: 10/20/25 17:44 Dose: 0.5 mg Documented By: Admin: 10/20/25 10:23 Dose: 0.5 mg Documented By: LINDA Pantoprazole Sodium (Protonix) 40 mg in 10 mls @ 5 mls/min IV DAILY BRIGETTE Stop: 11/18/25 18:29 Last Admin: 10/21/25 08:04 Dose: 5 mls/min Documented By: vish Admin: 10/20/25 08:13 Dose: 5 mls/min Documented By: Admin: 10/19/25 19:31 Dose: Not Given Documented By: ANGEL Linezolid (Zyvox) 600 mg in 300 mls @ 200 mls/hr IV Q12H BRIGETTE Stop: 10/27/25 17:59 Last Infusion: 10/21/25 07:04 Dose: Infused Documented By: vish Admin: 10/21/25 05:32 Dose: 200 mls/hr Documented By: Infusion: 10/20/25 19:14 Dose: Infused Documented By: Admin: 10/20/25 17:44 Dose: 200 mls/hr Documented By: LINDA Ceftriaxone Sodium (Rocephin) 2,000 mg in 50 mls @ 100 mls/hr IV Q24H BRIGETTE Stop: 10/28/25 07:59 Last Infusion: 10/21/25 09:47 Dose: Infused Documented By: Admin: 10/21/25 09:14 Dose: 100 mls/hr Documented By: vish Lactated Ringer's (Lr) 1,000 mls @ 80 mls/hr IV .[id number] BRIGETTE Stop: 10/22/25 00:00 Last Admin: 10/21/25 12:58 Dose: 80 mls/hr Documented By: vish Insulin Aspart (Insulin Aspart Per Unit Charge) 0 units SC ACHS [facility] Stop: 11/18/25 16:29 Last Admin: 10/21/25 12:42 Dose: Not Given Documented By: vish Admin: 10/21/25 07:59 Dose: Not Given Documented By: vish Admin: 10/20/25 21:01 Dose: 1 units Documented By: ANGEL Co-signed By: KARMEN Admin: 10/20/25 16:58 Dose: Not Given Documented By: Admin: 10/20/25 11:52 Dose: 2 units Documented By: LINDA Co-signed By: HILDA Admin: 10/20/25 08:17 Dose: 3 units Documented By: LINDA Co-signed By: JOSÉ MIGUEL Admin: 10/19/25 20:26 Dose: Not Given Documented By: Admin: 10/19/25 19:30 Dose: Not Given Documented By: ANGEL Magnesium Oxide (Magnesium Oxide 400 Mg Tab) 400 mg PO BID [facility] Stop: 10/22/25 10:44 Last Admin: 10/21/25 08:04 Dose: 400 mg Documented By: vish Admin: 10/20/25 21:05 Dose: 400 mg Documented By: Admin: 10/20/25 11:53 Dose: 400 mg Documented By: LINDA Multivitamins (Multivitamin Tab) 1 tab PO [facility] Stop: 11/19/25 08:59 Last Admin: 10/21/25 08:04 Dose: 1 tab Documented By: vish Admin: 10/20/25 08:13 Dose: 1 tab Documented By: LINDA Oxycodone HCl (Oxycodone Hcl Ir 5 Mg Tab (Immediate Release)) 5 mg PO Q3HWA PRN PRN Reason: Severe Pain (Scale 7, 8, 9,10) Stop: 11/03/25 10:09 Last Admin: 10/21/25 09:14 Dose: 5 mg Documented By: vish Thiamine HCl (Thiamine Hcl 100 Mg Tab) [facility] [place] Stop: 11/19/25 08:59 Last Admin: 10/21/25 08:04 Dose: 100 mg Documented By: vish Admin: 10/20/25 08:13 Dose: 100 mg Documented By: LINDA
--- NOTE | 2025-10-21 13:52 | CT Scan Report ---
CT angio abd pelvis wo/w con CLINICAL HISTORY: right foot infection, plan for angiogram COMPARISON STUDY: 01/15/2023 FINDINGS: There are very small bilateral pleural effusions with mild adjacent lung base atelectasis. ABDOMEN: Liver, spleen, and adrenal glands are unremarkable. There are a few small cystic findings at the pancreas measuring up to 1.2 cm, stable. Kidneys show no hydronephrosis bilaterally. Pelvis: Soriano catheter is present. Urinary bladder is decompressed. Prostate is enlarged. There is an interval 4 cm oval fluid collection in the subcutaneous soft tissues of the right groin, postoperati ve seroma versus abscess. There is moderate retained stool. No bowel inflammation or obstruction. The re is trace low pelvic free fluid. No free air seen. There is lumbar degenerative disc disease. Vascular findings: There is diffuse atherosclerotic plaque. There is a small focal dissection at the infrarenal abdominal aorta just below the renal arteries. No abdominal aortic aneurysm. No significan t aortic luminal narrowing. Mesenteric and renal arteries are patent. Bilateral common, internal, and external iliac and bilateral common femoral arteries show no significant narrowing. There is mild na rrowing proximally at the left superficial femoral artery. Visualized arterial outflow shows no other significant narrowing. IMPRESSION: 1. Diffuse atherosclerosis. Small focal dissection at the infrarenal abdominal aorta without signific ant aortic luminal narrowing. 2. Mild narrowing proximally at the left SFA. 3. Small postoperative seroma versus subcutaneous abscess right inguinal region. 4. Otherwise as described. ACT 112: Negative or not required by law. Electronically signed by: Edward Rivera M.D. 10/21/2025 1:51 PM
--- NOTE | 2025-10-21 14:26 | Infectious Disease Consult ---
Date of Service October 21, 2025 Telehealth Information I performed this visit using a real-time telehealth connection between my location and the patients location ([facility]). After connecting through interactive tele-video, patient was identified by name and date of and/or wristband check.Patient (or authorized healthcare rental sales representative) was informed that this was a telemedicine visit and it was being conducted confidentially over secure lines. My office door was closed and no one else was present in the room with me.Patient (or authorized healthcare rental sales representative) provided consent to proceed with the visit, expressed an understanding of privacy and security of the telemedicine visit, and gave permission to have a hospital rental sales representative in the room in order to assist with the visit and to conduct portions of the visit, as needed. I informed the patient (or authorized healthcare rental sales representative) that I reviewed their record and presented the opportunity for them to ask any questions regarding the visit today. The patient agreed to participate. Assessment & Plan (1) Gangrene of toe of right foot: (2) Septic shock: (3) Status post amputation of toe of right foot: (4) Diabetic infection of right foot: (5) PAD (peripheral artery disease): Plan Since the patient has been off pressors for > 24 hours and the source of infection has been controlled, I would recommend deescalating IV ceftriaxone to Unasyn (based on sensitivities). Can continue linezolid today. If by tomorrow, cultures continue to be negative for MRSA, I would recommend stopping linezolid. If no further surgeries are planned, he will likely go home on IV Unasyn for a total duration of 6 weeks to treat his residual osteomyelitis. History of Present Illness History of Present Illness Mr. Arrieta is a 75-year-old man with past medical history of CAD, heart failure preserved ejection fraction, COPD, alcohol use disorder, type 2 diabetes with peripheral neuropathy, and peripheral vascular disease who was admitted to [facility] on 10/19 with the swelling and redness of the right big toe. On presentation, he was found to have gangrenous changes of the right big toe and was taken to the OR by Podiatry who performed right foot partial 1st ray amputation on 10/19. Because of being hypotensive and tachycardic after the surgery, he had to be admitted to the ICU for vasopressors requirement, but he was weaned off pressors in less than 24 hours and has been doing well since then. So far, all intraoperative cultures are growing Proteus mirabilis. ID team was consulted for further recommendations and to help guide antibiotic treatment. Allergies Allergy/AdvReac Type Severity Reaction Status Date / Time No Known Allergies Allergy Verified 06/17/25 05:35 Home Medications Medication Instructions Recorded Confirmed Type multivitamin 1 tab PO DAILY 01/05/21 10/19/25 History aspirin 81 mg tablet,delayed 81 mg PO QAM #30 tabs 02/08/21 10/19/25 Rx release ibuprofen 200 mg tablet (Advil) 800 mg PO Q8H PRN Pain 02/16/25 10/19/25 History lisinopril 10 mg tablet 20 mg PO QDL 02/16/25 10/19/25 History metformin 500 mg tablet 1,000 mg PO DAILY 02/16/25 10/19/25 History docusate sodium 100 mg tablet 100 mg PO DAILY 05/24/25 10/19/25 History oxycodone-acetaminophen 5 mg-325 1 tab PO Q6H PRN pain #10 tabs 06/17/25 10/19/25 Rx mg tablet (Percocet) Patient History Medical History Emphysema, unspecified not agreeable to PFTs advised by [facility] PCP Dysphagia pt not agreeable to advise EGD per [facility] PCP records Anemia pt not agreeable to advise EGD per [facility] PCP records Aortic valve stenosis mild Alcohol abuse 6-8 beers daily Hx of gastroesophageal reflux (GERD) controlled, stable per pt Hx of osteomyelitis (~2021) Type 2 diabetes mellitus History of CVA (cerebrovascular accident) (~2020) Around 2020> resulting "balance issues" > no longer sees neuro Poor historian Hx of pneumothorax (~2020) right side > prior to 2020 > felt related to strain of body from work > drained and resolved Hypertension controlled, stable per pt Surgical History Hx of hernia repair Laparoscopic Bilateral Inguinal Hernia Repair with Mesh Hx of endoscopic retrograde cholangiopancreatography with stent History of colonoscopy History of tooth extraction *hx of and plans for all upper teeth to be removed on June 06, 2025 Amputation toe left foot, big toe, then 2nd toe History of knee surgery right, arthroscopic Family History Father Stroke Social History Smoking Status: Current every day smoker Tobacco Type: Cigarettes Cigarettes Per Day: 1.5 PPD; Second Hand Exposure: No; Do You Dip or Chew Tobacco: No; Hx Alcohol Use: Yes Alcohol type: beer Hx Substance Use: No Preferred Language: Swedish Communication Ability: Effective Communication Ability Comment: "doesn't read or write well" Wedding Day Coordinator Required: No Beliefs That Will Affect Care: None Current Living Situation: Alone Current Living Situation Comment: Reports living Independently in an apartment. Other Information That Helps Us Care for You: No Feels Safe at Home: Yes Safety Concerns: Feels Safe At This Time Assistive Devices: Denture - Upper and Glasses Review of Systems Negative except for what was mentioned in the H&P. Physical Exam Could not be performed as the visit was conducted via TeleMed. Results & Data Vital Signs (Past 12 Hours) Vital Signs Pulse Pulse Resp BP Pulse Ox O2 Del Method 10/21/25 08:00 54 L 10/21/25 07:27 64 17 154/68 H 98 Room Air Laboratory Results Microbiology: 10/19: 2 sets of blood culture negative to date 10/19: Multiple intraoperative tissue cultures including bone culture growing Proteus mirabilis and bacteroides
--- NOTE | 2025-10-21 15:51 | Vascular Surgery Progress Note ---
Date of Service October 21, 2025 Assessment & Plan (1) Diabetic infection of right foot: Plan: He has diabetic foot disease and likely some overlying peripheral arterial disease. CTA abdomen/pelvis ordered to assess femoral arteries for planning for angiogram-reviewed, will plan for angiogram tomorrow afternoon of the right leg via left FOOD SERVICES MANAGER access. He will need to be NPO after midnight and continue IV antibiotics. Continue local wound care per podiatry. Admission and Anticipated Discharge Date Admission Date: October 19, 2025 Subjective Doing well this morning. Went to OR on 10/19 for right partial 1st ray amputation for concerns for wet gangrene/necrotizing infection with Dr. Jolly. 10ml purulent drainage noted, with minimal bleeding and osteonecrosis of right hallux and first metatarsal. All cultures taken in OR positive for proteus mirabilis. Leukocytosis now resolved, and he is out of ICU off of pressors. He remains on IV antibiotics. Denies fevers, chills. Has some pain in right foot at amputation site that is controlled. Physical Exam Physical Exam: WDWN, in no distress, sitting up in bed. Right foot dressing in place, clean, dry, intact. Results & Data Vital Signs (Past 12 Hours) Vital Signs Pulse Pulse Resp BP Pulse Ox O2 Del Method 10/21/25 15:36 64 22 160/92 H 97 Room Air 10/21/25 08:00 54 L 10/21/25 07:27 64 17 154/68 H 98 Room Air Laboratory Results 10/19/25 16:15 Gram Stain - Final Toe,Right Great Aerobic and Anaerobic Culture - Preliminary Proteus mirabilis Bacteroides ovatus group 10/19/25 16:15 Gram Stain - Final Toe,Right Great Aerobic and Anaerobic Culture - Preliminary Proteus mirabilis Bacteroides ovatus group 10/19/25 16:15 Gram Stain - Final Toe,Right Great Aerobic and Anaerobic Culture - Preliminary Proteus mirabilis Bacteroides ovatus group 10/19/25 16:15 Gram Stain - Final Toe,Right Great Aerobic and Anaerobic Culture - Preliminary Proteus mirabilis Bacteroides ovatus group 10/19/25 13:18 Gram Stain - Final Toe Wound Culture - Final Proteus mirabilis 10/19/25 13:16 Aerobic Blood Culture - Preliminary Blood No growth in Aerobic bottle after 48 hours. Anaerobic Blood Culture - Preliminary No growth in Anaerobic bottle after 48 hours. 10/19/25 13:16 Aerobic Blood Culture - Preliminary Blood No growth in Aerobic bottle after 48 hours. Anaerobic Blood Culture - Preliminary No growth in Anaerobic bottle after 48 hours. 10/19/25 16:15 Fungal Smear - Final Bone Fungal Culture - Preliminary No yeast or fungus isolated - Report 1, Additional Report to Follow. 10/19/25 16:15 Fungal Smear - Final Tissue,Undefined Fungal Culture - Preliminary No yeast or fungus isolated - Report 1, Additional Report to Follow. 10/21/25 10/21/25 10/21/25 12:12 07:29 05:56 WBC 8.70 RBC 2.73 L Hgb 8.9 L Hct 25.8 L MCV 94.5 MCH 32.6 MCHC 34.5 RDW Std Deviation 42.9 RDW Coeff of Mateusz 12.3 Plt Count 295 MPV 9.2 L Sodium 134 L Potassium 4.3 Chloride 107 Carbon Dioxide 22 Anion Gap 5 BUN 33 H Creatinine 1.53 H Est Cr Clr Drug Dosing 43.1 eGFR 46.53 BUN/Creatinine Ratio 21.6 H Glucose 115 H POC Glucose 132 H 143 H Calcium 7.7 L Phosphorus 3.4 D Magnesium 1.8 10/20/25 10/20/25 20:55 16:17 WBC RBC Hgb Hct MCV MCH MCHC RDW Std Deviation RDW Coeff of Mateusz Plt Count MPV Sodium Potassium Chloride Carbon Dioxide Anion Gap BUN Creatinine Est Cr Clr Drug Dosing eGFR BUN/Creatinine Ratio Glucose POC Glucose 195 H 125 H Calcium Phosphorus Magnesium Medications Administered Home Medications Medication Instructions Recorded Confirmed Last Taken multivitamin 1 tab PO DAILY 01/05/21 10/19/25 06/16/25 06:00 aspirin 81 mg tablet,delayed 81 mg PO QAM #30 tabs 02/08/21 10/19/25 06/16/25 12:00 release ibuprofen 200 mg tablet (Advil) 800 mg PO Q8H PRN Pain 02/16/25 10/19/25 06/15/25 12:00 lisinopril 10 mg tablet 20 mg PO QDL 02/16/25 10/19/25 06/16/25 12:00 metformin 500 mg tablet 1,000 mg PO DAILY 02/16/25 10/19/25 06/16/25 12:00 docusate sodium 100 mg tablet 100 mg PO DAILY 05/24/25 10/19/2525 12:00 oxycodone-acetaminophen 5 mg-325 1 tab PO Q6H PRN pain #10 tabs 06/17/25 10/19/25 Unknown mg tablet (Percocet) Active Medications Generic Name Dose Route Start Last Admin Trade Name Freq PRN Reason Stop Dose Admin Acetaminophen 1,000 mg 10/19/25 22:00 10/21/25 14:14 Acetaminophen 500 Mg Tab PO 11/18/25 21:59 1,000 mg Q8 BRIGETTE Administration Diazepam 5 mg 10/19/25 15:49 10/20/25 21:02 Diazepam 5 Mg Tablet PO 11/18/25 15:48 5 mg UD PRN Administration AWSS 6 & Above Protocol Heparin Sodium (Porcine) 5,000 units 10/19/25 21:00 10/21/25 08:03 Heparin Sod 5,000 Unit/0.5 Ml Vial SQ 11/18/25 20:59 5,000 units Q12 BRIGETTE Administration Hydromorphone HCl 0.5 mg 10/20/25 10:10 10/21/25 05:30 Hydromorphone Inj 0.5 Mg/0.5 Ml Syr IV 11/03/25 10:09 0.5 mg Q3HWA PRN Administration Breakthrough Pain Pantoprazole Sodium 40 mg in 10 mls @ 5 mls/min 10/19/25 18:30 10/21/25 08:04 Protonix IV 11/18/25 18:29 5 mls/min DAILY BRIGETTE Administration Linezolid 600 mg in 300 mls @ 200 mls/hr 10/20/25 18:00 10/21/25 07:04 Zyvox IV 10/27/25 17:59 Infused Q12H BRIGETTE Infusion Lactated Ringer's 1,000 mls @ 80 mls/hr 10/21/25 11:30 10/21/25 12:58 Lr IV 10/22/25 00:00 80 mls/hr .[id number] BRIGETTE Administration Insulin Aspart 0 units 10/19/25 16:30 10/21/25 12:42 Insulin Aspart Per Unit Charge SC 11/18/25 16:29 Not Given ACHS BRIGETTE Magnesium Oxide 400 mg 10/20/25 10:45 10/21/25 08:04 Magnesium Oxide 400 Mg Tab PO 10/22/25 10:44 400 mg BID BRIGETTE Administration Multivitamins 1 tab 10/20/25 09:00 10/21/25 08:04 Multivitamin Tab PO 11/19/25 08:59 1 tab QAM BRIGETTE Administration Oxycodone HCl 5 mg 10/20/25 10:10 10/21/25 14:15 Oxycodone Hcl Ir 5 Mg Tab (Immediate Release) PO 11/03/25 10:09 5 mg Q3HWA PRN Administration Severe Pain (Scale 7, 8, 9,10) Thiamine HCl 100 mg 10/20/25 09:00 10/21/25 08:04 Thiamine Hcl 100 Mg Tab PO 11/19/25 08:59 100 mg QAM BRIGETTE Administration PG Care Time/CCT Total # of Minutes Spent Total Time Spent with Patient: Total time spent is greater than 50% in coordination of care (as documented) at patient's floor/unit and/or counseling patient:
[2025-10-21] MEDS: AMPICILLIN/SULBACTAM SOD 3,000 MG/100 ML BAG IV SCH (16:54)
--- NOTE | 2025-10-21 17:10 | Podiatry Progress Note ---
Date of Service October 21, 2025 Assessment & Plan (1) Diabetic foot ulcer associated with type 2 diabetes mellitus: (2) PAD (peripheral artery disease): (3) Diabetic infection of right foot: (4) Gas gangrene: (5) Necrotizing fasciitis: (6) Cellulitis and abscess of foot: Plan -Notes, imaging, and labs reviewed. -Cultures:final cultures pending -Xrays: 1. Anaerobic infection first toe. No plain radiographic evidence of acute osteomyelitis. 2. Changes of the 1st and 2nd proximal phalanges could reflect chronic osteomyelitis or old trauma. -Infectious disease consulted. Appreciate recommendations -Vascular surgery consulted. Appreciate recommendations. -Dressing: Betadine soaked kerlix and DSD. Daily changes. betadine to left third digit. -S/P right foot open partial first ray amputation 10/19/25. -Patient is scheduled for angiogram with vascular team 10/22/25. Will follow findings and appreciate recommendations. Tentatively will plan for right foot repeat debridement and possible delayed primary closure 10/23/25. Continue with dressing changes and conservative management for now. Admission and Anticipated Discharge Date Admission Date: October 19, 2025 Subjective Patient is a 75 year old male that presented to the ED yesterday over concerns of wet gangrene, gas gangrene and necrotizing infection. Patient is s/p right foot partial 1st ray amputation 10/19/25. Dressing was intact today. No new pedal complaints. Patient accompanied by daughter and grandson. Review of Systems Review of Systems: All systems reviewed & are unremarkable except as noted in HPI & below Physical Exam Cardiovascular: DP and PT pulses non-palpable. Skin: Open partial ray amputation right foot. Necrotic and granular tissue noted to the wound. Minimal bleeding noted today. Edema to the right dorsal foot. Minimal drainage today. Ecchymosis noted to the dorsal right foot. Dry gangrene noted to the left third digit medial aspect. Neurologic: Protective and light sensation diminished. Results & Data Results & Data Vital Signs (Past 12 Hours) Vital Signs Pulse Pulse Resp BP Pulse Ox O2 Del Method 10/21/25 16:00 80 10/21/25 15:36 64 22 160/92 H 97 Room Air 10/21/25 08:00 54 L 10/21/25 07:27 64 17 154/68 H 98 Room Air (1) Diabetic foot ulcer associated with type 2 diabetes mellitus Diabetic foot ulcer location: toe Laterality: unspecified laterality Non- pressure ulcer stage: unspecified non-pressure ulcer stage Qualified Code(s): E11.621 - Type 2 diabetes mellitus with foot ulcer; L97.509 - Non-pressure chronic ulcer of other part of unspecified foot with unspecified severity
[2025-10-22 06:00] LABS: Hematocrit (blood only) 27.0 % (42.0-52.0); Hemoglobin 9.7 g/dL (14.0-18.0); Mean Corpuscular Hemoglobin 33.4 pg (25.0-34.0); Mean Corpuscular Volume 93.1 fL (80.0-100.0); Platelet Count 326 K/uL (130-400); RDW Standard Deviation 40.9 fL (36.4-46.3); Red Blood Count 2.90 M/uL (4.70-6.10); White Blood Count 9.53 K/ul (4.8-10.8)
[2025-10-22 06:19] LABS: Anion Gap 4.0 (3-11); Blood Urea Nitrogen 23.0 mg/dl (6-23); Calcium 7.7 mg/dl (8.6-10.3); Carbon Dioxide 22.0 mmol/L (21-32); Chloride 108.0 mmol/L (98-107); Creatinine Clr Calc Pharmacy 61.0 ml/min; Glucose 96.0 mg/dl (70-99(Fasting)); Potassium 4.5 mmol/L (3.5-5.1); Sodium 134.0 mmol/L (136-145)
[2025-10-22 06:23] LABS: INR 1.1 (0.9-1.1); Prothrombin Time 11.5 Seconds (9.0-12.0)
[2025-10-22] MEDS: CALCIUM GLUCONATE 1,000 MG/60 ML BAG IV STA (08:01)
--- NOTE | 2025-10-22 08:32 | Vascular Surgery Progress Note ---
<Statement entered by Chacho Drew MD - 10/22/25 08:34> Plan for right lower extremity arteriogram today. Date of Service October 22, 2025 Assessment & Plan (1) Diabetic infection of right foot: Plan: He has diabetic foot disease and likely some overlying peripheral arterial disease. Scheduled for RLE angiogram via LCFA access this afternoon. Please keep NPO Labs reviewed, Cr 1.08-ok for contrast delivery today. Continue local wound care per podiatry, antibiotics per ID. Consent obtained this morning and on chart. Admission and Anticipated Discharge Date Admission Date: October 19, 2025 Subjective Did well overnight, vitals stable, afebrile. No complaints this morning. He is NPO for RLE angiogram early this afternoon with sedation. Physical Exam Physical Exam: WDWN, in no distress, sitting up in bed. Normal respiratory effort Right foot dressing in place, clean, dry, intact. Results & Data Vital Signs (Past 12 Hours) Vital Signs Temp Pulse Pulse Resp BP Pulse Ox O2 Del Method 10/22/25 08:15 63 14 172/76 H 99 Room Air 10/21/25 23:43 54 L 10/21/25 23:29 36.6 C 49 L 16 143/70 H 97 Room Air 10/21/25 21:24 36.5 C 56 L 19 168/69 H 97 Room Air Laboratory Results 10/19/25 16:15 Gram Stain - Final Toe,Right Great Aerobic and Anaerobic Culture - Preliminary Proteus mirabilis Bacteroides ovatus group 10/19/25 16:15 Gram Stain - Final Toe,Right Great Aerobic and Anaerobic Culture - Preliminary Proteus mirabilis Bacteroides ovatus group 10/19/25 16:15 Gram Stain - Final Toe,Right Great Aerobic and Anaerobic Culture - Preliminary Proteus mirabilis Bacteroides ovatus group 10/19/25 16:15 Gram Stain - Final Toe,Right Great Aerobic and Anaerobic Culture - Preliminary Proteus mirabilis Bacteroides ovatus group 10/19/25 13:18 Gram Stain - Final Toe Wound Culture - Final Proteus mirabilis 10/19/25 13:16 Aerobic Blood Culture - Preliminary Blood No growth in Aerobic bottle after 48 hours. Anaerobic Blood Culture - Preliminary No growth in Anaerobic bottle after 48 hours. 10/19/25 13:16 Aerobic Blood Culture - Preliminary Blood No growth in Aerobic bottle after 48 hours. Anaerobic Blood Culture - Preliminary No growth in Anaerobic bottle after 48 hours. 10/19/25 16:15 Fungal Smear - Final Bone Fungal Culture - Preliminary No yeast or fungus isolated - Report 1, Additional Report to Follow. 10/19/25 16:15 Fungal Smear - Final Tissue,Undefined Fungal Culture - Preliminary No yeast or fungus isolated - Report 1, Additional Report to Follow. 10/22/25 10/22/25 10/21/25 07:09 05:32 21:22 WBC 9.53 RBC 2.90 L Hgb 9.7 L Hct 27.0 L MCV 93.1 MCH 33.4 MCHC 35.9 RDW Std Deviation 40.9 RDW Coeff of Mateusz 11.9 Plt Count 326 MPV 9.1 L PT 11.5 INR 1.1 Sodium 134 L Potassium 4.5 Chloride 108 H Carbon Dioxide 22 Anion Gap 4 BUN 23 Creatinine 1.08 D Est Cr Clr Drug Dosing 61.0 eGFR 70.68 BUN/Creatinine Ratio 21.3 H Glucose 96 POC Glucose 131 H 192 H Calcium 7.7 L 10/21/25 10/21/25 16:10 12:12 WBC RBC Hgb Hct MCV MCH MCHC RDW Std Deviation RDW Coeff of Mateusz Plt Count MPV PT INR Sodium Potassium Chloride Carbon Dioxide Anion Gap BUN Creatinine Est Cr Clr Drug Dosing eGFR BUN/Creatinine Ratio Glucose POC Glucose 171 H 132 H Calcium Diagnostic Findings Abdomen/Pelvis CTA 10/21/25 09:11 CT angio abd pelvis wo/w con CLINICAL HISTORY: right foot infection, plan for angiogram COMPARISON STUDY: 01/15/2023 FINDINGS: There are very small bilateral pleural effusions with mild adjacent lung base atelectasis. ABDOMEN: Liver, spleen, and adrenal glands are unremarkable. There are a few small cystic findings at the pancreas measuring up to 1.2 cm, stable. Kidneys show no hydronephrosis bilaterally. Pelvis: Soriano catheter is present. Urinary bladder is decompressed. Prostate is enlarged. There is an interval 4 cm oval fluid collection in the subcutaneous soft tissues of the right groin, postoperative seroma versus abscess. There is moderate retained stool. No bowel inflammation or obstruction. There is trace low pelvic free fluid. No free air seen. There is lumbar degenerative disc disease. Vascular findings: There is diffuse atherosclerotic plaque. There is a small focal dissection at the infrarenal abdominal aorta just below the renal arteries. No abdominal aortic aneurysm. No significant aortic luminal narrowing. Mesenteric and renal arteries are patent. Bilateral common, internal, and external iliac and bilateral common femoral arteries show no significant narrowing. There is mild narrowing proximally at the left superficial femoral artery. Visualized arterial outflow shows no other significant narrowing. IMPRESSION: 1. Diffuse atherosclerosis. Small focal dissection at the infrarenal abdominal aorta without significant aortic luminal narrowing. 2. Mild narrowing proximally at the left SFA. 3. Small postoperative seroma versus subcutaneous abscess right inguinal region. 4. Otherwise as described. ACT 112: Negative or not required by law. Electronically signed by: Edward Rivera M.D. 10/21/2025 1:51 PM PG Care Time/CCT Total # of Minutes Spent Total Time Spent with Patient: Total time spent is greater than 50% in coordination of care (as documented) at patient's floor/unit and/or counseling patient:
--- NOTE | 2025-10-22 11:10 | Podiatry Progress Note ---
Date of Service October 22, 2025 Assessment & Plan (1) Diabetic foot ulcer associated with type 2 diabetes mellitus: (2) PAD (peripheral artery disease): (3) Diabetic infection of right foot: (4) Gas gangrene: (5) Necrotizing fasciitis: (6) Cellulitis and abscess of foot: Plan -Notes, imaging, and labs reviewed. -Cultures:final cultures pending -Xrays: 1. Anaerobic infection first toe. No plain radiographic evidence of acute osteomyelitis. 2. Changes of the 1st and 2nd proximal phalanges could reflect chronic osteomyelitis or old trauma. -Infectious disease consulted. Appreciate recommendations -Vascular surgery consulted. Appreciate recommendations. -Dressing: Betadine soaked kerlix and DSD. Daily changes. betadine to left third digit. -Patient is scheduled for angiogram with vascular team 10/22/25. Will follow findings and appreciate recommendations. -S/P right foot open partial first ray amputation 10/19/25. -Scheduled for Right foot repeat debridement, Possible DPC, Possible application of wound vac, possible application of skin substitute 10/23/25. -Patient to be NPO midnight prior to procedure. Admission and Anticipated Discharge Date Admission Date: October 19, 2025 Subjective Patient is a 75 year old male that presented to the ED yesterday over concerns of wet gangrene, gas gangrene and necrotizing infection. Patient is s/p right foot partial 1st ray amputation 10/19/25. Dressing was intact today. No new pedal complaints. For angiogram today. Patient accompanied by daughter today. Review of Systems Review of Systems: All systems reviewed & are unremarkable except as noted in HPI & below Physical Exam Cardiovascular: DP and PT pulses non-palpable. Skin: Open partial ray amputation right foot. Necrotic and granular tissue noted to the wound. Minimal bleeding noted today. Edema to the right dorsal foot. Minimal drainage today. Ecchymosis noted to the dorsal right foot. Dry gangrene noted to the left third digit medial aspect. Neurologic: Protective and light sensation diminished. Results & Data Results & Data Vital Signs (Past 12 Hours) Vital Signs Temp Pulse Pulse Resp BP Pulse Ox O2 Del Method 10/22/25 11:03 66 18 159/92 H 99 Room Air 10/22/25 08:15 63 14 172/76 H 99 Room Air 10/21/25 23:43 54 L 10/21/25 23:29 36.6 C 49 L 16 143/70 H 97 Room Air (1) Diabetic foot ulcer associated with type 2 diabetes mellitus Diabetic foot ulcer location: toe Laterality: unspecified laterality Non- pressure ulcer stage: unspecified non-pressure ulcer stage Qualified Code(s): E11.621 - Type 2 diabetes mellitus with foot ulcer; L97.509 - Non-pressure chronic ulcer of other part of unspecified foot with unspecified severity
--- NOTE | 2025-10-22 12:55 | Pre Anesthesia Assessment ---
Date of Service October 22, 2025 Pre Sedation Assessment Vital Signs Temp Pulse Pulse Resp BP Pulse Ox O2 Del Method 10/22/25 12:43 70 17 174/78 H 97 Room Air 10/22/25 11:03 66 18 159/92 H 99 Room Air 10/22/25 08:15 63 14 172/76 H 99 Room Air 10/21/25 23:43 54 L 10/21/25 23:29 36.6 C 49 L 16 143/70 H 97 Room Air 10/21/25 21:24 36.5 C 56 L 19 168/69 H 97 Room Air 10/21/25 17:00 Room Air 10/21/25 16:00 80 10/21/25 15:36 64 22 160/92 H 97 Room Air Cardiovascular RRR, no murmur, no edema Respiratory normal respiratory effort, lungs clear to auscultation Pre-Sedation Airway Assessment Smoking Status: Current every day smoker Hx Sleep Apnea: No Hx Difficult Intubation: No Short, Thick Neck: No Thyromental Distance: < 3.5 Finger Breadths Oral Cavity: + WNL Mallampati Class: II ASA: ASA3 NPO Status Date of Last Intake of Fluids: 10/21/25 Time of Last Intake of Fluids: 18:00 Date of Last Intake of Solid Food: 10/21/25 Time of Last Intake of Solid Foods: 18:00 Procedure Planning Contraindications for Sedation: none Current Medications Reviewed: Yes Notes The planned sedation has been discussed with the patient. Informed Consent was obtained. I have identified the patient, determined the appropriateness of sedation and have assessed the patient immediately prior to the procedure. All medicine(s) and interventions are by my order.
--- NOTE | 2025-10-22 13:06 | Hospitalist Progress Note ---
Date of Service October 22, 2025 Assessment & Plan (1) Necrotizing fasciitis: (2) Gas gangrene: (3) Diabetic infection of right foot: (4) PAD (peripheral artery disease): (5) Alcohol abuse: (6) GERD (gastroesophageal reflux disease): (7) Emphysema, unspecified: Plan 75 yo male with pmhx of CAD, HFpEF (EF 55%), COPD, hx of alcohol use, hx of tobacco use, toe amputations, DM Type 2, PVD, GERD who presents for big toe swelling and pain 2/2 necrotizing fascitis of right first digit. #Septic Shock, resolved #Necrotizing Fasciitis s/p Amputation -now off of pressors -source is anaerobic infection now s/p amputation POD 1 -cultures growing Proteus mirabilis and Bacteroides Plan: -continue ampicillin -will be returning to OR for closure and repeat debridement -f/u culture results -infectious disease consult, appreciate recs #KATI, resolved -resolved s/p fluids #HFpEF (EF 55%) #Pulmonary Edema #CAD -on room air -continue IS #Severe PAD -known in both legs -2/2 uncontrolled diabetes, tobacco use Plan: -vascular studies ordered -vascular surgery consult, appreciate recs -angiogram today #COPD #Tobacco Use -smokes a pack a day -known emphysema Plan: -duonebs prn -incentive spirometer #DM Type 2 -SSI ordered -needs tight glucose control 140-180 post operatively to allow healing #Alcohol Use Disorder -drinks 3-6 drinks nightly -has never had withdrawal seizures Plan: -AWSS score tracking -diazepam prn for severe withdrawal -continue thiamine, folic acid, multivitamin #Chronic Hyponatremia #KATI -likely 2/2 infection, poor PO intake Plan: -give gentle fluids for KATI MSK: -PT/OT ordered for post operative rehab I spent a total of 45 minutes in direct patient care, including [id number] time with the patient and/or family, reviewing medical records, ordering and reviewing diagnostic tests, and coordinating care with other healthcare p roviders. This time includes: history taking, physical examination, medical decision making, counseling, ECG interpretation, imaging interpretation, lab interpretation, orders, and education, excluding time spent in the performance of separately billed services. Admission and Anticipated Discharge Date Admission Date: October 19, 2025 Subjective Patient seen and examined at bedside. States he is ready for the angiogram today. Intermittent pain in foot around amputation treated adequately with pain medication. Review of Systems Review of Systems: -negative unless listed above Physical Exam Physical Exam: Gen: A&O 3 HEENT: NCAT, EOMI, not icteric. External ears normal. No rhinorrhea. Moist mucous membranes. Neck: Supple, full range of motion, no observable masses, No meningeal sign. Lungs: crackles/rhonchi bilaterally CV: RRR, no edema. Abdomen: Soft, nondistended, No rebound tenderness. MSK: both feet in wound care wrappings, right in surgical wrapping s/p amputation Skin: No rashes, petechiae, lesions. Normal color per patient. Neuro: Normal Gait, Grossly intact. Psych: Appropriate for situation. Results & Data Results & Data Vital Signs (Past 12 Hours) Vital Signs Pulse Resp BP Pulse Ox O2 Del Method 10/22/25 12:43 70 17 174/78 H 97 Room Air 10/22/25 11:03 66 18 159/92 H 99 Room Air 10/22/25 08:15 63 14 172/76 H 99 Room Air Laboratory Results -personally reviewed, creatinine back to baseline after fluids, calcium 7.7 replenished Medications Administered Acetaminophen (Acetaminophen 500 Mg Tab) 1,000 mg PO Q8 BRIGETTE Stop: 11/18/25 21:59 Last Admin: 10/22/25 06:16 Dose: 1,000 mg Documented By: Admin: 10/21/25 20:00 Dose: 1,000 mg Documented By: Admin: 10/21/25 14:14 Dose: 1,000 mg Documented By: vish Admin: 10/21/25 05:50 Dose: Not Given Documented By: Admin: 10/20/25 21:02 Dose: 1,000 mg Documented By: Admin: 10/20/25 14:49 Dose: Not Given Documented By: Admin: 10/20/25 06:21 Dose: Not Given Documented By: Admin: 10/19/25 22:01 Dose: 1,000 mg Documented By: TP Diazepam (Diazepam 5 Mg Tablet) 5 mg PO UD PRN; Protocol PRN Reason: AWSS 6 & Above Stop: 11/18/25 15:48 Last Admin: 10/20/25 21:02 Dose: 5 mg Documented By: Admin: 10/19/25 22:01 Dose: 5 mg Documented By: ANGEL Heparin Sodium (Porcine) (Heparin Sod 5,000 Unit/0.5 Ml Vial) 5,000 units SQ Q12 BRIGETTE Stop: 11/18/25 20:59 Last Admin: 10/22/25 09:16 Dose: 5,000 units Documented By: Admin: 10/21/25 20:00 Dose: 5,000 units Documented By: Admin: 10/21/25 08:03 Dose: 5,000 units Documented By: vish Admin: 10/20/25 21:05 Dose: 5,000 units Documented By: Admin: 10/20/25 08:12 Dose: 5,000 units Documented By: Admin: 10/19/25 22:02 Dose: 5,000 units Documented By: ANGEL Hydromorphone HCl (Hydromorphone Inj 0.5 Mg/0.5 Ml Syr) 0.5 mg IV Q3HWA PRN PRN Reason: Breakthrough Pain Stop: 11/03/25 10:09 Last Admin: 10/21/25 05:30 Dose: 0.5 mg Documented By: Admin: 10/20/25 17:44 Dose: 0.5 mg Documented By: Admin: 10/20/25 10:23 Dose: 0.5 mg Documented By: LINDA Pantoprazole Sodium (Protonix) 40 mg in 10 mls @ 5 mls/min IV DAILY BRIGETTE Stop: 11/18/25 18:29 Last Admin: 10/22/25 09:16 Dose: 5 mls/min Documented By: Admin: 10/21/25 08:04 Dose: 5 mls/min Documented By: vish Admin: 10/20/25 08:13 Dose: 5 mls/min Documented By: Admin: 10/19/25 19:31 Dose: Not Given Documented By: ANGEL Linezolid (Zyvox) 600 mg in 300 mls @ 200 mls/hr IV Q12H BRIGETTE Stop: 10/27/25 17:59 Last Infusion: 10/22/25 09:40 Dose: Infused Documented By: Admin: 10/22/25 06:16 Dose: 200 mls/hr Documented By: Infusion: 10/21/25 20:03 Dose: Infused Documented By: Admin: 10/21/25 17:59 Dose: 200 mls/hr Documented By: vish Infusion: 10/21/25 07:04 Dose: Infused Documented By: vish Admin: 10/21/25 05:32 Dose: 200 mls/hr Documented By: Infusion: 10/20/25 19:14 Dose: Infused Documented By: Admin: 10/20/25 17:44 Dose: 200 mls/hr Documented By: LINDA Ampicillin Sodium/Sulbactam Sodium (Unasyn) 3,000 mg in 100 mls @ 200 mls/hr IV Q6H BRIGETTE Stop: 10/28/25 15:29 Last Infusion: 10/22/25 10:51 Dose: Infused Documented By: Admin: 10/22/25 09:17 Dose: 200 mls/hr Documented By: Infusion: 10/22/25 04:29 Dose: Infused Documented By: Admin: 10/22/25 03:57 Dose: 200 mls/hr Documented By: Infusion: 10/21/25 21:05 Dose: Infused Documented By: Admin: 10/21/25 20:02 Dose: 100 mls/hr Documented By: Infusion: 10/21/25 17:26 Dose: Infused Documented By: vish Admin: 10/21/25 16:54 Dose: 200 mls/hr Documented By: vish Insulin Aspart (Insulin Aspart Per Unit Charge) 0 units SC ACHS BRIGETTE Stop: 11/18/25 16:29 Last Admin: 10/22/25 12:26 Dose: Not Given Documented By: Admin: 10/22/25 08:17 Dose: Not Given Documented By: Admin: 10/21/25 21:52 Dose: 1 units Documented By: LAWANDA Co-signed By: TORI Admin: 10/21/25 17:59 Dose: 2 units Documented By: vish Co-signed By: MAICO Admin: 10/21/25 12:42 Dose: Not Given Documented By: vish Admin: 10/21/25 07:59 Dose: Not Given Documented By: vish Admin: 10/20/25 21:01 Dose: 1 units Documented By: ANGEL Co-signed By: AKRMEN Admin: 10/20/25 16:58 Dose: Not Given Documented By: Admin: 10/20/25 11:52 Dose: 2 units Documented By: LINDA Co-signed By: HILDA Admin: 10/20/25 08:17 Dose: 3 units Documented By: LINDA Co-signed By: JOSÉ MIGUEL Admin: 10/19/25 20:26 Dose: Not Given Documented By: Admin: 10/19/25 19:30 Dose: Not Given Documented By: ANGEL Multivitamins (Multivitamin Tab) 1 tab PO QAM [facility] Stop: 11/19/25 08:59 Last Admin: 10/22/25 09:16 Dose: 1 tab Documented By: Admin: 10/21/25 08:04 Dose: 1 tab Documented By: vish Admin: 10/20/25 08:13 Dose: 1 tab Documented By: LINDA Oxycodone HCl (Oxycodone Hcl Ir 5 Mg Tab (Immediate Release)) 5 mg PO Q3HWA PRN PRN Reason: Severe Pain (Scale 7, 8, 9,10) Stop: 11/03/25 10:09 Last Admin: 10/22/25 03:59 Dose: 5 mg Documented By: Admin: 10/21/25 19:59 Dose: 5 mg Documented By: Admin: 10/21/25 14:15 Dose: 5 mg Documented By: vish Admin: 10/21/25 09:14 Dose: 5 mg Documented By: vish Thiamine HCl (Thiamine Hcl 100 Mg Tab) 100 mg PO QAM BRIGETTE Stop: 11/19/25 08:59 Last Admin: 10/22/25 09:16 Dose: 100 mg Documented By: Admin: 10/21/25 08:04 Dose: 100 mg Documented By: vish Admin: 10/20/25 08:13 Dose: 100 mg Documented By: LINDA
[2025-10-22] MEDS: LIDOCAINE 1% LOCAL 20 ML VIAL ONE (13:28)
[2025-10-22] MEDS: MIDAZOLAM HCL 5 MG/ML 1 ML VIAL ONE (14:26)
[2025-10-22] MEDS: HEPARIN (PORCINE) 1000 UNIT/ML 10 ML (CATH LAB USE ONLY) ONE (14:26)
--- NOTE | 2025-10-22 14:26 | Post Anesthesia Assessment ---
Date of Service October 22, 2025 Post Sedation Assessment Vital Signs Temp Pulse Pulse Resp BP Pulse Ox O2 Del Method 10/22/25 12:43 70 17 174/78 H 97 Room Air 10/22/25 11:03 66 18 159/92 H 99 Room Air 10/22/25 08:15 63 14 172/76 H 99 Room Air 10/21/25 23:43 54 L 10/21/25 23:29 36.6 C 49 L 16 143/70 H 97 Room Air 10/21/25 21:24 36.5 C 56 L 19 168/69 H 97 Room Air 10/21/25 17:00 Room Air 10/21/25 16:00 80 10/21/25 15:36 64 22 160/92 H 97 Room Air Recovery Score Activity: Moves 4 extremities Respiration: Deep Breath/Cough Circulation: +/-20% PreAnes Value Consciousness: Fully Awake Oxygen Saturation: > 92% On Room Air Post Anesthesia Score: 10 Discharge Sedation Level of Care: Fast Track Phase II Post Sedation Plan On clinical assessment, the patient appears to have tolerated the sedation without complications. Patient is recovering as anticipated. Patient will continue to be monitored by nursing and may be discharged when sedation discharge criteria are met per below protocol. Upon Completions of procedure up to 15 minutes continue every 5 minute vital signs and the P.A.R. score; then discharge to a Phase I or Fast Track to Phase II per the following guidelines: * Discharge Patient to appropriate Phase II area if PAR is 8 or greater or return to pre- procedure baseline. The post - procedure orders will be as directed. * If PAR score is less than 8 or not return to pre-procedure baseline then patient will follow Phase I monitoring till PAR is reached for Phase II. The Phase I may be done in procedure room or may call to secure a Phase I area. * If naloxone or flumazenil are used for reversal, hold in Phase I for continued monitoring from when last reversal dose was given for a minimum of 60 minutes or longer pending the nurse and/or physician discretion of patient condition before discharge to Phase II. Please call the Sedation Physician to re-evaluate and complete post-note for discharge to Phase II area. Do NOT discharge from procedure sedation or Phase 1 until post- sedation evaluation note is complete by procedure /sedation MD Sedation Discharge Instructions to be given to the patient at discharge to home.
--- NOTE | 2025-10-22 15:12 | Endovascular Procedure Note ---
[facility] Endovascular Procedure Rpt Pre & Post Diagnosis Operation Date: 10/23/25 07:00 <No data on this case meets the specified criteria> I identified the patient and participated in the time-out.: Yes Procedure Operation Date: 10/23/25 07:00 <No data on this case meets the specified criteria> Ultrasound guided access left femoral artery Bilateral lower extremity arteriogram (separately reportable) Right SFA/popliteal artery balloon [id number] DCB Surgeon Chacho Drew MD Lombardi Developer n/a Estimated Blood Loss 3 Findings Consistent with Post-Op Diagnosis Anesthesia Type RN Sedation Radiation Exposure (mGv) Radiation (mGy): 358 Contrast Contrast: 115cc Complications none Disposition Accompanied Patient To Recovery: Yes 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 Angiogram and possible intervention has been requested. Risk goals and alternatives were discussed with the patient understood and gave consent to proceed. Description of Procedure A timeout was performed and the patient was identified and procedure verified. Conscious sedation was administered under my direction. Both groins were prepped and draped in usual sterile fashion. Ultrasound guidance was then used to identify and accessed the left common femoral artery. A micropuncture needle was used and a mandrel wire was inserted. This was upsized to a 5 Kosovan sheath under fluoroscopic control. An Omni Flush catheter was inserted into the distal abdominal aorta and aortic gram performed demonstrating diffuse disease but no hemodynamically significant lesions of the distal abdominal aorta or either common or internal or external iliac artery. The right common and then external iliac artery was selectively catheterized. Diagnostic right lower extremity arteriography was then performed. This demonstrated diffuse disease throughout the superficial femoral artery but no flow-limiting lesions until an occlusion was noted in the distal superficial femoral artery and extending into the proximal popliteal artery for a distance of approximately 8 cm. Reconstitution of the popliteal artery was noted with three-vessel runoff to the foot. The decision was then made to intervene based on this arteriogram. The arteriogram was performed because no prior imaging was available. The patient was systemically anticoagulated with heparin to achieve a therapeutic activated clotting time. I had some difficulty passing a 6 Kosovan 45 cm destination sheath and so I exchanged to an Amplatz extra-stiff wire and then placed a 6 Kosovan sheath into the proximal superficial femoral artery. Through this, a 0.035 inch quick cross catheter and a stiff angled Glidewire were then used to engage the occlusion and cross it into the popliteal artery. The catheter was inserted and injection performed to confirm intraluminal positioning. A 0.014 inch grand slam wire was then inserted under fluoroscopic control. Initial balloon with a 5 x 100 mm angioplasty balloon was performed. There was residual disease at the proximal end and so the balloon was withdrawn and further angioplasty performed. There was a nonflow limiting dissection and brisk flow through the artery upon completion of this. I chose to treat this with a drug-coated balloon. A 5 x 120 drug-coated balloon was then placed across the lesion and inflated to profile for 3 minutes. The balloon was withdrawn and follow-up imaging showed a good cosmetic result with a nonflow-limiting dissection in the proximal popliteal artery. I chose n ot to intervene upon this given its location. The flow was brisk and completion angiogram revealed three-vessel runoff without evidence of distal embolization. Over a 0.035 inch wire I converted to a short 6 Kosovan sheath and diagnostic left lower extremity arteriogram was performed demonstrating a similar occlusion of the distal superficial femoral artery and proximal popliteal artery and prese rved three-vessel runoff to the foot. The patient was then taken to the recovery area in stable condition and tolerated procedure well without immediate complication. X Conscious sedation start 1309, and 1420. 2 mg Versed, 150 mcg fentanyl. 115 cc IV contrast, 358 mGy. I attest to the content of the Intraoperative Record and any orders documented therein. Any exceptions are noted below. Vascular Charges Angiography/Venography Procedure 1: Angiography/Venography charges: [id number] Angiography, extremity, bilateral, radiological S&I Lower Extremity Interventions Procedure 1: Lower Extremity Intervention charges: [id number] Angioplasty, femoral, popliteal artery(s), unilateral Additional Services Procedure 1: Additional Services Charges: [id number] Ultrasound guidance - vascular access
[2025-10-22] MEDS: PROTAMINE SULFATE 10 MG/ML 5 ML VIAL IV ONE (16:10)
[2025-10-22] MEDS: SODIUM CHLORIDE 0.9% 1,000 ML IV SCH (17:24)
[2025-10-22] MEDS ORDERED: Nursing to Pharmacy Communication SCH (23:45)
[2025-10-23] MEDS: INSULIN ASPART PER UNIT CHARGE SC SCH ×2 (00:14→21:30)
[2025-10-23 08:16] LABS: Hematocrit (blood only) 27.6 % (42.0-52.0); Hemoglobin 9.7 g/dL (14.0-18.0); Mean Corpuscular Hemoglobin 33.2 pg (25.0-34.0); Mean Corpuscular Volume 94.5 fL (80.0-100.0); Platelet Count 315 K/uL (130-400); RDW Standard Deviation 42.3 fL (36.4-46.3); Red Blood Count 2.92 M/uL (4.70-6.10); White Blood Count 10.06 K/ul (4.8-10.8)
[2025-10-23 08:49] LABS: Anion Gap 4.0 (3-11); Blood Urea Nitrogen 16.0 mg/dl (6-23); Calcium 7.7 mg/dl (8.6-10.3); Carbon Dioxide 24.0 mmol/L (21-32); Chloride 110.0 mmol/L (98-107); Creatinine Clr Calc Pharmacy 73.2 ml/min; Glucose 88.0 mg/dl (70-99(Fasting)); Potassium 4.4 mmol/L (3.5-5.1); Sodium 138.0 mmol/L (136-145)
[2025-10-23] MEDS ORDERED: ONDANSETRON INJ 2 MG/ML 2 ML VIAL ONE (12:18)
[2025-10-23] MEDS ORDERED: MIDAZOLAM HCL 1 MG/ML 2ML VIAL ONE (12:18)
[2025-10-23] MEDS ORDERED: LIDOCAINE 2% 2 ML VIAL/AMP(20MG/ML) INFIL ONE (12:18)
[2025-10-23] MEDS ORDERED: PROPOFOL IV EMULSION 10 MG/ML 20 ML VIAL IV ONE ×2 (12:18→15:03)
[2025-10-23] MEDS ORDERED: DexMEDEtomidine HCL IV 100 MCG/ML VIAL IV ONE (12:30)
[2025-10-23] MEDS: LACTATED RINGER'S 1,000 ML IV SCH (13:28)
--- NOTE | 2025-10-23 13:31 | Anesthesiology Consultation ---
Date of Service October 23, 2025 Assessment & Plan Chart Review Chart Review: Acceptable Risk for Surgery Consults Requested none History Surgery Operation Date: 10/19/25 15:30 Proposed Procedures p Amputation Toe(Right) - Patrice Jolly DPM Operation Date: 10/22/25 13:00 Proposed Procedures p Right Leg Angiogram - Chacho Drew MD Operation Date: 10/23/25 07:00 Proposed Procedures p Right Repeat Foot Debridement, Possible Delayed Primary Closure, Possible Application of Wound Vac, Possible Application Skin Substitute - Patrice Jolly DPM Height/Weight Height: 5 ft 11 in Weight: 78.8 kg Allergies Allergy/AdvReac Type Severity Reaction Status Date / Time No Known Allergies Allergy Verified 06/17/25 05:35 Medications Home Medications Medication Instructions Recorded Confirmed Last Taken multivitamin 1 tab PO DAILY 01/05/21 10/19/25 06/16/25 06:00 aspirin 81 mg tablet,delayed 81 mg PO QAM #30 tabs 02/08/21 10/19/25 06/16/25 12:00 release ibuprofen 200 mg tablet (Advil) 800 mg PO Q8H PRN Pain 02/16/25 10/19/25 06/15/25 12:00 lisinopril 10 mg tablet 20 mg PO QDL 02/16/25 10/19/25 06/16/25 12:00 metformin 500 mg tablet 1,000 mg PO DAILY 02/16/25 10/19/25 06/16/25 12:00 docusate sodium 100 mg tablet 100 mg PO DAILY 05/24/25 10/19/25 06/16/25 12:00 oxycodone-acetaminophen 5 mg-325 1 tab PO Q6H PRN pain #10 tabs 06/17/25 10/19/25 Unknown mg tablet (Percocet) Active Medications Generic Name Dose Route Start Last Admin Trade Name Freq PRN Reason Stop Dose Admin Acetaminophen 1,000 mg 10/19/25 22:00 10/23/25 05:39 Acetaminophen 500 Mg Tab PO 11/18/25 21:59 1,000 mg Q8 BRIGETTE Administration Diazepam 5 mg 10/19/25 15:49 10/20/25 21:02 Diazepam 5 Mg Tablet PO 11/18/25 15:48 5 mg UD PRN Administration AWSS 6 & Above Protocol Heparin Sodium (Porcine) 5,000 units 11/22/25 21:00 10/23/25 10:49 Heparin Sod 5,000 Unit/0.5 Ml Vial SQ 11/18/25 20:59 Not Given Q12 BRIGETTE Hydromorphone HCl 0.5 mg 10/20/25 10:10 10/21/25 05:30 Hydromorphone Inj 0.5 Mg/0.5 Ml Syr IV 11/03/25 10:09 0.5 mg Q3HWA PRN Administration Breakthrough Pain Pantoprazole Sodium 40 mg in 10 mls @ 5 mls/min 10/19/25 18:30 10/23/25 09:46 Protonix IV 11/18/25 18:29 5 mls/min DAILY BRIGETTE Administration Ampicillin Sodium/Sulbactam Sodium 3,000 mg in 100 mls @ 200 mls/hr 10/21/25 15:30 10/23/25 10:13 Unasyn IV 10/28/25 15:29 Infused Q6H BRIGETTE Infusion Sodium Chloride 1,000 mls @ 100 mls/hr 10/22/25 14:30 10/23/25 03:37 Nss IV 10/25/25 14:29 100 mls/hr .Q10H BRIGETTE Administration Lactated Ringer's 1,000 mls @ 15 mls/hr 10/23/25 13:30 10/23/25 13:28 Lr IV 10/26/25 13:29 15 mls/hr .Q24H BRIGETTE Administration Insulin Aspart 0 units 10/23/25 00:00 10/23/25 13:23 Insulin Aspart Per Unit Charge SC 11/22/25 00:00 Not Given Q6 BRIGETTE Multivitamins 1 tab 10/20/25 09:00 10/23/25 09:27 Multivitamin Tab PO 11/19/25 08:59 Not Given QAM BRIGETTE Oxycodone HCl 5 mg 10/20/25 10:10 10/22/25 19:29 Oxycodone Hcl Ir 5 Mg Tab (Immediate Release) PO 11/03/25 10:09 5 mg Q3HWA PRN Administration Severe Pain (Scale 7, 8, 9,10) Thiamine HCl 100 mg 10/20/25 09:00 10/23/25 09:27 Thiamine Hcl 100 Mg Tab PO 11/19/25 08:59 Not Given QAM BRIGETTE NPO Date Last Intake of Fluids: 10/23/25 Time Last Intake of Fluids: 08:00 Last Intake of Fluids Comment: chocolate milk, Anesthesia aware, note done by Dr. Jolly for emergent Date Last Intake of Solids: 10/21/25 Time Last Intake of Solids: 12:00 Last Intake of Solids Comment: chicken and mashed potatoes, Anesthesia aware, emergent per Dr. Jolly Past Medical History Medical History Emphysema, unspecified not agreeable to PFTs advised by [facility] PCP Dysphagia pt not agreeable to advise EGD per [facility] PCP records Anemia pt not agreeable to advise EGD per [facility] PCP records Aortic valve stenosis mild Alcohol abuse 6-8 beers daily Hx of gastroesophageal reflux (GERD) controlled, stable per pt Hx of osteomyelitis (~2021) Type 2 diabetes mellitus History of CVA (cerebrovascular accident) (~2020) Around 2020> resulting "balance issues" > no longer sees neuro Poor historian Hx of pneumothorax (~2020) right side > prior to 2020 > felt related to strain of body from work > drained and resolved Hypertension controlled, stable per pt Past Family History Family History Father Stroke Past Surgical History Surgical History Hx of hernia repair Laparoscopic Bilateral Inguinal Hernia Repair with Mesh Hx of endoscopic retrograde cholangiopancreatography with stent History of colonoscopy History of tooth extraction *hx of and plans for all upper teeth to be removed on June 06, 2025 Amputation toe left foot, big toe, then 2nd toe History of knee surgery right, arthroscopic Social History Smoking Status: Current every day smoker tobacco type: cigarettes Smoking cigarettes per day: 1.5 PPD Do You Dip or Chew Tobacco: No Hx Alcohol Use: Yes Alcohol type: beer alcohol intake frequency: 3 or more drinks per day Alcohol Intake Frequency Comment: 2-3 beers a day Hx Substance Use: No substance use type: does not use Physical Exam Vital Signs Last Vital Signs Temp 36.5 C 10/23/25 07:30 Pulse 66 10/23/25 07:30 Resp 16 10/23/25 07:30 BP 144/65 H 10/23/25 07:30 Pulse Ox 96 10/23/25 07:30 O2 Del Method Room Air 10/23/25 08:30 O2 Flow Rate 2 10/19/25 18:26 Testing Laboratory Results 10/23/25 07:55 10/23/25 07:55 PT 11.5 Seconds (9.0-12.0) 10/22/25 05:32 INR 1.1 (0.9-1.1) 10/22/25 05:32 Hemoglobin A1c 6.7 % (4.5-5.6) H 10/19/25 18:47 Urine Color Yellow 10/19/25 Unknown Urine Appearance Cloudy (Clear) A 10/19/25 Unknown Urine pH 5.0 (4.5-7.5) 10/19/25 Unknown Ur Specific [place] 1.027 (1.000-1.030) 10/19/25 Unknown Urine Protein 2+ (Negative) H 10/19/25 Unknown Urine Glucose (UA) Negative (Negative) 10/19/25 Unknown Urine Ketones Trace (Negative) H 10/19/25 Unknown Urine Nitrite Negative (Negative) 10/19/25 Unknown Ur Leukocyte Esterase Negative (Negative) 10/19/25 Unknown Urine WBC (Auto) 6-10 /hpf (0-5) H 10/19/25 Unknown Urine RBC (Auto) >20 /hpf (0-2) H 10/19/25 Unknown U Hyaline Cast (Auto) 6-10 /lpf (0-2) H 10/19/25 Unknown U Epithel Cells (Auto) 6-10 /hpf (0-2) H 10/19/25 Unknown Urine Bacteria (Auto) None Seen (None Seen) 10/19/25 Unknown Blood Type A Negative 10/19/25 14:33 Antibody Screen NEGATIVE 10/19/25 14:33 10/19/25 16:15 Gram Stain - Final Toe,Right Great Aerobic and Anaerobic Culture - Preliminary Proteus mirabilis Bacteroides ovatus group Streptococcus constellatus 10/19/25 16:15 Gram Stain - Final Toe,Right Great Aerobic and Anaerobic Culture - Preliminary Proteus mirabilis Bacteroides ovatus group Streptococcus constellatus 10/19/25 16:15 Gram Stain - Final Toe,Right Great Aerobic and Anaerobic Culture - Preliminary Proteus mirabilis Bacteroides ovatus group Streptococcus constellatus 10/19/25 16:15 Gram Stain - Final Toe,Right Great Aerobic and Anaerobic Culture - Preliminary Proteus mirabilis Bacteroides ovatus group Streptococcus constellatus 10/19/25 13:18 Gram Stain - Final Toe Wound Culture - Final Proteus mirabilis 10/19/25 13:16 Aerobic Blood Culture - Preliminary Blood No growth in Aerobic bottle after 48 hours. Anaerobic Blood Culture - Preliminary No growth in Anaerobic bottle after 48 hours. 10/19/25 13:16 Aerobic Blood Culture - Preliminary Blood No growth in Aerobic bottle after 48 hours. Anaerobic Blood Culture - Preliminary No growth in Anaerobic bottle after 48 hours. 10/19/25 16:15 Fungal Smear - Final Bone Fungal Culture - Preliminary No yeast or fungus isolated - Report 1, Additional Report to Follow. 10/19/25 16:15 Fungal Smear - Final Tissue,Undefined Fungal Culture - Preliminary No yeast or fungus isolated - Report 1, Additional Report to Follow. 10/23/25 10/23/25 11:50 05:54 POC Glucose 92 98
[2025-10-23] MEDS ORDERED: PROMETHAZINE HCL 6.25 MG in SODIUM CHLORIDE 0.9% 50 ML IV PRN (13:42)
[2025-10-23] MEDS ORDERED: HYDROmorphone INJ 2 MG/ML SYR/VIAL IV PRN (13:42)
[2025-10-23] MEDS ORDERED: ONDANSETRON INJ 2 MG/ML 2 ML VIAL IV PRN (13:42)
[2025-10-23] MEDS ORDERED: ATROPINE SULFATE 0.1 MG/ML 10ML SYR IV PRN (13:42)
--- NOTE | 2025-10-23 14:23 | History & Physical Bridge Note ---
Date of Service October 23, 2025 History & Physical Bridge Note I have examined the patient, reviewed the History & Physical and in the interval since the performance of the History & Physical I have noted the following changes of clinical significance: no changes noted
[2025-10-23] MEDS ORDERED: KETAMINE HCL 10MG/ML SYR ONE (14:48)
--- NOTE | 2025-10-23 14:57 | Vascular Surgery Progress Note ---
Date of Service October 23, 2025 Assessment & Plan (1) Diabetic infection of right foot: Plan: He is now PPD 1 s/p RLE angiogram, angioplasty with DCB to distal R SFA and popliteal arteries, with resultant brisk 3 vessel runoff to foot. No concern with access site at this time. He also has similar lesion in the left leg, and does have gangrene to the left 2nd toe, however as there is no acute infection, this can be addressed at a later date. No further intervention needed at this time on the RLE. Recommend continued wound care per podiatry and antibiotics per ID. He will need outpatient follow up with vascular with [facility] and arterial duplex in one month. He is already on 81mg ASA. Would recommend adding statin for optimal medical management. Admission and Anticipated Discharge Date Admission Date: October 19, 2025 Subjective PPD 1 s/p right leg angiogram, angioplasty to distal SFA/pop occlusion. He has no pain in either foot today and no left groin pain. He feels well and is planned to go to OR with podiatry this afternoon for debridement and possible DPC. Physical Exam Physical Exam: WDWN, in no distress, sitting up in bed. Right foot dressing in place, clean, dry, intact. left groin dressing C/D/I, groin soft, no hematoma noted + doppler signals along distal peroneal and posterior tibial ateries Results & Data Vital Signs (Past 12 Hours) Vital Signs Temp Pulse Resp BP Pulse Ox O2 Del Method 10/23/25 08:30 Room Air 10/23/25 07:30 36.5 C 66 16 144/65 H 96 Room Air Laboratory Results 10/19/25 16:15 Gram Stain - Final Toe,Right Great Aerobic and Anaerobic Culture - Preliminary Proteus mirabilis Bacteroides ovatus group Streptococcus constellatus Finegoldia magna 10/19/25 16:15 Gram Stain - Final Toe,Right Great Aerobic and Anaerobic Culture - Preliminary Proteus mirabilis Bacteroides ovatus group Streptococcus constellatus 10/19/25 16:15 Gram Stain - Final Toe,Right Great Aerobic and Anaerobic Culture - Preliminary Proteus mirabilis Bacteroides ovatus group Streptococcus constellatus 10/19/25 16:15 Gram Stain - Final Toe,Right Great Aerobic and Anaerobic Culture - Preliminary Proteus mirabilis Bacteroides ovatus group Streptococcus constellatus 10/23/25 10/23/25 10/23/25 11:50 07:55 05:54 WBC 10.06 RBC 2.92 L Hgb 9.7 L Hct 27.6 L MCV 94.5 MCH 33.2 MCHC 35.1 RDW Std Deviation 42.3 RDW Coeff of Mateusz 12.1 Plt Count 315 MPV 9.1 L Activ Coag Time Kaolin Sodium 138 Potassium 4.4 Chloride 110 H Carbon Dioxide 24 Anion Gap 4 BUN 16 Creatinine 0.90 Est Cr Clr Drug Dosing 73.2 eGFR 87.96 BUN/Creatinine Ratio 17.8 Glucose 88 POC Glucose 92 98 Calcium 7.7 L 10/23/25 10/22/25 10/22/25 00:09 20:28 17:09 WBC RBC Hgb Hct MCV MCH MCHC RDW Std Deviation RDW Coeff of Mateusz Plt Count MPV Activ Coag Time Kaolin Sodium Potassium Chloride Carbon Dioxide Anion Gap BUN Creatinine Est Cr Clr Drug Dosing eGFR BUN/Creatinine Ratio Glucose POC Glucose 112 H 93 91 Calcium 10/22/25 15:54 WBC RBC Hgb Hct MCV MCH MCHC RDW Std Deviation RDW Coeff of Mateusz Plt Count MPV Activ Coag Time Kaolin 181 H Sodium Potassium Chloride Carbon Dioxide Anion Gap BUN Creatinine Est Cr Clr Drug Dosing eGFR BUN/Creatinine Ratio Glucose POC Glucose Calcium Medications Administered 10/19/25 16:15 Gram Stain - Final Toe,Right Great Aerobic and Anaerobic Culture - Preliminary Proteus mirabilis Bacteroides ovatus group Streptococcus constellatus Anirudh magna 10/19/25 16:15 Gram Stain - Final Toe,Right Great Aerobic and Anaerobic Culture - Preliminary Proteus mirabilis Bacteroides ovatus group Streptococcus constellatus 10/19/25 16:15 Gram Stain - Final Toe,Right Great Aerobic and Anaerobic Culture - Preliminary Proteus mirabilis Bacteroides ovatus group Streptococcus constellatus 10/19/25 16:15 Gram Stain - Final Toe,Right Great Aerobic and Anaerobic Culture - Preliminary Proteus mirabilis Bacteroides ovatus group Streptococcus constellatus 10/23/25 10/23/25 10/23/25 11:50 07:55 05:54 WBC 10.06 RBC 2.92 L Hgb 9.7 L Hct 27.6 L MCV 94.5 MCH 33.2 MCHC 35.1 RDW Std Deviation 42.3 RDW Coeff of Mateusz 12.1 Plt Count 315 MPV 9.1 L Activ Coag Time Kaolin Sodium 138 Potassium 4.4 Chloride 110 H Carbon Dioxide 24 Anion Gap 4 BUN 16 Creatinine 0.90 Est Cr Clr Drug Dosing 73.2 eGFR 87.96 BUN/Creatinine Ratio 17.8 Glucose 88 POC Glucose 92 98 Calcium 7.7 L 10/23/25 10/22/25 10/22/25 00:09 20:28 17:09 WBC RBC Hgb Hct MCV MCH MCHC RDW Std Deviation RDW Coeff of Mateusz Plt Count MPV Activ Coag Time Kaolin Sodium Potassium Chloride Carbon Dioxide Anion Gap BUN Creatinine Est Cr Clr Drug Dosing eGFR BUN/Creatinine Ratio Glucose POC Glucose 112 H 93 91 Calcium 10/22/25 15:54 WBC RBC Hgb Hct MCV MCH MCHC RDW Std Deviation RDW Coeff of Mateusz Plt Count MPV Activ Coag Time Kaolin 181 H Sodium Potassium Chloride Carbon Dioxide Anion Gap BUN Creatinine Est Cr Clr Drug Dosing eGFR BUN/Creatinine Ratio Glucose POC Glucose Calcium PG Care Time/CCT Total # of Minutes Spent Total Time Spent with Patient: Total time spent is greater than 50% in coordination of care (as documented) at patient's floor/unit and/or counseling patient:
--- NOTE | 2025-10-23 15:22 | Post Operative Brief Note ---
Immediate Post Op Note Date of Surgery October 23, 2025 Pre & Post Diagnosis Operation Date: 10/23/25 07:00 Pre-Op Diagnosis: Right foot infection Gas gangrene necrotizing infection Post-Op Diagnosis: Right foot infection Gas gangrene necrotizing infection I identified the patient and participated in the time-out.: Yes Procedure Operation Date: 10/23/25 07:00 Actual Procedures p Right Repeat Foot Debridement,Delayed Primary Closure, Application of Wound Vac, Patrice Jolly DPM Surgeon Patrice Jolly DPM Administration Vice President n/a Estimated Blood Loss 5 Findings Consistent with Post-Op Diagnosis Necrosis of tissue, increase in bleeding to right foot surgical wound. Anesthesia Type RN Sedation
[2025-10-23] MEDS: BUPIVACAINE 0.5 % 5 MG/1 ML MPF 30ML VIAL ONE (15:27)
--- NOTE | 2025-10-23 16:04 | Operative Report ---
Post Operative Report Pre & Post Diagnosis Operation Date: 10/23/25 07:00 Pre-Op Diagnosis: Gas gangrene Right foot diabetic infection Necrotizing infection Post-Op Diagnosis: Gas gangrene Right foot diabetic infection Necrotizing infection I identified the patient and participated in the time-out.: Yes Procedure Operation Date: 10/23/25 07:00 Actual Procedures p Right Repeat Foot Debridement, Delayed Primary Closure, Application of Wound Vac(Right) - Patrice Jolly DPM Surgeon Patrice Jolly DPM Manager Operations n/a Estimated Blood Loss 5 Findings Consistent with Post-Op Diagnosis necrosis and gangrene of right foot tissue, increase in bleeding to surgical site. Specimens n/a Indications Patient is a 75 year old male that presented to the ED on 10/19/25 with a necrotizing infection and gas gangrene. Patient was taken back to the OR 10/19/25 for a right open partial 1st ray amputation. Patient underwent a angioplasty with DCB to distal R SFA and popliteal arteries which showed resultant brisk 3 vessel runoff to foot on 10/22/25. Patient was scheduled for right foot repeat debridement with possible DPC, possible wound vac application and possible application of skin substitute. Risks and benefits were discussed with patient and patient elected to proceed with the procedure. Description of Procedure Procedures: Right foot repeat debridement Right foot application of negative pressure therapy Following satisfactory pre-op evaluation the patient was brought into the OR and placed on the OR table in the supine position. MAC sedation was administered by anesthesia. Following sedation, 5 ccs of 0.5% Marcaine plain was then injected into the right ankle in an ankle block fashion. The foot was then prepped and draped in the usual sterile manner and lowered onto the surgical field. Right foot debridement: Attention was then directed to the right medial foot where there was noted to be a surgical incision with partial 1st ray amputation. Tissue was noted to be necrotic with dry gangrene noted to the dorsal lateral aspect of the incision. All non-viable necrotic and fibrotic skin and tissue was excisionally debrided by a 10 blade. Healthy bleeding was noted to the margins and tissue. The area was flushed with copious amounts of saline. The incision was reapproximated and it was noted that there was not enough viable tissue for complete closure. Using 3-0 nylon two retention sutures were placed to the proximal incision. Application of wound vac: It was noted that there was not enough viable tissue for closure. Negative pressure therapy was applied to the right foot incision and wound. black polyurethane foamwas then applied to the right foot. Foam was secured with wound vac drape. Adequeate seal was noted. A dressing was applied consisting of 4x4s ABD Kerlix and KATHRYN bandage. The patient tolerated anesthesia and the procedure well and was transported back to the floor. Orders were written as follows 1. notify medicine of return to floor 2. resume all pre-op medications, orders and diet 3. keep dressing CDI. Orders were written for dressing changes for nursing and wound care nurses. 4. NWB right lower extremity I attest to the content of the Intraoperative Record and any orders documented therein. Any exceptions are noted below.
--- NOTE | 2025-10-23 16:19 | Anesthesiology Progress Note ---
Date of Service October 23, 2025 Anesthesia Post Procedure Vital Signs Vital Signs: Temp Pulse Pulse Resp BP BP Pulse Ox 10/23/25 16:00 57 L 18 138/55 L 97 10/23/25 15:50 36.6 C 65 16 117/47 L 98 10/23/25 15:40 51 L 12 113/47 L 100 10/23/25 15:30 50 L 12 108/42 L 100 10/23/25 15:22 36.1 C L 52 L 16 100/46 L 100 10/23/25 08:30 10/23/25 07:30 36.5 C 66 16 144/65 H 96 10/23/25 00:00 36.6 C 64 16 128/64 97 10/22/25 23:00 36.4 C L 65 16 147/70 H 96 10/22/25 22:00 36.7 C 75 16 134/70 95 10/22/25 21:01 36.6 C 78 16 148/71 H 97 10/22/25 20:00 36.6 C 78 16 149/79 H 94 10/22/25 19:40 36.8 C 78 16 144/73 H 93 10/22/25 18:00 70 18 172/69 H 96 10/22/25 17:20 76 20 178/75 H 96 10/22/25 17:13 36.5 C 76 19 196/75 H 98 10/22/25 16:45 62 18 172/72 H 96 10/22/25 16:40 62 18 176/75 H 96 10/22/25 16:35 65 18 168/76 H 98 10/22/25 16:30 67 18 158/110 H 97 10/22/25 16:25 65 18 153/77 H 97 10/22/25 16:20 62 18 155/69 H 97 O2 Del Method O2 Flow Rate 10/23/25 16:00 Room Air 10/23/25 15:50 Room Air 10/23/25 15:40 Oxymask 2 10/23/25 15:30 Oxymask 4 10/23/25 15:22 Oxymask 6 10/23/25 08:30 Room Air 10/23/25 07:30 Room Air 10/23/25 00:00 Room Air 10/22/25 23:00 Room Air 10/22/25 22:00 Room Air 10/22/25 21:01 Room Air 10/22/25 20:00 Room Air 10/22/25 19:40 Room Air 10/22/25 18:00 Room Air 10/22/25 17:20 Room Air 10/22/25 17:13 Room Air 10/22/25 16:45 Room Air 10/22/25 16:40 Room Air 10/22/25 16:35 Room Air 10/22/25 16:30 Room Air 10/22/25 16:25 Room Air 10/22/25 16:20 Room Air Pain Intensity Right Foot: Pain Intensity: 2 Transfer of Care Handoff Completed per policy Notes Mental Status: alert / awake / arousable and participated in evaluation Patient Amnestic to Procedure: Yes Nausea / Vomiting: adequately controlled Pain: adequately controlled Airway Patency, RR, SpO2: stable & adequate BP & HR: stable & adequate Hydration State: stable & adequate Anesthetic Complications: no major complications apparent
--- NOTE | 2025-10-23 16:26 | Hospitalist Progress Note ---
Date of Service October 23, 2025 Assessment & Plan (1) Necrotizing fasciitis: (2) Gas gangrene: (3) Diabetic infection of right foot: (4) PAD (peripheral artery disease): (5) Alcohol abuse: (6) GERD (gastroesophageal reflux disease): (7) Emphysema, unspecified: Plan per previous attending notes with addendum: 75 yo male with pmhx of CAD, HFpEF (EF 55%), COPD, hx of alcohol use, hx of tobacco use, toe amputations, DM Type 2, PVD, GERD who presents for big toe swelling and pain 2/2 necrotizing fascitis of right first digit. #Septic Shock, resolved #Necrotizing Fasciitis s/p Amputation -now off of pressors -source is anaerobic infection now s/p amputation POD 1 -cultures growing Proteus mirabilis and Bacteroides Plan: -continue ampicillin -will be returning to OR for closure and repeat debridement -f/u culture results -infectious disease consult, appreciate recs 10/23 for OR today as above per ID: If no further surgeries are planned, he will likely go home on IV Unasyn for a total duration of 6 weeks to treat his residual osteomyelitis. #KATI, resolved -resolved s/p fluids #HFpEF (EF 55%) #Pulmonary Edema #CAD -on room air -continue IS #Severe PAD -known in both legs -2/2 uncontrolled diabetes, tobacco use Plan: -vascular studies ordered -vascular surgery consult, appreciate recs - 10/22: s/p Angioplasty Femoral and Popliteal Artery #COPD #Tobacco Use -smokes a pack a day -known emphysema Plan: -duonebs prn -incentive spirometer #DM Type 2 -SSI ordered -needs tight glucose control 140-180 post operatively to allow healing #Alcohol Use Disorder -drinks 3-6 drinks nightly -has never had withdrawal seizures Plan: -AWSS score tracking -diazepam prn for severe withdrawal -continue thiamine, folic acid, multivitamin #Chronic Hyponatremia #KATI -likely 2/2 infection, poor PO intake Plan: -give gentle fluids for KATI MSK: -PT/OT ordered for post operative rehab Admission and Anticipated Discharge Date Admission Date: October 19, 2025 Subjective seen resting in bed, sitting up states he feels fine overall no chest pain, dyspnea, palpitations, dizziness no other new symptoms Review of Systems Review of Systems: all noted and negative except for above Physical Exam Physical Exam: General- oriented x 3, not in distress, speaks in sentences with no effort or accessory muscle use Eyes- anicteric Neck- no JVD Lungs- clear breath sounds bilaterally, no rales/wheezes Heart- normal rate, regular rhythm; no murmurs Abdomen- normal bowel sounds, nondistended, soft, nontender Extremities- no pretibial edema, no calf tenderness Neuro- alert, oriented x 3; no gross focal neurologic deficits Skin- warm & dry Results & Data Results & Data Vital Signs (Past 12 Hours) Vital Signs Temp Pulse Pulse Resp BP BP Pulse Ox 10/23/25 16:00 57 L 18 138/55 L 97 10/23/25 15:50 36.6 C 65 16 117/47 L 98 10/23/25 15:40 51 L 12 113/47 L 100 10/23/25 15:30 50 L 12 108/42 L 100 10/23/25 15:22 36.1 C L 52 L 16 100/46 L 100 10/23/25 08:30 10/23/25 07:30 36.5 C 66 16 144/65 H 96 O2 Del Method O2 Flow Rate 10/23/25 16:00 Room Air 10/23/25 15:50 Room Air 10/23/25 15:40 Oxymask 2 10/23/25 15:30 Oxymask 4 10/23/25 15:22 Oxymask 6 10/23/25 08:30 Room Air 10/23/25 07:30 Room Air all noted and reviewed including below
[2025-10-23] MEDS ORDERED: Nursing to Pharmacy Communication SCH (20:30)
[2025-10-24 07:27] LABS: Hematocrit (blood only) 27.9 % (42.0-52.0); Hemoglobin 9.5 g/dL (14.0-18.0); Mean Corpuscular Hemoglobin 32.2 pg (25.0-34.0); Mean Corpuscular Volume 94.6 fL (80.0-100.0); Platelet Count 327 K/uL (130-400); RDW Standard Deviation 43.9 fL (36.4-46.3); Red Blood Count 2.95 M/uL (4.70-6.10); White Blood Count 9.41 K/ul (4.8-10.8)
[2025-10-24 08:09] LABS: Anion Gap 5.0 (3-11); Blood Urea Nitrogen 15.0 mg/dl (6-23); Calcium 7.5 mg/dl (8.6-10.3); Carbon Dioxide 22.0 mmol/L (21-32); Chloride 111.0 mmol/L (98-107); Creatinine Clr Calc Pharmacy 67.2 ml/min; Glucose 93.0 mg/dl (70-99(Fasting)); Potassium 4.0 mmol/L (3.5-5.1); Sodium 138.0 mmol/L (136-145)
--- NOTE | 2025-10-24 09:20 | Podiatry Progress Note ---
Date of Service October 24, 2025 Assessment & Plan (1) Diabetic foot ulcer associated with type 2 diabetes mellitus: (2) PAD (peripheral artery disease): (3) Diabetic infection of right foot: (4) Gas gangrene: (5) Necrotizing fasciitis: (6) Cellulitis and abscess of foot: Plan -Notes, imaging, and labs reviewed. -Cultures:final cultures pending -Xrays: 1. Anaerobic infection first toe. No plain radiographic evidence of acute osteomyelitis. 2. Changes of the 1st and 2nd proximal phalanges could reflect chronic osteomyelitis or old trauma. -Infectious disease consulted. Appreciate recommendations -Vascular surgery consulted. Appreciate recommendations. -Dressing: Wound vac changes 3 times a week. betadine to left third digit. -Patient is scheduled for angiogram with vascular team 10/22/25. Will follow findings and appreciate recommendations. -S/P right foot open partial first ray amputation 10/19/25. -S/P right foot repeat debridement and application of wound vac 10/23/25 -Recommend SNF or C for wound vac changes throughout the week once dishcarged. -Continue with Wound Vac dressing changes. Wound vac to be changed by wound care 3 times a week. Wound VAC to be running at 125 mmhg continuously. Appreciate changes. Patient is okay to be discharged from podiatry perspective once medically cleared by all other medical specialities. Patient can follow up with me at [facility], [address] [place] [address], after discharge. Admission and Anticipated Discharge Date Admission Date: October 19, 2025 Subjective Patient is a 75 year old male that is s/p right foot open partial ray amputation 10/19/25 and repeat debridement and application of wound vac 10/23/25. Patient resting in bed comfortably. No new pedal complaints today. Physical Exam Physical Exam: Wound vac and dressing intact to right foot and running continuously at 125 mmhg. Results & Data Results & Data Vital Signs (Past 12 Hours) Vital Signs Temp Pulse Resp BP Pulse Ox O2 Del Method 10/24/25 07:03 36.3 C L 62 16 153/65 H 98 Room Air 10/24/25 03:02 36.5 C 62 16 152/71 H 95 Room Air 10/23/25 23:51 36.6 C 70 18 131/65 96 Room Air (1) Diabetic foot ulcer associated with type 2 diabetes mellitus Diabetic foot ulcer location: toe Laterality: unspecified laterality Non- pressure ulcer stage: unspecified non-pressure ulcer stage Qualified Code(s): E11.621 - Type 2 diabetes mellitus with foot ulcer; L97.509 - Non-pressure chronic ulcer of other part of unspecified foot with unspecified severity
--- NOTE | 2025-10-24 12:10 | Hospitalist Progress Note ---
Date of Service October 24, 2025 Assessment & Plan (1) Necrotizing fasciitis: (2) Gas gangrene: (3) Diabetic infection of right foot: (4) PAD (peripheral artery disease): (5) Alcohol abuse: (6) GERD (gastroesophageal reflux disease): (7) Emphysema, unspecified: Plan per previous attending notes with addendum: 75 yo male with pmhx of CAD, HFpEF (EF 55%), COPD, hx of alcohol use, hx of tobacco use, toe amputations, DM Type 2, PVD, GERD who presents for big toe swelling and pain 2/2 necrotizing fascitis of right first digit. #Septic Shock, resolved #Necrotizing Fasciitis s/p Amputation -now off of pressors -source is anaerobic infection now s/p amputation POD 1 -cultures growing Proteus mirabilis and Bacteroides Plan: -continue ampicillin -will be returning to OR for closure and repeat debridement -f/u culture results -infectious disease consult, appreciate recs 10/23 for OR today as above per ID: If no further surgeries are planned, he will likely go home on IV Unasyn for a total duration of 6 weeks to treat his residual osteomyelitis. 10/24 stable overall post op per Weed Eradicator: -Recommend SNF or [facility] for wound vac changes throughout the week once dishcarged. -Continue with Wound Vac dressing changes. Wound vac to be changed by wound care 3 times a week. Wound VAC to be running at 125 mmhg continuously. Appreciate changes. Patient is okay to be discharged from podiatry perspective once medically cleared by all other medical specialities. Patient can follow up with me at [facility], [address] [place] [address], after discharge. will need total of 6 weeks of Unasyn per ID, day # PICC line ordered #KATI, resolved -resolved s/p fluids #HFpEF (EF 55%) #Pulmonary Edema #CAD -on room air -continue IS #Severe PAD -known in both legs -2/2 uncontrolled diabetes, tobacco use Plan: -vascular studies ordered -vascular surgery consult, appreciate recs - 10/22: s/p Angioplasty Femoral and Popliteal Artery #COPD #Tobacco Use -smokes a pack a day -known emphysema Plan: -duonebs prn -incentive spirometer #DM Type 2 -SSI ordered -needs tight glucose control 140-180 post operatively to allow healing #Alcohol Use Disorder -drinks 3-6 drinks nightly -has never had withdrawal seizures Plan: -AWSS score tracking -diazepam prn for severe withdrawal -continue thiamine, folic acid, multivitamin #Chronic Hyponatremia #KATI -likely 2/2 infection, poor PO intake Plan: -give gentle fluids for KATI MSK: -PT/OT ordered for post operative rehab DVT Prophylaxis: Heparin SC Disposition: will need acute rehab vs SNF Admission and Anticipated Discharge Date Admission Date: October 19, 2025 Subjective seen resting in bed, comfortable states he feels fine overall minimal discomfort over the L foot no chest pain, dyspnea, palpitations, dizziness no other symptoms Review of Systems Review of Systems: all noted and negative except for above Physical Exam Physical Exam: General- oriented x 3, not in distress, speaks in sentences with no effort or accessory muscle use Eyes- anicteric Neck- no JVD Lungs- clear breath sounds bilaterally, no rales/wheezes Heart- normal rate, regular rhythm; no murmurs Abdomen- normal bowel sounds, nondistended, soft, nontender Extremities- RLE: no pretibial edema, no calf tenderness LLE: heavy dressing in place, wound vac in place Neuro- alert, oriented x 3; no gross focal neurologic deficits Skin- warm & dry Results & Data Results & Data Vital Signs (Past 12 Hours) Vital Signs Temp Pulse Resp BP Pulse Ox O2 Del Method 10/24/25 07:03 36.3 C L 62 16 153/65 H 98 Room Air 10/24/25 03:02 36.5 C 62 16 152/71 H 95 Room Air all noted and reviewed including below
[2025-10-25 09:11] LABS: Cdiff Toxin B Gene (2yr or >) Negative Cdiff Gene (Neg)
[2025-10-25] MEDS: ADVANCED PROBIOTIC 625 MG CAPSULE PO SCH (10:22)
--- NOTE | 2025-10-25 20:48 | Hospitalist Progress Note ---
Date of Service October 25, 2025 delayed entry date of service noted above Assessment & Plan (1) Necrotizing fasciitis: (2) Gas gangrene: (3) Diabetic infection of right foot: (4) PAD (peripheral artery disease): (5) Alcohol abuse: (6) GERD (gastroesophageal reflux disease): (7) Emphysema, unspecified: Plan per previous attending notes with addendum: 75 yo male with pmhx of CAD, HFpEF (EF 55%), COPD, hx of alcohol use, hx of tobacco use, toe amputations, DM Type 2, PVD, GERD who presents for big toe swelling and pain 2/2 necrotizing fascitis of right first digit. #Septic Shock, resolved #Necrotizing Fasciitis s/p Amputation -now off of pressors -source is anaerobic infection now s/p amputation POD 1 -cultures growing Proteus mirabilis and Bacteroides Plan: -continue ampicillin -will be returning to OR for closure and repeat debridement -f/u culture results -infectious disease consult, appreciate recs 10/23 for OR today as above per ID: If no further surgeries are planned, he will likely go home on IV Unasyn for a total duration of 6 weeks to treat his residual osteomyelitis. 10/24 stable overall post op per Floor Nurse: -Recommend SNF or [facility] for wound vac changes throughout the week once dishcarged. -Continue with Wound Vac dressing changes. Wound vac to be changed by wound care 3 times a week. Wound VAC to be running at 125 mmhg continuously. Appreciate changes. Patient is okay to be discharged from podiatry perspective once medically cleared by all other medical specialities. Patient can follow up with me at [facility], [address] [place] [address], after discharge. will need total of 6 weeks of Unasyn per ID, day # PICC line ordered 10/25 stable overall continue unasyn day # #KATI, resolved -resolved s/p fluids #HFpEF (EF 55%) #Pulmonary Edema #CAD -on room air -continue IS #Severe PAD -known in both legs -2/2 uncontrolled diabetes, tobacco use Plan: -vascular studies ordered -vascular surgery consult, appreciate recs - 10/22: s/p Angioplasty Femoral and Popliteal Artery #COPD #Tobacco Use -smokes a pack a day -known emphysema Plan: -duonebs prn -incentive spirometer #DM Type 2 -SSI ordered -needs tight glucose control 140-180 post operatively to allow healing #Alcohol Use Disorder -drinks 3-6 drinks nightly -has never had withdrawal seizures Plan: -AWSS score tracking -diazepam prn for severe withdrawal -continue thiamine, folic acid, multivitamin #Chronic Hyponatremia #KATI -likely 2/2 infection, poor PO intake Plan: -given gentle fluids for KATI MSK: -PT/OT ordered for post operative rehab DVT Prophylaxis: Heparin SC Disposition: will need acute rehab vs SNF Admission and Anticipated Discharge Date Admission Date: October 19, 2025 Subjective seen resting in bed, comfortable sitting up in chair in good spirits states he feels fine overall pain well controlled no chest pain, dyspnea, palpitations, dizziness no other symptoms Review of Systems Review of Systems: all noted and negative except for above Physical Exam Physical Exam: General- oriented x 3, not in distress, speaks in sentences with no effort or accessory muscle use Eyes- anicteric Neck- no JVD Lungs- clear breath sounds bilaterally, no rales/wheezes Heart- normal rate, regular rhythm; no murmurs Abdomen- normal bowel sounds, nondistended, soft, nontender Extremities- RLE: (+) heavy dressing with wound vac in place Neuro- alert, oriented x 3; no gross focal neurologic deficits Skin- warm & dry Results & Data Results & Data Vital Signs (Past 12 Hours) Vital Signs Temp Pulse Resp BP Pulse Ox O2 Del Method 10/25/25 14:43 36.5 C 70 16 174/61 H 97 Room Air all noted and reviewed including below
--- NOTE | 2025-10-26 14:57 | Hospitalist Progress Note ---
Date of Service October 26, 2025 Assessment & Plan (1) Necrotizing fasciitis: (2) Gas gangrene: (3) Diabetic infection of right foot: (4) PAD (peripheral artery disease): (5) Alcohol abuse: (6) GERD (gastroesophageal reflux disease): (7) Emphysema, unspecified: Plan per previous attending notes with addendum: 75 yo male with pmhx of CAD, HFpEF (EF 55%), COPD, hx of alcohol use, hx of tobacco use, toe amputations, DM Type 2, PVD, GERD who presents for big toe swelling and pain 2/2 necrotizing fascitis of right first digit. #Septic Shock, resolved #Necrotizing Fasciitis s/p Amputation -now off of pressors -source is anaerobic infection now s/p amputation POD 1 -cultures growing Proteus mirabilis and Bacteroides Plan: -continue ampicillin -will be returning to OR for closure and repeat debridement -f/u culture results -infectious disease consult, appreciate recs 10/23 for OR today as above per ID: If no further surgeries are planned, he will likely go home on IV Unasyn for a total duration of 6 weeks to treat his residual osteomyelitis. 10/24 stable overall post op per Burr Picker: -Recommend SNF or [facility] for wound vac changes throughout the week once dishcarged. -Continue with Wound Vac dressing changes. Wound vac to be changed by wound care 3 times a week. Wound VAC to be running at 125 mmhg continuously. Appreciate changes. Patient is okay to be discharged from podiatry perspective once medically cleared by all other medical specialities. Patient can follow up with me at [facility], [address] [place] [address], after discharge. will need total of 6 weeks of Unasyn per ID, day # PICC line ordered 10/26 stable overall continue unasyn day # PICC line placed #KATI, resolved -resolved s/p fluids #HFpEF (EF 55%) #Pulmonary Edema #CAD -on room air -continue IS #Severe PAD -known in both legs -2/2 uncontrolled diabetes, tobacco use Plan: -vascular studies ordered -vascular surgery consult, appreciate recs - 10/22: s/p Angioplasty Femoral and Popliteal Artery #COPD #Tobacco Use -smokes a pack a day -known emphysema Plan: -duonebs prn -incentive spirometer #DM Type 2 -SSI ordered -needs tight glucose control 140-180 post operatively to allow healing #Alcohol Use Disorder -drinks 3-6 drinks nightly -has never had withdrawal seizures Plan: -AWSS score tracking -diazepam prn for severe withdrawal -continue thiamine, folic acid, multivitamin #Chronic Hyponatremia #KATI -likely 2/2 infection, poor PO intake Plan: -given gentle fluids for KATI MSK: -PT/OT ordered for post operative rehab DVT Prophylaxis: Heparin SC Disposition: will need acute rehab vs SNF Admission and Anticipated Discharge Date Admission Date: October 19, 2025 Subjective seen resting in bed, comfortable states he feels fine overall pain well controlled no new symptoms Review of Systems Review of Systems: all noted and negative except for above Physical Exam Physical Exam: General- oriented x 3, not in distress, speaks in sentences with no effort or accessory muscle use Eyes- anicteric Neck- no JVD Lungs- clear breath sounds bilaterally, no rales/wheezes Heart- normal rate, regular rhythm; no murmurs Abdomen- normal bowel sounds, nondistended, soft, no tenderness Extremities- RLE: dressing in place, wound vac in place, lower leg edema mostly resolved Neuro- alert, oriented x 3; no gross focal neurologic deficits Skin- warm & dry Results & Data Results & Data Vital Signs (Past 12 Hours) Vital Signs Temp Pulse Resp BP Pulse Ox O2 Del Method 10/26/25 07:49 36.7 C 66 18 160/78 H 97 Room Air all noted and reviewed including below
[2025-10-27 06:41] LABS: Hematocrit (blood only) 26.1 % (42.0-52.0); Hemoglobin 9.2 g/dL (14.0-18.0); Immature Granulocytes # (auto) 0.03 K/uL (0.01-0.20); Immature Granulocytes % (auto) 0.4 %; Mean Corpuscular Hemoglobin 33.3 pg (25.0-34.0); Mean Corpuscular Volume 94.6 fL (80.0-100.0); Platelet Count 319 K/uL (130-400); RDW Standard Deviation 42.5 fL (36.4-46.3); Red Blood Count 2.76 M/uL (4.70-6.10); White Blood Count 7.23 K/ul (4.8-10.8)
[2025-10-27 07:10] LABS: Alanine Aminotransferase 11.0 U/L (7-52); Albumin Globulin Ratio 1.0 (0.9-2); Albumin Level 2.5 gm/dl (3.4-5.0); Alkaline Phosphatase 88.0 U/L (34-104); Anion Gap 4.0 (3-11); Bilirubin,Total 0.3 mg/dl (0.2-1.0); Blood Urea Nitrogen 15.0 mg/dl (6-23); Calcium 7.7 mg/dl (8.6-10.3); Carbon Dioxide 24.0 mmol/L (21-32); Chloride 110.0 mmol/L (98-107); Creatinine Clr Calc Pharmacy 76.6 ml/min; Globulin 2.5 gm/dl (2.5-4.0); Glucose 107.0 mg/dl (70-99(Fasting)); Potassium 3.8 mmol/L (3.5-5.1); Sodium 138.0 mmol/L (136-145); Total Protein 5.0 gm/dl (6.0-8.3)
--- NOTE | 2025-10-27 11:55 | Hospitalist Progress Note ---
Date of Service October 27, 2025 Assessment & Plan (1) Necrotizing fasciitis: (2) Gas gangrene: (3) Diabetic infection of right foot: (4) PAD (peripheral artery disease): (5) Alcohol abuse: (6) GERD (gastroesophageal reflux disease): (7) Emphysema, unspecified: Plan per previous attending notes with addendum: 75 yo male with pmhx of CAD, HFpEF (EF 55%), COPD, hx of alcohol use, hx of tobacco use, toe amputations, DM Type 2, PVD, GERD who presents for big toe swelling and pain 2/2 necrotizing fascitis of right first digit. #Septic Shock, resolved #Necrotizing Fasciitis s/p Amputation -now off of pressors -source is anaerobic infection now s/p amputation POD 1 -cultures growing Proteus mirabilis and Bacteroides Plan: -continue ampicillin -will be returning to OR for closure and repeat debridement -f/u culture results -infectious disease consult, appreciate recs 10/23 for OR today as above per ID: If no further surgeries are planned, he will likely go home on IV Unasyn for a total duration of 6 weeks to treat his residual osteomyelitis. 10/24 stable overall post op per Assistant Vice President: -Recommend SNF or [facility] for wound vac changes throughout the week once dishcarged. -Continue with Wound Vac dressing changes. Wound vac to be changed by wound care 3 times a week. Wound VAC to be running at 125 mmhg continuously. Appreciate changes. Patient is okay to be discharged from podiatry perspective once medically cleared by all other medical specialities. Patient can follow up with me at [facility], [address] [place] [address], after discharge. will need total of 6 weeks of Unasyn per ID, day # PICC line ordered 10/27 stable overall continue unasyn day # PICC line in place Heparin SC q12h for DVT prophylaxis #KATI, resolved -resolved s/p fluids #HFpEF (EF 55%) #Pulmonary Edema #CAD -on room air -continue IS #Severe PAD -known in both legs -2/2 uncontrolled diabetes, tobacco use Plan: -vascular studies ordered -vascular surgery consult, appreciate recs - 10/22: s/p Angioplasty Femoral and Popliteal Artery #COPD #Tobacco Use -smokes a pack a day -known emphysema Plan: -duonebs prn -incentive spirometer #DM Type 2 -SSI ordered -needs tight glucose control 140-180 post operatively to allow healing #Alcohol Use Disorder -drinks 3-6 drinks nightly -has never had withdrawal seizures Plan: -AWSS score tracking -diazepam prn for severe withdrawal -continue thiamine, folic acid, multivitamin #Chronic Hyponatremia #KATI -likely 2/2 infection, poor PO intake Plan: -given gentle fluids for KATI MSK: -PT/OT ordered for post operative rehab DVT Prophylaxis: Heparin SC Disposition: will need acute rehab vs SNF Admission and Anticipated Discharge Date Admission Date: October 19, 2025 Subjective seen resting in bed, comfortable in good spirits feels fine overall minimal pain no abdominal pain, nausea no chest pain, dyspnea, palpitations, dizziness no other symptoms Review of Systems Review of Systems: all noted and negative except for above Physical Exam Physical Exam: General- oriented x 3, not in distress, speaks in sentences with no effort or accessory muscle use Eyes- anicteric Neck- no JVD Lungs- clear BS BL Heart- normal rate, regular rhythm; no murmurs Abdomen- normal bowel sounds, nondistended, soft, nontender Extremities- no pretibial edema, no calf tenderness R foot: heavy dressing in place Neuro- alert, oriented x 3; no gross focal neurologic deficits Skin- warm & dry Results & Data Results & Data Vital Signs (Past 12 Hours) Vital Signs Temp Pulse Resp BP Pulse Ox O2 Del Method 10/27/25 07:53 36.6 C 77 18 161/83 H 98 Room Air all noted and reviewed including below
[2025-10-27 22:43] VITALS: TEMP 97.7
[2025-10-28] MEDS: ACETAMINOPHEN 500 MG TAB PO PRN (03:32)
[2025-10-28 08:55] LABS: Folate (Folic Acid),Ser orPlas 17.05 ng/ml (>5.38)
[2025-10-28 08:56] LABS: Vitamin B12 1171.0 pg/ml (180-914)
--- NOTE | 2025-10-28 16:07 | Vascular Surgery Progress Note ---
Date of Service October 28, 2025 Assessment & Plan (1) Diabetic infection of right foot: Plan: He is now PPD 6 s/p RLE angiogram, angioplasty with DCB to distal R SFA and popliteal arteries, with resultant brisk 3 vessel runoff to foot. He continues to have good doppler signal in all 3 vessels on exam at bedside today. In regards to his ongoing foot wound/necrotic tissue, would recommend continued wound care per podiatry, as again, he has doppler signals in all three vessels at this time, including down to the base of the metatarsals. He also has similar lesion in the left leg, and does have gangrene to the left 2nd toe, however as there is no acute infection, this can be addressed at a later date. He will need outpatient follow up with vascular with [facility] and arterial duplex in one month. He is already on 81mg ASA. Would recommend adding statin for optimal medical management. Admission and Anticipated Discharge Date Admission Date: October 19, 2025 Subjective No complaints this morning. Had debridement with VAC placement last week, but VAC is now removed. Still with necrotic appearing skin on foot. He denies any pain in his foot at this time, and no pain in left groin access site. Physical Exam Physical Exam: WDWN, in no distress, sitting up in chair bedside. Right foot dressing in place, clean, dry, intact. left groin dressing C/D/I, groin soft, no hematoma noted + Doppler signal peroneal artery above d ressing, PT artery at ankle, as well as doppler signal down at base between first and second metatarsal. Results & Data Vital Signs (Past 12 Hours) Vital Signs Temp Pulse Resp BP Pulse Ox O2 Del Method 10/28/25 08:30 Room Air 10/28/25 07:41 36.5 C 76 16 153/72 H 96 Room Air Laboratory Results 10/28/25 10/28/25 10/27/25 13:15 07:45 20:21 POC Glucose 185 H 124 H 156 H Iron 65 Vitamin B12 1171 H Folate 17.05 10/27/25 16:49 POC Glucose 94 Iron Vitamin B12 Folate Medications Administered Home Medications Medication Instructions Recorded Confirmed Last Taken multivitamin 1 tab PO DAILY 01/05/21 10/19/25 06/16/25 06:00 aspirin 81 mg tablet,delayed 81 mg PO QAM #30 tabs 02/08/21 10/19/25 06/16/25 12:00 release ibuprofen 200 mg tablet (Advil) 800 mg PO Q8H PRN Pain 02/16/25 10/19/25 06/15/25 12:00 lisinopril 10 mg tablet 20 mg PO QDL 02/16/25 10/19/25 06/16/25 12:00 metformin 500 mg tablet 1,000 mg PO DAILY 02/16/25 10/19/25 06/16/25 12:00 docusate sodium 100 mg tablet 100 mg PO DAILY 05/24/25 10/19/25 06/16/25 12:00 oxycodone-acetaminophen 5 mg-325 1 tab PO Q6H PRN pain #10 tabs 06/17/25 10/19/25 Unknown mg tablet (Percocet) Active Medications Generic Name Dose Route Start Last Admin Trade Name Freq PRN Reason Stop Dose Admin Acetaminophen 1,000 mg 10/27/25 11:56 10/28/25 03:32 Acetaminophen 500 Mg Tab PO 11/18/25 21:59 1,000 mg Q8 PRN Administration pain/fever Amlodipine Besylate 5 mg 10/27/25 09:00 10/28/25 08:20 Amlodipine Besylate 5 Mg Tab PO 11/26/25 08:59 5 mg QAM BRIGETTE Administration Diazepam 5 mg 10/19/25 15:49 10/20/25 21:02 Diazepam 5 Mg Tablet PO 11/18/25 15:48 5 mg UD PRN Administration AWSS 6 & Above Protocol Heparin Sodium (Beef Lung) 5 ml 10/25/25 13:38 10/28/25 03:30 Heparin 10 Unit/Ml 5 Ml Flush FLUSH 11/24/25 13:37 5 ml PRN PRN Administration Flush Heparin Sodium (Porcine) 5,000 units 10/19/25 21:00 10/28/25 08:29 Heparin Sod 5,000 Unit/0.5 Ml Vial SQ 11/18/25 20:59 5,000 units Q12 BRIGETTE Administration Hydromorphone HCl 0.5 mg 10/20/25 10:10 10/27/25 20:29 Hydromorphone Inj 0.5 Mg/0.5 Ml Syr IV 11/03/25 10:09 0.5 mg Q3HWA PRN Administration Breakthrough Pain Insulin Aspart 0 units 10/23/25 21:00 10/28/25 14:09 Insulin Aspart Per Unit Charge SC 11/22/25 00:00 7 units ACHS BRIGETTE Administration Lactobacillus Acidophilus 1,250 mg 10/25/25 09:00 10/28/25 08:20 Advanced Probiotic 625 Mg Capsule PO 11/24/25 08:59 1,250 mg DAILY BRIGETTE Administration Multivitamins 1 tab 10/20/25 09:00 10/28/25 08:20 Multivitamin Tab PO 11/19/25 08:59 1 tab QAM BRIGETTE Administration Oxycodone HCl 5 mg 10/20/25 10:10 10/26/25 19:33 Oxycodone Hcl Ir 5 Mg Tab (Immediate Release) PO 11/03/25 10:09 5 mg Q3HWA PRN Administration Severe Pain (Scale 7, 8, 9,10) Thiamine HCl 100 mg 10/20/25 09:00 10/28/25 08:20 Thiamine Hcl 100 Mg Tab PO 11/19/25 08:59 100 mg QAM BRIGETTE Administration PG Care Time/CCT Total # of Minutes Spent Total Time Spent with Patient: Total time spent is greater than 50% in coordination of care (as documented) at patient's floor/unit and/or counseling patient:
--- NOTE | 2025-10-28 16:35 | Hospitalist Progress Note ---
Date of Service October 28, 2025 Assessment & Plan (1) Necrotizing fasciitis: (2) Gas gangrene: (3) Diabetic infection of right foot: (4) PAD (peripheral artery disease): (5) Alcohol abuse: (6) GERD (gastroesophageal reflux disease): (7) Emphysema, unspecified: Plan per previous attending notes with addendum: 75 yo male with pmhx of CAD, HFpEF (EF 55%), COPD, hx of alcohol use, hx of tobacco use, toe amputations, DM Type 2, PVD, GERD who presents for big toe swelling and pain 2/2 necrotizing fascitis of right first digit. #Septic Shock, resolved #Necrotizing Fasciitis s/p Amputation -now off of pressors -source is anaerobic infection now s/p amputation POD 1 -cultures growing Proteus mirabilis and Bacteroides Plan: -continue ampicillin -will be returning to OR for closure and repeat debridement -f/u culture results -infectious disease consult, appreciate recs 10/23 for OR today as above per ID: If no further surgeries are planned, he will likely go home on IV Unasyn for a total duration of 6 weeks to treat his residual osteomyelitis. 10/24 stable overall post op per Acid Retort Operator: -Recommend SNF or [facility] for wound vac changes throughout the week once dishcarged. -Continue with Wound Vac dressing changes. Wound vac to be changed by wound care 3 times a week. Wound VAC to be running at 125 mmhg continuously. Appreciate changes. Patient is okay to be discharged from podiatry perspective once medically cleared by all other medical specialities. Patient can follow up with me at [facility], [address] [place] [address], after discharge. will need total of 6 weeks of Unasyn per ID, day # PICC line ordered 10/27 stable overall continue unasyn day # PICC line in place Heparin SC q12h for DVT prophylaxis 10/28 Wound Care photo of wound reviewed discussed with Dr. Figueroa-> recommended to have Vascular surgery evaluate the patient discussed with Dr. Drew who re-evaluated the patient--> maximally revascularized at this point continue daily wound care continue Unasyn day # #KATI, resolved -resolved s/p fluids #HFpEF (EF 55%) #Pulmonary Edema #CAD -on room air -continue IS #Severe PAD -known in both legs -2/2 uncontrolled diabetes, tobacco use Plan: -vascular studies ordered -vascular surgery consult, appreciate recs - 10/22: s/p Angioplasty Femoral and Popliteal Artery #COPD #Tobacco Use -smokes a pack a day -known emphysema Plan: -duonebs prn -incentive spirometer #DM Type 2 -SSI ordered -needs tight glucose control 140-180 post operatively to allow healing #Alcohol Use Disorder -drinks 3-6 drinks nightly -has never had withdrawal seizures Plan: -AWSS score tracking -diazepam prn for severe withdrawal -continue thiamine, folic acid, multivitamin #Chronic Hyponatremia #KATI -likely 2/2 infection, poor PO intake Plan: -given gentle fluids for KATI MSK: -PT/OT ordered for post operative rehab DVT Prophylaxis: Heparin SC Disposition: will need acute rehab vs SNF Admission and Anticipated Discharge Date Admission Date: October 19, 2025 Subjective resting in chair, comfortable states he feels fine overall minimal pain over R foot no chest pain, dyspnea, palpitations, dizziness no other symptoms Review of Systems Review of Systems: all noted and negative except for above Physical Exam Physical Exam: General- oriented x 3, not in distress, speaks in sentences with no effort or accessory muscle use Eyes- anicteric Neck- no JVD Lungs- clear BS BL Heart- normal rate, regular rhythm; no murmurs Abdomen- normal bowel sounds, nondistended, soft, nontender Extremities- no pretibial edema, no calf tenderness R foot: dressing in place Neuro- alert, oriented x 3; no gross focal neurologic deficits Skin- warm & dry Results & Data Results & Data Vital Signs (Past 12 Hours) Vital Signs Temp Pulse Resp BP Pulse Ox O2 Del Method 10/28/25 16:22 36.5 C 83 17 148/68 H 98 Room Air 10/28/25 08:30 Room Air 10/28/25 07:41 36.5 C 76 16 153/72 H 96 Room Air all noted and reviewed including below
[2025-10-28] MEDS: AMPICILLIN/SULBACTAM SOD 3,000 MG/100 ML BAG IV SCH (17:44)
[2025-10-28 20:46] VITALS: RESP 18
[2025-10-29 07:57] VITALS: O2SAT 97
--- NOTE | 2025-10-29 15:12 | Discharge Summary ---
Discharge Summary Date of Service October 29, 2025 Principal Dx & Hospital Course #1 = Principal Diagnosis (1) Necrotizing fasciitis: (2) Gas gangrene: (3) Diabetic infection of right foot: (4) PAD (peripheral artery disease): (5) Alcohol abuse: (6) GERD (gastroesophageal reflux disease): (7) Emphysema, unspecified: Plan per previous attending notes with addendum: 75 yo male with pmhx of CAD, HFpEF (EF 55%), COPD, hx of alcohol use, hx of tobacco use, toe amputations, DM Type 2, PVD, GERD who presents for big toe swelling and pain 2/2 necrotizing fascitis of right first digit. #Septic Shock, resolved #Necrotizing Fasciitis s/p Amputation - required vasopressors in the ICU -cultures growing Proteus mirabilis and Bacteroides, Streptococcus, [place] 10/19 Right foot open partial first ray amputation - 10/22: s/p Angioplasty Femoral and Popliteal Artery 10/23 s/p Right Repeat Foot Debridement, Delayed Primary Closure, Application of Wound Vac per ID: If no further surgeries are planned, he will likely go home on IV Unasyn for a total duration of 6 weeks to treat his residual osteomyelitis. 10/24 stable overall post op -Recommend SNF or [facility] for wound vac changes throughout the week once dishcarged. Patient can follow up with me at [facility], [address] [place] [address], after discharge. 10/28 Wound Vac removed Wound Care photo of wound reviewed discussed with Dr. Figueroa-> recommended to have Vascular surgery evaluate the patient discussed with Dr. Drew who re-evaluated the patient--> maximally revascularized at this point continue daily wound care 10/29 continue daily wound care per discharge instructions Wound Care Instructions: Apply Betadine 4x4's, ABD and Kerlix to right foot wounds Follow up with [facility] Site So[facility] Evalu[facility] Dr. Patrice Jolly in 1 week. Please call his office to set up appointment continue Unasyn day # Heparin SC q12h for DVT prophylaxis #KATI, resolved -resolved s/p fluids #HFpEF (EF 55%) #Pulmonary Edema #CAD -on room air -continue IS #Severe PAD -known in both legs -2/2 uncontrolled diabetes, tobacco use Plan: -vascular studies ordered -vascular surgery consult, appreciate recs - 10/22: s/p Angioplasty Femoral and Popliteal Artery - follow up with Dr. Chacho Drew in 1 month - start Simvastatin 20mg daily, increase as tolerated, monitor LFT's - continue Aspirin #Abnormal CT abdomen findings IMPRESSION: 1. Diffuse atherosclerosis. Small focal dissection at the infrarenal abdominal aorta without significant aortic luminal narrowing. 2. Mild narrowing proximally at the left SFA. 3. Small postoperative seroma versus subcutaneous abscess right inguinal region. 4. Otherwise as described. Further work up, management, and ff up as outpatient #COPD #Tobacco Use -smokes a pack a day -known emphysema Plan: -duonebs prn -incentive spirometer #DM Type 2 -SSI ordered -needs tight glucose control 140-180 post operatively to allow healing #Alcohol Use Disorder -drinks 3-6 drinks nightly -has never had withdrawal seizures Plan: -AWSS score tracking -diazepam prn for severe withdrawal -continue thiamine, folic acid, multivitamin #Chronic Hyponatremia #KATI -likely 2/2 infection, poor PO intake Plan: -given gentle fluids for KATI MSK: -PT/OT ordered for post operative rehab DVT Prophylaxis: Heparin SC Disposition: d/c to SNF Notes For Next Care Provider Medication Changes From Visit as per med rec Admission HPI Per Admitting Provider 75 yo male with pmhx of CAD, HFpEF (EF 55%) COPD, hx of alcohol use, hx of tobacco use, toe amputations, DM Type 2, PVD, GERD who presents for big toe swelling and pain. Has had severe surgical admissions this year for an inguinal hernia. In the ED, xray not read but my personal read shows gas on the first digit, sepsis criteria met, given cefepime and flagyl, admitted to medicine for further workup. Patient seen and examined at bedside. Patient not doing well today. Toe began swelling and getting necrotic a few days ago, today pain and swelling got substantially worse and he came to the ED. Noticed black spot on Tuesday on right toe, and has gotten substantially worse since then. Right now having chills, very cold extremities. Some SOB as well as we have been giving fluids. Denies chest pain. Current tobacco use, 3 alcohol drinks at least per day, denies drug use, last meal around lunchtime, full code discussed with patient. Admission Exam Per Admitting Provider Gen: A&O 3 severe rigors HEENT: NCAT, EOMI, not icteric. External ears normal. No rhinorrhea. Moist mucous membranes. Neck: Supple, full range of motion, no observable masses, No meningeal sign. Lungs: crackles/rhonchi bilaterally CV: RRR, no edema. Abdomen: Soft, nondistended, No rebound tenderness. MSK: both toes with necrotic tissue, right first digit purulent necrosis, very tender to palpation Skin: No rashes, petechiae, lesions. Normal color per patient. Neuro: Normal Gait, Grossly intact. Psych: Appropriate for situation. Discharge Exam General- oriented x 3, not in distress, speaks in sentences with no effort or accessory muscle use Eyes- anicteric Neck- no JVD Lungs- clear BS BL Heart- normal rate, regular rhythm; no murmurs Abdomen- normal bowel sounds, nondistended, soft, nontender Extremities- no pretibial edema, no calf tenderness R foot: (+) open wound with some granulation tissue and black areas, no active discharge or bleeding Neuro- alert, oriented x 3; no gross focal neurologic deficits Skin- warm & dry Updated Medication List Medication Instructions Recorded Confirmed Type multivitamin 1 tab PO DAILY 01/05/21 10/19/25 History aspirin 81 mg tablet,delayed 81 mg PO QAM #30 tabs 02/08/21 10/19/25 Rx release ibuprofen 200 mg tablet (Advil) 800 mg PO Q8H PRN Pain 02/16/25 10/19/25 History lisinopril 10 mg tablet 20 mg PO QDL 02/16/25 10/19/25 History metformin 500 mg tablet 1,000 mg PO DAILY 02/16/25 10/19/25 History docusate sodium 100 mg tablet 100 mg PO DAILY 05/24/25 10/19/25 History oxycodone-acetaminophen 5 mg-325 1 tab PO Q6H PRN pain #10 tabs 06/17/25 10/19/25 Rx mg tablet (Percocet) L.acidop,casei,lactis,rham-B.lact,nai 1 cap PO DAILY 35 days #35 caps 10/29/25 Rx 625 mg (10 billion cell) capsule (Advanced Probiotic) acetaminophen 500 mg tablet 1,000 mg (2 x 500 mg) PO Q8 PRN 10/29/25 Rx (Tylenol Extra Strength) fever or pain 30 days #30 tabs ampicillin-sulbactam 3 gram 3 g IV Q6H 33 days #132 ea 10/29/25 Rx solution for injection heparin, porcine (PF) 5,000 5,000 unit (0.5 mL) subcut Q12 35 10/29/25 Rx unit/0.5 mL injection syringe days #35 mL multivitamin with folic acid 400 1 tab PO QAM 35 days #35 tabs 10/29/25 Rx mcg tablet (Daily-Angelina (with folic acid)) simvastatin 20 mg tablet 20 mg PO DAILY #30 tabs 10/29/25 Rx thiamine HCl (vitamin B1) 100 mg 100 mg PO QAM 35 days #35 tabs 10/29/25 Rx tablet Hospital Stay Data Consultations 10/19/25 14:05 Consult Podiatry Routine 10/19/25 14:10 ED Decision to Admit Stat 10/19/25 15:41 Consult Vascular Surgery Routine 10/19/25 15:46 Consult Infectious Diseases Routine 10/19/25 18:23 Consult Foundation Digger Routine Procedures Performed Operation Date: 10/23/25 07:00 Actual Procedures p Right Repeat Foot Debridement, Delayed Primary Closure, Application of Wound Vac(Right) - Patrice Jolly DPM Diagnostic Imagining Performed Laboratory Results WBC 7.23 K/ul (4.8-10.8) 10/27/25 06:02 RBC 2.76 M/uL (4.70-6.10) L 10/27/25 06:02 Hgb 9.2 g/dL (14.0-18.0) L 10/27/25 06:02 Hct 26.1 % (42.0-52.0) L 10/27/25 06:02 MCV 94.6 fL (80.0-100.0) 10/27/25 06:02 MCH 33.3 pg (25.0-34.0) 10/27/25 06:02 MCHC 35.2 g/dL (32.0-36.0) 10/27/25 06:02 RDW Std Deviation 42.5 fL (36.4-46.3) 10/27/25 06:02 RDW Coeff of Mateusz 12.4 % (11.5-14.5) 10/27/25 06:02 Plt Count 319 K/uL (130-400) 10/27/25 06:02 MPV 9.4 fL (9.4-12.4) 10/27/25 06:02 Immature Gran % (Auto) 0.4 % 10/27/25 06:02 Neut % (Auto) 70.6 % 10/27/25 06:02 Lymph % (Auto) 18.9 % 10/27/25 06:02 [place] % (Auto) 6.9 % 10/27/25 06:02 Eos % (Auto) 2.4 % 10/27/25 06:02 Baso % (Auto) 0.8 % 10/27/25 06:02 Neut # (Auto) 5.10 K/uL (1.40-6.50) 10/27/25 06:02 Lymph # (Auto) 1.37 K/uL (1.20-3.40) 10/27/25 06:02 [place] # (Auto) 0.50 K/uL (0.11-0.59) 10/27/25 06:02 Eos # (Auto) 0.17 K/uL (0.00-0.50) 10/27/25 06:02 Baso # (Auto) 0.06 K/uL (0.00-0.20) 10/27/25 06:02 Immature Gran # (Auto) 0.03 K/uL (0.01-0.20) 10/27/25 06:02 RBC Morphology Unremarkable 10/20/25 08:55 ESR 81 mm/hr (0-20) H 10/19/25 13:16 PT 11.5 Seconds (9.0-12.0) 10/22/25 05:32 INR 1.1 (0.9-1.1) 10/22/25 05:32 Activ Coag Time Kaolin 181 SECONDS (94-140) H 10/22/25 15:54 Sodium 138 mmol/L (136-145) 10/27/25 06:02 Potassium 3.8 mmol/L (3.5-5.1) 10/27/25 06:02 Chloride 110 mmol/L (98-107) H 10/27/25 06:02 Carbon Dioxide 24 mmol/L (21-32) 10/27/25 06:02 Anion Gap 4 (3-11) 10/27/25 06:02 BUN 15 mg/dl (6-23) 10/27/25 06:02 Creatinine 0.86 mg/dl (0.6-1.4) 10/27/25 06:02 Est Cr Clr Drug Dosing 76.6 ml/min 10/27/25 06:02 eGFR 89.18 10/27/25 06:02 BUN/Creatinine Ratio 17.4 (10-20) 10/27/25 06:02 Glucose 107 mg/dl (70-99(Fasting)) H 10/27/25 06:02 POC Glucose 127 mg/dl (70-99) H 10/29/25 11:42 Estimat Average Glucose 146 mg/dl 10/19/25 18:47 Hemoglobin A1c 6.7 % (4.5-5.6) H 10/19/25 18:47 Lactate 0.7 mmol/L (0.4-2.0) 10/19/25 13:16 Calcium 7.7 mg/dl (8.6-10.3) L 10/27/25 06:02 Phosphorus 3.4 mg/dl (2.5-4.9) D 10/21/25 05:56 Magnesium 1.8 mg/dl (1.7-2.4) 10/21/25 05:56 Iron 65 mcg/dl (35-175) 10/28/25 07:45 Total Bilirubin 0.3 mg/dl (0.2-1.0) 10/27/25 06:02 Direct Bilirubin 0.1 mg/dl (0-0.2) 10/19/25 13:16 AST 17 U/L (13-39) 10/27/25 06:02 ALT 11 U/L (7-52) 10/27/25 06:02 Alkaline Phosphatase 88 U/L (34-104) 10/27/25 06:02 Total Creatine Kinase 345 U/L (30-223) H 10/19/25 18:47 Troponin I High Sens 17.5 pg/ml (0-20) 10/19/25 13:16 C-Reactive Protein 14.18 mg/dl (0-0.5) H 10/19/25 13:16 Total Protein 5.0 gm/dl (6.0-8.3) L 10/27/25 06:02 Albumin 2.5 gm/dl (3.4-5.0) L 10/27/25 06:02 Globulin 2.5 gm/dl (2.5-4.0) 10/27/25 06:02 Albumin/Globulin Ratio 1.0 (0.9-2) 10/27/25 06:02 Triglycerides 103 mg/dl (0-150) 10/19/25 18:47 Cholesterol 93 mg/dl (0-200) 10/19/25 18:47 LDL Cholesterol, Calc 49 mg/dl 10/19/25 18:47 VLDL Cholesterol, Calc 21 mg/dl (0-30) 10/19/25 18:47 HDL Cholesterol 23 mg/dl 10/19/25 18:47 Cholesterol/HDL Ratio 4.0 (0-5) 10/19/25 18:47 Vitamin B12 1171 pg/ml (180-914) H 10/28/25 07:45 Folate 17.05 ng/ml (>5.38) 10/28/25 07:45 Procalcitonin 0.27 ng/ml (0-0.5) 10/19/25 13:16 Random Cortisol 23.63 mcg/dl 10/19/25 18:47 Cortisol AM Sample 4.59 mcg/dl (6.2-22.6) L 10/20/25 07:27 Urine Color Yellow 10/19/25 Unknown Urine Appearance Cloudy (Clear) A 10/19/25 Unknown Urine pH 5.0 (4.5-7.5) 10/19/25 Unknown Ur Specific [place] 1.027 (1.000-1.030) 10/19/25 Unknown Urine Protein 2+ (Negative) H 10/19/25 Unknown Urine Glucose (UA) Negative (Negative) 10/19/25 Unknown Urine Ketones Trace (Negative) H 10/19/25 Unknown Urine Blood 2+ (Negative) H 10/19/25 Unknown Urine Nitrite Negative (Negative) 10/19/25 Unknown Urine Bilirubin Negative (Negative) 10/19/25 Unknown Urine Urobilinogen Negative (Negative) 10/19/25 Unknown Ur Leukocyte Esterase Negative (Negative) 10/19/25 Unknown Urine WBC (Auto) 6-10 /hpf (0-5) H 10/19/25 Unknown Urine RBC (Auto) >20 /hpf (0-2) H 10/19/25 Unknown U Hyaline Cast (Auto) 6-10 /lpf (0-2) H 10/19/25 Unknown U Epithel Cells (Auto) 6-10 /hpf (0-2) H 10/19/25 Unknown Urine Bacteria (Auto) None Seen (None Seen) 10/19/25 Unknown Ur Renal Epithelial Cell Present /lpf (None Presnt) A 10/19/25 Unknown Amorphous Sediment Present (None Prsent) A 10/19/25 Unknown Urine Comment 10/19/25 Unknown Nasal Screen MRSA (PCR) Negative (Negative) 10/19/25 Unknown Stl C. diff Tox B Gene Negative Cdiff Gene (Neg) 10/25/25 07:30 Stl C. diff [id number] NEGATIVE 10/25/25 07:30 Blood Type A Negative 10/19/25 14:33 Antibody Screen NEGATIVE 10/19/25 14:33 Impressions Chest X-Ray 10/19/25 13:06 EXAM: Radiograph of the Chest 1 View INDICATION: Sepsis TECHNIQUE: Frontal view of the chest. COMPARISON: 02/07/2021 FINDINGS: Lungs and pleural spaces: Pulmonary vascular congestion noted. Small bilateral pleural effusions present right greater than left. No pneumothorax. No confluent consolidation. Heart: Shape and configuration within normal limits allowing for technique. Mediastinum: Normal contour. Bones/joints: No fracture, erosion or dislocation. Soft tissues: No abnormality noted. No radiopaque foreign body noted. Upper abdomen: No abnormality noted. IMPRESSION: Mild pulmonary vascular congestion and small pleural effusions. ACT 112: N/A Electronically signed by Shala Womack 10-19-2025 2:15 PM Foot X-Ray 10/19/25 13:06 EXAM: Radiographs of the Right Foot Complete 3 Views INDICATION: Gangrene TECHNIQUE: Frontal, lateral and oblique views of the right foot. COMPARISON: No relevant prior studies available. FINDINGS: Bones/joints: The bones are generally demineralized. There is diffuse narrowing of the interphalangeal joints. There is rim sclerotic focus of lucency in the lateral aspect of the distal first proximal phalanx. Possible small erosion base of the first proximal phalanx. There is mild trabecular thickening of the shafts of the 1st and 2nd proximal phalanges. Soft tissues: Mild soft tissue gas along the entire first toe with diffuse soft tissue swelling. No radiopaque foreign body. Atherosclerotic calcification noted. IMPRESSION: 1. Anaerobic infection first toe. No plain radiographic evidence of acute osteomyelitis. 2. Changes of the 1st and 2nd proximal phalanges could reflect chronic osteomyelitis or old trauma. ACT 112: N/A Electronically signed by Shala Womack 10-19-2025 2:24 PM Abdomen/Pelvis CTA 10/21/25 09:11 CT angio abd pelvis wo/w con CLINICAL HISTORY: right foot infection, plan for angiogram COMPARISON STUDY: 01/15/2023 FINDINGS: There are very small bilateral pleural effusions with mild adjacent lung base atelectasis. ABDOMEN: Liver, spleen, and adrenal glands are unremarkable. There are a few small cystic findings at the pancreas measuring up to 1.2 cm, stable. Kidneys show no hydronephrosis bilaterally. Pelvis: Soriano catheter is present. Urinary bladder is decompressed. Prostate is enlarged. There is an interval 4 cm oval fluid collection in the subcutaneous soft tissues of the right groin, postoperative seroma versus abscess. There is moderate retained stool. No bowel inflammation or obstruction. There is trace low pelvic free fluid. No free air seen. There is lumbar degenerative disc disease. Vascular findings: There is diffuse atherosclerotic plaque. There is a small focal dissection at the infrarenal abdominal aorta just below the renal arteries. No abdominal aortic aneurysm. No significant aortic luminal narrowing. Mesenteric and renal arteries are patent. Bilateral common, internal, and external iliac and bilateral common femoral arteries show no significant narrowing. There is mild narrowing proximally at the left superficial femoral artery. Visualized arterial outflow shows no other significant narrowing. IMPRESSION: 1. Diffuse atherosclerosis. Small focal dissection at the infrarenal abdominal aorta without significant aortic luminal narrowing. 2. Mild narrowing proximally at the left SFA. 3. Small postoperative seroma versus subcutaneous abscess right inguinal region. 4. Otherwise as described. ACT 112: Negative or not required by law. Electronically signed by: Edward Rivera M.D. 10/21/2025 1:51 PM 10/21/25 09:11 CT angio abd pelvis wo/w con Routine 10/22/25 06:27 CL Cath Imgs for PACS use only Routine Discharge Instructions Given to Patient (Per Discharging Provider) Wound Care Instructions: Apply Betadine 4x4's, ABD and Kerlix to right foot wounds Follow up with [employer] Site So[facility] Evaluator Dr. Patrice Jolly in 1 week. Please call his office to set up appointment. Contact information outlined above. Continue Unasyn IV to complete 42 day course. Please refer to accompanying Discharge Summary. Total Time Total Time Spent Total Time Spent (In Minutes): 60 minutes
[2025-10-29 15:55] VITALS: BP 153/73; PULSE 57
== END 2025-10-29 16:36 | DRG 853 ==
LOC: ED 12:36 → SUATTDRO 14:28 → OR 15:40 → 1E 15:41 → OR 15:55 → 2E 10-20 22:17 → 3N 10-22 17:07
PROC: CLB.AEB (2025-10-22 13:00)